=== PATIENT | female | born 2005 | race Caucasian/White ===

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

== ENCOUNTER 2023-11-10 19:28 | Emergency (ER) | payer SELFPAY ==
[2023-11-10 19:34] VITALS: BP 117/72; PULSE 107; RESP 16; TEMP 37.4; O2SAT 100
--- NOTE | 2023-11-10 19:49 | ED.LOWEXIN ---
HPI - Extremity Injury (Lower) General Chief Complaint: Extremity Injury, Lower Stated Complaint: Injured Right Knee Time Seen by Provider: 11/10/23 19:41 Source: patient, RN notes reviewed and old records reviewed Mode of arrival: ambulatory Limitations: no limitations History of Present Illness HPI Narrative: 18-year-old female to [facility] for complaint of right knee pain for 5 days. Patient endorses history of patellar dislocation to right knee approximately 1 year ago. Patient states she was treated by physical therapy at that time and had resolution of symptoms. Patient reports increased activity lately including walking, running, tennis. Patient denies known injury and believes that increase in recent activity caused the issue. patient denies numbness, tingling, weakness. Patient does endorse severe pain with flexion right knee. Patient in no acute distress in exam room. Related Data Home Medications Medication Instructions Recorded Confirmed No Home Medications 11/10/23 11/10/23 Allergies Allergy/AdvReac Type Severity Reaction Status Date / Time No Known Allergies Allergy Verified 11/10/23 19:49 Review of Systems Review of Systems: All systems reviewed & are unremarkable except as noted in HPI and below Constitutional: Constitutional: Reports no additional constitutional complaints Eyes: Eyes: Reports no additional eye complaints ENT: Reports system reviewed and no additional complaints, except as documented Cardiovascular: Cardiovascular: Reports no additional cardiovascular complaints, Denies chest pain and Denies dyspnea Respiratory: Respiratory: Reports no additional respiratory complaints, Denies cough and Denies dyspnea Musculoskeletal: Musculoskeletal: Reports as per HPI, Denies deformity, Reports arthralgias, Reports limited range of motion, Denies muscle weakness, Denies numbness and Denies tingling Neurologic: Reports system reviewed and no additional complaints, except as documented Psychiatric: Psychiatric: Reports no additional psychiatric complaints PMFSH Comments At the time of my signature, I reviewed and agree with the nursing past medical, surgical, social, and family history. There is no relevant family history pertinent to the patient complaint. Exam Const: General: cooperative, healthy appearing, no acute distress, alert, uncomfortable and well nourished Nutritional Appearance: well nourished Orientation/consciousness: patient oriented x3 Limitations: no limitations HENMT: Head: normal to inspection Ears: external ears normal Face/Nose/Sinus: Normal external nose present, Normal nares present, normal facial exam, No erythema and No edema Face and sinus: normal facial exam, no erythema and no edema Mouth: Yes Normal oral and palatal mucosa present Eyes: General: appearance normal, both eyes and all related structures Neck: Neck: normal visual inspection, full ROM and no meningeal signs Lymphatic: no lymphadenopathy noted and no lymphedema noted Chest: Chest palpation & inspection: normal inspection of the chest Resp: Effort & Inspection: normal respiratory effort and able to speak in complete sentences Auscultation: clear to auscultation bilaterally Cardio: Jugular venous distension: no JVD Rate: regular rate Rhythm: regular rhythm Back/Spine/Pelvis: Cervical Spine: cervical ROM normal Skin: General skin exam: normal color, no rashes or lesions noted and turgor normal Neuro: General: patient oriented x3, gait normal, moves all extremities and no meningeal signs Speech: normal speech Gait exam (Neuro): Normal gait present Extrem: General: normal to inspection, full ROM, capillary refill normal, no joint enlargement noted, no clubbing, cyanosis or edema, no pedal edema, no calf tenderness, no cyanosis, no edema, not dysmorphic and Limp noted Right lower extremity: knee Details: tenderness, knee ligament exam abnormal Details: pain with axial loading, Hazel
== END 2023-11-10 19:53 | disposition home or self-care (01) ==
PROVIDERS: Emergency Provider Nurse Practitioner Family
DX: S83.91XA Sprain of unspecified site of right knee, initial encounter (principal); X58.XXXA Exposure to other specified factors, initial encounter
CPT/HCPCS: 99212; G0463

== ENCOUNTER 2024-05-31 18:51 | Emergency (ER) | payer OTHER, MEDICAID, SELFPAY ==
--- NOTE | ~2024-05-31 | CT_ITS ---
EXAMINATION: CT abdomen pelvis w con DATE: 05/31/2024 21:46 INDICATION: LLQ abdominal pain TECHNIQUE: Computed tomography (CT) of the abdomen and pelvis was performed with 100 mL Omnipaque-350 intravenous contrast. Automated exposure control and iterative reconstruction technique were employe d. The dose-length product was 180.08 mGy-cm. COMPARISON: None. FINDINGS: Lower thorax: Unremarkable Liver: Normal. Biliary/Gallbladder: Gallbladder is normal. No bile duct dilation. Pancreas: No mass or duct dilation. Spleen: Normal. Adrenals:No mass. Kidneys: No suspicious mass, obstructing stone, or hydronephrosis. GI tract: Moderate distal esophageal and gastric wall edema. Prominent mildly thickened jejunal folds . No small or large bowel dilation. Normal appendix. Mesentery/Peritoneum: No ascites, mass, or free air. Retroperitoneum: No mass. Pelvis: Normal uterus and bilateral ovaries. IUD, in normal position. Prominent bilateral gonadal vei ns, right greater than left. Prominent pelvic veins. Soft Tissues: Soft tissues and body wall unremarkable. Bones: No acute osseous finding. Limbus vertebra at L4. Mild lumbar scoliosis. IMPRESSION: Moderate esophagitis/gastritis. Mildly thickened jejunal folds, may represent enteritis. Prominent bilateral gonadal veins and pelvic veins, as could be seen with pelvic congestion syndrome, in the appropriate clinical context. Reviewed, dictated and finalized at location K. R FINISHER IMPRESSION: Moderate esophagitis/gastritis. Mildly thickened jejunal folds, may represent enteritis. Prominent bilateral gonadal veins and pelvic veins, as could be seen with pelvi c congestion syndrome, in the appropriate clinical context.
[2024-05-31 18:52] VITALS: BP 132/72; PULSE 101; RESP 20; TEMP 36.4; O2SAT 100
[2024-05-31 19:25] LABS: BEDSIDEPREGUCG Negative (Negative)
--- NOTE | 2024-05-31 19:27 | PC.NURSE ---
While starting IV patient states she feels faint. Patient informed to lay on stretcher. Patients mother is at bedside. RN sent labs at this time.
[2024-05-31 19:32] LABS: Basophils Percent Auto 0.5 % (0.2-1.2); Eosinophils Absolute Auto 0.1 K/mm3 (0-0.3); Eosinophils Percent Auto 1.5 % (0-4.4); Hematocrit 40.9 % (37.0-47.0); Hemoglobin 13.9 g/dL (12.0-15.0); Immature Granulocyte Absolute 0.02 K/mm3 (0.00-0.031); Immature Granulocyte Percent A 0.2 % (0-0.5); Lymphocytes Absolute Auto 2.21 K/mm3 (0.9-3.2); Lymphocytes Percent Auto 26.1 % (18.3-44.2); Mean Corpuscular Volume 91.1 fl (80-100); Mean Platelet Volume 8.5 fl (7.4-10.4); Monocytes Absolute Auto 0.6 K/mm3 (0.1-0.6); Monocytes Percent Auto 6.8 % (2.6-8.5); Neutrophils Absolute Auto 5.5 K/mm3 (1.3-6.7); Neutrophils Percent Auto 64.9 % (45.5-73.1); Platelet Count Result 244 k/mm3 (150-375); Red Blood Count 4.49 M/mm3 (4.2-5.4); Red Cell Distribution Width 11.7 % (11.5-14.5); White Blood Count 8.5 K/mm3 (4.5-10.0)
[2024-05-31 19:49] LABS: Alanine Aminotransferase 12 U/L (6-35); Albumin Level 4.8 g/dL (3.5-5.1); Alkaline Phosphatase 53 U/L (38-126); Anion Gap 6 mmol/L (4-12); Aspartate Amino Transferase 21 U/L (14-36); Bilirubin,Total 0.8 mg/dL (0.2-1.3); Blood Urea Nitrogen 17 mg/dL (7-17); Calcium 9.4 mg/dL (8.4-10.2); Carbon Dioxide 27 mmol/L (22-30); Chloride 106 mmol/L (98-107); Estimated CRCL calculation 99 ml/min; Estimated Glomerular Filt Rate > 60; Glucose 107 mg/dL (65-110); Lipase 65 U/L (23-300); Potassium 3.7 mmol/L (3.4-5.0); Sodium 139 mmol/L (137-145)
[2024-05-31 19:57] LABS: Add Urine Microscopic? YES; Appearance Urine Clear (Clear); Bacteria Urine None Seen /hpf; Bilirubin Urine Negative (Negative); Blood Urine 2+ (Negative); Color Urine Yellow (Yellow); Glucose Urine UA Negative (Negative); Ketones Urine Negative (Negative); Leukocyte Esterase Ur 1+ LEU/UL (Negative); Mucus Urine Present /lpf; Need Manual Microscopic Reviewed; Nitrate Urine Negative (Negative); Non Pathogenic Casts 0-2; Protein Urine Negative (Negative); Specific Grav Ur 1.023 (1.001-1.035); Squamous Epithelial Cell Urine Occasional /hpf (Few); WBC Urine 0-5 /hpf (0-3); pH Urine 6.5 (5.0-9.0)
[2024-05-31 20:51] LABS: Beta HCG Quantitative < 2.39 mIU/ML
[2024-05-31] MEDS: SODIUM CHLORIDE 0.9% IV 1,000 ML 999 ML IV CONT (21:34)
[2024-05-31] MEDS: KETOROLAC 15 MG/ML VIAL (*BKC) IV PUSH (21:34)
[2024-05-31] MEDS: MORPHINE SULFATE (*CRX) 4 MG/ML INJ IV PUSH (21:35)
[2024-05-31] MEDS: ONDANSETRON INJ 4 MG/2 ML VIAL IV PUSH (21:35)
--- NOTE | 2024-05-31 21:39 | PC.NURSE ---
patient to radiology at this time.
--- NOTE | 2024-05-31 21:49 | ED_ITS ---
HPI - Abdominal Pain General Chief Complaint: Abdominal Pain Stated Complaint: abd pain, + test Time Seen by Provider: 05/31/24 19:13 History of Present Illness HPI narrative: Patient is a 18-year-old female who presents to the ER with complaints left lower quadrant abdominal pain. She reports she took a test at home that was positive, but has taken multiple tests since and all of them have been negative. Patient reports she had an IUD placed approximately 1 year ago. She endorses nausea and back pain. Patient describes the pain as squeezing. She also endorses vaginal spotting of dark blood. Patient denies any history of ovarian cyst. She reports the pain started off higher up in her abdomen but has now settled in her left lower quadrant. She denies any recent fevers, burning with urination, or vomiting. Related Data Allergies Allergy/AdvReac Type Severity Reaction Status Date / Time No Known Allergies Allergy Verified 11/10/23 19:49 Review of Systems 2 Review of Systems: All systems reviewed & are unremarkable except as noted in HPI and below Exam 2 Narrative: GENERAL: Well appearing, well-nourished, non-toxic, in no acute distress. HEAD: Normocephalic, atraumatic. NECK: Supple. No adenopathy, no masses. RESPIRATORY: Airway patent, respirations nonlabored. Clear to auscultation bilaterally, no rales, rhonchi, wheezing. CARDIOVASCULAR: Regular rate and rhythm without murmurs, rubs, or gallops. Peripheral pulses 2+ and equal bilaterally. ABDOMINAL: Soft, tender with palpation in LLQ, nondistended, no hepatosplenomegaly. Normoactive BS. MUSCULOSKELETAL: Moves all extremities. Strength/ROM intact without gross deformities. SKIN: Warm, dry, normal color. No rashes. NEURO: A&O X3. Speech clear. Cranial nerves II-XII grossly intact. Steady gait. No ataxic movements. PSYCHIATRIC: Appropriate mood and affect. Normal interaction. Course Vital Signs Vital signs: Vital Signs Temperature 36.4 C L 05/31/24 18:52 Pulse Rate 101 H 05/31/24 18:52 Respiratory Rate 20 05/31/24 18:52 Blood Pressure 132/72 05/31/24 18:52 Pulse Oximetry 100 05/31/24 18:52 Oxygen Delivery Room Air 12/15/24 18:52 Temperature 36.4 C L 05/31/24 18:52 Pulse Rate 101 H 05/31/24 18:52 Respiratory Rate 20 05/31/24 18:52 Blood Pressure 132/72 05/31/24 18:52 Pulse Oximetry 100 05/31/24 18:52 Oxygen Delivery Room Air 05/31/24 18:52 MDM - Abdominal Pain MDM Narrative Medical decision making narrative: Patient is a 18-year-old female who presents to the ER with complaints left lower quadrant abdominal pain. She reports she took a test at home that was positive, but has taken multiple tests since and all of them have been negative. Patient reports she had an IUD placed approximately 1 year ago. She endorses nausea and back pain. Patient describes the pain as squeezing. She also endorses vaginal spotting of dark blood. Patient denies any history of ovarian cyst. She reports the pain started off higher up in her abdomen but has now settled in her left lower quadrant. She denies any recent fevers, burning with urination, or vomiting. Labs Ordered: CBC, CMP, urinalysis, beta HCG, lipase Imaging Ordered: Abdomen/Pelvis CT scan Results: Pt's abdominal CT scan indicates Moderate esophagitis/gastritis. Mildly thickened jejunal folds, may represent enteritis. Prominent bilateral gonadal veins and pelvic veins, as could be seen with pelvic congestion syndrome, in the appropriate clinical context. Diagnosis: Urinary tract infection, viral gastroenteritis, pelvic congestion syndrome Patient Education/Shared MDM: Initially patient was not wanting to a CT scan done because she reports she has a high deductible. It was explained to patient and her mother that it would be difficult to diagnose the cause of her abdominal pain thought that imaging. Patient verbalized agreement with plan and CT scan was performed. Results shared patient. She reports her pain has improved after medication administration. Patient will be given an oral antibiotic to treat her UTI, Zofran for nausea, Bentyl for abdominal pain. She was advised to drink a lot of water and follow up with her primary care provider as soon as possible. Patient and her mother verbalized understanding and are in agreement with plan. Differential Diagnosis Differential diagnosis: Likely abdominal pain, acute appendicitis, calculus of kidney, constipation, endometriosis, gastroenteritis and other (UTI) Lab Data Attestation: I reviewed the patient's lab results. 05/31/24 19:24 05/31/24 19:24 Labs: Lab Results 05/31/24 05/31/24 Range/Units 19:23 19:24 WBC 8.5 (4.5-10.0) K/mm3 RBC 4.49 (4.2-5.4) M/mm3 Hgb 13.9 (12.0-15.0) g/dL Hct 40.9 (37.0-47.0) % MCV 91.1 (80-100) fl MCH 31.0 (26-34) pg MCHC 34.0 (32-36) g/dl RDW 11.7 (11.5-14.5) % Plt Count 244 (150-375) k/mm3 MPV 8.5 (7.4-10.4) fl Immature Gran % (Auto) 0.2 (0-0.5) % Neut % (Auto) 64.9 (45.5-73.1) % Lymph % (Auto) 26.1 (18.3-44.2) % [place] % (Auto) 6.8 (2.6-8.5) % Eos % (Auto) 1.5 (0-4.4) % Baso % (Auto) 0.5 (0.2-1.2) % Lymph # (Auto) 2.21 (0.9-3.2) K/mm3 [place] # (Auto) 0.6 (0.1-0.6) K/mm3 Eos # (Auto) 0.1 (0-0.3) K/mm3 Baso # (Auto) 0.0 (0.0-0.1) K/mm3 Abs Immat Gran (auto) 0.02 (0.00-0.031) K/mm3 Absolute Neuts (auto) 5.5 (1.3-6.7) K/mm3 Absolute Nucleated RBC 0.000 (0.0-0.012) K/mm3 Nucleated RBC % 0.0 (0.0-0.2) % Sodium 139 (137-145) mmol/L Potassium 3.7 (3.4-5.0) mmol/L Chloride 106 (98-107) mmol/L Carbon Dioxide 27 (22-30) mmol/L Anion Gap 6 (4-12) mmol/L BUN 17 (7-17) mg/dL Creatinine 0.60 L (0.7-1.0) mg/dL Estim Creat Clear Calc 99 ml/min Estimated GFR > 60 (59 - ) Glucose 107 (65-110) mg/dL Calcium 9.4 (8.4-10.2) mg/dL Total Bilirubin 0.8 (0.2-1.3) mg/dL AST 21 (14-36) U/L ALT 12 (6-35) U/L Alkaline Phosphatase 53 (38-126) U/L Total Protein 8.0 (6.3-8.2) g/dL Albumin 4.8 (3.5-5.1) g/dL Lipase 65 (23-300) U/L Beta HCG, Quant < 2.39 mIU/ML Urine Color Yellow (Yellow) Urine Appearance Clear (Clear) Urine pH 6.5 (5.0-9.0) Ur Specific [place] 1.023 (1.001-1.035) Urine Protein Negative (Negative) mg/dL Urine Glucose (UA) Negative (Negative) mg/dL Urine Ketones Negative (Negative) mg/dL Ur Blood (Man) 2+ H (Negative) Urine Nitrate Negative (Negative) Urine Bilirubin Negative (Negative) Urine Urobilinogen 1.0 (<2.0) mg/dL Add Ur Microanalysis Reviewed Leukocyte Esterase Rfl 1+ H (Negative) TOYIN/UL Urine RBC 3-5 H (0-2) /hpf Urine WBC 0-5 (0-3) /hpf Ur Squamous Epith Cells Occasional (Few) /hpf Urine Bacteria None seen /hpf Urine Casts 0-2 Urine Mucus Present /lpf POC Urine HCG, Qual Negative (Negative) Imaging Data Attestation: I personally reviewed and interpreted this imaging study as follows: Radiologist's impression: ITS Impressions Abdomen/Pelvis CT 05/31/24 21:49 IMPRESSION: Moderate esophagitis/gastritis. Mildly thickened jejunal folds, may represent enteritis. Prominent bilateral gonadal veins and pelvic veins, as could be seen with pelvic congestion syndrome, in the appropriate clinical context. Discharge Plan Discharge Clinical Impression: Urinary tract infection, Gastroenteritis and colitis, viral, Pelvic congestion syndrome Patient Disposition: Home, Self-Care Condition: Stable Instructions: Antibiotic Form, Gastroenteritis (ED), Pelvic Pain in Women (ED), Abdominal Pain (ED) Patient Language: Malay Prescriptions: New ondansetron 4 mg tablet,disintegrating 4 mg PO Q8H Qty: 10 0RF nitrofurantoin monohyd/m-cryst [Macrobid] 100 mg capsule 100 mg PO Q12H 5 Days Qty: 10 0RF Rx Instructions: must administer with a meal/food dicyclomine 10 mg capsule 10 mg PO QID Qty: 14 0RF phenazopyridine [Pyridium] 100 mg tablet 100 mg PO TID PRN (Reason: pain) Qty: 6 0RF Follow-up/Referrals: Mars,JAZ Walls [Primary Care Provider] - Time of Disposition: 00:22
--- NOTE | 2024-05-31 22:46 | PC.NURSE ---
patient given 1 cup of water for PO challenge.
--- NOTE | 2024-05-31 23:11 | PC.NURSE ---
patient tolerated water well.
[2024-06-01] MEDS: NITROFURANTOIN MONOHYD MACROCR 100 MG CAP PO (00:36)
--- OUTSIDE RECORDS SUMMARY | 2024-06-05 20:55 | XMS_ITS | Encounter Summary ---
Author Organization [facility] Address [address] [place] [address]. [place] [address] Care Team Providers Care Automatic Hemmer Name Role Phone Nan Crews Primary Care Provider [phone] Encounter Details Date Type Department Care Team (Latest Contact Info) Description 03/03/2024 Travel Social History Tobacco Use Types Packs/Day Years Used Date Smoking Tobacco: Every Day Smokeless Tobacco: Never Comments:Provider to extension course counselor /vaps only Alcohol Use Standard Drinks/Week Comments Yes 0 (1 standard drink = 0.6 oz pur e alcohol) social AUDIT-C Answer Date Recorded Q1: How often do you have a drink containing alc ohol? Monthly or less 10/03/2023 Q2: How many drinks containi ng alcohol do you have on a typical day when you are drinking? 1 or 2 10/03/2023 Q3: How often do you have si x or more drinks on one occasion? Never 10/03/2023 PHQ-2 Answer Date Recorded Patient Health Questionnaire-2 Score 0 03/03/2024 Comments No Sex and Gender Information Value Date Recorded Sex Assigned at Not on file Legal Sex Female 8:07 AM CDT Gender Identity Not on file Sexual Orientation Not on file documented as of this encounter Plan of Treatment Not on file documented as of this encounter Visit Diagnoses Not on filedocumented in this encounter Additional Health Concerns Assessment Noted Time PHQ-9 Depression Total Score: 8 10/03/19 24 9:04 AM CDT documented as of this encounter Care Teams Automatic Hemmer Relationship Specialty Start Date End Date Nan Crews FNP PCP - General NURSE PRACTITIONER 04/24/18 documented as of this encounter
--- OUTSIDE RECORDS SUMMARY | 2024-06-05 20:55 | XMS_ITS | Encounter Summary ---
Author Organization [facility] Address [address] [place] [address]. [place], [place] [id number] [place] [id number] Care Team Providers Care Senior Reservations Agent Name Role Phone MarsJessyNandaisy HARLEYP Primary Care Provider [phone] Reason for Referral * Imaging (Routine) - New Request Specialty Diagnoses / Procedures Referred By Chad lynn Referred To Contact RADIOLOGY Diagnoses Mass of upper outer quadrant of left breast Breast pain, left Procedures US BREAST LT BIRAD LTD Anitha Mendoza FNP-BC [address] [place] [address] [place] [address] Phone: tel: fax: Referral ID Status Reason Start Date Expiration Date V isits Requested Visits Authorized [id number] New Request 03/10/2024 03/10/2025 1 1 Encounter Details Date Type Department Care Team (Late st Contact Info) Description 03/10/2024 Orders Only [facility] [address] [place] [address] Anitha Mendoza FNP-BC [address] [place] [address] [place] [address] Social History Tobacco Use Types Packs/Day Years Used Date Smoking Tobacco: Every Day Smokeless Tobacco: Never Comments:Provider to scholarship counselor /vaps only Alcohol Use Standard Drinks/Week [...] on file documented as of this encounter Progress Notes * Vikki Osullivan LPN - 03/10/2024 9:08 AM CDT Please advise ad to where patient is supposed to be scheduled for Mammogram & US. We attempted to contact patient but was not able to reach her [facility] Please cancel the External order and place new Internal orders to [facility] so patient can be scheduled accordingly. Thank You, Lady New orders added for HFG. documented in this encounter Plan of Treatment Scheduled Orders Name Type Priority Associated Diagnoses Orde r Schedule MG DIAGNOSTIC LT DIGI MAMMO Routine Mass of upper outer quadrant of left breast Breast pain, left Expected: 03/10/2024, Expires: 05/10/2025 US BREAST LT BIRAD LTD Ultrasound Routine Mass of upper outer quadrant of left breast Breast pain, left Expected: 03/10/2024, Expires: 03/10/2025 documented as of this encounter Visit Diagnoses Diagnosis Mass of upper outer quadrant of left breast- Primary Breast pain, left Mastodynia documented in this encounter Additional Health Concerns Assessment Noted Time PHQ-9 Depression Total Score: 8 10/03/19 9:04 AM CDT documented as of this encounter Care Teams Senior Reservations Agent Relationship Specialty Start Date End Date Nan Crews FNP PCP - General NURSE PRACTITIONER 04/24/18 documented as of this encounter
--- OUTSIDE RECORDS SUMMARY | 2024-06-05 20:55 | XMS_ITS | Encounter Summary ---
Author Organization [facility] Address [address] [place] [address]. [place] [address] Care Team Providers Care Machine Tool Builder Name Role Phone Nan Crews Primary Care Provider [phone] Encounter Details Date Type Department Care Team (Latest Contact Info) Description 10/03/2023 Travel Social History Tobacco Use Types Packs/Day Years Used Date Smoking Tobacco: Every Day Smokeless Tobacco: Never Comments:Provider to group therapy counselor /vaps only Alcohol Use Standard Drinks/Week [...] Date Recorded Patient Health Questionnaire-2 Score 0 10/03/2023 Comments No Sex and Gender Information Value [...] documented as of this encounter Care Teams Machine Tool Builder Relationship Specialty Start Date End Date Nan Crews FNP PCP - General NURSE PRACTITIONER 04/24/18 documented as of this encounter
--- OUTSIDE RECORDS SUMMARY | 2024-06-05 20:55 | XMS_ITS | Encounter Summary ---
Author Organization [facility] Address [address] [place] [address]. [place], [place] [address] [place] [address] Care Team Providers Care Cell Reliner Name Role Phone Nan Crews HARDWARE SALES ASSISTANT Primary Care Provider [phone] Reason for Visit * Reason Comments Mammogram (SCAN) Encounter Details Date Type Department Care Team ([facility] Contact Info) Description 03/17/2024 Scan MG HEALTH INFO [facility] Scanned, Doc Med Group Mammogram (SCAN) Social History Tobacco Use Types Packs/Day Years Used Date Smoking Tobacco: Every Day Smokeless Tobacco: Never Comments:Provider to milieu counselor /vaps only Alcohol Use Standard Drinks/Week [...] on file documented as of this encounter Procedures Procedure Name Priority Date/Time Associated Diagnosis Comments MAMMOGRAM GENERIC (SCAN ORDER) 03/17/2024 documented in this encounter Results * MAMMOGRAM GENERIC (SCAN ORDER) (03/17/2024) Anatomical Region Laterality Modality Other 03/17/2024 us Doc Med Group Scanned SCANNING Final Resu lt documented in this encounter Visit Diagnoses Not on filedocumented in this encounter Additional Health Concerns Assessment Noted Time PHQ-9 Depression Total Score: 8 10/03/19 24 9:04 AM CDT documented as of this encounter Care Teams Cell Reliner Relationship Specialty Start Date End Date Nan Crews FNP PCP - General NURSE PRACTITIONER 04/24/18 documented as of this encounter
--- OUTSIDE RECORDS SUMMARY | 2024-06-05 20:55 | XMS_ITS | Encounter Summary ---
Author Organization [facility] Address [address] [place] [address]. [place], [place] [id number] [place] [address] Care Team Providers Care Tracing Lathe Set Up Operator Name Role Phone Nan Crews SNUFF CONTAINER INSPECTOR Primary Care Provider [phone] Reason for Visit * Reason Onset Date Comments Lab Results 09/10/2023 Encounter Details Date Type Department Care Team (Late st Contact Info) Description 09/10/2023 Telephone [facility] Family and Internal Medicine - [place] [address] [place], [place] [address] Ethel Haddad, EDUCATION COORDINATOR [address] [place], [place] [id number] Lab Results Social History Tobacco Use Types Packs/Day Years Used Date Smoking Tobacco: Every Day Smokeless Tobacco: Never Comments:Provider to debt management counselor /vaps only Alcohol Use Standard Drinks/Week Comments Yes 0 (1 standard drink = 0.6 oz pur e alcohol) social AUDIT-C Answer Date Recorded Q1: How often do you have a drink containing alc ohol? Monthly or less 09/05/2023 Q2: How many drinks containi ng alcohol do you have on a typical day when you are drinking? 1 or 2 09/05/2023 Q3: How often do you have si x or more drinks on one occasion? Never 09/05/2023 PHQ-2 Answer Date Recorded Patient Health Questionnaire-2 Score 6 09/05/2023 Comments No Sex and Gender Information Value Date Recorded Sex Assigned at Not on file Legal Sex Female 8:07 AM CDT Gender Identity Not on file Sexual Orientation Not on file documented as of this encounter Progress Notes * Natalya Peter LPN - 09/10/2023 1:16 PM CDTSummary: lab results Called and gave patient her lab results. They were all normal and she did not have questions about them. Natalya Peter LPN documented in this encounter Plan of Treatment Not on file documented as of this encounter Visit Diagnoses Not on filedocumented in this encounter Additional Health Concerns Assessment Noted Time PHQ-9 Depression Total Score: 25 024 8:35 AM CDT documented as of this encounter Care Teams Tracing Lathe Set Up Operator Relationship Specialty Start Date End Date Nan Crews FNP PCP - General NURSE PRACTITIONER 04/24/18 documented as of this encounter
--- OUTSIDE RECORDS SUMMARY | 2024-06-05 20:55 | XMS_ITS | Encounter Summary ---
Author Organization [facility] Address [address] [place] [address]. [place], [place] [id number] [place] [address] Care Team Providers Care Assistant Professor Name Role Phone Mars Nan Neely [facility] Primary Care Provider [phone] Reason for Visit * Reason Onset Date Comments Mammography Order 03/09/2024 Encounter Details Date Type Department Care Team (Late st Contact Info) Description 03/09/2024 Telephone [facility] [address] [place], [place] [id number] Anitha Mendoza V, [place] [address] [place], [place] [id number] Mammography Order Social History Tobacco Use Types Packs/Day Years Used Date Smoking Tobacco: Every Day Smokeless Tobacco: Never Comments:Provider to behavioral school counselors /vaps only Alcohol Use Standard Drinks/Week Comments [...] as of this encounter Progress Notes * Kiersten Hernandez - 03/09/2024 2:53 PM CDT Sent orders for MG diagnostinc mammogram and US Breast to [facility] fax [phone]. Per patient, orders faxed. documented in this encounter Plan of Treatment Not on file documented as of this encounter Visit Diagnoses Not on filedocumented in this encounter Additional Health Concerns Assessment Noted Time PHQ-9 Depression Total Score: 8 10/03/19 24 9:04 AM CDT documented as of this encounter Care Teams Assistant Professor Relationship Specialty Start Date End Date Nan Crews FNP PCP - General NURSE PRACTITIONER 04/24/18 documented as of this encounter
--- OUTSIDE RECORDS SUMMARY | 2024-06-05 20:55 | XMS_ITS | Encounter Summary ---
Author Organization [facility] Address [address] [place] [address]. [place], [place] [id number] [place] [address] Care Team Providers Care Core Maker Helper Name Role Phone Nan Crews HECTOR Primary Care Provider [phone] Reason for Visit * Reason Onset Date Comments Medication Problem 09/30/2023 Encounter Details Date Type Department Care Team (Late st Contact Info) Description 09/30/2023 Telephone [facility] - [place] [address] [place], [place] [id number] Ethel Haddad, PRODUCT DEVELOPMENT DIRECTOR [address] [place], [place] [address] Medication Problem Social History Tobacco Use Types Packs/Day Years Used Date Smoking Tobacco: Every Day Smokeless Tobacco: Never Comments:Provider to credit support counselor /vaps only Alcohol Use Standard Drinks/Week [...] Progress Notes * Natalya Peter LPN - 09/30/2023 10:45 AM CDTSummary: Medication problem Patient stated she has been having some side effects from the cariprazine and stopped the medication on 09/21. She stated she was nauseated, feeling like she was light headed and going to pass out,trouble swallowing, and a metallic taste in her mouth. Since stopping the medication everything except trouble swallowing and bad taste has gone away. She has an appt on 10/02 but just wanted you to be aware. Natalya Peter LPN documented in this encounter Plan of Treatment Not on file documented as of this encounter Visit Diagnoses Not on filedocumented in this encounter Additional Health Concerns Assessment Noted Time PHQ-9 Depression Total Score: 25 09/04/ 024 8:35 AM CDT documented as of this encounter Care Teams Core Maker Helper Relationship Specialty Start Date End Date Nan Crews FNP PCP - General NURSE PRACTITIONER 04/24/18 documented as of this encounter
--- OUTSIDE RECORDS SUMMARY | 2024-06-05 20:55 | XMS_ITS | Encounter Summary ---
Author Organization [facility] Address [address] [place] [address]. [place], [place] [address] [place] [address] Care Team Providers Care Thread Trimmer Name Role Phone Mars Nan Neely [facility] Primary Care Provider [phone] Reason for Visit * Reason Onset Date Comments Results 03/18/2024 Mammo breast US left LTD Encounter Details Date Type Department Care Team (Late st Contact Info) Description 03/18/2024 Telephone [place] [address] [address] Anitha Mendoza V, [place] [address] [place], [place] [phone] Results (Mammo breast US left LTD) Social History Tobacco Use Types Packs/Day Years Used Date Smoking Tobacco: Every Day Smokeless Tobacco: Never Comments:Provider to genetic counselor /vaps only Alcohol Use Standard Drinks/Week [...] Progress Notes * Vikki Osullivan LPN - 03/18/2024 1:33 PM CDT [facility] faxed over pt's Mammo breast US left ltd for Jo to review. Per Jo please let pt know normal mammo and US of left breast. Pt notified of results. Pt said she only did the US. documented in this encounter Plan of Treatment Not on file documented as of this encounter Visit Diagnoses Not on filedocumented in this encounter Additional Health Concerns Assessment Noted Time PHQ-9 Depression Total Score: 8 10/03/19 24 9:04 AM CDT documented as of this encounter Care Teams Thread Trimmer Relationship Specialty Start Date End Date Nan Crews FNP PCP - General NURSE PRACTITIONER 04/24/18 documented as of this encounter
--- OUTSIDE RECORDS SUMMARY | 2024-06-05 20:55 | XMS_ITS | Clinical Summary ---
Author Organization [facility] Address [address] [place] [address]. [place], [place] [address] [place] [address] Care Team Providers Care Field Reviewer Name Role Phone Nan Crwes HECTOR Primary Care Provider [phone] Allergies No known active allergies Medications * This document contains information received from the source organization and may not represent a complete record from that organization. Cholecalciferol (VITAMIN D-3) 25 MCG (1000 UT) CapIndications: Vitamin D deficiency Take 1 capsule by mouth daily. 90 capsule 1 3 Active Additional Information Patient not taking.Reported on 03/03/2024 brexpiprazole (REXULTI) 0.5 MG tabletIndicatio ns:Bipolar 2 disorder ([facility]) Take 1 tablet (0.5 mg total) by mouth daily. 30 tablet 2 4 Active Additional Information Patient not taking.Reported on 03/03/2024 Active Problems Problem Noted Date Diagnosed Date MDD (major depressive disord er), recurrent episode, moderate ([facility]) 09/05/2023 NICOLETTE (generalized anxiety disorder) 09/05/2023 PTSD (post-traumatic stress disorder) 03/21/2023 Borderline personality disorder ([facility] ) 07/13/2022 Dysmenorrhea in adolescent 12/09/2018 Increased frequency of urination 07/20/2010 Intermittent daytime urinary incontinence 2010 Resolved Problems Problem Noted Date Diagnosed Date Resolved Date Bipolar disorder ([facility]) 07/13/2022 09/05/2023 Abnormal urinalysis 07/07/2020 07/12/19 23 Bipolar affective disorder, currently depressed, mild ([facility]) 07/30/20182022 Anxiety 07/30/2018 07/13/2022 Encounters Date Type Department Care Team Description 06/04/[address] [place] [address] Nan Crews, HECTOR Abdominal Pain 03/18/[address] [place] [address] Anitha Mendoza V, OFFICE LEAD-BC Results (Mammo breast US left LTD) 03/17/2024 Scan [facility] Scanned, [facility] Mammogram (SCAN) 03/10/2024 Orders Only [address] [place] [address] Anitha Mendoza V, OFFICE LEAD-BC 03/09/[address] [place] [address] Anitha Mendoza V, OFFICE LEAD-BC Mammography Order from Last 3 Months Immunizations Name Administration Dates Next Due Dtap 12/26/2007,01/19/2005 Hib 03/03/2004,2003,2003 Hib (Generic) 03/03/2004,2003,2003 Influenza (Generic) 05/04/2010,03/30/2010 MENINGOCOCCAL A C Y&W-135 ol igosaccharide (MENVEO) 11/22/2020 MMR 08/29/2004 Menactra 12/28/2014 Pediarix 03/03/2004,2003,2003 Pneumococcal (Prevnar 7) 03/03/2004,2003,0 2003 Polio IPV (Ipol) 12/26/2007 Tdap (Generic) 12/28/2014 Varicella Vaccine 01/19/2005 Varicella/MMR (Proquad) 12/26/2007 Family History Medical History Relation Comments Anxiety Father Depression Maternal Grandmother Mental Health Mother Hx of post-partu m depression Anxiety Paternal Grandfather Relation Status Comments Father Alive Maternal Grandmother Mother Alive Paternal Grandfather Social History Tobacco Use Types Packs/Day Years Used Date Smoking Tobacco: Every Day Smokeless Tobacco: Never Tobacco Cessation:Ready to Q uit: No; Counseling Given: Yes Comments:Provider to career technical counselor /vaps only Alcohol Use Standard Drinks/Week [...] on file Sexual Orientation Not on file Last Filed Vital Signs Vital Sign Reading Time Taken Comments Blood Pressure 128/72 03/03/2024 2:53 PM CDT Pulse 82 03/03/2024 2:53 PM CDT Temperature 36.7 ??C (98 ??F) 03/03/2024 2:53 PM CDT Respiratory Rate 16 03/03/2024 2:53 PM CDT Oxygen Saturation 100% 10/03/2023 9:05 AM CDT Inhaled Oxygen Concentration - - Weight 47.2 kg (104 lb) 03/03/2024 2:53 PM CDT Height 165.1 cm (5' 5 ) 03/03/2024 2:53 PM CDT Body Mass Index 17.31 03/03/2024 2:53 PM CDT Plan of Treatment Health Maintenance Due Date Last Done Comments Annual Physical 2006 Pneumococcal Vaccine: Pediatrics (0 to 5 Years) and At-Risk Patients (6 to 64 Years) (1 of 2 - PCV) 2009 03/03/2004, 2003, 2003 HPV Vaccines (1 - 3-dose series) 2018 Chlamydia Screening Females ages 16-24 2019 Hepatitis C 2021 COVID-19 Vaccine ( - season) 2024 Influenza Adult (#1) 2024 05/04/2010, 03/30/20 10 DTaP, Tdap and Td Vaccines (7 - Td or Tdap) 12/28/2024 12/28/2014, 12/26/2007, 01/19/2005, Additional history exists Hepatitis B Vaccines Completed 03/03/2004, 2003, 2003 Meningococcal Vaccine Completed 11/22/2020, 015 RSV Immunizations Under 20 Months Aged Out No longer eligible based on patient's age to complete this topic Procedures Procedure Name Priority Date/Time Associated Diagnosis Comments MAMMOGRAM GENERIC (SCAN ORDER) 03/17/2024 from Last 3 Months Results * MAMMOGRAM GENERIC (SCAN ORDER) (03/17/2024) Anatomical Region Laterality Modality Other 03/17/2024 us Doc [facility] Scanned SCANNING Final Resu lt from Last 3 Months Insurance Care Teams Field Reviewer Relationship Specialty Start Date End Date Nan Crews FNP PCP - General NURSE PRACTITIONER 04/24/18
--- OUTSIDE RECORDS SUMMARY | 2024-06-05 20:55 | XMS_ITS | Encounter Summary ---
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 personally spent a total of 33 minutes on the day of the encounter. This includes asho-yd-ddju and gof-titd-lc-face time I provided on the day of the encounter & excludes time spent performing separately reportable services. Disclaimer: Some dictation of this note was transcribed using voice-recognition software.This may cause typographical errors occasionally. Although all effort is made to fix these errors, please do not hesitate to contact our office if there is any concern with the understanding of this note. ETHEL HADDAD APRN 10/03/2023 9:44 AM CC: HECTOR MONIQUE documented in this encounter Plan of Treatment Not on file documented as of this encounter Visit Diagnoses Diagnosis NICOLETTE (generalized anxiety disorder) Generalized anxiety disorder Bipolar 2 disorder ([facility]) Other bipolar disorders Borderline personality disorder ([facility]) Borderline personality disorder PTSD (post-traumatic stress disorder) Posttraumatic stress disorder documented in this encounter Additional Health Concerns Assessment Noted Time PHQ-9 Depression Total Score: 8 10/03/19 24 9:04 AM CDT documented as of this encounter Care Teams Supervisor Stone Relationship Specialty Start Date End Date Nan Crews FNP PCP - General NURSE PRACTITIONER 04/24/18 documented as of this encounter
--- OUTSIDE RECORDS SUMMARY | 2024-06-05 20:55 | XMS_ITS | Encounter Summary ---
Author Organization [facility] Address [address] [place] [address]. [place], [place] [id number] [place] [address] Care Team Providers Care Box Sorter Name Role Phone Nan Crews Chin [facility] Primary Care Provider [phone] Reason for Visit * Reason Comments Breathing Problem Something feels june rd and hurts in left breastFirst noticed about a week ago Encounter Details Date Type Department Care Team (Late st Contact Info) Description 03/03/2024 2:40 PM CDT Office Visit [address] [place] [address] Anitha Mendoza V, [place] [address] [place] [address] Breathing Problem (Something feels weird and hurts in left breast/First noticed about a week ago) Social History Tobacco Use Types Packs/Day Years Used Date Smoking Tobacco: Every Day Smokeless Tobacco: Never Tobacco Cessation:Ready to Q uit: No; Counseling Given: Yes Comments:Provider to weight loss counselor /vaps only Alcohol Use Standard Drinks/Week [...] 16 03/03/2024 2:53 PM CDT Oxygen Saturation - - Inhaled Oxygen Concentration - - Weight 47.2 kg (104 lb) 03/03/2024 2:53 PM CDT Height 165.1 cm (5' 5 ) 03/03/2024 2:53 PM CDT Body Mass Index 17.31 03/03/2024 2:53 PM CDT documented in this encounter Patient Instructions * Patient Instructions* SANDIE Walters - 03/03/2024 2:40 PM CDT Order for diagnostic mammogram and ultrasound of left breast. We will notify you once we get your test results. You should perform monthly self breast exams documented in this encounter Progress Notes * SANDIE Walters - 03/03/2024 2:40 PM CDT Reason for Visit: Breathing Problem (Something feels weird and hurts in left breast/First noticed about a week ago) History of Present Illness: HPI 18-year-old female, patient of Amina Crews, presents for a lump in her left breast that she first noticed about 1 week ago. States that the lump feels weird and hurts . She does not do routine breast exams. She denies any swelling or nipple discharge. She denies any family history of breast cancer or cervical cancers. Reports her sister has fibrous breast tissue as well as her grandmother. Patient reports she has an IUD and does not have periods ROS: ROS Except as noted in HPI, 10 point review of systems was completed and otherwise unremarkable or noncontributory to chief complaint. Medications: Current Outpatient Medications Medication Sig Dispense Refill brexpiprazole (REXULTI) 0.5 MG tablet Take 1 tablet (0.5 mg total) by mouth daily. (Patient not taking: Reported on 03/03/2024) 30 tablet 2 Cholecalciferol (VITAMIN D-3) 25 MCG (1000 UT) Cap Take 1 capsule by mouth daily. (Patient not taking: Reported on 03/03/2024) 90 capsule 1 No current facility-administered medications for this visit. Review of patient's allergies indicates: No Known Allergies Past Medical History: Diagnosis Date Abnormal urinalysis 07/07/2020 Anxiety Depression Past Surgical History: Procedure Laterality Date BLADDER SURGERY Social History Tobacco Use Smoking status: Every Day Smokeless tobacco: Never Tobacco comments: Provider to weight loss counselor /vaps only Vaping Use Vaping status: Every Day Substances: Nicotine Devices: Refillable tank Substance Use Topics Alcohol use: Yes Comment: social Drug use: No Comment: no Family History Problem Relation Name Age of Onset Mental Health Mother Hx of post- depression Anxiety Father Depression Maternal Grandmother Anxiety Paternal Grandfather Family Status Relation Name Status Mother Alive Father Alive MGM (Not Specified) PGF (Not Specified) No partnership data on file Physical Exam: Physical Exam Vitals and nursing note reviewed. Constitutional: General: She is not in acute distress. Appearance: Normal appearance. She is well-developed and normal weight. She is not ill-appearing, toxic-appearing or diaphoretic. HENT: Head: Normocephalic and atraumatic. Mouth/Throat: Oropharynx is clear and moist. Eyes: General: Right eye: No discharge. Left eye: No discharge. Extraocular Movements: Extraocular movements intact. Conjunctiva/sclera: Conjunctivae normal. Pupils: Pupils are equal, round, and reactive to light. Neck: Thyroid: No thyromegaly. Vascular: No JVD. Trachea: No tracheal deviation. Cardiovascular: Rate and Rhythm: Normal rate and regular rhythm. Pulses: Normal pulses. Heart sounds: Normal heart sounds. No murmur heard. No friction rub. No gallop. Pulmonary: Effort: Pulmonary effort is normal. No respiratory distress or retractions. Breath sounds: Normal breath sounds. No stridor. No wheezing, rhonchi or rales. Chest: Chest wall: No tenderness. Genitourinary: Comments: Clinical breast exam performed with ROBI Hoang at bedside. Patient does have fibrous breast tissue bilaterally. The area that she complains of pain is left upper outer quadrant. She does have a palpable and mobile lump in that region. Musculoskeletal: General: No swelling, tenderness, deformity or signs of injury. Normal range of motion. Cervical back: Normal range of motion and neck supple. No rigidity or tenderness. No muscular tenderness. Right lower leg: No edema. Left lower leg: No edema. Lymphadenopathy: Cervical: No cervical adenopathy. Skin: General: Skin is warm and dry. Capillary Refill: Capillary refill takes less than 2 seconds. Coloration: Skin is not jaundiced or pale. Findings: No bruising, erythema, lesion, petechiae or rash. Rash is not purpuric. Neurological: General: No focal deficit present. Mental Status: She is alert and oriented to person, place, and time. Mental status is at baseline. Cranial Nerves: No cranial nerve deficit. Sensory: No sensory deficit. Motor: No weakness or abnormal muscle tone. Coordination: Coordination normal. Gait: Gait normal. Deep Tendon Reflexes: Reflexes normal. Psychiatric: Mood and Affect: Mood normal. Behavior: Behavior normal. Thought Content: Thought content normal. Judgment: Judgment normal. Filed Vitals: 03/03/24 1453 BP: 128/72 Pulse: 82 Resp: 16 Temp: 98 ??F (36.7 ??C) TempSrc: Temporal Weight: 47.2 kg (104 lb) Height: 1.651 m (5' 5 ) Body mass index is 17.31 kg/m??. No image results found. I personally spent a total of 25 minutes on the day of the encounter. This includes igoq-lk-isnh and rdv-xejm-ck-face time I provided on the day of the encounter & excludes time spent performing separately reportable services. Diagnoses/Impression: 1. Mass of upper outer quadrant of left breast US BREAST LT BIRAD LTD MG DIAGNOSTIC LT DIGI CANCELED: MG DIAG IMPLANT LT DIGI 2. Breast pain, left US BREAST LT BIRAD LTD MG DIAGNOSTIC LT DIGI CANCELED: MG DIAG IMPLANT LT DIGI Recommendation/Plan: Order for diagnostic mammogram and ultrasound of left breast. We will notify you once we get your test results. You should perform monthly self breast exams Orders Placed This Encounter MG DIAGNOSTIC LT DIGI Standing Status: Future Number of Occurrences: 1 Standing Expiration Date: 05/03/2025 Order Specific Question: What Hospital Division or Clinic will the patient go to for their test Answer: Outside [facility] Hospital Facility Order Specific Question: Does the patient have a Palpable Lump or Mass? Answer: Yes Order Specific Question: Breast US order is required for a Lump/Mass, please enter a Breast US order in addition to the Mammogram order. Answer: I acknowledge that I must also enter a BREAST US order. Order Specific Question: Is the patient ? Answer: No Order Specific Question: Does the patient have implants? Answer: No Order Specific Question: Reason for Exam Answer: Breast lump and pain left upper outer quadrant Order Specific Question: Release to patient Answer: System release US BREAST LT BIRAD LTD Standing Status: Future Number of Occurrences: 1 Standing Expiration Date: 03/03/2025 Order Specific Question: What Hospital Division or Clinic will the patient go to for their test Answer: Outside [facility] Hospital Facility Order Specific Question: What is the indication? Answer: Palpable Lump Order Specific Question: Does the patient have any special physical, cognitive or language barriers/needs? Answer: No Order Specific Question: Has the patient had any previous imaging related to the same body part? Answer: No Order Specific Question: Release to patient Answer: System release SANDIE Dubois Cosigned by Gabrielle Mathew DO at 03/03/2024 3:36 PM CDT documented in this encounter Plan of Treatment Not on file documented as of this encounter Visit Diagnoses Diagnosis Mass of upper outer quadrant of left breast- Primary Breast pain, left Mastodynia documented in this encounter Additional Health Concerns Assessment Noted Time PHQ-9 Depression Total Score: 8 10/03/19 24 9:04 AM CDT documented as of this encounter Care Teams Box Sorter Relationship Specialty Start Date End Date Nan Crews FNP PCP - General NURSE PRACTITIONER 04/24/18 documented as of this encounter
--- OUTSIDE RECORDS SUMMARY | 2024-06-05 20:55 | XMS_ITS | Encounter Summary ---
Author Organization [facility] Address [address] [place] [address]. [place], [place] [address] [place] [address] Care Team Providers Care Manual Lathe Machinist Name Role Phone Nan Crews DAMPER FITTER Primary Care Provider [phone] Reason for Visit * Reason Comments Lab (SCAN) Encounter Details Date Type Department Care Team (Latest Contact Info) Description 09/09/2023 Scan [facility] HEALTH INFO SRVCS Scanned, Doc Med Group Lab (SCAN) Social History Tobacco Use Types Packs/Day Years Used Date Smoking Tobacco: Every Day Smokeless Tobacco: Never Comments:Provider to sexual assault counselor /vaps only Alcohol Use Standard Drinks/Week [...] Procedure Name Priority Date/Time Associated Diagnosis Comments OUTSIDE LAB (SCAN ORDER) Routine 09/09/2023 documented in this encounter Results * OUTSIDE LAB (09/09/2023) [facility] A1C 5.3 % [facility] ON[facility] 09/09/2023 us Doc Med Group Scanned SCANNING Final Resu lt [facility] ONBASE documented in this encounter Visit Diagnoses Not on filedocumented in this encounter Additional Health Concerns Assessment Noted Time PHQ-9 Depression Total Score: 024 8:35 AM CDT documented as of this encounter Care Teams Manual Lathe Machinist Relationship Specialty Start Date End Date Nan Crews FNP PCP - General NURSE PRACTITIONER 04/24/18 documented as of this encounter
--- OUTSIDE RECORDS SUMMARY | 2024-06-05 20:56 | XMS_ITS | Encounter Summary ---
Author Organization [facility] Address [address] [place] [address]. [place], [place] [id number] [place] [address] Care Team Providers Care Web Development Instructor Name Role Phone Nan Crews Primary Care Provider Encounter Details Date Type Department Care Team (Late st Contact Info) Description 06/26/2023 2:46 PM STRAP MAKING MACHINE OPERATOR - 06/26/2023 11:59 PM STRAP MAKING MACHINE OPERATOR Hospital Encounter [facility] [address] [place], [place] [id number] Nan Crews FNP [address] [place] [address] Discharge Disposition: Home or Self Care (Routine Discharge) Social History Tobacco Use Types Packs/Day Years Used Date Smoking Tobacco: Every Day Smokeless Tobacco: Never Comments:Provider to executive assistant to general counsel /vaps only Alcohol Use Standard Drinks/Week Comments Yes 0 (1 standard drink = 0.6 oz pur e alcohol) social AUDIT-C Answer Date Recorded Q1: How often do you have a drink containing alcohol? Never 03/12/2023 Q2: How many drinks containi ng alcohol do you have on a typical day when you are drinking? Patient does not drink Q3: How often do you have si x or more drinks on one occasion? Never 03/12/2023 PHQ-2 Answer Date Recorded Patient Health Questionnaire-2 Score 5 03/12/2023 Comments No Sex and Gender Information Value Date Recorded Sex Assigned at Not on file Legal Sex Female 8:07 AM CDT Gender Identity Not on file Sexual Orientation Not on file documented as of this encounter Medications at Time of Discharge Cholecalciferol (VITAMIN D-3) 25 MCG (1000 UT) CapIndications:Vi tamin D deficiency Take 1 capsule by mouth daily. 90 capsule 1 04/11/2023 OXcarbazepine (TRILEPTAL) 150 MG tabletIndications :Bipolar affective disorder, current episode hypomanic (CMS/HCC HHS/HCC) Take 1 tablet (150 mg total) by mouth 2 (two) times daily. 60 tablet 03/21/2023 09/05/2023 prazosin (MINIPRESS) 1 MG capsuleIndication s:Nightmares Take 1 capsule (1 mg total) by mouth nightly at bedtime. 30 capsule 03/21/2023 09/05/2023 sulfamethoxazole- trimethoprim (BACTRIM DS) 800-160 MG tabletIndications :Acute cystitis with hematuria Take 1 tablet by mouth 2 (two) times daily for 5 days. 10 tablet 06/26/2023 07/01/2023 documented as of this encounter Progress Notes * Radha Cook LPN - 06/26/2023 2:46 PM CST Mess. Left for pt. To call office. P MAKING MACHINE OPERATOR * Radha Cook LPN - 06/26/2023 2:46 PM CST Pt. Notified. Verbalized understanding. P MAKING MACHINE OPERATOR * Radha Cook LPN - 06/26/2023 2:46 PM CST Mess. Left for pt. To call office. P MAKING MACHINE OPERATOR * Radha Cook LPN - 06/26/2023 2:46 PM CST Pt. Notified. Verbalized understanding. Pt. States that she is feeling worse. C/O Left lower abd pain worse than it was pt. States. P MAKING MACHINE OPERATOR * Radha Cook LPN - 06/26/2023 2:46 PM CST Pt. Notified. Verbalized understanding. P MAKING MACHINE OPERATOR * Radha Cook LPN - 06/26/2023 2:46 PM CST Mess. Left for pt. To call office. P MAKING MACHINE OPERATOR * Radha Cook LPN - 06/26/2023 2:46 PM CST Pt. Notified. Verbalized understanding. Pt. Cont. To have discomfort. Pt. Did not go to ER d/t financial issues. Advised pt. To fill out financial hardship paperwork and to sched. Follow up OV with Leonard Crews If symptoms cont. To persist. Pt. Verbalized understanding. Pt. Will call back and sched. Appt. Later today. P MAKING MACHINE OPERATOR documented in this encounter Plan of Treatment Not on file documented as of this encounter Procedures Procedure Name Priority Date/Time Associated Diagnosis Comments VAGINITIS SCREEN (VDS) Routine 06/26/2023 2:50 PM STRAP MAKING MACHINE OPERATOR Left lower quadrant pain URINE BACTERIA CULTURE Routine 06/26/2023 2:50 PM STRAP MAKING MACHINE OPERATOR Left lower quadrant pain documented in this encounter Results * VDS (REJI, TRICH, & G. VAG) (06/26/2023 2:50 PM STRAP MAKING MACHINE OPERATOR) GARDNERELLA VAGINALIS NEGATIVE NEGATIVE 06/26/2023 5:19 PM STRAP MAKING MACHINE OPERATOR [facility] REJI SPECIES NEGATIVE NEGATIVE 5:19 PM STRAP MAKING MACHINE OPERATOR [facility] TRICHOMONAS NEGATIVE NEGATIVE 06/26/2023 5:19 PM STRAP MAKING MACHINE OPERATOR [facility] VAGINAL STRUCTURE / Unknown 06/26/2023 2:50 PM STRAP MAKING MACHINE OPERATOR Nan YOUNG MICROBIOLOGY - GENERAL ORDERA BLES Final Result Performing Organization Address City/[facility]/ZIP Co de Phone Number [facility] [address] [place] [address], * CULTURE URINE (06/26/2023 2:50 PM STRAP MAKING MACHINE OPERATOR) SPEC DESCRIPTION URINE CLEAN CATCH 06/26/2023 2:47 PM STRAP MAKING MACHINE OPERATOR [facility] SPECIAL REQUESTS NO SPECIAL REQUEST 06/26/2023 2:47 PM STRAP MAKING MACHINE OPERATOR [facility] CULTURE RESULT NO GROWTH 2 DAYS 06/28/2023 8:20 AM STRAP MAKING MACHINE OPERATOR [facility] URINE SPECIMEN OBTAINED BY CLEAN CATCH PROCEDURE / Unknown 06/26/2023 2:50 PM STRAP MAKING MACHINE OPERATOR 06/26/2023 3:52 PM STRAP MAKING MACHINE OPERATOR Nan YOUNG MICROBIOLOGY - GENERAL ORDERA BLES Final Result Performing Organization Address [facility] Co de Phone Number [facility] [address] [place] [address], [facility] [address] [place] [address], documented in this encounter Visit Diagnoses Diagnosis Left lower quadrant pain Abdominal pain, left lower quadrant documented in this encounter Additional Health Concerns Assessment Noted Time PHQ-9 Depression Total Score: 18 023 1:39 PM CDT documented as of this encounter Care Teams Web Development Instructor Relationship Specialty Start Date End Date Nan Crews FNP PCP - General NURSE PRACTITIONER 04/24/18 documented as of this encounter
--- OUTSIDE RECORDS SUMMARY | 2024-06-05 20:56 | XMS_ITS | Encounter Summary ---
Author Organization [facility] Address [address] [place] [address]. [place] [address] Care Team Providers Care Banquet Prep Cook Name Role Phone Nan Crews Primary Care Provider [phone] Encounter Details Date Type Department Care Team (Latest Contact Info) Description 06/05/2022 Scan [facility] HEALTH INFO SRVCS Scanned, Doc Med Group Social History Tobacco Use Types Packs/Day Years Used Date Smoking Tobacco: Every Day Smokeless Tobacco: Never Comments:Provider to automobile club travel counselor /vaps only Alcohol Use Standard Drinks/Week Comments Yes 0 (1 standard drink = 0.6 oz pur e alcohol) social AUDIT-C Answer Date Recorded Frequency of Alcohol Consumption Never 07/02/2018 Average Number of Drinks Not on file 019 Frequency of Binge Drinking Not on file 06/17 PHQ-2 Answer Date Recorded PHQ-2 Score - If the patient scores above 3, please move on to questions 3-9 2 04/26/2022 Comments No Sex and Gender Information Value [...] Assessment Noted Time PHQ-9 Depression Total Score: 10 022 9:31 AM CLIENT SERVICE PROFESSIONAL documented as of this encounter Care Teams Banquet Prep Cook Relationship Specialty Start Date End Date Nan Crews FNP PCP - General NURSE PRACTITIONER 04/24/18 documented as of this encounter
--- OUTSIDE RECORDS SUMMARY | 2024-06-05 20:56 | XMS_ITS | Encounter Summary ---
Author Organization [facility] Address [address] [place] [address]. [place] [address] Care Team Providers Care Cutting Pressman Name Role Phone Nan Crews HECTOR Primary Care Provider [phone] Encounter Details Date Type Department Care Team (Latest Contact Info) Description 09/10/2022 Travel Social History Tobacco Use Types Packs/Day Years Used Date Smoking Tobacco: Every Day Smokeless Tobacco: Never Comments:Provider to certified addiction counselor /vaps only Alcohol Use Standard Drinks/Week Comments Yes 0 (1 standard drink = 0.6 oz pur e alcohol) social AUDIT-C Answer Date Recorded Q1: How often do you have a drink containing alc ohol? Monthly or less 09/10/2022 Q2: How many drinks containi ng alcohol do you have on a typical day when you are drinking? 1 or 2 09/10/2022 Q3: How often do you have si x or more drinks on one occasion? Less than monthly 09/10/2022 PHQ-2 Answer Date Recorded Patient Health Questionnaire-2 Score 2 09/10/2022 Comments No Sex and Gender Information Value Date Recorded Sex Assigned at Not on file Legal Sex Female 8:07 AM CDT Gender Identity Not on file Sexual Orientation Not on file COVID-19 Exposure Response Date Recorded In the last 10 days, have yo u been in contact with someone who was confirmed or suspected to have Coronavirus/COVID-19? No / Unsure 09/10/2022 10:36 AM CDT documented as of this encounter Plan of Treatment Not on file documented as of this encounter Visit Diagnoses Not on filedocumented in this encounter Additional Health Concerns Assessment Noted Time PHQ-9 Depression Total Score: 11 023 10:44 AM CDT documented as of this encounter Care Teams Cutting Pressman Relationship Specialty Start Date End Date Nan Crews FNP PCP - General NURSE PRACTITIONER 04/24/18 documented as of this encounter
--- OUTSIDE RECORDS SUMMARY | 2024-06-05 20:56 | XMS_ITS | Encounter Summary ---
Author Organization [facility] Address [address] [place] [address]. [place], [place] [address] [place] [address] Care Team Providers Care Supervisor Sawing And Assembly Name Role Phone Nan Crews [facility] Primary Care Provider [phone] Reason for Visit * Reason Comments Vaginal Problem Encounter Details Date Type Department Care Team (Late st Contact Info) Description 07/12/2022 3:00 PM ENERGY DERIVATIVES TRADER Office Visit [facility] [address] [facility] [address] [place], [place] [id number] Chiqui Fu [facility] [address] [place] [id number] Vaginal Problem Social History Tobacco Use Types Packs/Day Years Used Date Smoking Tobacco: Every Day Smokeless Tobacco: Never Comments:Provider to marriage counselor /vaps only Alcohol Use Standard Drinks/Week Comments Yes 0 (1 standard drink = 0.6 oz pur e alcohol) social AUDIT-C Answer Date Recorded Frequency of Alcohol Consumption Never 07/02/2018 Average Number of Drinks Not on file 019 Frequency of Binge Drinking Not on file 06/17 PHQ-2 Answer Date Recorded Patient Health Questionnaire-2 Score 3 07/13/2022 Comments No Sex and Gender Information Value Date Recorded Sex Assigned at Not on file Legal Sex Female 8:07 AM CDT Gender Identity Not on file Sexual Orientation Not on file COVID-19 Exposure Response Date Recorded In the last 10 days, have yo u been in contact with someone who was confirmed or suspected to have Coronavirus/COVID-19? No / Unsure 07/12/2022 2:58 PM ENERGY DERIVATIVES TRADER documented as of this encounter Last Filed Vital Signs Vital Sign Reading Time Taken Comments Blood Pressure 90/64 07/12/2022 3:03 PM ENERGY DERIVATIVES TRADER Pulse 100 07/12/2022 3:03 PM ENERGY DERIVATIVES TRADER Temperature 36.9 ??C (98.5 ??F) 07/12/2022 3:03 PM CS T Respiratory Rate 14 07/12/2022 3:03 PM ENERGY DERIVATIVES TRADER Oxygen Saturation - - Inhaled Oxygen Concentration - - Weight 49 kg (108 lb) 07/12/2022 3:03 PM ENERGY DERIVATIVES TRADER Height 165.1 cm (5' 5 ) 07/12/2022 3:03 PM ENERGY DERIVATIVES TRADER Body Mass Index 17.97 07/12/2022 3:03 PM ENERGY DERIVATIVES TRADER documented in this encounter Patient Instructions * Patient Instructions* HECTOR [place] - 07/12/2022 3:00 PM ENERGY DERIVATIVES TRADER Avoid intercourse until diagnosis and treatment confirmed Arrange testing with health department Wet prep results will come back tonight We will call you in the morning with results Once symptoms have resolved condoms are recommended always Has refills on OCP from PCP according to [facility] GY DERIVATIVES TRADER documented in this encounter Progress Notes * HECTOR [place] - 07/12/2022 3:00 PM CSTSummary: vaginal problem Cecilia Jones is a 17-year-old female patient. Reason for Visit: Vaginal Problem History of Present Illness: Cecilia is here for a vaginal problem. Today is my first time seeing her. She noticed increased painwith intercourse this week and bleeding during and after. Not unusual for her but it is much worse this week. She has had 3 partners in the last 3 months, unprotected. She is on OCP but has not had her pills for roughly 2 months. Admit's it's irresponsible, I know . Has a new pack of OCP but unclear when to start it. She denies UTI symptoms now but had a UTI about 5 weeks ago. Treated at [facility] in clinic. Took Bactrim DS 1 po BID for 4 days. It was ordered for 7 days according to PDMP Her partner reported burning to his penis during intercourse which occurred when she was dealing with a UTI. Has had two UTI's total not recurrent. We will verify UTI has resolved No history of known STI's. She would rather get STI testing through [facility] due to cost. Agrees to do that on her own. Patient's last menstrual period was 06/28/2022 (approximate). It was normal to her. Agrees to urineHCG today and repeat UA due to recent UTI (5 weeks ago) ROS: Review of Systems Constitutional: Negative for chills and fever. Gastrointestinal: Negative for abdominal pain. Genitourinary: Negative for dysuria, frequency, hematuria and urgency. See HPI Psychiatric/Behavioral: Sees PMHNP in [place] Medications: Current Outpatient Medications: ??? ARIPiprazole (ABILIFY) 15 MG tablet, Take 0.5 tablets (7.5 mg total) by mouth daily., Disp: 15 tablet, Rfl: 0 ??? escitalopram (LEXAPRO) 5 MG tablet, Take 1 tablet (5 mg total) by mouth daily., Disp: 30 tablet, Rfl: 0 ??? lamoTRIgine (LAMICTAL) 200 MG tablet, Take 1 tablet (200 mg total) by mouth daily., Disp: 90 tablet, Rfl: 0 ??? Norgestimate-Ethinyl Estradiol (TRI-SPRINTEC) 0.18/0.215/0.25 MG-35 MCG tablet, Take 1 tablet by mouth daily., Disp: 84 tablet, Rfl: 2 No Known Allergies Past Medical History: Diagnosis Date ??? Abnormal urinalysis 07/07/2020 ??? Anxiety ??? Depression Past Surgical History: Procedure Laterality Date ??? BLADDER SURGERY Social History Tobacco Use ??? Smoking status: Every Day ??? Smokeless tobacco: Never ??? Tobacco comments: Provider to marriage counselor /vaps only Vaping Use ??? Vaping Use: Every day ??? Substances: Nicotine ??? Devices: RefBridgefyble tank Substance Use Topics ??? Alcohol use: Yes Comment: social ??? Drug use: No Comment: no Family History Problem Relation Name Age of Onset ??? Mental Health Mother Hx of post- depression ??? Anxiety Father ??? Depression Maternal Grandmother ??? Anxiety Paternal Grandfather Family Status Relation Name Status ??? Mother Alive ??? Father Alive ??? MGM (Not Specified) ??? PGF (Not Specified) Filed Vitals: 07/12/22 1503 BP: 90/64 Pulse: 100 Resp: 14 Temp: 98.5 ??F (36.9 ??C) TempSrc: Tympanic Weight: 49 kg (108 lb) Height: 5' 5 (1.651 m) Body mass index is 17.97 kg/m??. Physical Exam: Physical Exam Vitals reviewed. Exam conducted with a mechanical adjuster present (LINETTE Parmar). Constitutional: General: She is not in acute distress. Appearance: She is normal weight. She is not ill-appearing. Pulmonary: Effort: Pulmonary effort is normal. Genitourinary: Pubic Area: No rash. Labia: Right: No rash or tenderness. Left: No rash or tenderness. Comments: Trace white discharge noted, wet prep obtained. Bimanual exam was negative, without pain Skin: General: Skin is warm and dry. Neurological: General: No focal deficit present. Mental Status: She is alert and oriented to person, place, and time. Mental status is at baseline. Cranial Nerves: No cranial nerve deficit. Motor: No weakness. Gait: Gait normal. Psychiatric: Mood and Affect: Mood normal. Labs: URINALYSIS AUTO DIP Order: [id number] Status: Final result ?? 0 Result Notes Component Ref Range & Units 07/12/22 0000 COLOR (U) YELLOW TRANSPARENCY CLOUDY GLUCOSE (U) NEGATIVE MG/DL NEGATIVE BILIRUBIN (U) NEGATIVE NEGATIVE U KETONES NEGATIVE MG/DL NEGATIVE Specific [place] (U) 1.001 - 1.035 1.025 BLOOD NEGATIVE TRACE (Non Hemolyzed, Intact) U PH 5.0 - 9.0 8.5 PROTEIN (U) NEGATIVE mg/dL NEGATIVE UROBILINOGEN 0.2 - 1.0 EU/dL = mg/dL 0.2 NITRITES NEGATIVE MG/DL NEGATIVE LEUKOCYTE ESTERASE NEGATIVE TRACE Diagnoses/Impression: 1. Pain in female genitalia on intercourse Do STI testing at [facility] - SMEAR, STAIN, WET PREP; Future 2. PCB (post coital bleeding) - SMEAR, STAIN, WET PREP; Future 3. History of UTI We will confirm with culture - URINALYSIS AUTO DIP - CULTURE URINE; Future 4. Unprotected sexual intercourse Must use protection She is aware of and STI risk Start new pack now. Better to prevent Cycles may be altered and spotting is likely - TEST URINE Recommendations and Plan: Patient Instructions Avoid intercourse until diagnosis and treatment confirmed Arrange testing with health department Wet prep results will come back tonight We will call you in the morning with results Once symptoms have resolved condoms are recommended always Has refills on OCP from PCP according to [facility] HECTOR [place] Cosigned by Hardik Tinoco MD at 07/21/2022 8:28 PM ENERGY DERIVATIVES TRADER GY DERIVATIVES TRADER GY DERIVATIVES TRADER documented in this encounter Plan of Treatment Not on file documented as of this encounter Procedures Procedure Name Priority Date/Time Associated Diagnosis Comments TEST URINE Routine 07/12/2022 Unprotected sexual intercourse URINALYSIS AUTO DIP Routine 07/12/2022 History of UTI documented in this encounter Results * CULTURE URINE (07/12/2022 3:49 PM ENERGY DERIVATIVES TRADER) SPEC DESCRIPTION URINE CLEAN CATCH 07/12/2022 6:42 PM ENERGY DERIVATIVES TRADER [facility] SPECIAL REQUESTS NO SPECIAL REQUEST 07/12/2022 6:42 PM ENERGY DERIVATIVES TRADER [facility] CULTURE RESULT NO GROWTH 2 DAYS 07/15/2022 9:15 AM ENERGY DERIVATIVES TRADER [facility] URINE SPECIMEN OBTAINED BY CLEAN CATCH PROCEDURE / Unknown 07/12/2022 3:49 PM ENERGY DERIVATIVES TRADER 07/12/2022 6:32 PM ENERGY DERIVATIVES TRADER Chiqui YOUNG MICROBIOLOGY - GENERAL ORDERABL ES Final Result [facility] [address] [place] [address], [place] [phone] [facility] [place] [address], [place] * TEST URINE (07/12/2022) URINE HCG TEST NEGATIVE NEGATIVE [facility] [address] ([address]), [place] Internal Control: VALID VALID [facility] ([address]), [place] URINE SPECIMEN FROM URETHRA / Unknown 07/12/2022 us Chiqui Fu [facility] URINE ORDERABLES Final Result Performing Organization Address [facility] Co de Phone Number [facility] ([address]), [place] [address], [place] [phone] * URINALYSIS AUTO DIP (07/12/2022) COLOR (U) YELLOW [facility] ([address]), [place] [facility] ([facility]), [place] GLUCOSE (U) NEGATIVE NEGATIVE MG/DL [facility] (201), [place] BILIRUBIN (U) NEGATIVE NEGATIVE [facility] ([facility]), [place] KETONES MG/DL (U) NEGATIVE NEGATIVE MG/DL [facility] (201), [place] SPECIFIC GRAVITY (U) 1.025 1.001 - 1.035 [facility] (201), [place] BLOOD (U) TRACE (Non Hemolyzed, Intact) NEGATIVE [facility] (201), [place] U PH 8.5 5.0 - 9.0 [facility] (201), [place] PROTEIN (U) NEGATIVE NEGATIVE mg/dL [facility] (201), [place] UROBILINOGEN 0.2 0.2 - 1.0 EU/dL = mg/dL [facility] (201), [place] NITRITES NEGATIVE NEGATIVE MG/DL [facility] (201), [place] LEUKOCYTES (U) TRACE NEGATIVE -[facility] (201), [place] URINE SPECIMEN OBTAINED BY CLEAN CATCH PROCEDURE / Unknown 07/12/2022 us Chiqui Fu DIGITAL ASSET MANAGER URINE ORDERABLES Final Result Performing Organization Address [facility]/ZIP Co de Phone Number [facility] ([address]), [place] [address], [place] [phone] documented in this encounter Visit Diagnoses Diagnosis Pain in female genitalia on intercourse- Primary Dyspareunia PCB (post coital bleeding) Postcoital bleeding History of UTI Personal history of urinary (tract) infection Unprotected sexual intercourse Problems related to high-risk sexual behavior documented in this encounter Additional Health Concerns Assessment Noted Time PHQ-9 Depression Total Score: 10 022 9:31 AM ENERGY DERIVATIVES TRADER documented as of this encounter Care Teams Supervisor Sawing And Assembly Relationship Specialty Start Date End Date Nan Crews FNP PCP - General NURSE PRACTITIONER 04/24/18 documented as of this encounter
--- OUTSIDE RECORDS SUMMARY | 2024-06-05 20:56 | XMS_ITS | Encounter Summary ---
Author Organization [facility] Address [address] [place] [address]. [place], [place] [address] [place] [address] Care Team Providers Care Automated Manufacturing Instructor Name Role Phone Nan Crews Primary Care Provider Encounter Details Date Type Department Care Team (Late st Contact Info) Description 04/10/2023 1:15 PM CDT - 04/10/2023 11:59 PM CDT Hospital Encounter [facility] [address] [place] [id number] Nan Crews FNP [address] [place] [address] Discharge Disposition: Home or Self Care (Routine Discharge) Social History Tobacco Use Types Packs/Day Years Used Date Smoking Tobacco: Every Day Smokeless Tobacco: Never Comments:Provider to crisis counselor /vaps only Alcohol Use Standard Drinks/Week [...] this encounter Medications at Time of Discharge OXcarbazepine (TRILEPTAL) 150 MG tabletIndications :Bipolar affective disorder, current episode hypomanic (CMS/HCC HHS/HCC) Take 1 tablet (150 mg total) by mouth 2 (two) times daily. 60 tablet 03/21/2023 09/05/2023 prazosin (MINIPRESS) 1 MG capsuleIndication s:Nightmares Take 1 capsule (1 mg total) by mouth nightly at bedtime. 30 capsule 03/21/2023 09/05/2023 documented as of this encounter Progress Notes * Radha Cook LPN - 04/10/2023 1:15 PM CDT Pt. Notified. Verbalized understanding. documented in this encounter Plan of Treatment Not on file documented as of this encounter Procedures Procedure Name Priority Date/Time Associated Diagnosis Comments BASIC METABOLIC PANEL Routine 04/10/2023 12:00 PM CDT Episodic lightheadedness Chronic fatigue CBC W/DIFF AUTOMATED Routine 04/10/2023 12:00 PM CDT Episodic lightheadedness Chronic fatigue THYROID STIM HORMONE TSH Routine 04/10/2023 12:00 PM CDT Chronic fatigue Bilateral hand numbness VITAMIN D, 25 OH Routine 04/10/2023 12:0 0 PM CDT Chronic fatigue documented in this encounter Results * THYROID STIM HORMONE, TSH (04/10/2023 12:00 PM CDT) TSH 1.804 0.358 - 3.740 uIU/ML 04/10/2023 5:04 PM CDT [facility] Comment: HIGH DOSES OF BIOTIN MAY INTERFERE WITH THIS TEST RESULT. CORRELATION TO CLINICAL HISTORY AND PRESENTATION RECOMMENDED. 04/10/2023 12:0 0 PM CDT Nan Crews FOREST FIRE SPECIALIST SUPERVISOR LABORATORY Final Result [facility] [address] [place] [address], [place] * (ABNORMAL) BASIC METABOLIC PANEL (04/10/2023 12:00 PM CDT) [facility] GLUCOSE 67(L) 70 - 99 MG/DL 04/10/2023 5:04 PM CDT [facility] BUN 15 7 - 18 MG/DL 04/10/2023 5:04 PM CDT [facility] CREATININE S/P/B 0.66 0.50 - 1.20 MG/DL 04/10/2023 5:04 PM CDT [facility] SODIUM S/P/B 139 136 - 145 MMOL/L 04/10/2023 5:04 PM CDT [facility] POTASSIUM S/P/B 3.5 3.5 - 5.1 MMOL/L 04/10/2023 5:04 PM CDT [facility] CHLORIDE S/P/B 103 100 - 108 MMOL/L 04/10/2023 5:04 PM CDT [facility] CO2 27.1 21.0 - 32.0 MMOL/L 04/10/2023 5:04 PM CDT [facility] CALCIUM S/P/B 9.0 8.5 - 10.1 MG/DL 04/10/2023 5:04 PM CDT [facility] ANION GAP 8.9 5.0 - 15.0 MMOL/L 04/10/2023 5:04 PM CDT [facility] BUN CREATININE RATIO 22.7 6 - 26 04/10/2023 5:04 PM CDT [facility] GFR ESTIMATE >90 >90 ML/MIN/1.7 3 M2 04/10/2023 5:04 PM CDT [facility] Comment: NOTE: eGFR is not calculated for patients <18 years of age. This is an estimated GFR calculation using the new CKD EPI creatinine equation without race and so does not require a correction factor for race. This estimated GFR should not be used for calculating drug doses. 04/10/2023 12:0 0 PM CDT Nan Crews FOREST FIRE SPECIALIST SUPERVISOR LABORATORY Final Result [facility] [address] [place] [address], [place] * CBC W/DIFF AUTOMATED (04/10/2023 12:00 PM CDT) WBC 5.79 4.50 - 11.00 x10'3/uL 04/10/2023 4:39 PM CDT [facility] RBC 4.32 4.00 - 5.20 x10'6/uL 04/10/2023 4:39 PM CDT [facility] HGB 13.1 12.0 - 16.0 G/DL 04/10/2023 4:39 PM CDT [facility] HCT 38.7 36.0 - 46.0 % 04/10/2023 4:39 PM CDT [facility] MCV 89.6 80.0 - 100.0 FL 04/10/2023 4:39 PM CDT [facility] MCH 30.3 26.0 - 34.0 PG 04/10/2023 4:39 PM CDT [facility] MCHC 33.9 31.0 - 37.0 G/DL 04/10/2023 4:39 PM CDT [facility] RDW 12.0 11.6 - 14.8 % 04/10/2023 4:39 PM CDT [facility] PLT 272 140 - 415 x10'3/uL 04/10/2023 4:39 PM CDT [facility] MPV 9.0 7.0 - 12.0 FL 04/10/2023 4:39 PM CDT [facility] 04/10/2023 12:0 0 PM CDT Nan Crews FOREST FIRE SPECIALIST SUPERVISOR LABORATORY Final Result Performing Organization Address [facility] de Phone Number [facility] [address] [facility] [address] * (ABNORMAL) VITAMIN D, 25 OH (04/10/2023 12:00 PM CDT) Pathologist [facility] VITAMIN D 25 HYDROXY S/P/B 28(L) 30 - 100 NG/ML 04/10/2023 5:04 PM CDT [facility] Comment: ? INTERPRETATION ? DEFICIENT ??<20 ? INSUFFICIENT 20-29 ?SUFFICIENT 30-100 04/10/2023 12:0 0 PM CDT Nan Crews FOREST FIRE SPECIALIST SUPERVISOR LABORATORY Final Result Performing Organization Address [facility] de Phone Number [facility] [address] [facility] [address] documented in this encounter Visit Diagnoses Diagnosis Chronic fatigue Other malaise and fatigue Episodic lightheadedness Dizziness and giddiness Bilateral hand numbness Disturbance of skin sensation documented in this encounter Additional Health Concerns Assessment Noted Time PHQ-9 Depression Total Score: 18 023 1:39 PM CDT documented as of this encounter Care Teams Automated Manufacturing Instructor Relationship Specialty Start Date End Date Nan Crews FNP PCP - General NURSE PRACTITIONER 04/24/18 documented as of this encounter
--- OUTSIDE RECORDS SUMMARY | 2024-06-05 20:56 | XMS_ITS | Encounter Summary ---
Author Organization [facility] Address [address] [place] [address]. [place] [address] Care Team Providers Care Assembler Bonding Name Role Phone Nan Crews Primary Care Provider [phone] Encounter Details Date Type Department Care Team (Latest Contact Info) Description 04/10/2023 Travel Social History Tobacco Use Types Packs/Day Years Used Date Smoking Tobacco: Every Day Smokeless Tobacco: Never Comments:Provider to securities counselor /vaps only Alcohol Use Standard Drinks/Week [...] documented as of this encounter Care Teams Assembler Bonding Relationship Specialty Start Date End Date Nan Crews FNP PCP - General NURSE PRACTITIONER 04/24/18 documented as of this encounter
--- OUTSIDE RECORDS SUMMARY | 2024-06-05 20:56 | XMS_ITS | Encounter Summary ---
Author Organization [facility] Address [address] [place] [address]. [place], [place] [address] [place] [address] Care Team Providers Care Potato Picker Name Role Phone Mars Nan YOUNG Primary Care Provider Encounter Details Date Type Department Care Team (Late st Contact Info) Description 07/12/2022 Orders Only [facility] [address] [place] [address] Chiqui Fu FNP [address] [place] [id number] Social History Tobacco Use Types Packs/Day Years Used Date Smoking Tobacco: Every Day Smokeless Tobacco: Never Comments:Provider to substance abuse counselor /vaps only Alcohol Use Standard Drinks/Week [...] Coronavirus/COVID-19? No / Unsure 07/12/2022 2:58 PM B[employer]AGE [place] documented as of this encounter Plan of Treatment Not on file documented as of this encounter Results * VDS (REJI, TRICH, & G. VAG) (07/12/2022 3:40 PM BAG[place]AGE [place]TER [place]) [place] VAGINALIS NEGATIVE NEGATIVE 07/13/2022 6:22 AM [facility] [place] [facility] REJI SPECIES NEGATIVE NEGATIVE 6:22 AM [facility] [place] [place] [facility] TRICHOMONAS NEGATIVE NEGATIVE 07/13/2022 6:22 AM [facility] [place] [facility] VAGINAL STRUCTURE / Unknown 07/12/2022 3:40 PM [facility]AG[place]AGE [place]TER [place] us Chiqui YOUNG MICROBIOLOGY - GENERAL ORDERABL ES Final Result [address] [place] [address], documented in this encounter Visit Diagnoses Diagnosis History of urinary tract infection- Primary Personal history of urinary (tract) infection documented in this encounter Additional Health Concerns Assessment Noted Time PHQ-9 Depression Total Score: 10 022 9:31 AM [employer]AG[place]AGE [place] documented as of this encounter Care Teams Potato Picker Relationship Specialty Start Date End Date Nan Crews FNP PCP - General NURSE PRACTITIONER 04/24/18 documented as of this encounter
--- OUTSIDE RECORDS SUMMARY | 2024-06-05 20:56 | XMS_ITS | Encounter Summary ---
Author Organization [facility] Address [address] [place] [address]. [place], [place] [address] [place] [address] Care Team Providers Care Manager Meat Name Role Phone Mars Nan YOUNG Primary Care Provider [phone] Encounter Details Date Type Department Care Team (Late st Contact Info) Description 07/12/2022 11:59 PM UI APPLICATION DEVELOPER Hospital Encounter [facility] [address] [place] [address] Chiqui Fu FNP [address] [place] [address] Discharge Disposition: Home or Self Care (Routine Discharge) Social History Tobacco Use Types Packs/Day Years Used Date Smoking Tobacco: Every Day Smokeless Tobacco: Never Comments:Provider to disability counselor /vaps only Alcohol Use Standard Drinks/Week [...] Coronavirus/COVID-19? No / Unsure 07/12/2022 2:58 PM UI APPLICATION DEVELOPER documented as of this encounter Medications at Time of Discharge ARIPiprazole (ABILIFY) 15 MG tabletIndications :Bipolar affective disorder, current episode hypomanic ([facility]) Take 0.5 tablets (7.5 mg total) by mouth daily. 15 tablet 05/31/2022 07/13/2022 escitalopram (LEXAPRO) 5 MG tabletIndications :Bipolar affective disorder, current episode hypomanic ([facility] H[facility]/HCC) Take 1 tablet (5 mg total) by mouth daily. 30 tablet 05/31/2022 07/13/2022 lamoTRIgine (LAMICTAL) 200 MG tabletIndications :Bipolar affective disorder, current episode hypomanic ([facility] HHS/HCC) Take 1 tablet (200 mg total) by mouth daily. 90 tablet 05/31/2022 07/13/2022 Norgestimate-Ethi nyl Estradiol (TRI-SPRINTEC) 0.18/0.215/0.25 MG-35 MCG tabletIndications :Dysmenorrhea in adolescent Take 1 tablet by mouth daily. 84 tablet 2 01/30/2022 03/21/2023 documented as of this encounter Plan of Treatment Not on file documented as of this encounter Procedures Procedure Name Priority Date/Time Associated Diagnosis Comments VAGINITIS SCREEN (VDS) Routine 07/12/2022 3:40 PM UI APPLICATION DEVELOPER History of urinary tract infection documented in this encounter Results * VDS (REJI, TRICH, & G. VAG) (07/12/2022 3:40 PM UI APPLICATION DEVELOPER) GARDNERELLA VAGINALIS NEGATIVE NEGATIVE 07/13/2022 6:22 AM UI APPLICATION DEVELOPER [facility] REJI SPECIES NEGATIVE NEGATIVE 6:22 AM UI APPLICATION DEVELOPER [facility] TRICHOMONAS NEGATIVE NEGATIVE 07/13/2022 6:22 AM UI APPLICATION DEVELOPER [facility] VAGINAL STRUCTURE / Unknown 07/12/2022 3:40 PM UI APPLICATION DEVELOPER Chiqui Fu OILER AND GREASER MICROBIOLOGY - GENERAL ORDERABL ES Final Result [id number] [place] [address], documented in this encounter Visit Diagnoses Diagnosis History of urinary tract infection Personal history of urinary (tract) infection documented in this encounter Additional Health Concerns Assessment Noted Time PHQ-9 Depression Total Score: 10 022 9:31 AM UI APPLICATION DEVELOPER documented as of this encounter Care Teams Manager Meat Relationship Specialty Start Date End Date Nan Crews FNP PCP - General NURSE PRACTITIONER 04/24/18 documented as of this encounter
--- OUTSIDE RECORDS SUMMARY | 2024-06-05 20:56 | XMS_ITS | Encounter Summary ---
Author Organization [facility] Address [address] [place] [address]. [place] [address] Care Team Providers Care Reed Press Feeder Name Role Phone Nan Crews Primary Care Provider [phone] Encounter Details Date Type Department Care Team (Latest Contact Info) Description 12/11/2022 Travel Social History Tobacco Use Types Packs/Day Years Used Date Smoking Tobacco: Every Day Smokeless Tobacco: Never Comments:Provider to personal financial counselor /vaps only Alcohol Use Standard Drinks/Week Comments Yes 0 (1 standard drink = 0.6 oz pur e alcohol) social AUDIT-C Answer Date Recorded Q1: How often do you have a drink containing alc ohol? Monthly or less 12/11/2022 Q2: How many drinks containi ng alcohol do you have on a typical day when you are drinking? 1 or 2 12/11/2022 Q3: How often do you have si x or more drinks on one occasion? Never 12/11/2022 PHQ-2 Answer Date Recorded Patient Health Questionnaire-2 Score 4 12/11/2022 Comments No Sex and Gender Information Value [...] Assessment Noted Time PHQ-9 Depression Total Score: 20 023 10:36 AM CDT documented as of this encounter Care Teams Reed Press Feeder Relationship Specialty Start Date End Date Nan Crews FNP PCP - General NURSE PRACTITIONER 04/24/18 documented as of this encounter
--- OUTSIDE RECORDS SUMMARY | 2024-06-05 20:56 | XMS_ITS | Encounter Summary ---
Author Organization [facility] Address [address] [place] [address]. [place], [place] [address] [place] [address] Care Team Providers Care Spouter Name Role Phone Mars Nan YOUNG Primary Care Provider [phone] Encounter Details Date Type Department Care Team (Late st Contact Info) Description 07/12/2022 Orders Only [facility] [address] [address] Chiqui Fu FNP [address] [place], [place] [id number] Social History Tobacco Use Types Packs/Day Years Used Date Smoking Tobacco: Every Day Smokeless Tobacco: Never Comments:Provider to rehabilitation counselor /vaps only Alcohol Use Standard Drinks/Week [...] Coronavirus/COVID-19? No / Unsure 07/12/2022 2:58 PM DRAFTER CIVIL (CAD) documented as of this encounter Plan of Treatment Not on file documented as of this encounter Visit Diagnoses Not on filedocumented in this encounter Additional Health Concerns Assessment Noted Time PHQ-9 Depression Total Score: 10 022 9:31 AM DRAFTER CIVIL (CAD) documented as of this encounter Care Teams Spouter Relationship Specialty Start Date End Date Nan Crews FNP PCP - General NURSE PRACTITIONER 04/24/18 documented as of this encounter
--- OUTSIDE RECORDS SUMMARY | 2024-06-05 20:56 | XMS_ITS | Encounter Summary ---
Author Organization [facility] Address [address] [place] [address]. [place], [place] [address] [place] [address] Care Team Providers Care Small Lot Operator Name Role Phone Nan Crews HECTOR Primary Care Provider [phone] Reason for Visit * Reason Onset Date Comments Medication Problem 03/19/2023 Encounter Details Date Type Department Care Team (Late st Contact Info) Description 03/19/2023 Telephone [facility] Behavior[facility] - [place] [address] [facility], [facility] [address] [place] [address] Ethel Haddad APRN [address] [place] [address] Medication Problem Social History Tobacco Use Types Packs/Day Years Used Date Smoking Tobacco: Every Day Smokeless Tobacco: Never Comments:Provider to certified alcohol drug counselor /vaps only Alcohol Use Standard Drinks/Week [...] as of this encounter Progress Notes * Ethel Haddad APRN - 03/21/2023 4:39 PM CDTAddended by: ETHEL HADDAD on: 03/21/2023 04:39 PM Modules accepted: Orders * Alexandra Powell LPN - 03/21/2023 3:58 PM CDT Spoke with patient and she would like to try both medications noted above (trileptal) (Prazosin) and she would like them sent to [facility]. She will keep her 04/09/23 appt and follow up. Alexandra Powell LPN * Alexandra Powell LPN - 03/20/2023 1:14 PM CDT Second call made and voicemail left to call back to the office when she can to discuss medication. Alexandra Powell LPN * Alexandra Powell LPN - 03/20/2023 8:51 AM CDT Left message for patient to call back to discuss medication information. Alexandra Powell LPN * Alexandra Powell LPN - 03/19/2023 10:38 AM CDT Patient called and states she was given new medication(Geodon)ziprasidone and she took it for two days and it made her feel (like a zombie)-she states she had slurred speech, impaired gait, and felt over medicated(drugged). She tried and other day but could not tolerate the noted side effects and stopped the medication. She was not sure if you wanted her to try something different, but she would like to try a sleep medication due to no sleep at all last night due to the night terrors. Please advise Alexandra Powell LPN documented in this encounter Plan of Treatment Not on file documented as of this encounter Visit Diagnoses Diagnosis Bipolar affective disorder, current episode hypomanic ([facility])- Primary Bipolar I disorder, most recent episode (or current) manic, unspecified Nightmares Other dysfunctions of sleep stages or arousal from sleep documented in this encounter Additional Health Concerns Assessment Noted Time PHQ-9 Depression Total Score: 18 023 1:39 PM CDT documented as of this encounter Care Teams Small Lot Operator Relationship Specialty Start Date End Date Nan Crews FNP PCP - General NURSE PRACTITIONER 04/24/18 documented as of this encounter
--- OUTSIDE RECORDS SUMMARY | 2024-06-05 20:56 | XMS_ITS | Encounter Summary ---
Author Organization [facility] Address [address] [place] [address]. [place], [place] [address] [place] [address] Care Team Providers Care Dipper Clock And Watch Hands Name Role Phone Nan Crews DUAL RATE SUPERVISOR Primary Care Provider [phone] Reason for Visit * Reason Onset Date Comments Concerns 07/25/2022 Encounter Details Date Type Department Care Team (Late st Contact Info) Description 07/25/2022 Telephone [facility] Medical Group Family and Internal Medicine - [place] [address] [place] [address] [place], [place] [address] Etehl Haddad, COPPING MACHINE OPERATOR [address] [place], [place] [address] Concerns Social History Tobacco Use Types Packs/Day Years Used Date Smoking Tobacco: Every Day Smokeless Tobacco: Never Comments:Provider to grief counselor /vaps only Alcohol Use Standard Drinks/Week [...] Coronavirus/COVID-19? No / Unsure 07/12/2022 2:58 PM BUTTON ATTACHING MACHINE OPERATOR documented as of this encounter Progress Notes * Alexandra Powell LPN - 07/25/2022 12:33 PM CSTSummary: medication Patient calls and states she was started on Seroquel at her last visit 07/13/22. Patient states she took the medication x 5 days and had tremors and random thoughts. She went off the medication, its been 3 days now and she States the side effects are gone. She has an up coming appt on 08/09/22. Patient states she will discuss more at this appt, if you have advice please let me know. Alexandra Powell LPN ON ATTACHING MACHINE OPERATOR ON ATTACHING MACHINE OPERATOR * Linda Jones - 07/25/2022 10:54 AM CST Pt said she has problems with her medicines and wants to talk to nurse [phone] ON ATTACHING MACHINE OPERATOR documented in this encounter Plan of Treatment Not on file documented as of this encounter Visit Diagnoses Not on filedocumented in this encounter Additional Health Concerns Assessment Noted Time PHQ-9 Depression Total Score: 11 023 10:12 AM BUTTON ATTACHING MACHINE OPERATOR documented as of this encounter Care Teams Dipper Clock And Watch Hands Relationship Specialty Start Date End Date Nan Crews FNP PCP - General NURSE PRACTITIONER 04/24/18 documented as of this encounter
--- OUTSIDE RECORDS SUMMARY | 2024-06-05 20:56 | XMS_ITS | Encounter Summary ---
Author Organization [facility] Address [address] [place] [address]. [place], [place] [address] [place] [address] Care Team Providers Care Blasting Machine Operator Name Role Phone Nan Crews Primary Care Provider [phone] Reason for Visit * Reason Onset Date Comments Orders 10/29/2022 Encounter Details Date Type Department Care Team (Late st Contact Info) Description 10/29/2022 Telephone [facility] [address] [place] [address] Nan Crews FNP [address] [place], [place] [id number] Orders Social History Tobacco Use Types Packs/Day Years Used Date Smoking Tobacco: Every Day Smokeless Tobacco: Never Comments:Provider to vocational guidance counselor /vaps only Alcohol Use Standard Drinks/Week [...] encounter Progress Notes * Kiersten Hernandez - 10/29/2022 9:43 AM CDTSummary: US of pelvic Order New order needed for US of Pelvic, fax [phone] Att [facility] ph [phone] documented in this encounter Plan of Treatment Not on file documented as of this encounter Visit Diagnoses Not on filedocumented in this encounter Additional Health Concerns Assessment Noted Time PHQ-9 Depression Total Score: 11 09/10/ 023 10:44 AM CDT documented as of this encounter Care Teams Blasting Machine Operator Relationship Specialty Start Date End Date Nan Crews FNP PCP - General NURSE PRACTITIONER 04/24/18 documented as of this encounter
--- OUTSIDE RECORDS SUMMARY | 2024-06-05 20:56 | XMS_ITS | Encounter Summary ---
Author Organization [facility] Address [address] [place] [address]. [place], [place] [address] [place] [address] Care Team Providers Care Mutual Funds Agent Name Role Phone Nan Crews CASE TECHNICIAN Primary Care Provider [phone] Reason for Visit * Reason Onset Date Comments Lab Order 09/09/2023 Encounter Details Date Type Department Care Team (Late st Contact Info) Description 09/09/2023 Telephone [facility] Medical Group Family and Internal Medicine - [place] [address] [place] [address] [place], [place] [address] Ethel Haddad, SALES ASSOCIATE KEY HOLDER [address] [place], [place] [address] Lab Order Social History Tobacco Use Types Packs/Day Years Used Date Smoking Tobacco: Every Day Smokeless Tobacco: Never Comments:Provider to herb counselor /vaps only Alcohol Use Standard Drinks/Week [...] as of this encounter Progress Notes * Linda Jones - 09/09/2023 8:44 AM CDT Pt needs lab orders sent to her mattiet milagros. Her appt is in 20 min documented in this encounter Plan of Treatment Not on file documented as of this encounter Visit Diagnoses Not on filedocumented in this encounter Additional Health Concerns Assessment Noted Time PHQ-9 Depression Total Score: 024 8:35 AM CDT documented as of this encounter Care Teams Mutual Funds Agent Relationship Specialty Start Date End Date Nan Crews FNP PCP - General NURSE PRACTITIONER 04/24/18 documented as of this encounter
--- OUTSIDE RECORDS SUMMARY | 2024-06-05 20:56 | XMS_ITS | Encounter Summary ---
Author Organization [facility] Address [address] [place] [address]. [place], [place] [address] [place] [address] Care Team Providers Care Finishing Machine Operator Automatic Name Role Phone Mars Nan YOUNG Primary Care Provider [phone] Encounter Details Date Type Department Care Team (Late st Contact Info) Description 07/12/2022 Orders Only [facility] [address] [place] [address] Chiqui Fu FNP [address] [place] [id number] Social History Tobacco Use Types Packs/Day Years Used Date Smoking Tobacco: Every Day Smokeless Tobacco: Never Comments:Provider to careers counsellor /vaps only Alcohol Use Standard Drinks/Week Comments [...] Coronavirus/COVID-19? No / Unsure 07/12/2022 2:58 PM PLAY WRITER documented as of this encounter Plan of Treatment Not on file documented as of this encounter Visit Diagnoses Not on filedocumented in this encounter Additional Health Concerns Assessment Noted Time PHQ-9 Depression Total Score: 10 022 9:31 AM PLAY WRITER documented as of this encounter Care Teams Finishing Machine Operator Automatic Relationship Specialty Start Date End Date Nan Crews FNP PCP - General NURSE PRACTITIONER 04/24/18 documented as of this encounter
--- OUTSIDE RECORDS SUMMARY | 2024-06-05 20:56 | XMS_ITS | Encounter Summary ---
Author Organization [facility] Address [address] [place] [address]. [place] [address] Care Team Providers Care State Comptroller Name Role Phone Nan Crews Primary Care Provider [phone] Encounter Details Date Type Department Care Team (Latest Contact Info) Description 09/05/2023 Travel Social History Tobacco Use Types Packs/Day Years Used Date Smoking Tobacco: Every Day Smokeless Tobacco: Never Comments:Provider to automobile travel club counselor /vaps only Alcohol Use Standard Drinks/Week [...] documented as of this encounter Care Teams State Comptroller Relationship Specialty Start Date End Date Nan Crews FNP PCP - General NURSE PRACTITIONER 04/24/18 documented as of this encounter
--- OUTSIDE RECORDS SUMMARY | 2024-06-05 20:56 | XMS_ITS | Encounter Summary ---
Author Organization [facility] Address [address] [place] [address]. [place], [place] [address] [place] [address] Care Team Providers Care Home Economist Name Role Phone Nan Crews HECTOR Primary Care Provider [phone] Reason for Visit * Reason Onset Date Comments Medication Problem 08/13/2022 Encounter Details Date Type Department Care Team (Late st Contact Info) Description 08/13/2022 Telephone [facility] Medical Group Behavioral Health - [place] [address], [facility] [address] [place] [address] Ethel Haddad, AGRICULTURAL PILOT [address] [place] [address] Medication Problem Social History Tobacco Use Types Packs/Day Years Used Date Smoking Tobacco: Every Day Smokeless Tobacco: Never Comments:Provider to consumer credit counselor /vaps only Alcohol Use Standard Drinks/Week Comments Yes 0 (1 standard drink = 0.6 oz pur e alcohol) social AUDIT-C Answer Date Recorded Q1: How often do you have a drink containing alc ohol? Monthly or less 08/13/2022 Q2: How many drinks containi ng alcohol do you have on a typical day when you are drinking? 1 or 2 08/13/2022 Q3: How often do you have si x or more drinks on one occasion? Less than monthly 08/13/2022 PHQ-2 Answer Date Recorded Patient Health Questionnaire-2 Score 3 08/13/2022 Comments No Sex and Gender Information Value Date Recorded Sex Assigned at Not on file Legal Sex Female 8:07 AM CDT Gender Identity Not on file Sexual Orientation Not on file COVID-19 Exposure Response Date Recorded In the last 10 days, have leesa walker been in contact with someone who was confirmed or suspected to have Coronavirus/COVID-19? No / Unsure 08/13/2022 1:36 PM MASTER PILOT documented as of this encounter Progress Notes * Alexandra Powell LPN - 08/13/2022 4:24 PM CST Out of order note-- patient has been notified of the integration of her new medication and her OPC,she voiced understanding, no other questions at this time. Alexandra Powell LPN ER PILOT * Alexandra Powell LPN - 08/13/2022 4:16 PM CSTSummary: medication Pharmacist wanted to make sure that the patient has been told this will effect her control. Made them aware she has been notified. Alexandra Powell LPN ER PILOT * Deisy Antony - 08/13/2022 3:30 PM CST Zayda gomez [place] called to talk to a nurse about a drug interaction . Please call them at - [phone] Jennifer ER PILOT documented in this encounter Plan of Treatment Not on file documented as of this encounter Visit Diagnoses Not on filedocumented in this encounter Additional Health Concerns Assessment Noted Time PHQ-9 Depression Total Score: 13 023 1:48 PM MASTER PILOT documented as of this encounter Care Teams Home Economist Relationship Specialty Start Date End Date Nan Crews FNP PCP - General NURSE PRACTITIONER 04/24/18 documented as of this encounter
--- OUTSIDE RECORDS SUMMARY | 2024-06-05 20:56 | XMS_ITS | Encounter Summary ---
Author Organization [facility] Address [address] [place] [address]. [place] [address] Care Team Providers Care Assistant Vice President Name Role Phone Nan Crews Primary Care Provider [phone] Encounter Details Date Type Department Care Team (Latest Contact Info) Description 03/12/2023 Travel Social History Tobacco Use Types Packs/Day Years Used Date Smoking Tobacco: Every Day Smokeless Tobacco: Never Comments:Provider to drug counselor /vaps only Alcohol Use Standard [...] as of this encounter Care Teams Assistant Vice President Relationship Specialty Start Date End Date Nan Crews FNP PCP - General NURSE PRACTITIONER 04/24/18 documented as of this encounter
--- OUTSIDE RECORDS SUMMARY | 2024-06-05 20:56 | XMS_ITS | Encounter Summary ---
Author Organization [facility] Address [address] [place] [address]. [place], [place] [id number] [place] [id number] Care Team Providers Care Ornamental Iron Worker Name Role Phone Nan Crews Primary Care Provider [phone] Reason for Visit * Reason Comments Dizziness Dizziness, lighthead ed, and SOB going on for a year, the other day it lasted all day and hands were numb, says it feels like attacks of the symptoms now Encounter Details Date Type Department Care Team (Late st Contact Info) Description 04/10/2023 10:00 AM CDT Office Visit [facility] [address] [facility] [place] [address] Nan Crews [facility] [address] [place] [address] Dizziness (Dizziness, lightheaded, and SOB going on for a year, the other day it lasted all day and hands were numb, says it feels like attacks of the symptoms now) Social History Tobacco Use Types Packs/Day Years Used Date Smoking Tobacco: Every Day Smokeless Tobacco: Never Tobacco Cessation:Ready to Q uit: Not Asked; Counseling Given: Yes Comments:Provider to staff genetic counselor /vaps only Alcohol Use Standard [...] Sign Reading Time Taken Comments Blood Pressure 118/84 04/10/2023 10:03 AM CDT Pulse 84 04/10/2023 10:13 AM CDT Temperature 36.7 ??C (98.1 ??F) 04/10/2023 10:03 AM C DT Respiratory Rate - - Oxygen Saturation 98% 04/10/2023 10:03 AM CDT Inhaled Oxygen Concentration - - Weight 46.4 kg (102 lb 6.4 oz) 04/10/2023 10:03 AM CDT Height 165.1 cm (5' 5 ) 04/10/2023 10:03 AM CDT Body Mass Index 17.04 04/10/2023 10:03 AM CDT documented in this encounter Patient Instructions * Patient Instructions* HECTOR Monique - 04/10/2023 10:00 AM CDT We will call later with the results of the blood work and make further recommendations Make sure you follow a healthy diet and stay well-hydrated Follow-up with your psychiatrist as planned documented in this encounter Progress Notes * HECTOR Monique - 04/10/2023 10:00 AM CDT Cecilia is a 17-year-old female patient. Reason for Visit: Dizziness (Dizziness, lightheaded, and SOB going on for a year, the other day it lasted all day andhands were numb, says it feels like attacks of the symptoms now) History of Present Illness: Cecilia is a 17-year-old female patient here for concerns of having dizziness, lightheadedness, and shortness of breath off and on for a year. Her past medical history includes bipolar disorder and borderline personality disorder. She is under the care of Ethel Haddad, psychiatric nurse practitioner and [facility]. She reports that about a year ago she started having episodes in which she would wake up in the morning and get up, feel dizzy and lightheaded so she would lie back down for 10 minutes and then get back up and her symptoms will be completely gone and she will be fine for the rest of the day. It didnot happen every day but would occur a few times a week. Last week she had a full day of feeling dizzy and lightheaded. Her hands felt numb all day long as well. She felt some shortness of breath like she was having a panic attack which occurred for a few seconds several times that day. She eventually went to urgent care in [facility] as she was staying there at the time They did orthostatics and told her that her blood pressure did drop a little bit when she stood up.Her vital signs were otherwise normal. When she walked they monitor her blood pressure and pulse and it remained good. They checked her blood sugar and told her it was normal. They told her she couldgo to the ED if she wanted more of a work-up but that is all they can do there. She was otherwise advised to follow-up here. Since the urgent care visit she has had some symptoms off and on every day of lightheaded and tingling and numbness in her hands. She says she feels perfectly fine today. She woke up without any lightheadedness or dizziness and has not had any tingling or numbness in her hands yet today. She moved back home to live with her parents last week. She was living with 2 friends in [place]. She was working at [employer] in [place] and plans to try to get a job at the [employer]. She says she is putting an application in today. She tells me that she has not been taking her psych meds routinely over the last 6 months. She saysshe has side effects from everything that they give her so she would take them for a while and thenstop. She was supposed to have an appointment yesterday but she decided that she did not want to take any psych meds while she was having the dizziness symptoms so she canceled the appointment. She was told to follow-up there when she was ready to start medications again. She has irregular periods. She says she has not had 1 for about 6 weeks. She is sexually active butshe did help 2 home tests in the last few days and they both been negative. She has a history of having ovarian cysts. She sees a knot bumper in [facility] for the ovarian cyst as well as irregular periods The knot bumper plans to put in an IUD as soon as she starts her menstrual cycle. She says her weight has improved. She struggled with an eating disorder in the past but that is much better now and she is eating well. She eats fruits vegetables and meats and says that she drinks plenty of fluids throughout the day. She has had some fatigue over the past year as well Past Medical History: Diagnosis Date Abnormal urinalysis 07/07/2020 Anxiety Depression Past Surgical History: Procedure Laterality Date BLADDER SURGERY Medications: Current Outpatient Medications: OXcarbazepine (TRILEPTAL) 150 MG tablet, Take 1 tablet (150 mg total) by mouth 2 (two) times daily.(Patient not taking: Reported on 04/10/2023), Disp: 60 tablet, Rfl: 0 prazosin (MINIPRESS) 1 MG capsule, Take 1 capsule (1 mg total) by mouth nightly at bedtime. (Patient not taking: Reported on 04/10/2023), Disp: 30 capsule, Rfl: 0 No Known Allergies Family History Problem Relation Name Age of Onset Mental Health Mother Hx of post- depression Anxiety Father Depression Maternal Grandmother Anxiety Paternal Grandfather Family Status Relation Name Status Mother Alive Father Alive MGM (Not Specified) PGF (Not Specified) Social History Socioeconomic History Marital status: Single Tobacco Use Smoking status: Every Day Smokeless tobacco: Never Tobacco comments: Provider to staff genetic counselor /vaps only Vaping Use Vaping Use: Every day Substances: Nicotine Devices: Refillable tank Substance and Sexual Activity Alcohol use: Yes Comment: social Drug use: No Comment: no Sexual activity: Yes Comment: BF Social History Narrative Wears glasses ROS: Review of Systems Constitutional: Positive for malaise/fatigue. Negative for weight loss. HENT: Negative for congestion, ear pain, hearing loss, sore throat and tinnitus. Eyes: Negative for blurred vision and double vision. Respiratory: Negative for cough, shortness of breath and wheezing. Cardiovascular: Negative for chest pain, palpitations and orthopnea. Gastrointestinal: Negative. Genitourinary: Irregular menses Neurological: Positive for dizziness and sensory change (Numbness and tingling intermittently in both hands several times throughout the day). Negative for headaches. Psychiatric/Behavioral: See HPI Vitals: Filed Vitals: 04/10/23 1003 04/10/23 1013 BP: 118/84 Pulse: (!) 119 84 Temp: 98.1 ??F (36.7 ??C) SpO2: 98% Weight: 46.4 kg (102 lb 6.4 oz) Height: 1.651 m (5' 5 ) Physical Exam Constitutional: Comments: Thin female patient in no distress HENT: Head: Normocephalic and atraumatic. Right Ear: Tympanic membrane, ear canal and external ear normal. Left Ear: Tympanic membrane, ear canal and external ear normal. Nose: Nose normal. Mouth/Throat: Mouth: Mucous membranes are moist. Eyes: Conjunctiva/sclera: Conjunctivae normal. Pupils: Pupils are equal, round, and reactive to light. Neck: Comments: No thyromegaly Cardiovascular: Rate and Rhythm: Normal rate and regular rhythm. Pulses: Normal pulses. Heart sounds: Normal heart sounds. Pulmonary: Effort: Pulmonary effort is normal. Breath sounds: Normal breath sounds. Abdominal: General: Bowel sounds are normal. There is no distension. Palpations: Abdomen is soft. Tenderness: There is no abdominal tenderness. Musculoskeletal: Cervical back: Neck supple. Comments: Her gait is normal Lymphadenopathy: Cervical: No cervical adenopathy. Skin: General: Skin is warm and dry. Neurological: General: No focal deficit present. Mental Status: She is alert and oriented to person, place, and time. Psychiatric: Comments: She is anxious. Talkative. Diagnoses/Impression: Encounter Diagnose(s) ICD-10-CM SNOMED CT(R) 1. Episodic lightheadedness R42 LIGHTHEADEDNESS BASIC METABOLIC PANEL CBC W/DIFF AUTOMATED 2. Chronic fatigue R53.82 FATIGUE THYROID STIM HORMONE, TSH BASIC METABOLIC PANEL CBC W/DIFF AUTOMATED VITAMIN D, 25 OH 3. Bilateral hand numbness R20.0 NUMBNESS OF HAND THYROID STIM HORMONE, TSH Intermittent 4. Borderline personality disorder (HHS/HCC) (CMS/HCC) F60.3 BORDERLINE PERSONALITY DISORDER 5. Bipolar affective disorder, currently manic, mild (HHS/HCC) (CMS/HCC) F31.11 BIPOLAR AFFECTIVE DISORDER, CURRENTLY MANIC, MILD Plan Orders Placed: Orders Placed This Encounter THYROID STIM HORMONE, TSH BASIC METABOLIC PANEL CBC W/DIFF AUTOMATED VITAMIN D, 25 OH We will get some screening labs today and further recommendations once those results are reviewed I encouraged her to follow a healthy diet and make sure she stays well-hydrated Patient advised to see her psychiatrist soon for reevaluation and to get back on her medications Instructions Patient Instructions We will call later with the results of the blood work and make further recommendations Make sure you follow a healthy diet and stay well-hydrated Follow-up with your psychiatrist as planned HECTOR MONIQUE 04/10/2023 10:22 AM I personally spent a total of 34 minutes on the day of the encounter. This includes [id number] and [id number]-face time I provided on the day of the encounter & excludes time spent performing separately reportable services. Cosigned by Gabrielle Mathew DO at 04/11/2023 3:43 PM CDT documented in this encounter Plan of Treatment Not on file documented as of this encounter Results * (ABNORMAL) VITAMIN D, 25 OH (04/10/2023 12:00 PM CDT) Pathologist [facility] VITAMIN D 25 HYDROXY S/P/B 28(L) 30 - 100 NG/ML 04/10/2023 5:04 PM CDT [facility] Comment: ? INTERPRETATION ? DEFICIENT ??<20 ? INSUFFICIENT 20-29 ?SUFFICIENT 30-100 04/10/2023 12:0 0 PM CDT us [facility] Final Result [facility] [address] [place] [address] [place] [address], * CBC W/DIFF AUTOMATED (04/10/2023 12:00 PM CDT) WBC 5.79 4.50 - 11.00 x10'3/uL 04/10/2023 4:39 PM CDT [facility] RBC 4.32 4.00 - 5.20 x10'6/uL 04/10/2023 4:39 PM CDT [facility] HGB 13.1 12.0 - 16.0 G/DL 04/10/2023 4:39 PM CDT [facility] HCT 38.7 36.0 - 46.0 % 04/10/2023 4:39 PM CDT [facility] MCV 89.6 80.0 - 100.0 FL 04/10/2023 4:39 PM CDT [facility] MCH 30.3 26.0 - 34.0 PG 04/10/2023 4:39 PM CDT [facility] MCHC 33.9 31.0 - 37.0 G/DL 04/10/2023 4:39 PM CDT [facility] RDW 12.0 11.6 - 14.8 % 04/10/2023 4:39 PM CDT [facility] PLT 272 140 - 415 x10'3/uL 04/10/2023 4:39 PM CDT [facility] MPV 9.0 7.0 - 12.0 FL 04/10/2023 4:39 PM CDT [facility] 04/10/2023 12:0 0 PM CDT us Nan [facility] Final Result [facility] [address] [place] [address], * (ABNORMAL) BASIC METABOLIC PANEL (04/10/2023 12:00 PM CDT) GLUCOSE 67(L) 70 - 99 MG/DL 04/10/2023 5:04 PM CDT [facility] BUN 15 7 - 18 MG/DL 04/10/2023 5:04 PM CDT [facility] CREATININE S/P/B 0.66 0.50 - 1.20 MG/DL 04/10/2023 5:04 PM CDT [facility] SODIUM S/P/B 139 136 - 145 MMOL/L 04/10/2023 5:04 PM CDT [facility] POTASSIUM S/P/B 3.5 3.5 - 5.1 MMOL/L 04/10/2023 5:04 PM CDT [facility] CHLORIDE S/P/B 103 100 - 108 MMOL/L 04/10/2023 5:04 PM CDT [facility] CO2 27.1 21.0 - 32.0 MMOL/L 04/10/2023 5:04 PM CDT [facility] CALCIUM S/P/B 9.0 8.5 - 10.1 MG/DL 04/10/2023 5:04 PM CDT [facility] ANION GAP 8.9 5.0 - 15.0 MMOL/L 04/10/2023 5:04 PM CDT [facility] BUN CREATININE RATIO 22.7 6 - 26 04/10/2023 5:04 PM CDT [facility] GFR ESTIMATE >90 >90 ML/MIN/1.7 3 M2 04/10/2023 5:04 PM CDT [facility] Comment: NOTE: eGFR is not calculated for patients <18 years of age. This is an estimated GFR calculation using the new CKD EPI creatinine equation without race and so does not require a correction factor for race. This estimated GFR should not be used for calculating drug doses. 04/10/2023 12:0 0 PM CDT us Nan [facility] Final Result [address] [address], [place] * THYROID STIM HORMONE, TSH (04/10/2023 12:00 PM CDT) TSH 1.804 0.358 - 3.740 uIU/ML 04/10/2023 5:04 PM CDT [facility] Comment: HIGH DOSES OF BIOTIN MAY INTERFERE WITH THIS TEST RESULT. CORRELATION TO CLINICAL HISTORY AND PRESENTATION RECOMMENDED. 04/10/2023 12:0 0 PM CDT us [facility] Final Result [facility] [address] [place] [address], documented in this encounter Visit Diagnoses Diagnosis Episodic lightheadedness- Primary Dizziness and giddiness Chronic fatigue Other malaise and fatigue Bilateral hand numbness Disturbance of skin sensation Borderline personality disorder (CMS/HCC HHS/HCC) Borderline personality disorder Bipolar affective disorder, currently manic, mild (CMS/HCC HHS/HCC) Bipolar I disorder, most recent episode (or current) manic, mild documented in this encounter Additional Health Concerns Assessment Noted Time PHQ-9 Depression Total Score: 18 023 1:39 PM CDT documented as of this encounter Care Teams Ornamental Iron Worker Relationship Specialty Start Date End Date Nan Crews FNP PCP - General NURSE PRACTITIONER 04/24/18 documented as of this encounter
--- OUTSIDE RECORDS SUMMARY | 2024-06-05 20:56 | XMS_ITS | Encounter Summary ---
Author Organization [facility] Address [address] [place] [address]. [place], [place] [id number] [place] [address] Care Team Providers Care Tool Filer Name Role Phone Nan Crews Primary Care Provider [phone] Reason for Visit * Reason Comments Abdominal Pain Patient has been hav ing stomach pain on left side for the past year or so. It comes and goes. It has been pretty constant for the past 2 months and she has been very nauseous and is having trouble eating. She feels she has been losing weight as well.-nkw Encounter Details Date Type Department Care Team (Late st Contact Info) Description 11/09/2022 10:20 AM CDT Office Visit [facility] [address] [facility] [place] [address] [facility] [place] [address] Abdominal Pain (Patient has been having stomach pain on left side for the past year or so. It comes and goes. It has been pretty constant for the past 2 months and she has been very nauseous and is having trouble eating. She feels she has been losing weight as well./-nkw) Social History Tobacco Use Types Packs/Day Years Used Date Smoking Tobacco: Every Day Smokeless Tobacco: Never Tobacco Cessation:Ready to Q uit: Not Asked; Counseling Given: Not Answered Comments:Provider to marriage counselor /vaps only Alcohol [...] suspected to have Coronavirus/COVID-19? No / Unsure 11/09/2022 10:19 AM CDT documented as of this encounter Last Filed Vital Signs Vital Sign Reading Time Taken Comments Blood Pressure 104/68 11/09/2022 10:22 AM CDT Pulse 84 11/09/2022 10:22 AM CDT Temperature 36.7 ??C (98 ??F) 11/09/2022 10:22 AM CDT Respiratory Rate 16 11/09/2022 10:22 AM CDT Oxygen Saturation 100% 11/09/2022 10:22 AM CDT Inhaled Oxygen Concentration - - Weight 47.2 kg (104 lb) 11/09/2022 10:22 AM CDT Height 165.1 cm (5' 5 ) 11/09/2022 10:22 AM CDT Body Mass Index 17.31 11/09/2022 10:22 AM CDT documented in this encounter Patient Instructions * Patient Instructions* HECTOR Monique - 11/09/2022 10:20 AM CDT Get the blood work and the ultrasound done soon Start taking famotidine 20 mg twice a day for your stomach pain See me for follow-up in 3 weeks Follow up with your psychiatrist soon documented in this encounter Progress Notes * HECTOR Monique - 11/09/2022 10:20 AM CDT Cecilia is a 17-year-old female patient. Reason for Visit: Abdominal Pain (Patient has been having stomach pain on left side for the past year or so. It comesand goes. It has been pretty constant for the past 2 months and she has been very nauseous and is having trouble eating. She feels she has been losing weight as well./-nkw) History of Present Illness: Cecilia is a 17 year old old female pt here for left sided upper abdominal pain x 2 months. She says she came in last week for the same symptoms but in reviewing both my notes as well as Jo Mendoza's notes, she was seen for left pelvic pain. Her pain at this time is left upper quadrant. She says the other pain completely resolved. She has occasional nausea but no vomiting. She has not had any diarrhea or constipation. She does not think that the pain is relating to eating certain foods. She usually has the pain at least once aday and it comes and goes. She denies having any urinary issues. Her menstrual periods are normal. She is on oral contraceptive pills. Her last period was on 10/25/2022. She had an order in the chart for pelvic ultrasound which she had not done. It was placed 1 year ago. She did go ahead and get that pelvic ultrasound done last week and it was unremarkable. She has a history of borderline personality disorder, mood disorder. She is under the care of a psychiatrist in [facility]. She is on Trileptal. She says she has not been taking it regularly. It has been about 2 months since she saw her psychiatrist. Past Medical History: Diagnosis Date Abnormal urinalysis 07/07/2020 Anxiety Depression Past Surgical History: Procedure Laterality Date BLADDER SURGERY Medications: Current Outpatient Medications: Norgestimate-Ethinyl Estradiol (TRI-SPRINTEC) 0.18/0.215/0.25 MG-35 MCG tablet, Take 1 tablet by mouth daily., Disp: 84 tablet, Rfl: 2 OXcarbazepine (TRILEPTAL) 150 MG tablet, Take 1 tablet (150 mg total) by mouth 2 (two) times daily., Disp: 180 tablet, Rfl: 0 No Known Allergies Family History Problem Relation Name Age of Onset Mental Health Mother Hx of post- depression Anxiety Father Depression Maternal Grandmother Anxiety Paternal Grandfather Family Status Relation Name Status Mother Alive Father Alive MGM (Not Specified) PGF (Not Specified) Social History Socioeconomic History Marital status: Single Tobacco Use Smoking status: Every Day Smokeless tobacco: Never Tobacco comments: Provider to marriage counselor /vaps only Vaping Use Vaping Use: Every day Substances: Nicotine Devices: Refillable tank Substance and Sexual Activity Alcohol use: Yes Comment: social Drug use: No Comment: no Sexual activity: Yes Comment: BF Social History Narrative Wears glasses ROS: Review of Systems Constitutional: Negative for chills, fever and weight loss. Respiratory: Negative for cough and shortness of breath. Cardiovascular: Negative for chest pain. Gastrointestinal: Positive for abdominal pain (Left upper quadrant, intermittent) and nausea. Negative for blood in stool, constipation, diarrhea, heartburn and vomiting. Genitourinary: Negative for dysuria, frequency, hematuria and urgency. Regular menses Musculoskeletal: Negative for back pain. Neurological: Negative for dizziness and headaches. Psychiatric/Behavioral: See HPI Vitals: Filed Vitals: 11/09/22 1022 BP: 104/68 Pulse: 84 Resp: 16 Temp: 98 ??F (36.7 ??C) TempSrc: Temporal SpO2: 100% Weight: 47.2 kg (104 lb) Height: 5' 5 (1.651 m) Physical Exam Constitutional: General: She is not in acute distress. Appearance: Normal appearance. She is not ill-appearing. HENT: Head: Normocephalic and atraumatic. Cardiovascular: Rate and Rhythm: Normal rate and regular rhythm. Pulmonary: Effort: Pulmonary effort is normal. Breath sounds: Normal breath sounds. Abdominal: General: Abdomen is flat. Bowel sounds are normal. There is no distension. Palpations: Abdomen is soft. There is no mass. Tenderness: There is abdominal tenderness (She has tenderness when I palpate her left upper quadrant.). There is no guarding or rebound. Musculoskeletal: Cervical back: Neck supple. Lymphadenopathy: Cervical: No cervical adenopathy. Skin: General: Skin is warm and dry. Neurological: Mental Status: She is alert and oriented to person, place, and time. Psychiatric: Mood and Affect: Mood normal. Comments: She is cooperative with my exam Diagnoses/Impression: Encounter Diagnose(s) ICD-10-CM ICD-9-CM SNOMED CT(R) 1. Left upper quadrant abdominal pain R10.12 789.02 LEFT UPPER QUADRANT PAIN US ABD LIMITED CBC W/DIFF AUTOMATED COMPREHENSIVE METABOLIC PANEL LIPASE famotidine (PEPCID) 20 MG tablet 2. Borderline personality disorder (CMS/HCC) F60.3 301.83 BORDERLINE PERSONALITY DISORDER 3. Mood disorder (CMS/HCC) F39 296.90 MOOD DISORDER Plan Orders Placed: Orders Placed This Encounter CBC W/DIFF AUTOMATED COMPREHENSIVE METABOLIC PANEL LIPASE US ABD LIMITED famotidine (PEPCID) 20 MG tablet We will schedule an upper abdominal ultrasound as well as lab work Advised to start Pepcid 20 mg twice a day See me for follow-up in 3 weeks for further evaluation Call sooner if any new or worsening symptoms develop I encouraged patient to get back in with her psychiatrist and take her psych meds as prescribed Instructions Patient Instructions Get the blood work and the ultrasound done soon Start taking famotidine 20 mg twice a day for your stomach pain See me for follow-up in 3 weeks Follow up with your psychiatrist soon HECTOR MONIQUE 11/09/2022 10:32 AM Cosigned by Gabrielle Mathew DO at 11/09/2022 11:57 AM CDT documented in this encounter Plan of Treatment Not on file documented as of this encounter Visit Diagnoses Diagnosis Left upper quadrant abdominal pain- Primary Borderline personality disorder (CMS/HCC [facility]/HCC) Borderline personality disorder Mood disorder (CMS/HCC) Unspecified episodic mood disorder documented in this encounter Additional Health Concerns Assessment Noted Time PHQ-9 Depression Total Score: 11 023 10:44 AM CDT documented as of this encounter Care Teams Tool Filer Relationship Specialty Start Date End Date Nan Crews FNP PCP - General NURSE PRACTITIONER 04/24/18 documented as of this encounter
--- OUTSIDE RECORDS SUMMARY | 2024-06-05 20:56 | XMS_ITS | Encounter Summary ---
Author Organization [facility] Address [address] [place] [address]. [place], [place] [id number] [place] [address] Care Team Providers Care Property Utilization Manager Name Role Phone Nan Crews [employer] TRUCK DRIVER Primary Care Provider [phone] Reason for Visit * Reason Onset Date Comments Question 09/05/2023 Encounter Details Date Type Department Care Team (Late st Contact Info) Description 09/05/2023 Telephone [facility] Family and Internal Medicine - [place] [address] [place], [place] [id number] Ethel Haddad, INBOUND TELEMARKETER [address] [place], [place] [id number] Question Social History Tobacco Use Types Packs/Day Years Used Date Smoking Tobacco: Every Day Smokeless Tobacco: Never Comments:Provider to treatment counselor /vaps only Alcohol Use Standard Drinks/Week [...] as of this encounter Progress Notes * Deisy Antony - 09/05/2023 10:33 AM CDT Pt called in to ask bout her labs she needs to get done . Please call pt back. documented in this encounter Plan of Treatment Not on file documented as of this encounter Visit Diagnoses Not on filedocumented in this encounter Additional Health Concerns Assessment Noted Time PHQ-9 Depression Total Score: 25 024 8:35 AM CDT documented as of this encounter Care Teams Property Utilization Manager Relationship Specialty Start Date End Date Nan Crews FNP PCP - General NURSE PRACTITIONER 04/24/18 documented as of this encounter
--- OUTSIDE RECORDS SUMMARY | 2024-06-05 20:56 | XMS_ITS | Encounter Summary ---
Author Organization [facility] Address [address] [place] [address]. 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
--- OUTSIDE RECORDS SUMMARY | 2024-06-05 20:56 | XMS_ITS | Encounter Summary ---
Author Organization [facility] Address [address] [place] [address]. [place], [place] [id number] [place] [id number] Care Team Providers Care Furnace Charging Machine Operator Name Role Phone Nan Crews Primary Care Provider [phone] Encounter Details Date Type Department Care Team (Late st Contact Info) Description 10/29/2022 Orders Only [facility] [address] [place] [address] Nan Crews FNP [address] [place], [place] [id number] Social History Tobacco Use Types Packs/Day Years Used Date Smoking Tobacco: Every Day Smokeless Tobacco: Never Comments:Provider to assessment counselor /vaps only Alcohol Use Standard Drinks/Week [...] as of this encounter Progress Notes * Alethea Coombs RN - 10/29/2022 8:32 AM CDT [facility] stating the patient is there with an order from our office for an abdominal ultrasound she said they don't do those and what was she needing this for. Upon reading the note it appears it is for pelvic pain. New order placed for pelvic ultrasound and faxed to [facility] [place] fax: [phone] documented in this encounter Plan of Treatment Not on file documented as of this encounter Visit Diagnoses Diagnosis Pelvic pain- Primary documented in this encounter Additional Health Concerns Assessment Noted Time PHQ-9 Depression Total Score: 11 023 10:44 AM CDT documented as of this encounter Care Teams Furnace Charging Machine Operator Relationship Specialty Start Date End Date Nan Crews FNP PCP - General NURSE PRACTITIONER 04/24/18 documented as of this encounter
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
--- OUTSIDE RECORDS SUMMARY | 2024-06-05 20:56 | XMS_ITS | Encounter Summary ---
Author Organization [facility] Address [address] [place] [address]. [place] [address] Care Team Providers Care Senior Ios Software Engineer Name Role Phone Nan Crews Primary Care Provider [phone] Encounter Details Date Type Department Care Team (Latest Contact Info) Description 07/12/2022 Travel Social History Tobacco Use Types Packs/Day Years Used Date Smoking Tobacco: Every Day Smokeless Tobacco: Never Comments:Provider to prevocational/rehabilitation counselor /vaps only Alcohol Use Standard Drinks/Week [...] Coronavirus/COVID-19? No / Unsure 07/12/2022 2:58 PM SALES AND MARKETING AGENT documented as of this encounter Plan of Treatment Not on file documented as of this encounter Visit Diagnoses Not on filedocumented in this encounter Additional Health Concerns Assessment Noted Time PHQ-9 Depression Total Score: 10 022 9:31 AM SALES AND MARKETING AGENT documented as of this encounter Care Teams Senior Ios Software Engineer Relationship Specialty Start Date End Date Nan Crews FNP PCP - General NURSE PRACTITIONER 04/24/18 documented as of this encounter
--- OUTSIDE RECORDS SUMMARY | 2024-06-05 20:56 | XMS_ITS | Encounter Summary ---
Author Organization [facility] Address [address] [place] [address]. [place] [address] Care Team Providers Care Power Mule Operator Name Role Phone Nan Crews Primary Care Provider [phone] Encounter Details Date Type Department Care Team (Latest Contact Info) Description 06/26/2023 Travel Social History Tobacco Use Types Packs/Day Years Used Date Smoking Tobacco: Every Day Smokeless Tobacco: Never Comments:Provider to outreach counselor /vaps only Alcohol Use Standard Drinks/Week [...] documented as of this encounter Care Teams Power Mule Operator Relationship Specialty Start Date End Date Nan Crews FNP PCP - General NURSE PRACTITIONER 04/24/18 documented as of this encounter
--- OUTSIDE RECORDS SUMMARY | 2024-06-05 20:56 | XMS_ITS | Encounter Summary ---
Author Organization [facility] Address [address] [place] [address]. [place], [place] [address] [place] [address] Care Team Providers Care Java Xml Developer Name Role Phone Nan Crews Primary Care Provider [phone] Reason for Visit * Reason Onset Date Comments Results 11/01/2022 Encounter Details Date Type Department Care Team (Late st Contact Info) Description 11/01/2022 Telephone [facility] [address] [place] [address] Nan Crews [facility] [address] [place], [place] [id number] Results Social History Tobacco Use Types Packs/Day Years Used Date Smoking Tobacco: Every Day Smokeless Tobacco: Never Comments:Provider to domestic violence counselor /vaps only Alcohol Use Standard Drinks/Week [...] as of this encounter Progress Notes * Francia Siegel MA - 11/01/2022 10:30 AM CDT Amina received results, per Amina this was a normal result. Amina asked why this was just completedsince she ordered October 2021. Mom stated that she is c/o pain again. I advised o.v. to be evaluated. She verbalized understanding. * Francia Siegel MA - 11/01/2022 10:22 AM CDT Mom returned call and said that they are supposed to be faxing it and I assured her that I would keep an eye out for it and get it Amina milagros. * Francia Siegel MA - 11/01/2022 10:13 AM CDT Called mom back let her know that we have not received the results of this yet, she is going to call [facility] and get them sent over. * Laura Mares - 11/01/2022 8:07 AM CDT Patient's Mom called wanting imaging results from Saturday that was done at [facility] documented in this encounter Plan of Treatment Not on file documented as of this encounter Visit Diagnoses Not on filedocumented in this encounter Additional Health Concerns Assessment Noted Time PHQ-9 Depression Total Score: 11 023 10:44 AM CDT documented as of this encounter Care Teams Java Xml Developer Relationship Specialty Start Date End Date Nan Crews FNP PCP - General NURSE PRACTITIONER 04/24/18 documented as of this encounter
--- OUTSIDE RECORDS SUMMARY | 2024-06-05 20:56 | XMS_ITS | Encounter Summary ---
Author Organization [facility] Address [address] [place] [address]. [place] [address] Care Team Providers Care Strategic Partner Development Manager Name Role Phone Nan Crews PRINTING TABLE WORKER Primary Care Provider [phone] Encounter Details Date Type Department Care Team (Latest Contact Info) Description 11/09/2022 Travel Social History Tobacco Use Types Packs/Day Years Used Date Smoking Tobacco: Every Day Smokeless Tobacco: Never Comments:Provider to on awake counselor /vaps only Alcohol Use Standard Drinks/Week [...] documented as of this encounter Care Teams Strategic Partner Development Manager Relationship Specialty Start Date End Date Nan Crews FNP PCP - General NURSE PRACTITIONER 04/24/18 documented as of this encounter
--- OUTSIDE RECORDS SUMMARY | 2024-06-05 20:56 | XMS_ITS | Encounter Summary ---
Author Organization [facility] Address [address] [place] [address]. [place] [address] Care Team Providers Care Medical Device Assembler Name Role Phone Nan Crews HECTOR Primary Care Provider [phone] Encounter Details Date Type Department Care Team (Latest Contact Info) Description 08/13/2022 Travel Social History Tobacco Use Types Packs/Day Years Used Date Smoking Tobacco: Every Day Smokeless Tobacco: Never Comments:Provider to group counselor /vaps only Alcohol Use Standard Drinks/Week [...] Coronavirus/COVID-19? No / Unsure 08/13/2022 1:36 PM BLEACHER [employer] documented as of this encounter Plan of Treatment Not on file documented as of this encounter Visit Diagnoses Not on filedocumented in this encounter Additional Health Concerns Assessment Noted Time PHQ-9 Depression Total Score: 13 023 1:48 PM BLEACHER [employer] documented as of this encounter Care Teams Medical Device Assembler Relationship Specialty Start Date End Date Nan Crews FNP PCP - General NURSE PRACTITIONER 04/24/18 documented as of this encounter
--- OUTSIDE RECORDS SUMMARY | 2024-06-05 20:56 | XMS_ITS | Encounter Summary ---
Author Organization [facility] Address [address] [place] [address]. [place], [place] [address] [place] [address] Care Team Providers Care Senior Network Security Engineer Name Role Phone Nan Crews Primary Care Provider [phone] Reason for Visit * Reason Comments Abdominal Pain Having stabbing pain in lower left side of abdomen, getting worse, thinks it might be from IUD, pain started 3-4 days ago, had IUD checked 06/15/23 Encounter Details Date Type Department Care Team (Late st Contact Info) Description 06/26/2023 1:40 PM NEUROPSYCHOLOGY DIRECTOR Office Visit [facility] [address] [address] Nan Crews FNP [address] [place] [address] Abdominal Pain (Having stabbing pain in lower left side of abdomen, getting worse, thinks it might be from IUD, pain started 3-4 days ago, had IUD checked 06/15/23) Social History Tobacco Use Types Packs/Day Years Used Date Smoking Tobacco: Every Day Smokeless Tobacco: Never Tobacco Cessation:Ready to Q uit: Not Asked; Counseling Given: Yes Comments:Provider to funeral pre arrangement counselor /vaps only Alcohol Use Standard Drinks/Week [...] Sign Reading Time Taken Comments Blood Pressure 92/62 06/26/2023 1:46 PM NEUROPSYCHOLOGY DIRECTOR Pulse 88 06/26/2023 1:46 PM NEUROPSYCHOLOGY DIRECTOR Temperature 36.6 ??C (97.8 ??F) 06/26/2023 1:46 PM CS T Respiratory Rate - - Oxygen Saturation 98% 06/26/2023 1:46 PM NEUROPSYCHOLOGY DIRECTOR Inhaled Oxygen Concentration - - Weight 47.2 kg (104 lb) 06/26/2023 1:46 PM NEUROPSYCHOLOGY DIRECTOR Height 165.1 cm (5' 5 ) 06/26/2023 1:46 PM NEUROPSYCHOLOGY DIRECTOR Body Mass Index 17.31 06/26/2023 1:46 PM NEUROPSYCHOLOGY DIRECTOR documented in this encounter Patient Instructions * Patient Instructions* HECTOR Monique - 06/26/2023 1:40 PM NEUROPSYCHOLOGY DIRECTOR We will call with the results of the urine culture and wet prep test once available Start Bactrim DS 1 twice a day for 3 days for the urinary tract infection Go to the emergency department if any increasing pain, vomiting, fever greater than 100.4 develops Follow-up with your casting room operator for any persistent symptoms to have your IUD checked again OPSYCHOLOGY DIRECTOR documented in this encounter Progress Notes * Sophie Duff MA - 06/26/2023 1:40 PM CSTAddended by: SOPHIE DUFF on: 06/26/2023 02:43 PM Modules accepted: Orders OPSYCHOLOGY DIRECTOR * Sophie Duff MA - 06/26/2023 1:40 PM CST uri OPSYCHOLOGY DIRECTOR * HECTOR Monique - 06/26/2023 1:40 PM CST Cecilia is a 17-year-old female patient. Reason for Visit: Abdominal Pain (Having stabbing pain in lower left side of abdomen, getting worse, thinks it might be from IUD, pain started 3-4 days ago, had IUD checked 06/15/23) History of Present Illness: Cecilia is a 17-year-old female patient who is here for left sided pelvic pain. She reports that shefeels a stabbing type pain off and on for the past 4 days. She had an IUD placed by her casting room operator, Dr. Jones, on 05/16/2023. She had a negative test done prior to insertion of the IUD.She went back on 06/14/2023 for checkup. The IUD was in place. She was still having some vaginal bleeding at that time and she continues to spot off-and-on since the IUD insertions. She had evidence of yeast infection with a positive test when she saw her casting room operator on 06/14/2023. She gave her Diflucan to take on day 1 4 and 7. She took the first 2 pills but has not yet taken the third 1. She was supposed to take it last week. She is still having some reddish-brown spotting but no other vaginal discharge. She says she does not have any itching. She has had some mild dysuria. She has the same sexual partner for a long time with no new partners. She said she had a low-grade fever the last couple of days up to 99.6. She says she vomited randomly 3 days ago but none since. Her appetites been fine. She is having normal bowel movements. She is wondering if the IUD is what is causing her left sided pelvic pain. Past Medical History: Diagnosis Date Abnormal urinalysis 07/07/2020 Anxiety Depression Past Surgical History: Procedure Laterality Date BLADDER SURGERY Medications: Current Outpatient Medications: Cholecalciferol (VITAMIN D-3) 25 MCG (1000 UT) Cap, Take 1 capsule by mouth daily., Disp: 90 capsule, Rfl: 1 OXcarbazepine (TRILEPTAL) 150 MG tablet, Take 1 [...] Smokeless tobacco: Never Tobacco comments: Provider to funeral pre arrangement counselor /vaps only Vaping Use Vaping Use: Every day Substances: Nicotine Devices: Refillable tank Substance and Sexual Activity Alcohol use: Yes Comment: social Drug use: No Comment: no Sexual activity: Yes Comment: BF Social History Narrative Wears glasses ROS: Review of Systems Constitutional: Negative for chills, fever and malaise/fatigue. HENT: Negative. Respiratory: Negative for cough. Cardiovascular: Negative for chest pain. Gastrointestinal: Positive for abdominal pain (Left lower quadrant intermittent discomfort). Negative for blood in stool, constipation, diarrhea, nausea and vomiting. Genitourinary: Positive for dysuria. Negative for frequency and urgency. Menstrual spotting status post IUD insertion Musculoskeletal: Negative for back pain. Skin: Negative for rash. Vitals: Filed Vitals: 06/26/23 1346 BP: 92/62 Pulse: (!) 119 Temp: 97.8 ??F (36.6 ??C) SpO2: 98% Weight: 47.2 kg (104 lb) Height: 1.651 m (5' 5 ) Physical Exam Constitutional: General: She is not [...] Tenderness: There is abdominal tenderness (She has some mild tenderness to palpate the left lower quadrant). There is no guarding or rebound. Musculoskeletal: Cervical back: Neck supple. Lymphadenopathy: Cervical: No cervical adenopathy. Skin: General: Skin is warm and dry. Neurological: Mental Status: She is alert and oriented to person, place, and time. Psychiatric: Mood and Affect: Mood normal. Results: Results for orders placed or performed in visit on 06/26/23 URINALYSIS AUTO DIP Result Value Ref Range COLOR (U) DARK YELLOW YELLOW TRANSPARENCY CLOUDY (A) CLEAR GLUCOSE (U) NEGATIVE NEGATIVE MG/DL BILIRUBIN (U) 1+ (SMALL) (A) NEGATIVE KETONES (U) 15 (SMALL 1+) (A) NEGATIVE MG/DL SPECIFIC GRAVITY (U) 1.025 1.001 - 1.035 BLOOD (U) MODERATE (Non Hemolyzed, Intact, About 50 rbc/uL) (A) NEGATIVE U PH 6.0 5.0 - 9.0 PROTEIN (U) TRACE (A) NEGATIVE mg/dL UROBILINOGEN 1.0 0.2 - 1.0 EU/dL = mg/dL NITRITES NEGATIVE NEGATIVE MG/DL LEUKOCYTES (U) 1+ (SMALL) (A) NEGATIVE Diagnoses/Impression: Encounter Diagnose(s) ICD-10-CM SNOMED CT(R) 1. Left lower quadrant pain R10.32 LEFT LOWER QUADRANT PAIN URINALYSIS AUTO DIP 2. Dysuria R30.0 DYSURIA 3. Acute cystitis with hematuria N30.01 ACUTE CYSTITIS Plan Orders Placed: Orders Placed This Encounter URINALYSIS AUTO DIP sulfamethoxazole-trimethoprim (BACTRIM DS) 800-160 MG tablet VDS (REJI, TRICH, & G. VAG) Differentials for her left lower abdominal pain discussed: Her urinalysis is abnormal. Will send for culture. Will start Bactrim DS 1 twice daily x 3 days. She may have persistent yeast infection due to not being 100% treated as prescribed by her casting room operator. Will do a follow-up wet prep and further recommendations once results are reviewed. She had no problems with her IUD placement when she had a checkup by her casting room operator 2 weeks ago. I encouraged her to go back to her casting room operator if she has persistent symptoms. We discussed need for ED evaluation for her left lower quadrant pain including increased pain, vomiting, fever greater than 100.4. Instructions Patient Instructions We will call with the results of the urine culture and wet prep test once available Start Bactrim DS 1 twice a day for 3 days for the urinary tract infection Go to the emergency department if any increasing pain, vomiting, fever greater than 100.4 develops Follow-up with your casting room operator for any persistent symptoms to have your IUD checked again HECTOR MONIQUE 06/26/2023 2:09 PM I personally spent a total of 32 minutes on the day of the encounter. This includes [id number] and [id number]-face time I provided on the day of the encounter & excludes time spent performing separately reportable services. OPSYCHOLOGY DIRECTOR documented in this encounter Plan of Treatment Not on file documented as of this encounter Procedures Procedure Name Priority Date/Time Associated Diagnosis Comments URINALYSIS AUTO DIP Routine 06/26/2023 Left lower quadrant pain documented in this encounter Results * CULTURE URINE (06/26/2023 2:50 PM NEUROPSYCHOLOGY DIRECTOR) SPEC DESCRIPTION URINE CLEAN CATCH 06/26/2023 2:47 PM NEUROPSYCHOLOGY DIRECTOR [facility] SPECIAL REQUESTS NO SPECIAL REQUEST 06/26/2023 2:47 PM NEUROPSYCHOLOGY DIRECTOR [facility] CULTURE RESULT NO GROWTH 2 DAYS 06/28/2023 8:20 AM NEUROPSYCHOLOGY DIRECTOR [facility] URINE SPECIMEN OBTAINED BY CLEAN CATCH PROCEDURE / Unknown 06/26/2023 2:50 PM NEUROPSYCHOLOGY DIRECTOR 06/26/2023 3:52 PM NEUROPSYCHOLOGY DIRECTOR us Nan YOUNG MICROBIOLOGY - GENERAL ORDERA BLES Final Result [facility] [address] [place] [address], [place] [phone] [facility] [address] [place] [address] [place] [address], [place] * VDS (REJI, TRICH, & G. VAG) (06/26/2023 2:50 PM NEUROPSYCHOLOGY DIRECTOR) GARDNERELLA VAGINALIS NEGATIVE NEGATIVE 06/26/2023 5:[address] [facility] REJI SPECIES NEGATIVE NEGATIVE 4 5:19 PM NEUROPSYCHOLOGY DIRECTOR [facility] TRICHOMONAS NEGATIVE NEGATIVE 06/26/2023 5:19 PM NEUROPSYCHOLOGY DIRECTOR [facility] VAGINAL STRUCTURE / Unknown 06/26/2023 2:50 PM NEUROPSYCHOLOGY DIRECTOR us Nan Crews PASTRY FINISHER MICROBIOLOGY - GENERAL ORDERA BLES Final Result [facility] [address] [place] [address], [place] * (ABNORMAL) URINALYSIS AUTO DIP (06/26/2023) COLOR (U) DARK YELLOW [facility] ([facility])BHARATHI TRANSPARENCY CLOUDY(A) CLEAR -[facility] (201)BHARATHI GLUCOSE (U) NEGATIVE NEGATIVE MG/DL [facility] (201), [place] BILIRUBIN (U) 1+ (SMALL)(A) NEGATIVE [facility] [address])BHARATHI KETONES MG/DL (U) 15 (SMALL 1+)(A) NEGATIVE MG/DL [facility] [address]201)BHARATHI SPECIFIC GRAVITY (U) 1.025 1.001 - 1.035 [facility] [address])BHARATHI BLOOD (U) MODERATE (Non Hemolyzed, Intact, About 50 rbc/uL)(A) NEGATIVE [facility] [address])BHARATHI U PH 6.0 5.0 - 9.0 [facility] ([facility])BHARATHI PROTEIN (U) TRACE(A) NEGATIVE mg/dL [facility] [address])BHARATHI UROBILINOGEN 1.0 0.2 - 1.0 EU/dL = mg/dL [facility] (201)BHARATHI NITRITES NEGATIVE NEGATIVE MG/DL [facility] [address])BHARATHI LEUKOCYTES (U) 1+ (SMALL)(A) NEGATIVE [facility] [address])BHARATHI URINE SPECIMEN OBTAINED BY CLEAN CATCH PROCEDURE / Unknown 06/26/2023 us Nan YOUNG URINE ORDERABLES Final Result [facility] (201), [address] [address], documented in this encounter Visit Diagnoses Diagnosis Left lower quadrant pain- Primary Abdominal pain, left lower quadrant Dysuria Acute cystitis with hematuria Acute cystitis documented in this encounter Additional Health Concerns Assessment Noted Time PHQ-9 Depression Total Score: 18 023 1:39 PM CDT documented as of this encounter Care Teams Senior Network Security Engineer Relationship Specialty Start Date End Date Nan Crews FNP PCP - General NURSE PRACTITIONER 04/24/18 documented as of this encounter
--- OUTSIDE RECORDS SUMMARY | 2024-06-05 20:56 | XMS_ITS | Encounter Summary ---
Author Organization [facility] Address [address] [place] [address]. [place], [place] [address] [place] [address] Care Team Providers Care Cabin Furnishings Installer Name Role Phone Mars Nan YOUNG Primary Care Provider [phone] Encounter Details Date Type Department Care Team (Late st Contact Info) Description 07/12/2022 Orders Only [facility] [address] [place] [address] Chiqui Fu FNP [address] [place], [place] [id number] Social History Tobacco Use Types Packs/Day Years Used Date Smoking Tobacco: Every Day Smokeless Tobacco: Never Comments:Provider to drug and alcohol counsellor /vaps only Alcohol Use Standard Drinks/Week [...] Coronavirus/COVID-19? No / Unsure 07/12/2022 2:58 PM WIND ENERGY MECHANIC documented as of this encounter Plan of Treatment Not on file documented as of this encounter Procedures Procedure Name Priority Date/Time Associated Diagnosis Comments URINE BACTERIA CULTURE Routine 07/12/2022 3:49 PM WIND ENERGY MECHANIC History of UTI documented in this encounter Results * CULTURE URINE (07/12/2022 3:49 PM WIND ENERGY MECHANIC) SPEC DESCRIPTION URINE CLEAN CATCH 07/12/2022 6:42 PM WIND ENERGY MECHANIC [facility] SPECIAL REQUESTS NO SPECIAL REQUEST 07/12/2022 6:42 PM WIND ENERGY MECHANIC [facility] CULTURE RESULT NO GROWTH 2 DAYS 07/15/2022 9:15 AM WIND ENERGY MECHANIC [facility] URINE SPECIMEN OBTAINED BY CLEAN CATCH PROCEDURE / Unknown 07/12/2022 3:49 PM WIND ENERGY MECHANIC 07/12/2022 6:32 PM WIND ENERGY MECHANIC us Chiqui YOUNG MICROBIOLOGY - GENERAL ORDERABL ES Final Result [facility] [address] [place] [address], [facility] [address] [place] [address] [place] [address], documented in this encounter Visit Diagnoses Diagnosis Pain in female genitalia on intercourse Dyspareunia PCB (post coital bleeding) Postcoital bleeding History of UTI Personal history of urinary (tract) infection documented in this encounter Additional Health Concerns Assessment Noted Time PHQ-9 Depression Total Score: 10 022 9:31 AM WIND ENERGY MECHANIC documented as of this encounter Care Teams Cabin Furnishings Installer Relationship Specialty Start Date End Date Nan Crews FNP PCP - General NURSE PRACTITIONER 04/24/18 documented as of this encounter
--- OUTSIDE RECORDS SUMMARY | 2024-06-05 20:56 | XMS_ITS | Encounter Summary ---
Author Organization [facility] Address [address] [place] [address]. [place], [place] [address] [place] [address] Care Team Providers Care Profile Grinder Technician Name Role Phone Nan Crews ORDER PICKER Primary Care Provider [phone] Reason for Visit * Reason Comments Ultrasound (SCAN) Encounter Details Date Type Department Care Team ([facility] Contact Info) Description 10/29/2022 Scan [facility] Scanned, [facility] Ultrasound (SCAN) Social History Tobacco Use Types Packs/Day Years Used Date Smoking Tobacco: Every Day Smokeless Tobacco: Never Comments:Provider to senior counsel commercial /vaps only Alcohol Use Standard Drinks/Week Comments [...] Procedure Name Priority Date/Time Associated Diagnosis Comments ULTRASOUND GENERIC (SCAN ORDER) 10/29/2022 documented in this encounter Results * ULTRASOUND GENERIC (10/29/2022) Anatomical Region Laterality Modality Other 10/29/2022 us Doc [facility] Scanned SCANNING Final Resu lt documented in this encounter Visit Diagnoses Not on filedocumented in this encounter Additional Health Concerns Assessment Noted Time PHQ-9 Depression Total Score: 11 09/10/ 023 10:44 AM CDT documented as of this encounter Care Teams Profile Grinder Technician Relationship Specialty Start Date End Date Nan Crews FNP PCP - General NURSE PRACTITIONER 04/24/18 documented as of this encounter
--- OUTSIDE RECORDS SUMMARY | 2024-06-05 20:57 | XMS_ITS | Encounter Summary ---
Author Organization [facility] Address [address] [place] [address]. [place] [address] [place] [address] Care Team Providers Care Market Research Executive Name Role Phone Nan Crews Primary Care Provider [phone] Encounter Details Date Type Department Care Team (Late st Contact Info) Description 01/02/2021 Ganiparat Message Enc [facility] [address] [place] [address] Nan Crews [facility] [address] [place], [place] [id number] RE: Follow Up/Update Social History Tobacco Use Types Packs/Day Years Used Date Smoking Tobacco: Never Smokeless Tobacco: Never Comments:Provider to admissions counselor Alcohol Use Standard Drinks/Week Comments No 0 (1 standard drink = 0.6 oz pur e alcohol) AUDIT-C Answer Date Recorded Frequency of Alcohol Consumption Never 07/02/2018 Average Number of Drinks Not on file 019 Frequency of Binge Drinking Not on file 06/17 PHQ-2 Answer Date Recorded PHQ-2 Score - If the patient scores above 3, please move on to questions 3-9 3 12/06/2020 Comments No Sex and Gender Information Value Date Recorded Sex Assigned at Not on file Legal Sex Female 8:07 AM CDT Gender Identity Not on file Sexual Orientation Not on file COVID-19 Exposure Response Date Recorded In the last month, have you been in contact with someone who was confirmed or suspected to have Coronavirus / COVID-19? No / Unsure 12/06/2020 9:20 AM CDT documented as of this encounter Plan of Treatment Not on file documented as of this encounter Visit Diagnoses Not on filedocumented in this encounter Additional Health Concerns Assessment Noted Time PHQ-9 Depression Total Score: 15 021 9:30 AM CDT documented as of this encounter Care Teams Market Research Executive Relationship Specialty Start Date End Date Nan Crews FNP PCP - General NURSE PRACTITIONER 04/24/18 documented as of this encounter
--- OUTSIDE RECORDS SUMMARY | 2024-06-05 20:57 | XMS_ITS | Encounter Summary ---
Author Organization [facility] Address [address] [place] [address]. [place], [place] [id number] [place] [address] Care Team Providers Care Mid Level Practitioner Name Role Phone Nan Crews Primary Care Provider [phone] Encounter Details Date Type Department Care Team (Latest Contact Info) Description 09/19/2021 Travel Social History Tobacco Use Types Packs/Day Years Used Date Smoking Tobacco: Never Smokeless Tobacco: Never Comments:Provider to estate planning counselor Alcohol Use Standard Drinks/Week Comments No 0 (1 standard drink = 0.6 oz pur e alcohol) AUDIT-C Answer Date Recorded Frequency of Alcohol Consumption Never 07/02/2018 Average Number of Drinks Not on file 019 Frequency of Binge Drinking Not on file 06/17 PHQ-2 Answer Date Recorded PHQ-2 Score - If the patient scores above 3, please move on to questions 3-9 2 01/24/2021 Comments No Sex and Gender Information Value Date Recorded Sex Assigned at Not on file Legal Sex Female 8:07 AM CDT Gender Identity Not on file Sexual Orientation Not on file COVID-19 Exposure Response Date Recorded In the last 10 days, have yo u been in contact with someone who was confirmed or suspected to have Coronavirus/COVID-19? No / Unsure 09/19/2021 9:14 AM CDT documented as of this encounter Plan of Treatment Not on file documented as of this encounter Visit Diagnoses Not on filedocumented in this encounter Additional Health Concerns Assessment Noted Time PHQ-9 Depression Total Score: 14 021 10:28 AM CDT documented as of this encounter Care Teams Mid Level Practitioner Relationship Specialty Start Date End Date Nan Crews FNP PCP - General NURSE PRACTITIONER 04/24/18 documented as of this encounter
--- OUTSIDE RECORDS SUMMARY | 2024-06-05 20:57 | XMS_ITS | Encounter Summary ---
Author Organization [facility] Address [address] [place] [address]. [place], [place] [address] [place] [address] Care Team Providers Care Formal Service Waiter Name Role Phone Nan Crews Primary Care Provider [phone] Encounter Details Date Type Department Care Team (Late st Contact Info) Description 11/14/2021 Orders Only [facility] [address] [place], [place] [id number] Nan Crews FNP [address] [place] [id number] Social History Tobacco Use Types Packs/Day Years Used Date Smoking Tobacco: Never Smokeless Tobacco: Never Comments:Provider to alcohol and drug counselor Alcohol Use Standard Drinks/Week Comments No [...] suspected to have Coronavirus/COVID-19? No / Unsure 11/14/2021 1:16 PM CDT documented as of this encounter Plan of Treatment Not on file documented as of this encounter Results * VDS (REJI, TRICH, & G. VAG) (11/14/2021 1:59 PM CDT) GARDNERELLA VAGINALIS NEGATIVE NEGATIVE 11/14/2021 6:28 PM CDT [facility] REJI SPECIES NEGATIVE NEGATIVE 6:28 PM CDT [facility] TRICHOMONAS NEGATIVE NEGATIVE 11/14/2021 6:28 PM CDT [facility] VAGINAL STRUCTURE / Unknown 11/14/2021 1:59 PM CDT us Nan YOUNG MICROBIOLOGY - GENERAL ORDERA BLES Final Result [facility] [address] [place] [address], documented in this encounter Visit Diagnoses Diagnosis Female pelvic pain- Primary Unspecified symptom associated with female genital organs Vaginal discharge Leukorrhea, not specified as infective documented in this encounter Additional Health Concerns Assessment Noted Time PHQ-9 Depression Total Score: 14 021 10:28 AM CDT documented as of this encounter Care Teams Formal Service Waiter Relationship Specialty Start Date End Date Nan Crews FNP PCP - General NURSE PRACTITIONER 04/24/18 documented as of this encounter
--- OUTSIDE RECORDS SUMMARY | 2024-06-05 20:57 | XMS_ITS | Encounter Summary ---
Author Organization [facility] Address [address] [place] [address]. [place], [place] [address] [place] [address] Care Team Providers Care Sas Bi Developer Name Role Phone Nan Crews Primary Care Provider [phone] Encounter Details Date Type Department Care Team (Latest Contact Info) Description 11/11/2021 Travel Social History Tobacco Use Types Packs/Day Years Used Date Smoking Tobacco: Never Smokeless Tobacco: Never Comments:Provider to career placement services counselor Alcohol Use Standard Drinks/Week Comments No [...] suspected to have Coronavirus/COVID-19? No / Unsure 11/11/2021 10:53 AM CDT documented as of this encounter Plan of Treatment Not on file documented as of this encounter Visit Diagnoses Not on filedocumented in this encounter Additional Health Concerns Assessment Noted Time PHQ-9 Depression Total Score: 14 021 10:28 AM CDT documented as of this encounter Care Teams Sas Bi Developer Relationship Specialty Start Date End Date Nan Crews FNP PCP - General NURSE PRACTITIONER 04/24/18 documented as of this encounter
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
--- OUTSIDE RECORDS SUMMARY | 2024-06-05 20:57 | XMS_ITS | Encounter Summary ---
Author Organization [facility] Address [address] [place] [address]. [place], [place] [address] [place] [address] Care Team Providers Care Mysql Database Developer Name Role Phone Nan Crews Primary Care Provider [phone] Encounter Details Date Type Department Care Team (Late st Contact Info) Description 11/14/2021 3:59 PM CDT - 11/14/2021 11:59 PM CDT Hospital Encounter [facility] [address] [place] [id number] Nan Crews FNP [address] [place] [address] Discharge Disposition: Home or Self Care (Routine Discharge) Social History Tobacco Use Types Packs/Day Years Used Date Smoking Tobacco: Never Smokeless Tobacco: Never Comments:Provider to counselor aid Alcohol Use Standard Drinks/Week Comments No 0 [...] PM CDT documented as of this encounter Medications at Time of Discharge ARIPiprazole 10 MG tablet Take 1 tablet (10 mg total) by mouth daily. 30 tablet 2 09/19/2021 2 lamoTRIgine (LAMICTAL) 100 MG tablet Take 1 tablet (100 mg total) by mouth daily. 30 tablet 2 09/19/2021 2 LORazepam 0.5 MG tabletIndication s:Bipolar affective disorder, currently depressed, moderate (CMS/HCC HHS/HCC) Take 1 tablet 30 minutes prior to blood draw and may take additional tablet if needed 2 tablet 07/25/2021 2 TRI-SPRINTEC 0.18/0.215/0.25 MG-35 MCG tabletIndication s:Dysmenorrhea in adolescent Take 1 tablet by mouth once daily 28 tablet 10/20/2021 2 documented as of this encounter Plan of Treatment Not on file documented as of this encounter Procedures Procedure Name Priority Date/Time Associated Diagnosis Comments VAGINITIS SCREEN (VDS) Routine 11/14/2021 1:59 PM CDT Female pelvic pain Vaginal discharge URINE BACTERIA CULTURE Routine 11/14/2021 1:59 PM CDT Pelvic pain documented in this encounter Results * VDS (REJI, TRICH, & G. VAG) (11/14/2021 1:59 PM CDT) GARDNERELLA VAGINALIS NEGATIVE NEGATIVE 11/14/2021 6:28 PM CDT [facility] REJI SPECIES NEGATIVE NEGATIVE 2 6:28 PM CDT [facility] TRICHOMONAS NEGATIVE NEGATIVE 11/14/2021 6:28 PM CDT [facility] VAGINAL STRUCTURE / Unknown 11/14/2021 1:59 PM CDT us Nan Crews TYPE DISK QUALITY CONTROL SUPERVISOR MICROBIOLOGY - GENERAL ORDERA BLES Final Result [facility] [address] [facility] [facility] [place] [address], [place] * CULTURE URINE (11/14/2021 1:59 PM CDT) SPEC DESCRIPTION URINE CLEAN CATCH 11/14/2021 4:01 PM CDT [facility] SPECIAL REQUESTS NO SPECIAL REQUEST 11/14/2021 4:01 PM CDT [facility] CULTURE RESULT POLYMICROBIAL GROWTH CONSISTENT WITH NORMAL GENITAL SYBIL. ?? SUSCEPTIBILITIES NOT ROUTINELY PERFORMED. 11/16/2021 9:04 AM CDT [facility] URINE SPECIMEN OBTAINED BY CLEAN CATCH PROCEDURE / Unknown 11/14/2021 1:59 PM CDT 11/14/2021 4:04 PM CDT Nan YOUNG MICROBIOLOGY - GENERAL ORDERA BLES Final Result Performing Organization Address City/State/[facility] Co de Phone Number [facility] [address] [place] [address], [facility] [address] [facility] [facility] [address] [place], [place] [address], documented in this encounter Visit Diagnoses Diagnosis Pelvic pain Female pelvic pain Unspecified symptom associated with female genital organs Vaginal discharge Leukorrhea, not specified as infective documented in this encounter Additional Health Concerns Assessment Noted Time PHQ-9 Depression Total Score: 14 08 021 10:28 AM CDT documented as of this encounter Care Teams Mysql Database Developer Relationship Specialty Start Date End Date Nan Crews FNP PCP - General NURSE PRACTITIONER 04/24/18 documented as of this encounter
--- OUTSIDE RECORDS SUMMARY | 2024-06-05 20:57 | XMS_ITS | Encounter Summary ---
Author Organization [facility] Address [address] [place] [address]. [place], [place] [address] [place] [address] Care Team Providers Care Crm Technical Lead Name Role Phone Nan Crews Primary Care Provider [phone] Reason for Visit * Reason Onset Date Comments Question 11/24/2021 Encounter Details Date Type Department Care Team (Late st Contact Info) Description 11/24/2021 Telephone [facility] [address] [place] [address] Nan Crews [facility] [address] [place], [place] [id number] Question Social History Tobacco Use Types Packs/Day Years Used Date Smoking Tobacco: Never Smokeless Tobacco: Never Comments:Provider to beauty counselor Alcohol Use Standard Drinks/Week Comments No [...] PM CDT documented as of this encounter Progress Notes * Vikki Osullivan LPN - 11/24/2021 2:30 PM CDT Noted. * HECTOR Rodriguez - 11/24/2021 1:53 PM CDT I spoke with patients mom. Patient reports the pain is gone. Mom says she is acting fine. She is eating some. She eats a lot of fast food. She says nothing is bothering her anymore. She says she is having normal Bms. She had a normal period last week. Ok to put the [place] on hold since she is no longer symptomatic. Mom is agreeable. Told to call me back if any of her sx recur. * Vikki Osullivan LPN - 11/24/2021 1:41 PM CDT Amina please advise. Looks like this maybe for the ultrasounds. * Laura Mares - 11/24/2021 1:37 PM CDT Patient is scheduled for some testing on Saturday but her pain is almost gone? Do they still need to do the testing? Parent Is concerned because they are self pay documented in this encounter Plan of Treatment Not on file documented as of this encounter Visit Diagnoses Not on filedocumented in this encounter Additional Health Concerns Assessment Noted Time PHQ-9 Depression Total Score: 14 021 10:28 AM CDT documented as of this encounter Care Teams Crm Technical Lead Relationship Specialty Start Date End Date Nan Crews FNP PCP - General NURSE PRACTITIONER 04/24/18 documented as of this encounter
--- OUTSIDE RECORDS SUMMARY | 2024-06-05 20:57 | XMS_ITS | Encounter Summary ---
Author Organization [facility] Address [address] [place] [address]. [place], [place] [address] [place] [address] Care Team Providers Care Strapper And Buffer Name Role Phone Nan Crews Primary Care Provider Encounter Details Date Type Department Care Team (Latest Contact Info) Description 02/02/2022 Travel Social History Tobacco Use Types Packs/Day Years Used Date Smoking Tobacco: Never Smokeless Tobacco: Never Comments:Provider to travel counselor automobile club Alcohol Use Standard Drinks/Week Comments No 0 (1 standard drink = 0.6 oz pur e alcohol) AUDIT-C Answer Date Recorded Frequency of Alcohol Consumption Never 07/02/2018 Average Number of Drinks Not on file 019 Frequency of Binge Drinking Not on file 06/17 PHQ-2 Answer Date Recorded PHQ-2 Score - If the patient scores above 3, please move on to questions 3-9 1 02/02/2022 Comments No Sex and Gender Information Value Date Recorded Sex Assigned at Not on file Legal Sex Female 8:07 AM CDT Gender Identity Not on file Sexual Orientation Not on file COVID-19 Exposure Response Date Recorded In the last 10 days, have yo u been in contact with someone who was confirmed or suspected to have Coronavirus/COVID-19? No / Unsure 02/02/2022 8:55 AM CDT documented as of this encounter Plan of Treatment Not on file documented as of this encounter Visit Diagnoses Not on filedocumented in this encounter Additional Health Concerns Assessment Noted Time PHQ-9 Depression Total Score: 9 02/03/20 22 9:13 AM CDT documented as of this encounter Care Teams Strapper And Buffer Relationship Specialty Start Date End Date Nan Crews FNP PCP - General NURSE PRACTITIONER 04/24/18 documented as of this encounter
--- OUTSIDE RECORDS SUMMARY | 2024-06-05 20:57 | XMS_ITS | Encounter Summary ---
Author Organization [facility] Address [address] [place] [address]. [place], [place] [address] [place] [address] Care Team Providers Care Foxpro Developer Name Role Phone Nan Crews Primary Care Provider [phone] Encounter Details Date Type Department Care Team (Latest Contact Info) Description 07/25/2021 Travel Social History Tobacco Use Types Packs/Day Years Used Date Smoking Tobacco: Never Smokeless Tobacco: Never Comments:Provider to quitline counselor Alcohol Use Standard Drinks/Week Comments No [...] suspected to have Coronavirus/COVID-19? No / Unsure 07/25/2021 9:29 AM HI TEACHER documented as of this encounter Plan of Treatment Not on file documented as of this encounter Visit Diagnoses Not on filedocumented in this encounter Additional Health Concerns Assessment Noted Time PHQ-9 Depression Total Score: 14 021 10:28 AM CDT documented as of this encounter Care Teams Foxpro Developer Relationship Specialty Start Date End Date Nan Crews FNP PCP - General NURSE PRACTITIONER 04/24/18 documented as of this encounter
--- OUTSIDE RECORDS SUMMARY | 2024-06-05 20:57 | XMS_ITS | Encounter Summary ---
Author Organization [facility] Address [address] [place] [address]. [place], [place] [id number] [place] [address] Care Team Providers Care Electric Repair Supervisor Name Role Phone Nan Crews Primary Care Provider [phone] Reason for Visit * Reason Comments Pelvic Pain A little back discom fort, x 1 week Encounter Details Date Type Department Care Team (Late st Contact Info) Description 11/14/2021 4:20 PM CDT Office Visit Formerly [facility] [address] [place] [address] Nan Crews [address] [place] [address] Pelvic Pain (A little back discomfort, x 1 week) Social History Tobacco Use Types Packs/Day Years Used Date Smoking Tobacco: Never Smokeless Tobacco: Never Tobacco Cessation:Counseling Given: No Comments:Provider to savings counselor Alcohol Use Standard Drinks/Week Comments No [...] PM CDT documented as of this encounter Last Filed Vital Signs Vital Sign Reading Time Taken Comments Blood Pressure 96/60 11/14/2021 1:23 PM CDT Pulse 86 11/14/2021 1:23 PM CDT Temperature 37.8 ??C (100.1 ??F) 11/14/2021 1:23 PM C DT Respiratory Rate 16 11/14/2021 1:23 PM CDT Oxygen Saturation - - Inhaled Oxygen Concentration - - Weight 50.8 kg (112 lb) 11/14/2021 1:23 PM CDT Height 167.6 cm (5' 6 ) 11/14/2021 1:23 PM CDT Body Mass Index 18.08 11/14/2021 1:23 PM CDT Body Mass Index Percentile 8.30% 11/14/2021 1:2 3 PM CDT Growth Chart: [facility] (Girls, 2- 20 Years) documented in this encounter Patient Instructions * Patient Instructions* HECTOR Monique - 11/14/2021 2:05 PM CDT We will do a wet prep and call you with the results tomorrow We will also do a urine culture and those results should be available in the next couple of days Call the health department and see if you can get a gonorrhea/chlamydia test done. If not, let me know and I will order it at the hospital lab. Take your oral contraceptives regularly I will order a pelvic ultrasound. You can schedule that at the facility of your choice. Go to the emergency department if any acutely worsening symptoms documented in this encounter Progress Notes * HECTOR Monique - 11/14/2021 4:20 PM CDT Cecilia is a 16-year-old female patient. Reason for Visit: Pelvic Pain (A little back discomfort, x 1 week) History of Present Illness: Cecilia is an 16-year-old female patient here for left lower abdominal pain. She reports that she started having left lower pelvic pain 1 week ago. She saw Jo Farrar on 11/09/2021 for this. She wasadvised to go to the emergency department as it was a Saturday of the holiday weekend and she wouldnot get the results of the testing back so she wanted her to go to through the emergency departmentfor testing for the pelvic pain. They declined as they are self-pay. Her mom called in this morningreporting that she continues to have the same type of pain. Cecilia tells me today that her pain is in the left lower abdomen and occasionally she feels it on the right lower abdomen as well. She rates the pain a 5 at most. She says her pain has not worsened since it started 1 week ago. She denies having any urinary symptoms. She has not noticed any vaginal discharge except her usual clear to white discharge that she alwayshas. She is currently on oral contraceptive pills. She admits to never using condoms. They use the pullout method. She says she has missed 5 of her pills in the last month as she has been very busy and kept falling asleep before it was time to take her pill at night. Her last menstrual period was 2 weeks ago but she said that was 2 weeks early. She is supposed to have her period next week. She is on her third week of pills in her pill pack. She had a normal oeriod Last month on 10/24/2021. She had a negative test on 11/09/2021 when she was seen here for an office visit. She is with her current partner x5 months. They have both had previous partners. She has not had any STD testing. She denies having any fever or chills. She reports having normal bowel movements. No vomiting nausea or diarrhea. Past Medical History: Diagnosis Date ??? Anxiety ??? Depression Past Surgical History: Procedure Laterality Date ??? BLADDER SURGERY Medications: Current Outpatient Medications: ??? ARIPiprazole 10 MG tablet, Take 1 tablet (10 mg total) by mouth daily., Disp: 30 tablet, Rfl: 2 ??? lamoTRIgine (LAMICTAL) 100 MG tablet, Take 1 tablet (100 mg total) by mouth daily., Disp: 30 tablet, Rfl: 2 ??? TRI-SPRINTEC 0.18/0.215/0.25 MG-35 MCG tablet, Take 1 tablet by mouth once daily, Disp: 28 tablet, Rfl: 0 ??? LORazepam 0.5 MG tablet, Take 1 tablet 30 minutes prior to blood draw and may take additional tablet if needed, Disp: 2 tablet, Rfl: 0 No Known Allergies Family History Problem Relation Name Age of Onset ??? Mental Health Mother Hx of post- depression ??? Anxiety Father ??? Depression Maternal Grandmother ??? Anxiety Paternal Grandfather Family Status Relation Name Status ??? Mother (Not Specified) ??? Father (Not Specified) ??? MGM (Not Specified) ??? PGF (Not Specified) Social History Socioeconomic History ??? Marital status: Single Tobacco Use ??? Smoking status: Never Smoker ??? Smokeless tobacco: Never Used ??? Tobacco comment: Provider to savings counselor Vaping Use ??? Vaping Use: Never used Substance and Sexual Activity ??? Alcohol use: No ??? Drug use: No ROS: Review of Systems Constitutional: Negative for chills and fever. Gastrointestinal: Positive for abdominal pain. Negative for diarrhea, nausea and vomiting. Genitourinary: Negative for dysuria, frequency, hematuria and urgency. See HPI Musculoskeletal: Negative for back pain. Neurological: Negative for dizziness and headaches. Vitals: Filed Vitals: 11/14/21 1323 BP: 96/60 Pulse: 86 Resp: 16 Temp: 100.1 ??F (37.8 ??C) TempSrc: Temporal Weight: 50.8 kg (112 lb) Height: 5' 6 (1.676 m) Physical Exam Nursing note reviewed. Constitutional: General: She is not in acute distress. Appearance: Normal appearance. She is not ill-appearing. Comments: She is here with her mom HENT: Head: Normocephalic and atraumatic. Cardiovascular: Rate and Rhythm: Normal rate and regular rhythm. Pulmonary: Effort: Pulmonary effort is normal. Abdominal: General: Abdomen is flat. Bowel sounds are normal. There is no distension. Palpations: Abdomen is soft. There is no mass. Comments: She has some mild left lower abdominal tenderness with palpation. No rebound guarding or rigidity. She is able to walk upright without difficulty. She is not in any distress Genitourinary: Comments: Pelvic exam was done with a day care center director in the room (NAZARIO Liz) She does have some brown-colored vaginal discharge present. No cervical motion tenderness. She has some mild left-sided adnexal tenderness with bimanual exam but no masses present. Wet prep was done Skin: General: Skin is warm and dry. Neurological: Mental Status: She is alert and oriented to person, place, and time. Psychiatric: Mood and Affect: Mood normal. Results: Results for orders placed or performed in visit on 11/14/21 URINALYSIS AUTO DIP Result Value Ref Range COLOR (U) YELLOW TRANSPARENCY CLEAR GLUCOSE (U) NEGATIVE NEGATIVE MG/DL BILIRUBIN (U) NEGATIVE NEGATIVE U KETONES NEGATIVE NEGATIVE MG/DL Specific [place] (U) 1.030 1.001 - 1.035 BLOOD SMALL (1+, Hemolyzed) NEGATIVE U PH 6.0 5.0 - 9.0 PROTEIN (U) NEGATIVE NEGATIVE mg/dL UROBILINOGEN Normal 0.2 - 1.0 EU/dL = mg/dL NITRITES NEGATIVE NEGATIVE MG/DL LEUKOCYTE ESTERASE 1+ (SMALL) NEGATIVE Diagnoses/Impression: Encounter Diagnose(s) ICD-10-CM ICD-9-CM SNOMED CT(R) 1. Pelvic pain R10.2 [id number] PAIN IN PELVIS URINALYSIS AUTO DIP CULTURE URINE SMEAR, STAIN, WET PREP US PELVIC NON OB COMP TA+TV 2. Vaginal discharge N89.8 623.5 VAGINAL DISCHARGE SMEAR, STAIN, WET PREP Plan Orders Placed: Orders Placed This Encounter ??? URINALYSIS AUTO DIP ??? US PELVIC NON OB COMP TA+TV ??? CULTURE URINE ??? SMEAR, STAIN, WET PREP We will proceed with doing a urine culture as well as a wet prep. Further recommendations once those results are reviewed. We also discussed doing a pelvic ultrasound. Mom prefers to schedule this at [facility] so she will plan to get that done as soon as possible pending the results of the wet prep. We discussed signs and worsening symptoms and need for ED evaluation if they occur. I discussed with patient need for condom use as well as to take her oral contraceptives regularly. We briefly discussed changing the type of contraception used but she prefers to stay on the oral contraceptives. I advised that she said an alarm on her phone to remind her to take the pills regularly. She needs a GC chlamydia screening test. She will go through the [facility] to get this done due to cost Instructions Patient Instructions We will do a wet prep and call you with the results tomorrow We will also do a urine culture and those results should be available in the next couple of days Call the health department and see if you can get a gonorrhea/chlamydia test done. If not, let me know and I will order it at the hospital lab. Take your oral contraceptives regularly I will order a pelvic ultrasound. You can schedule that at the facility of your choice. Go to the emergency department if any acutely worsening symptoms HECTOR MONIQUE 11/14/2021 1:40 PM Cosigned by Gabrielle Mathew DO at 11/14/2021 3:58 PM CDT documented in this encounter Plan of Treatment Not on file documented as of this encounter Procedures Procedure Name Priority Date/Time Associated Diagnosis Comments URINALYSIS AUTO DIP Routine 11/14/2021 Pelvic pain documented in this encounter Results * CULTURE URINE (11/14/2021 1:59 PM CDT) SPEC DESCRIPTION URINE CLEAN CATCH 11/14/2021 4:01 PM CDT [facility] SPECIAL REQUESTS NO SPECIAL REQUEST 11/14/2021 4:01 PM CDT [facility] CULTURE RESULT POLYMICROBIAL GROWTH CONSISTENT WITH NORMAL GENITAL SYBIL. ?? SUSCEPTIBILITIES NOT ROUTINELY PERFORMED. 11/16/2021 9:04 AM CDT [facility] URINE SPECIMEN OBTAINED BY CLEAN CATCH PROCEDURE / Unknown 11/14/2021 1:59 PM CDT 11/14/2021 4:04 PM CDT us Nan YOUNG MICROBIOLOGY - GENERAL ORDERA BLES Final Result [facility] [address] [place] [address], [place] [phone] [facility] [address] [place] [address] [place] [address], [place] * URINALYSIS AUTO DIP (11/14/2021) COLOR (U) YELLOW [facility] (201), TEL[place] TRANSPARENCY CLEAR [facility] (201), TEL[place] GLUCOSE (U) NEGATIVE NEGATIVE MG/DL [facility] (201), T[place] BILIRUBIN (U) NEGATIVE NEGATIVE -[facility]), TELIDA KETONES MG/DL (U) NEGATIVE NEGATIVE MG/DL [facility] (201), TELIDA SPECIFIC GRAVITY (U) 1.030 1.001 - 1.035 [facility] (201), TELIDA BLOOD (U) SMALL (1+, Hemolyzed) NEGATIVE [facility] (201), TELIDA U PH 6.0 5.0 - 9.0 [facility] (201), TELIDA PROTEIN (U) NEGATIVE NEGATIVE mg/dL [facility] (201), TELIDA UROBILINOGEN Normal 0.2 - 1.0 EU/dL = mg/dL [facility] (201), TELIDA NITRITES NEGATIVE NEGATIVE MG/DL [facility] (201), TELIDA LEUKOCYTES (U) 1+ (SMALL) NEGATIVE MG-H [facility] (201), TELIDA URINE SPECIMEN OBTAINED BY CLEAN CATCH PROCEDURE / Unknown 11/14/2021 Nan YOUNG URINE ORDERABLES Final Result [facility] (201), [address] [address], documented in this encounter Visit Diagnoses Diagnosis Pelvic pain- Primary Vaginal discharge Leukorrhea, not specified as infective documented in this encounter Additional Health Concerns Assessment Noted Time PHQ-9 Depression Total Score: 14 021 10:28 AM CDT documented as of this encounter Care Teams Electric Repair Supervisor Relationship Specialty Start Date End Date Nan Crews FNP PCP - General NURSE PRACTITIONER 04/24/18 documented as of this encounter
--- OUTSIDE RECORDS SUMMARY | 2024-06-05 20:57 | XMS_ITS | Encounter Summary ---
Author Organization [facility] Address [address] [place] [address]. [place], [place] [address] [place] [address] Care Team Providers Care Ocean Fishing Guide Name Role Phone Nan Crews Primary Care Provider Encounter Details Date Type Department Care Team (Latest Contact Info) Description 12/15/2021 Travel Social History Tobacco Use Types Packs/Day Years Used Date Smoking Tobacco: Never Smokeless Tobacco: Never Comments:Provider to patient financial counselor Alcohol Use Standard Drinks/Week Comments No [...] suspected to have Coronavirus/COVID-19? No / Unsure 12/15/2021 9:31 AM CDT documented as of this encounter Plan of Treatment Not on file documented as of this encounter Visit Diagnoses Not on filedocumented in this encounter Additional Health Concerns Assessment Noted Time PHQ-9 Depression Total Score: 14 021 10:28 AM CDT documented as of this encounter Care Teams Ocean Fishing Guide Relationship Specialty Start Date End Date Nan Crews FNP PCP - General NURSE PRACTITIONER 04/24/18 documented as of this encounter
--- OUTSIDE RECORDS SUMMARY | 2024-06-05 20:57 | XMS_ITS | Encounter Summary ---
Author Organization [facility] Address [address] [place] [address] [address] Care Team Providers Care Log Roller Name Role Phone Nan Crews Primary Care Provider [phone] Encounter Details Date Type Department Care Team (Latest Contact Info) Description 06/28/2021 Scan [facility] Scanned, Documents Social History Tobacco Use Types Packs/Day Years Used Date Smoking Tobacco: Never Smokeless Tobacco: Never Comments:Provider to tariff counsel Alcohol Use Standard Drinks/Week Comments No 0 [...] have Coronavirus / COVID-19? No / Unsure 05/30/2021 1:30 PM AIR CARRIER INSPECTOR documented as of this encounter Plan of Treatment Not on file documented as of this encounter Visit Diagnoses Not on filedocumented in this encounter Additional Health Concerns Assessment Noted Time PHQ-9 Depression Total Score: 14 021 10:28 AM CDT documented as of this encounter Care Teams Log Roller Relationship Specialty Start Date End Date Nan Crews FNP PCP - General NURSE PRACTITIONER 04/24/18 documented as of this encounter
--- OUTSIDE RECORDS SUMMARY | 2024-06-05 20:57 | XMS_ITS | Encounter Summary ---
Author Organization [facility] Address [address] [place] [address]. [place], [place] [address] [place] [address] Care Team Providers Care Biopsychologist Name Role Phone Nan Crews Primary Care Provider [phone] Encounter Details Date Type Department Care Team (Late st Contact Info) Description 05/02/2022 [employer] Message Enc [facility] Family [facility] - [place] [address] [facility] [address] [place] [address] Mychart, [facility] Provider medication Social History Tobacco Use Types Packs/Day Years Used Date Smoking Tobacco: Every Day Smokeless Tobacco: Never Comments:Provider to psychosocial rehabilitation counselor /vaps only Alcohol Use Standard [...] Depression Total Score: 10 022 9:31 AM DIGITAL FORENSIC ANALYST documented as of this encounter Care Teams Biopsychologist Relationship Specialty Start Date End Date Nan Crews FNP PCP - General NURSE PRACTITIONER 04/24/18 documented as of this encounter
--- OUTSIDE RECORDS SUMMARY | 2024-06-05 20:57 | XMS_ITS | Encounter Summary ---
Author Organization [facility] Address [address] [place] [address]. [place], [place] [address] [place] [address] Care Team Providers Care Video Tape Duplicator Name Role Phone Nan Crews Primary Care Provider [phone] Encounter Details Date Type Department Care Team (Latest Contact Info) Description 11/14/2021 Travel Social History Tobacco Use Types Packs/Day Years Used Date Smoking Tobacco: Never Smokeless Tobacco: Never Comments:Provider to intake counselor Alcohol Use Standard Drinks/Week Comments No [...] documented as of this encounter Care Teams Video Tape Duplicator Relationship Specialty Start Date End Date Nan Crews FNP PCP - General NURSE PRACTITIONER 04/24/18 documented as of this encounter
--- OUTSIDE RECORDS SUMMARY | 2024-06-05 20:57 | XMS_ITS | Encounter Summary ---
Author Organization [facility] Address [address] [place] [address]. [place], [place] [address] [place] [address] Care Team Providers Care Bi Solutions Architect Name Role Phone Nan Crews Primary Care Provider [phone] Reason for Visit * Reason Onset Date Comments Medication Problem 03/05/2022 Encounter Details Date Type Department Care Team (Late st Contact Info) Description 03/05/2022 Telephone [facility] [address] [place] [address] Nan Crews [facility] [address] [place] [id number] Medication Problem Social History Tobacco Use Types Packs/Day Years Used Date Smoking Tobacco: Never Smokeless Tobacco: Never Comments:Provider to dormitory counselor Alcohol Use Standard Drinks/Week Comments No 0 (1 standard drink = 0.6 oz pur e alcohol) no AUDIT-C Answer Date Recorded Frequency of Alcohol Consumption Never 07/02/2018 Average Number of Drinks Not on file 019 Frequency of Binge Drinking Not on file 06/17 PHQ-2 Answer Date Recorded PHQ-2 Score - If the patient scores above 3, please move on to questions 3-9 1 03/01/2022 Comments No Sex and Gender Information Value Date Recorded Sex Assigned at Not on file Legal Sex Female 8:07 AM CDT Gender Identity Not on file Sexual Orientation Not on file COVID-19 Exposure Response Date Recorded In the last 10 days, have yo u been in contact with someone who was confirmed or suspected to have Coronavirus/COVID-19? No / Unsure 03/01/2022 7:58 AM CDT documented as of this encounter Progress Notes * Linda Jones - 03/05/2022 3:04 PM CDT Pt called back stating she had not had her call returned. I read message to pt. Pt is stopping the fluoxetine today, she is is just too dizzy to continue on it. Appt moved up to mar 08. * Ethel Haddad APRN - 03/05/2022 2:43 PM CDT Sometimes side effects will subside after about a week. Have her take it with a snack at bedtime and if that does not help, have her stop fluoxetine. We can discuss at her next visit. If she needs toshe can move up her next appt. * Alexandra Wise LPN - 03/05/2022 10:41 AM CDTSummary: medication concerns First given per our office 03/01/22. Please advise/ thank you Alexandra Wise LPN * Deisy Antony - 03/05/2022 10:20 AM CDT Pt called in to say the med Fluoxetine is making her dizzy and run into flanagan . Please call pt back. documented in this encounter Plan of Treatment Not on file documented as of this encounter Visit Diagnoses Not on filedocumented in this encounter Additional Health Concerns Assessment Noted Time PHQ-9 Depression Total Score: 8 03/01/20 8:08 AM CDT documented as of this encounter Care Teams Bi Solutions Architect Relationship Specialty Start Date End Date Nan Crews FNP PCP - General NURSE PRACTITIONER 04/24/18 documented as of this encounter
--- OUTSIDE RECORDS SUMMARY | 2024-06-05 20:57 | XMS_ITS | Encounter Summary ---
Author Organization [facility] Address [address] [place] [address]. [place], [place] [address] [place] [place] [address] Care Team Providers Care Spa Director Name Role Phone Nan Crews Primary Care Provider [phone] Encounter Details Date Type Department Care Team (Latest Contact Info) Description 05/30/2021 Travel Social History Tobacco Use Types Packs/Day Years Used Date Smoking Tobacco: Never Smokeless Tobacco: Never Comments:Provider to counseling program leader Alcohol Use Standard Drinks/Week Comments No 0 [...] COVID-19? No / Unsure 05/30/2021 1:30 PM ELIGIBILITY AND OCCUPANCY INTERVIEWER documented as of this encounter Plan of Treatment Not on file documented as of this encounter Visit Diagnoses Not on filedocumented in this encounter Additional Health Concerns Assessment Noted Time PHQ-9 Depression Total Score: 14 021 10:28 AM CDT documented as of this encounter Care Teams Spa Director Relationship Specialty Start Date End Date Nan Crews FNP PCP - General NURSE PRACTITIONER 04/24/18 documented as of this encounter
--- OUTSIDE RECORDS SUMMARY | 2024-06-05 20:57 | XMS_ITS | Encounter Summary ---
Author Organization [facility] Address [address] [place] [address]. [place], [place] [address] [place] [address] Care Team Providers Care Pipe Fitter Apprentice Name Role Phone Nan Crews Primary Care Provider [phone] Encounter Details Date Type Department Care Team (Latest Contact Info) Description 03/29/2022 Travel Social History Tobacco Use Types Packs/Day Years Used Date Smoking Tobacco: Never Smokeless Tobacco: Never Comments:Provider to diet counselor /vaps only Alcohol Use Standard Drinks/Week [...] 3, please move on to questions 3-9 0 03/29/2022 Comments No Sex and Gender Information Value Date Recorded Sex Assigned at Not on file Legal Sex Female 8:07 AM CDT Gender Identity Not on file Sexual Orientation Not on file COVID-19 Exposure Response Date Recorded In the last 10 days, have yo u been in contact with someone who was confirmed or suspected to have Coronavirus/COVID-19? No / Unsure 03/29/2022 7:52 AM CDT documented as of this encounter Plan of Treatment Not on file documented as of this encounter Visit Diagnoses Not on filedocumented in this encounter Additional Health Concerns Assessment Noted Time PHQ-9 Depression Total Score: 7 03/29/20 22 8:08 AM CDT documented as of this encounter Care Teams Pipe Fitter Apprentice Relationship Specialty Start Date End Date Nan Crews FNP PCP - General NURSE PRACTITIONER 04/24/18 documented as of this encounter
--- OUTSIDE RECORDS SUMMARY | 2024-06-05 20:57 | XMS_ITS | Encounter Summary ---
Author Organization [facility] Address [address] [place] [address]. [place], [place] [address] [place] [address] Care Team Providers Care Car Carder Name Role Phone Nan Crews Primary Care Provider [phone] Encounter Details Date Type Department Care Team (Latest Contact Info) Description 03/21/2021 Travel Social History Tobacco Use Types Packs/Day Years Used Date Smoking Tobacco: Never Smokeless Tobacco: Never Comments:Provider to psychologist counseling Alcohol Use Standard Drinks/Week Comments No 0 [...] have Coronavirus / COVID-19? No / Unsure 03/21/2021 9:51 AM CDT documented as of this encounter Plan of Treatment Not on file documented as of this encounter Visit Diagnoses Not on filedocumented in this encounter Additional Health Concerns Assessment Noted Time PHQ-9 Depression Total Score: 14 021 10:28 AM CDT documented as of this encounter Care Teams Car Carder Relationship Specialty Start Date End Date Nan Crews FNP PCP - General NURSE PRACTITIONER 04/24/18 documented as of this encounter
--- OUTSIDE RECORDS SUMMARY | 2024-06-05 20:57 | XMS_ITS | Encounter Summary ---
Author Organization [facility] Address [address] [place] [address]. [place] [address] Care Team Providers Care Environmental Planning Engineer Name Role Phone Nan Crews Primary Care Provider [phone] Encounter Details Date Type Department Care Team (Latest Contact Info) Description 09/22/2021 Scan [facility] Scanned, Documents Social History Tobacco Use Types Packs/Day Years Used Date Smoking Tobacco: Never Smokeless Tobacco: Never Comments:Provider to certified personal finance counselor Alcohol Use Standard Drinks/Week Comments No [...] documented as of this encounter Care Teams Environmental Planning Engineer Relationship Specialty Start Date End Date Nan Crews FNP PCP - General NURSE PRACTITIONER 04/24/18 documented as of this encounter
--- OUTSIDE RECORDS SUMMARY | 2024-06-05 20:57 | XMS_ITS | Encounter Summary ---
Author Organization [facility] Address [address] [place] [address]. [place], [place] [id number] [place] [address] Care Team Providers Care Paper Colorer Name Role Phone Nan Crews Primary Care Provider [phone] Reason for Visit * Reason Onset Date Comments Question 11/14/2021 Encounter Details Date Type Department Care Team (Late st Contact Info) Description 11/14/2021 Telephone [facility] [address] [place] [address] Nan Crews [facility] [address] [place], [place] [id number] Question Social History Tobacco Use Types Packs/Day Years Used Date Smoking Tobacco: Never Smokeless Tobacco: Never Comments:Provider to relationship counselor Alcohol Use Standard Drinks/Week Comments No [...] of this encounter Progress Notes * Radha L Joey, MECHATRONICS ENGINEER - 11/14/2021 12:14 PM CDT Pt. Mother notified. Pt. Is coming at 1:20pm today. * HECTOR Rodriguez - 11/14/2021 12:09 PM CDT You can double book this afternoon and ill see her. Put her in 420 slot but have her come as early as possible in case work up is needed * Vikki Osullivan LPN - 11/14/2021 8:46 AM CDT Called pt's mom back she said that pt came into the office on Saturday by herself for pelvic pain. Mom asked the pt if she told Jo they have family history of Endometriosis and problems with infertility. Pt said she didn't mom did call into the office on Saturday and talked with Jo. Jo told them to go to the ER Mom said that they don't have insurance and if she could give her orders for labs they would go to the HD and imaging they would go to [facility]. Mom told Jo they weren'tgoing to the ER d/t not being emergent. Pt is still having pelvis pain. Had blood in her urine and 1+ leukocyte. Mom is wanting to know what to do now? Amina please advise * Chula Cosme - 11/14/2021 8:18 AM CDT Pt's mom is asking if someone will give her a call. Pt had a visit on Saturday and was advised to go to the er however she didn't because they don't have insurance. Pt mom is asking were to go from this point. Pt [phone] documented in this encounter Plan of Treatment Not on file documented as of this encounter Visit Diagnoses Not on filedocumented in this encounter Additional Health Concerns Assessment Noted Time PHQ-9 Depression Total Score: 14 021 10:28 AM CDT documented as of this encounter Care Teams Paper Colorer Relationship Specialty Start Date End Date Nan Crews FNP PCP - General NURSE PRACTITIONER 04/24/18 documented as of this encounter
--- OUTSIDE RECORDS SUMMARY | 2024-06-05 20:57 | XMS_ITS | Encounter Summary ---
Author Organization [facility] Address [address] [place] [address]. [place], [place] [address] [place] [address] Care Team Providers Care Powder Room Attendant Name Role Phone Nan Crews Chin [facility] Primary Care Provider [phone] Reason for Visit * Reason Comments Abdominal Pain Complains of left lo wer abd pain constant x 4 days;JSD; last BM 11/10/21 normal movement; reports she always has clear, white vaginal discharge Encounter Details Date Type Department Care Team (Late st Contact Info) Description 11/11/2021 11:20 AM CDT Office Visit [address] [place] [address] Anitha Mendoza V, [address] [place] [address] Abdominal Pain (Complains of left lower abd pain constant x 4 days;JSD; last BM 11/10/21 normal movement; reports she always has clear, white vaginal discharge) Social History Tobacco Use Types Packs/Day Years Used Date Smoking Tobacco: Never Smokeless Tobacco: Never Comments:Provider to funeral prearrangement counselor Alcohol Use Standard Drinks/Week Comments No [...] Sign Reading Time Taken Comments Blood Pressure 118/60 11/11/2021 10:58 AM CDT Pulse 60 11/11/2021 10:58 AM CDT Temperature 36.7 ??C (98 ??F) 11/11/2021 10:58 AM CDT Respiratory Rate 12 11/11/2021 10:58 AM CDT Oxygen Saturation - - Inhaled Oxygen Concentration - - Weight 51.3 kg (113 lb) 11/11/2021 10:58 AM CDT Height 167.6 cm (5' 6 ) 11/11/2021 10:58 AM CDT Body Mass Index 18.24 11/11/2021 10:58 AM CDT Body Mass Index Percentile 9.73% 11/11/2021 10: 58 AM CDT Growth Chart: [facility] (Girls, 2- 20 Years) documented in this encounter Progress Notes * Anitha Mendoza V, NUCLEAR CHEMISTRY TECHNICIAN-BC - 11/11/2021 11:20 AM CDT Reason for Visit: Abdominal Pain (Complains of left lower abd pain constant x 4 days;JSD; last BM 11/10/21 normal movement; reports she always has clear, white vaginal discharge) History of Present Illness: HPI 16-year-old female, patient of Amina Crews, presents for complaints of left lower abdominal pain that she notes to be constant for the last 4 days. She denies fevers, chills, urinary symptoms, vaginal discharge or concern for STI. She denies n/v/d or constipation. Her last menstrual period was 2 weeks ago and it was not her normal time to have a period. States she was supposed to start today. She does take oral contraceptives but admits she does not take them regularly like she should. She is sexually active. Reports they use the pull out method as well. ROS: Review of Systems Constitutional: Negative for chills and fever. HENT: Negative for congestion, ear pain, sinus pain and sore throat. Eyes: Negative for blurred vision, pain and discharge. Respiratory: Negative for cough, shortness of breath and wheezing. Cardiovascular: Negative for chest pain, palpitations and leg swelling. Gastrointestinal: Positive for abdominal pain (LLQ constant). Negative for blood in stool, constipation, diarrhea, nausea and vomiting. Genitourinary: Negative for dysuria, flank pain, frequency, hematuria and urgency. Musculoskeletal: Negative for myalgias. Skin: Negative for rash. Neurological: Negative for dizziness. Endo/Heme/Allergies: Negative. Psychiatric/Behavioral: Negative for depression. The patient is not nervous/anxious. Medications: Current Outpatient Medications Medication Sig Dispense Refill ??? ARIPiprazole 10 MG tablet Take 1 tablet (10 mg total) by mouth daily. 30 tablet 2 ??? lamoTRIgine (LAMICTAL) 100 MG tablet Take 1 tablet (100 mg total) by mouth daily. 30 tablet 2 ??? TRI-SPRINTEC 0.18/0.215/0.25 MG-35 MCG tablet Take 1 tablet by mouth once daily 28 tablet 0 ??? LORazepam 0.5 MG tablet Take 1 tablet 30 minutes prior to blood draw and may take additional tablet if needed 2 tablet 0 No current facility-administered medications for this visit. No Known Allergies Past Medical History: Diagnosis Date ??? Anxiety ??? Depression Past Surgical History: Procedure Laterality Date ??? BLADDER SURGERY Social History Tobacco Use ??? Smoking status: Never Smoker ??? Smokeless tobacco: Never Used ??? Tobacco comment: Provider to funeral prearrangement counselor Vaping Use ??? Vaping Use: Never used Substance Use Topics ??? Alcohol use: No ??? Drug use: No Family History Problem Relation Name Age of Onset ??? Mental Health Mother Hx of post- depression ??? Anxiety Father ??? Depression Maternal Grandmother ??? Anxiety Paternal Grandfather Family Status Relation Name Status ??? Mother (Not Specified) ??? Father (Not Specified) ??? MGM (Not Specified) ??? PGF (Not Specified) Physical Exam: Physical Exam Vitals and nursing [...] or rales. Chest: Chest wall: No tenderness. Abdominal: General: Bowel sounds are normal. There is no distension. Palpations: Abdomen is soft. There is no mass. Tenderness: There is abdominal tenderness (Left middle to lower abd tenderness with palpation. Paindoes not radiate.). There is no right CVA tenderness, left CVA tenderness, guarding or rebound. Hernia: No hernia is present. Musculoskeletal: General: No swelling, tenderness, deformity or [...] content normal. Judgment: Judgment normal. Filed Vitals: 11/11/21 1058 BP: 118/60 Pulse: 60 Resp: 12 Temp: 98 ??F (36.7 ??C) Weight: 51.3 kg (113 lb) Height: 5' 6 (1.676 m) PainSc: 4 Moderate Pain (0-10 Scale) Body mass index is 18.24 kg/m??. Results for orders placed or performed in visit on 11/11/21 TEST URINE Result Value Ref Range URINE HCG TEST NEGATIVE NEGATIVE Internal Control: VALID VALID URINALYSIS AUTO DIP Result Value Ref Range COLOR (U) YELLOW TRANSPARENCY CLEAR GLUCOSE (U) NEGATIVE NEGATIVE MG/DL BILIRUBIN (U) NEGATIVE NEGATIVE U KETONES NEGATIVE NEGATIVE MG/DL Specific [place] (U) 1.020 1.001 - 1.035 BLOOD MODERATE (Non Hemolyzed, Intact, About 50 rbc/uL) NEGATIVE U PH 7.0 5.0 - 9.0 PROTEIN (U) NEGATIVE NEGATIVE mg/dL UROBILINOGEN 0.2 0.2 - 1.0 EU/dL = mg/dL NITRITES NEGATIVE NEGATIVE MG/DL LEUKOCYTE ESTERASE 1+ (SMALL) NEGATIVE No image results found. Diagnoses/Impression: 1. Left lower quadrant abdominal pain TEST URINE URINALYSIS AUTO DIP Recommendation/Plan: Urine dip shows moderate amount of blood and small amount of leukocytes. She does not have any urinary symptoms. No history of UTI. Urine is negative. She is tender in the left mid to lowerquadrant of her abdomen. I suggest that she go to the emergency department for evaluation of abdominal pain as our office is closing soon and will not reopen for 3 days. I explained to the patient all of the possibilities of the pain she is having such as ovarian cysts, colon infection, ovarian torsion, kidney stone, ectopic etc. She will check with her parents before going to the emergency department since she reports they are self-pay. I did tell her that the hospital offers payment plans and will not turn anyone away for inability to pay. States understanding. I told her that I would be happy to talk to her parents if they had questions and wanted to call. So told her that she should consider another form of control such as Nexplanon or IUD since she is forgetting to take her control. I also told her that the pullout method is not reliable. States understanding. 1150-I spoke with pts mother Letitia. I told her my concerns of possibilities of left lower quadrant pain. She is asking that all testing be done as an [facility]. I explained to the mother that this would not be appropriate because if there is something urgent test results would not be given until at least Saturday when office reopens. Mother states that she will talk with her and see if he will allow Cecilia to go to the emergency department forevaluation. Planed to mother that they will never turn anyone away for inability to pay and they also can try to set up a payment plan with the hospital. I even mentioned [facility] [place]. Orders Placed This Encounter ??? TEST URINE Order Specific Question: Release to patient Answer: System release ??? URINALYSIS AUTO DIP Order Specific Question: Release to patient Answer: System release SANDIE Dubois Cosigned by Gabrielle Mathew DO at 11/14/2021 2:31 PM CDT * SANDIE Walters - 11/11/2021 11:20 AM CDT Urine shows moderate blood and small LE. Urine preg negative documented in this encounter Plan of Treatment Not on file documented as of this encounter Procedures Procedure Name Priority Date/Time Associated Diagnosis Comments TEST URINE Routine 11/11/2021 Left lower quadrant abdominal pain URINALYSIS AUTO DIP Routine 11/11/2021 Left lower quadrant abdominal pain documented in this encounter Results * URINALYSIS AUTO DIP (11/11/2021) COLOR (U) YELLOW -[facility] (201), [place] TRANSPARENCY CLEAR [facility]), [place] GLUCOSE (U) NEGATIVE NEGATIVE MG/DL -HEALTH[facility]ARE (201), [place] BILIRUBIN (U) NEGATIVE NEGATIVE [facility] (201), [place] KETONES MG/DL (U) NEGATIVE NEGATIVE MG/DL [facility] (201), [place] SPECIFIC GRAVITY (U) 1.020 1.001 - 1.035 [facility] (201), [place] BLOOD (U) MODERATE (Non Hemolyzed, Intact, About 50 rbc/uL) NEGATIVE [facility] (201), [place] U PH 7.0 5.0 - 9.0 [facility] ([facility]), [place] PROTEIN (U) NEGATIVE NEGATIVE mg/dL [facility] (201), [place] UROBILINOGEN 0.2 0.2 - 1.0 EU/dL = mg/dL [facility] (201), [place] NITRITES NEGATIVE NEGATIVE MG/DL [facility] (201), [place] LEUKOCYTES (U) 1+ (SMALL) NEGATIVE [facility] (201), [place] URINE SPECIMEN OBTAINED BY CLEAN CATCH PROCEDURE / Unknown 11/11/2021 HECTOR Walters-BC URINE ORDERABLES Final Result Performing Organization Address [facility] Co de Phone Number [facility] (201), [place] [address], [place] [phone] * TEST URINE (11/11/2021) URINE HCG TEST NEGATIVE NEGATIVE [facility] (201), [place] Internal Control: VALID VALID [facility] DR Torres201) [place] URINE SPECIMEN FROM URETHRA / Unknown 11/11/2021 Anitha Reji V, NUCLEAR CHEMISTRY TECHNICIAN-BC URINE ORDERABLES Final Result Performing Organization Address [facility] Co de Phone Number [facility] (201), [place] [address], [place] [phone] documented in this encounter Visit Diagnoses Diagnosis Left lower quadrant abdominal pain- Primary documented in this encounter Additional Health Concerns Assessment Noted Time PHQ-9 Depression Total Score: 14 08/10/2 021 10:28 AM CDT documented as of this encounter Care Teams Powder Room Attendant Relationship Specialty Start Date End Date Nan Crews FNP PCP - General NURSE PRACTITIONER 04/24/18 documented as of this encounter
--- OUTSIDE RECORDS SUMMARY | 2024-06-05 20:57 | XMS_ITS | Encounter Summary ---
Author Organization [facility] Address [address] [place] [address]. [place], [place] [address] [place] [address] Care Team Providers Care Oil Dispatcher Name Role Phone Nan Crews Primary Care Provider [phone] Encounter Details Date Type Department Care Team (Latest Contact Info) Description 03/08/2022 Travel Social History Tobacco Use Types Packs/Day Years Used Date Smoking Tobacco: Never Smokeless Tobacco: Never Comments:Provider to program counselor Alcohol Use Standard Drinks/Week Comments Yes 0 (1 standard drink = 0.6 oz pur e alcohol) social AUDIT-C Answer Date Recorded Frequency of Alcohol Consumption Never 07/02/2018 Average Number of Drinks Not on file 019 Frequency of Binge Drinking Not on file 06/17 PHQ-2 Answer Date Recorded PHQ-2 Score - If the patient scores above 3, please move on to questions 3-9 0 03/08/2022 Comments No Sex and Gender Information Value Date Recorded Sex Assigned at Not on file Legal Sex Female 8:07 AM CDT Gender Identity Not on file Sexual Orientation Not on file COVID-19 Exposure Response Date Recorded In the last 10 days, have yo u been in contact with someone who was confirmed or suspected to have Coronavirus/COVID-19? No / Unsure 03/08/2022 7:55 AM CDT documented as of this encounter Plan of Treatment Not on file documented as of this encounter Visit Diagnoses Not on filedocumented in this encounter Additional Health Concerns Assessment Noted Time PHQ-9 Depression Total Score: 8 03/01/20 22 8:08 AM CDT documented as of this encounter Care Teams Oil Dispatcher Relationship Specialty Start Date End Date Nan Crews FNP PCP - General NURSE PRACTITIONER 04/24/18 documented as of this encounter
--- OUTSIDE RECORDS SUMMARY | 2024-06-05 20:57 | XMS_ITS | Encounter Summary ---
Author Organization [facility] Address [address] [place] [address]. [place], [place] [address] [place] [address] Care Team Providers Care Tool Machine Setup Operator Name Role Phone Nan Crews CLINICAL COURIER Primary Care Provider [phone] Encounter Details Date Type Department Care Team (Late st Contact Info) Description 11/16/2021 Orders Only [place] [address] [place] [address] Vikki Osullivan LPN Social History Tobacco Use Types Packs/Day Years Used Date Smoking Tobacco: Never Smokeless Tobacco: Never Comments:Provider to school counsellor Alcohol Use Standard Drinks/Week Comments No 0 [...] as of this encounter Visit Diagnoses Diagnosis LLQ abdominal pain- Primary Abdominal pain, left lower quadrant documented in this encounter Additional Health Concerns Assessment Noted Time PHQ-9 Depression Total Score: 14 021 10:28 AM CDT documented as of this encounter Care Teams Tool Machine Setup Operator Relationship Specialty Start Date End Date Nan Crews FNP PCP - General NURSE PRACTITIONER 04/24/18 documented as of this encounter
--- OUTSIDE RECORDS SUMMARY | 2024-06-05 20:57 | XMS_ITS | Encounter Summary ---
Author Organization [facility] Address [address] [place] [address]. [place], [place] [address] [place] [address] Care Team Providers Care Academic Tutor Name Role Phone Nan Crews Primary Care Provider [phone] Reason for Referral * Consultation/Treatment (Urgent) - Closed Specialty Diagnoses / Procedures Referred By Chad lynn Referred To Contact Nurse Practitioner Psych/Mental Health Diagnoses Anxiety Depression, unspecified depression type Nan Crews FNP [address] [place] [address] [place] [address] Phone: tel: fax: Fidel Schulz NP Referral ID Status Reason Start Date Expiration Date V isits Requested Visits Authorized [id number] Closed Specialty Services 12/06/2020 01/05/2022 100 100 Scheduling Instructions Can we get her in with fidel See SUPERVISOR FORCE ADJUSTMENT in [place] please Reason for Visit * Reason Comments Follow Up Switching antidepres sants Encounter Details Date Type Department Care Team (Late st Contact Info) Description 12/06/2020 9:20 AM CDT Office Visit [facility] [address] [facility] [address] [address] Nan Crews FNP [address] [place] [address] [place] [address] Follow Up (Switching antidepressants) Social History Tobacco Use Types Packs/Day Years Used Date Smoking Tobacco: Never Smokeless Tobacco: Never Tobacco Cessation:Counseling Given: Yes Comments:Provider to youth counselor Alcohol Use Standard Drinks/Week Comments No [...] Sign Reading Time Taken Comments Blood Pressure 110/70 12/06/2020 9:31 AM CDT Pulse 92 12/06/2020 9:31 AM CDT Temperature 36.7 ??C (98.1 ??F) 12/06/2020 9:31 AM CD T Respiratory Rate - - Oxygen Saturation 96% 12/06/2020 9:31 AM CDT Inhaled Oxygen Concentration - - Weight 47.2 kg (104 lb) 12/06/2020 9:31 AM CDT Height 170.2 cm (5' 7 ) 12/06/2020 9:31 AM CDT Body Mass Index 16.29 12/06/2020 9:31 AM CDT Body Mass Index Percentile 0.93% 12/06/2020 9:3 1 AM CDT Growth Chart: [facility] (Girls, 2- 20 Years) documented in this encounter Progress Notes * HECTOR Monique - 12/06/2020 9:20 AM CDT Cecilia is a 15-year-old female patient. Reason for Visit: Follow Up (Switching antidepressants) History of Present Illness: Cecilia is a 15-year-old female patient who is here today with her mom to discuss her depression andanxiety. She has been treated for depression for couple of years. She was initially started on sertraline over a year ago for the same and it did not help so she was switched to Lexapro last year. I saw her in November 2019 and at that time she was doing very well and wanted to wean off of the Lexapro. We were able to successfully wean her off Lexapro and she did well for the first few months. She came in april 2020 for having recurrent depression and anxiety so she was started back on the lexapro. At that time, she reported the lexapro was not working as it did in the past. She said she was having more anxiety attacks which she has not had for a long time. She was feeling angry since starting the lexapro and if she gets angry she feels bad and that causes anxiety. She also reported her appetite decreased on the lexapro. She reported poor focus since being on the lexapro. Due to the above concerns she was switched from lexapro to fluoxetine in 05/2020. She came back in 06/2020 and reported she was feeling much better. She reports appetite was better. Focus was better. Anger was better. She was feeling more motivated. Today she reports feeling irritable and sad. Angry all the time. Symptoms present for the past 4 months. She reports having weeks in which she feels very good. She feels confident. She feels happy. At that time she does not feel bad about herself. Then she will going to a pit in which she feels down in the dumps angry and irritable. She denies having any major changes in her life. She reports having a good relationship with her family and they share a lot of family time with activities and meals. She works at [employer] and she is happy with her job. She does not like school but says that is not a problem now since summertime. She has friends who she hangs out with. She says her friend group changes frequently but she does not have poor relationships with her previous friends. They like to drive around and hang out. She denies any substance abuse. She is no longer in a relationship with her previous boyfriend. She reported seeing some red flags so they broke up. She is unhappy that she does not have a boyfriend according to her mom. She specifically denies having any suicidal plans. She says sometimes she does not want to be here but she does not want to hurt her self. She says she knows she would never do that. Past Medical History: Diagnosis Date ??? Anxiety ??? Depression Past Surgical History: Procedure Laterality Date ??? BLADDER SURGERY Medications: Current Outpatient Medications: ??? FLUoxetine 20 MG capsule, Take 1 capsule (20 mg total) by mouth daily., Disp: 30 capsule, Rfl: 0 ??? Norgestimate-Ethinyl Estradiol (TRI-SPRINTEC) 0.18/0.215/0.25 MG-35 MCG tablet, Take 1 tablet by mouth daily., Disp: 84 tablet, Rfl: 0 No Known Allergies No family history on file. No family status information on file. reports that she has never smoked. She has never used smokeless tobacco. She reports that she does not drink alcohol and does not use drugs. ROS: Review of Systems Constitutional: Negative for malaise/fatigue and weight loss. Neurological: Negative. Psychiatric/Behavioral: See HPI Vitals: Filed Vitals: 12/06/20 0931 BP: 110/70 Pulse: 92 Temp: 98.1 ??F (36.7 ??C) TempSrc: Temporal SpO2: 96% Weight: 47.2 kg (104 lb) Height: 5' 7 (1.702 m) Physical Exam Constitutional: Appearance: She is well-developed. HENT: Head: Normocephalic and atraumatic. Pulmonary: Effort: Pulmonary effort is normal. Skin: General: Skin is warm and dry. Neurological: Mental Status: She is alert and oriented to person, place, and time. Psychiatric: Thought Content: Thought content normal. Judgment: Judgment normal. Results: Mood disorder screening test: She answered yes to all the questions and agreed she had experienced more tahn one of the items at the same time. PHQ-9: Over the last two weeks, how often have you been bothered by any of the following problems? 06/21/2020 12/06/2020 LITTLE INTEREST OR PLEASURE IN DOING THINGS 1-Several Days 1-Several Days FEELING DOWN, DEPRESSSED,OR HOPELESS 1-Several Days 2-More than half the days PHQ2 DEPRESSION TOTAL SCORE 2 3 TROUBLE FALLING OR STAYING ASLEEP OR SLEEPING TOO MUCH 0-Not at All 2-More than half the days FEELING TIRED OR HAVING LITTLE ENERGY 1-Several Days 2-More than half the days POOR APPETITE OR OVEREATING 1-Several Days 2-More than half the days FEELING BAD ABOUT YOURSELF 2-More than half the days 2-More than half the days TROUBLE CONCENTRATING ON THINGS 0-Not at All 2-More than half the days MOVING OR SPEAKING SO SLOWLY THAT OTHER PEOPLE COULD HAVE NOTICED 0-Not at All 1-Several Days THOUGHTS THAT YOU WOULD BE BETTER OFF 1-Several Days 1-Several Days DEPRESSION SCREENING TOTAL SCORE 7 15 IF YOU CHECKED OFF ANY PROBLEMS - Somewhat difficult NICOLETTE-7 (Generalized Anxiety Disorder) Screening NICOLETTE-7 12/06/2020 Feeling nervous, anxious and on edge 1 - several days Not being able to stop or control worrying 1 - several days Worrying too much about different things 1 - several days Trouble Relaxing 1 - several days Being so restless that it's hard to sit still 1 - several days Becoming easily annoyed or irritable 2 - more than half the days Feeling afraid as if something awful might happen 1 - several days Total Score 8 Diagnoses/Impression: Encounter Diagnose(s) ICD-10-CM ICD-9-CM SNOMED CT(R) 1. Anxiety F41.9 300.00 ANXIETY busPIRone 5 MG tablet 2. Depression, unspecified depression type F32.9 311 DEPRESSIVE DISORDER FLUoxetine 20 MG capsule Plan Orders Placed: Orders Placed This Encounter ??? Ambulatory Referral to Psychiatry ??? busPIRone 5 MG tablet ??? FLUoxetine 20 MG capsule We discussed her screening results in detail. Discussed with patient and her mom. She screened positive for the mood disorder questionnaire. Her depression has been stable with the fluoxetine. We will continue that. We will add BuSpar 5 mg twice daily for anxiety. She needs a psych evaluation regarding her mood disorder screening as she answered yes to all of the questions without hesitation. This needs to be evaluated further. They are agreeable to psych consult. We discussed potential side effects of BuSpar. Report status to me per my chart in 2 weeks. Also, let me know if the appointment with psych is set up yet. Follow-up if any symptoms worsen or any new symptoms develop. Patient and her mom are both agreeable with this plan. HECTOR MONIQUE 12/06/2020 9:44 AM Cosigned by Gabrielle Mathew DO at 12/06/2020 4:59 PM CDT documented in this encounter Plan of Treatment Scheduled Referrals Name Type Priority Associated Diagnoses Orde r Schedule Ambulatory Referral to Psychiatry Referral Routine Anxiety Depression, unspecified depression type Ordered: 12/06/2020 documented as of this encounter Visit Diagnoses Diagnosis Anxiety- Primary Anxiety state, unspecified Depression, unspecified depression type documented in this encounter Additional Health Concerns Assessment Noted Time PHQ-9 Depression Total Score: 15 021 9:30 AM CDT documented as of this encounter Care Teams Academic Tutor Relationship Specialty Start Date End Date Nan Crews FNP PCP - General NURSE PRACTITIONER 04/24/18 documented as of this encounter
--- OUTSIDE RECORDS SUMMARY | 2024-06-05 20:57 | XMS_ITS | Encounter Summary ---
Author Organization [facility] Address [address] [place] [address]. [place], [place] [address] [place] [address] Care Team Providers Care Transportation Engineering Technician Name Role Phone Nan Crews Primary Care Provider [phone] Encounter Details Date Type Department Care Team (Latest Contact Info) Description 01/24/2021 Travel Social History Tobacco Use Types Packs/Day Years Used Date Smoking Tobacco: Never Smokeless Tobacco: Never Comments:Provider to queen's counsel Alcohol Use Standard Drinks/Week Comments No [...] have Coronavirus / COVID-19? No / Unsure 01/24/2021 10:13 AM CDT documented as of this encounter Plan of Treatment Not on file documented as of this encounter Visit Diagnoses Not on filedocumented in this encounter Additional Health Concerns Assessment Noted Time PHQ-9 Depression Total Score: 14 021 10:28 AM CDT documented as of this encounter Care Teams Transportation Engineering Technician Relationship Specialty Start Date End Date Nan Crews FNP PCP - General NURSE PRACTITIONER 04/24/18 documented as of this encounter
--- OUTSIDE RECORDS SUMMARY | 2024-06-05 20:57 | XMS_ITS | Encounter Summary ---
Author Organization [facility] Address [address] [place] [address]. [place], [place] [address] [place] [address] Care Team Providers Care Insulation Cutter And Former Name Role Phone Nan Crews SECURITY ADVISOR Primary Care Provider [phone] Encounter Details Date Type Department Care Team (Late st Contact Info) Description 02/15/2022 MyChart Message Enc [facility] [place] [address], [place] [place] [address] Ethel Haddad, MARK [address] [place] [address] Appointment Reschedule Social History Tobacco Use Types Packs/Day Years Used Date Smoking Tobacco: Never Smokeless Tobacco: Never Comments:Provider to counselor at law Alcohol Use Standard Drinks/Week Comments No 0 [...] Progress Notes * Ethel Haddad APRN - 02/20/2022 8:57 AM CDT Have her schedule for this week. It appears I have openings and Saturday. documented in this encounter Plan of Treatment Not on file documented as of this encounter Visit Diagnoses Not on filedocumented in this encounter Additional Health Concerns Assessment Noted Time PHQ-9 Depression Total Score: 9 02/03/20 22 9:13 AM CDT documented as of this encounter Care Teams Insulation Cutter And Former Relationship Specialty Start Date End Date Nan Crews FNP PCP - General NURSE PRACTITIONER 04/24/18 documented as of this encounter
--- OUTSIDE RECORDS SUMMARY | 2024-06-05 20:57 | XMS_ITS | Encounter Summary ---
Author Organization [facility] Address [address] [place] [address]. [place], [place] [address] [place] [address] Care Team Providers Care Dietitian Name Role Phone Nan Crews Primary Care Provider [phone] Encounter Details Date Type Department Care Team (Latest Contact Info) Description 03/01/2022 Travel Social History Tobacco Use Types Packs/Day Years Used Date Smoking Tobacco: Never Smokeless Tobacco: Never Comments:Provider to reimbursement counselor Alcohol Use Standard Drinks/Week Comments No [...] documented as of this encounter Care Teams Dietitian Relationship Specialty Start Date End Date Nan Crews FNP PCP - General NURSE PRACTITIONER 04/24/18 documented as of this encounter
--- OUTSIDE RECORDS SUMMARY | 2024-06-05 20:57 | XMS_ITS | Encounter Summary ---
Author Organization [facility] Address [address] [place] [address]. [place], [place] [address] [place] [address] Care Team Providers Care Deckhand Oyster Dredge Name Role Phone Nan Crews HECTOR Primary Care Provider [phone] Reason for Visit * Reason Onset Date Comments Medication Information 05/01/2022 concerns Encounter Details Date Type Department Care Team (Late st Contact Info) Description 05/01/2022 Telephone [facility] [place] [address], [facility] [address] [place] [address] Ethel Haddad, KNITTING MACHINE OPERATOR HELPER [address] [place] [address] Medication Information (concerns) Social History Tobacco Use Types Packs/Day Years Used Date Smoking Tobacco: Every Day Smokeless Tobacco: Never Comments:Provider to after school counselor /vaps only Alcohol Use Standard Drinks/Week [...] Progress Notes * Alexandra Powell LPN - 05/02/2022 9:35 AM CSTSummary: call back Spoke with Mom(Brit) she states patient did not take medication last night doing better today. But mom decided to look at bottle and noted that the medication is actually(Celexa) not Lexapro. She states that Cecilia states that at her telephone visit she spoke about being on Lexapro in the past and it worked and she assumed that was the medication she was being put back on, until mom realized it was not, so mom would like to know if the medication (celexa) was a mistake or did her daughter misunderstand, either way, mom and patient would like lexapro sent to the pharmacy( [facility]).Please advise Alexandra Powell LPN SEAMAN * Alexandra Powell LPN - 05/01/2022 1:31 PM CSTSummary: medication Mom(Brit) calls and states that the patient came home (looking like a Zombie), she states she dosenot feel right, like she is numb all over. Dizzy and feels off). Mom states she did not have any reactions like this in the past when she took this same medication. She has been taking at night and she has had two doses. Please advise Thank you Alexandra Powell LPN SEAMAN documented in this encounter Plan of Treatment Not on file documented as of this encounter Visit Diagnoses Diagnosis Bipolar affective disorder, currently depressed, mild ([facility])- Primary Bipolar I disorder, most recent episode (or current) depressed, mild documented in this encounter Additional Health Concerns Assessment Noted Time PHQ-9 Depression Total Score: 10 022 9:31 AM ABLE SEAMAN documented as of this encounter Care Teams Deckhand Oyster Dredge Relationship Specialty Start Date End Date Nan Crews FNP PCP - General NURSE PRACTITIONER 04/24/18 documented as of this encounter
--- OUTSIDE RECORDS SUMMARY | 2024-06-05 20:57 | XMS_ITS | Encounter Summary ---
Author Organization [facility] Address [address] [place] [address]. [place], [place] [address] [place] [address] Care Team Providers Care Section Chief Name Role Phone Nan Crews Primary Care Provider [phone] Encounter Details Date Type Department Care Team (Latest Contact Info) Description 12/06/2020 Travel Social History Tobacco Use Types Packs/Day Years Used Date Smoking Tobacco: Never Smokeless Tobacco: Never Comments:Provider to counseling specialist Alcohol Use Standard Drinks/Week Comments No 0 [...] documented as of this encounter Care Teams Section Chief Relationship Specialty Start Date End Date Nan Crews FNP PCP - General NURSE PRACTITIONER 04/24/18 documented as of this encounter
--- OUTSIDE RECORDS SUMMARY | 2024-06-05 20:58 | XMS_ITS | Encounter Summary ---
Author Organization [facility] Address [address] [place] [address]. [place], [place] [address] [place] [address] Care Team Providers Care Home Service Technician Name Role Phone Nan Crews HECTOR Primary Care Provider [phone] Encounter Details Date Type Department Care Team (Late st Contact Info) Description 07/25/2020 Orders Only [facility] [place] [address] [place] [address] Nasima Michaels RN Social History Tobacco Use Types Packs/Day Years [...] have Coronavirus / COVID-19? No / Unsure 07/07/2020 8:35 AM TACK PULLER MACHINE documented as of this encounter Plan of Treatment Not on file documented as of this encounter Visit Diagnoses Diagnosis Depression, unspecified depression type documented in this encounter Additional Health Concerns Assessment Noted Time PHQ-9 Depression Total Score: 7 06/21/19 21 11:03 AM TACK PULLER MACHINE documented as of this encounter Care Teams Home Service Technician Relationship Specialty Start Date End Date Nan Crews FNP PCP - General NURSE PRACTITIONER 04/24/18 documented as of this encounter
--- OUTSIDE RECORDS SUMMARY | 2024-06-05 20:58 | XMS_ITS | Encounter Summary ---
Author Organization [facility] Address [address] [place] [address]. [place], [place] [address] [place] [address] Care Team Providers Care Drop Man Name Role Phone Nan Crews Primary Care Provider [phone] Reason for Visit * Reason Onset Date Comments Refill Request 07/25/2020 Information 07/25/2020 Encounter Details Date Type Department Care Team (Late st Contact Info) Description 07/25/2020 Telephone [facility] [address] [place] [address] Nan Crews FNP [address] [place] [address] Refill Request; Information Social History Tobacco Use Types Packs/Day Years [...] COVID-19? No / Unsure 07/07/2020 8:35 AM SCALE ATTENDANT documented as of this encounter Progress Notes * Nasima Michaels RN - 07/25/2020 1:14 PM CST Amina please advise E ATTENDANT * Laura Mares - 07/25/2020 12:18 PM CST Pharmacy called and stated they just received prescription for patient ( FLUOXETINE ) and there is a huge difference in meléndez between tablets and capsules, pharmacy would like to switch it to capsules because they are much cheaper, please advise E ATTENDANT * Shalonda Cortes RN - 07/25/2020 9:33 AM CST Sent to pharmacy. E ATTENDANT * Gabrielle Mathew DO - 07/25/2020 9:28 AM CST So it looks like Amina is the provider and you are asking me for a continuation of the medication that she refilled to system validation engineer the gap while Amina is not here. I think that is appropriate. Go ahead and send the medication and the patient can follow-up on the E ATTENDANT * Nasima Michaels RN - 07/25/2020 9:[address] Mathew please advise refill; pt seen 07/07/20; fluxoetine increased to 20 mg qd , not sent to pharmacy , pt has office visit 08/02/20 E ATTENDANT * Laura Mares - 07/25/2020 8:17 AM CST Patient's mother said she called pharmacy and was told medication was not there, medication dosage is supposed to be changed and pharmacy stated they have not received anything from provider. FLUOXETINE, [facility] in [place], [place] E ATTENDANT documented in this encounter Plan of Treatment Not on file documented as of this encounter Visit Diagnoses Diagnosis Depression, unspecified depression type documented in this encounter Additional Health Concerns Assessment Noted Time PHQ-9 Depression Total Score: 7 06/21/19 21 11:03 AM SCALE ATTENDANT documented as of this encounter Care Teams Drop Man Relationship Specialty Start Date End Date Nan Crews FNP PCP - General NURSE PRACTITIONER 04/24/18 documented as of this encounter
--- OUTSIDE RECORDS SUMMARY | 2024-06-05 20:58 | XMS_ITS | Encounter Summary ---
Author Organization [facility] Address [address] [place] [address]. [place] [address] Care Team Providers Care Preschool Teacher Aide Name Role Phone Nan Crews Primary Care Provider Encounter Details Date Type Department Care Team (Latest Contact Info) Description 11/19/2019 Travel Social History Tobacco Use Types Packs/Day [...] 06/17 PHQ-2 Answer Date Recorded PHQ-2 Score 0 11/19/2019 Comments No Sex and Gender Information Value Date Recorded Sex Assigned at Not on file Legal Sex Female 8:07 AM CDT Gender Identity Not on file Sexual Orientation Not on file COVID-19 Exposure Response Date Recorded In the last month, have you been in contact with someone who was confirmed or suspected to have Coronavirus / COVID-19? No / Unsure 11/19/2019 1:16 PM CDT documented as of this encounter Plan of Treatment Not on file documented as of this encounter Visit Diagnoses Not on filedocumented in this encounter Additional Health Concerns Assessment Noted Time PHQ-9 Depression Total Score: 3 11/19/19 20 1:39 PM CDT documented as of this encounter Care Teams Preschool Teacher Aide Relationship Specialty Start Date End Date Nan Crews FNP PCP - General NURSE PRACTITIONER 04/24/18 documented as of this encounter
--- OUTSIDE RECORDS SUMMARY | 2024-06-05 20:58 | XMS_ITS | Encounter Summary ---
Author Organization [facility] Address [address] [place] [address]. [place], [place] [id number] [place] [address] Care Team Providers Care Accounting Bookkeeper Name Role Phone Nan Crews Primary Care Provider [phone] Reason for Visit * Reason Comments Medication Management F/U Encounter Details Date Type Department Care Team (Late st Contact Info) Description 05/11/2020 10:40 AM PLANT PROTECTION OFFICER Office Visit [facility] [address] [facility] [address] [place], [place] [id number] Nan Crews [place] [address] [place] [id number] Medication Management (F/U ) Social History Tobacco Use Types Packs/Day Years Used Date Smoking Tobacco: Never Smokeless Tobacco: Never Alcohol Use Standard Drinks/Week Comments No 0 (1 standard drink = 0.6 oz pur e alcohol) AUDIT-C Answer Date Recorded Frequency of Alcohol Consumption Never 07/02/2018 Average Number of Drinks Not on file 019 Frequency of Binge Drinking Not on file 06/17 PHQ-2 Answer Date Recorded PHQ-2 Score 5 05/11/2020 Comments No Sex and Gender Information Value Date Recorded Sex Assigned at Not on file Legal Sex Female 8:07 AM CDT Gender Identity Not on file Sexual Orientation Not on file COVID-19 Exposure Response Date Recorded In the last month, have you been in contact with someone who was confirmed or suspected to have Coronavirus / COVID-19? No / Unsure 05/10/2020 11:29 AM PLANT PROTECTION OFFICER documented as of this encounter Last Filed Vital Signs Vital Sign Reading Time Taken Comments Blood Pressure 96/62 05/11/2020 10:45 AM PLANT PROTECTION OFFICER Pulse 76 05/11/2020 10:45 AM PLANT PROTECTION OFFICER Temperature 37.2 ??C (98.9 ??F) 05/11/2020 10:[address] Respiratory Rate - - Oxygen Saturation - - Inhaled Oxygen Concentration - - Weight 50.3 kg (111 lb) 05/11/2020 10:45 AM PLANT PROTECTION OFFICER Height - - Body Mass Index - - documented in this encounter Progress Notes * HECTOR Monique - 05/11/2020 10:40 AM CST Cecilia is a 14-year-old female patient. Reason for Visit: Medication Management (F/U ) History of Present Illness: Cecilia is a 14-year-old female patient here for depression. Her mom is in the car waiting for her. She has a history of having depression for the past couple of years. She was initially started on sertraline and it did not help so she was switched to Lexapro last year. I last saw her in November and atthat time she was doing very well and wanted to wean off of the Lexapro. We were able to successfully wean her off Lexapro and she did well for the first few months. She has been off of lexapro over 4 months. For the past 4 to 6 weeks she has had recurrent depression sx. Not much anxiety. Motivation is poor. She is doing virtual learning through her high school this semester. She says her grades are doingvery well and are in fact better than when she was going to school in person. Her mom works from home so she is home all day with her. She tries to keep her normal schedule for waking up and going tobed. She says she sleeps pretty good. She hangs out with friends when she is able. She bases that off of who is on quarantine and what possible exposures are there in order to protect her family. Sheis working at [employer] and works a few days a week. She goes to work as scheduled. She has not had any crying spells. She mostly just notes feeling down in the dumps and has noted a decrease in her energy level. These were the same symptoms that started in the past when she was diagnosed with depression. She denies any substance abuse nor suicidal thoughts or plans. She gets along well with her family now. She lives in the house with her parents. They eat meals together and she usually stays down in the family room with them in the evening and they watch TV together. During the day she is in her room by herself most of the day. She has a boyfriend of the 1-1/2years. She has also noted lately that she feels numb around him so that has caused a strain on their relationship. Past Medical History: Diagnosis Date ??? Anxiety ??? Depression Past Surgical History: Procedure Laterality Date ??? BLADDER SURGERY Medications: Current Outpatient Medications: ??? escitalopram (LEXAPRO) 10 MG tablet, Take 1 tablet (10 mg total) by mouth daily., Disp: 30 tablet, Rfl: 0 ??? Norgestimate-Ethinyl Estradiol (TRI-SPRINTEC) 0.18/0.215/0.25 MG-35 MCG tablet, Take 1 tablet by mouth daily., Disp: 84 tablet, Rfl: 0 No Known Allergies No family history on file. No family status information on file. reports that she has never smoked. She has never used smokeless tobacco. She reports that she does not drink alcohol or use drugs. ROS: Review of Systems Constitutional: Negative for chills, fever and weight loss. HENT: Negative. Respiratory: Negative for cough and shortness of breath. Cardiovascular: Negative for chest pain and palpitations. Skin: Negative. Psychiatric/Behavioral: Positive for depression. Negative for substance abuse and suicidal ideas. The patient is not nervous/anxious and does not have insomnia. Vitals: Filed Vitals: 05/11/20 1045 BP: (!) 96/62 Pulse: 76 Temp: 98.9 ??F (37.2 ??C) TempSrc: Temporal Weight: 50.3 kg (111 lb) Physical Exam Vitals signs and nursing note reviewed. Constitutional: Appearance: Normal appearance. She is well-developed. HENT: Head: Normocephalic and atraumatic. Pulmonary: Effort: Pulmonary effort is normal. Skin: General: Skin is warm and dry. Neurological: Mental Status: She is alert and oriented to person, place, and time. Psychiatric: Mood and Affect: Mood normal. Thought Content: Thought content normal. Judgment: Judgment normal. Results: PHQ-9: Over the last two weeks, how often have you been bothered by any of the following problems? 11/19/2019 05/11/2020 LITTLE INTEREST OR PLEASURE IN DOING THINGS 0-Not at All 2-More than half the days FEELING DOWN, DEPRESSSED,OR HOPELESS 0-Not at All 3-Nearly every day PHQ2 DEPRESSION TOTAL SCORE 0 5 TROUBLE FALLING OR STAYING ASLEEP OR SLEEPING TOO MUCH 1-Several Days 3-Nearly every day FEELING TIRED OR HAVING LITTLE ENERGY 0-Not at All 3-Nearly every day POOR APPETITE OR OVEREATING 0-Not at All 0-Not at All FEELING BAD ABOUT YOURSELF 1-Several Days 2-More than half the days TROUBLE CONCENTRATING ON THINGS 1-Several Days 1-Several Days MOVING OR SPEAKING SO SLOWLY THAT OTHER PEOPLE COULD HAVE NOTICED 0-Not at All 2-More than half thedays THOUGHTS THAT YOU WOULD BE BETTER OFF 0-Not at All 1-Several Days DEPRESSION SCREENING TOTAL SCORE 3 17 Diagnoses/Impression: Encounter Diagnose(s) ICD-10-CM ICD-9-CM SNOMED CT(R) 1. Depression, unspecified depression type F32.9 311 DEPRESSIVE DISORDER escitalopram (LEXAPRO) 10 MG tablet Plan Orders Placed: Orders Placed This Encounter ??? escitalopram (LEXAPRO) 10 MG tablet We will restart Lexapro 10 mg daily as she has done well on this in the past. Follow-up in 4 weeks for recheck. Call sooner if any new or worsening symptoms HECTOR MONIQUE 05/11/2020 11:00 AM Cosigned by Gabrielle Mathew DO at 05/13/2020 3:28 PM PLANT PROTECTION OFFICER T PROTECTION OFFICER T PROTECTION OFFICER documented in this encounter Plan of Treatment Not on file documented as of this encounter Visit Diagnoses Diagnosis Depression, unspecified depression type- Primary documented in this encounter Additional Health Concerns Assessment Noted Time PHQ-9 Depression Total Score: 17 020 11:04 AM PLANT PROTECTION OFFICER documented as of this encounter Care Teams Accounting Bookkeeper Relationship Specialty Start Date End Date Nan Crews FNP PCP - General NURSE PRACTITIONER 04/24/18 documented as of this encounter
--- OUTSIDE RECORDS SUMMARY | 2024-06-05 20:58 | XMS_ITS | Encounter Summary ---
Author Organization [facility] Address [address] [place] [address]. [place], [place] [id number] [place] [address] Care Team Providers Care Cert Pharmacy Tech Name Role Phone Nan Crews Primary Care Provider [phone] Reason for Visit * Reason Comments Follow Up depression and start ing fluoxetine Encounter Details Date Type Department Care Team (Late st Contact Info) Description 06/21/2020 10:40 AM OCULARIST Office Visit [address] [place] [address] Nan Crews [address] [place] [address] Follow Up (depression and starting fluoxetine) Social History Tobacco Use Types Packs/Day Years [...] have Coronavirus / COVID-19? No / Unsure 06/21/2020 10:44 AM OCULARIST documented as of this encounter Last Filed Vital Signs Vital Sign Reading Time Taken Comments Blood Pressure 100/64 06/21/2020 10:54 AM OCULARIST Pulse 80 06/21/2020 10:54 AM OCULARIST Temperature 37.1 ??C (98.7 ??F) 06/21/2020 10:[address] Respiratory Rate 14 06/21/2020 10:54 AM OCULARIST Oxygen Saturation - - Inhaled Oxygen Concentration - - Weight 49 kg (108 lb) 06/21/2020 10:54 AM OCULARIST Height - - Body Mass Index - - documented in this encounter Progress Notes * Nan Crews, TOOLER - 06/21/2020 10:40 AM CST Cecilia is a 14-year-old female patient. Reason for Visit: Follow Up (depression and starting fluoxetine) History of Present Illness: Cecilia is a 14 year old female pt here for follow up on depression and anxiety. She was last seen here 2 weeks ago. She was initially started on sertraline over a year ago for the same and it did not help so she wasswitched to Lexapro last year. I last saw her in November and at that time she was doing very well and wanted to wean off of the Lexapro. We were able to successfully wean her off Lexapro and she did well for the first few months. She came in april for having recurrent depression and anxiety so she was started back on the lexapro. She reported at last ov that the lexapro was not working as it did in the past. She said she was having more anxiety attacks which she has not had for a long time. She was feeling angry since starting the lexapro and if she gets angry she feels bad and that causes anxiety. She also reported her appetite decreased since starting the lexapro. She works at [employer]. She reported poor focus since being on the lexapro. Due to the above concerns she was switched from lexapro to fluoxetine. Today Cecilia reports that she is feeling much better. She reports appetite is better now. Focus is better. Anger is better. She is feeling more motivated now. No side effects. The first week she had dizziness and fatigue but went away. She is happy with the new medication. Past Medical History: Diagnosis Date ??? Anxiety ??? Depression Past Surgical History: Procedure Laterality Date ??? BLADDER SURGERY Medications: Current Outpatient Medications: ??? FLUoxetine 10 MG tablet, Take 1 tablet (10 [...] does not drink alcohol or use drugs. She is single. ROS: Review of Systems Constitutional: Negative for chills, fever, malaise/fatigue and weight loss. Respiratory: Negative. Cardiovascular: Negative. Gastrointestinal: Negative for nausea. Skin: Negative. Neurological: Negative for dizziness and headaches. Psychiatric/Behavioral: See HPI Vitals: Filed Vitals: 06/21/20 1054 Weight: 49 kg (108 lb) Physical Exam Vitals signs and nursing note reviewed. Constitutional: Appearance: She is well-developed. Comments: thin HENT: Head: Normocephalic and atraumatic. Pulmonary: Effort: Pulmonary effort is normal. Skin: General: Skin is warm and dry. Neurological: Mental Status: She is alert and oriented to person, place, and time. Psychiatric: Mood and Affect: Mood normal. Thought Content: Thought content normal. Judgment: Judgment normal. Comments: Good eye contact, smiling Results: PHQ-9: Over the last two weeks, how often have you been bothered by any of the following problems? 06/07/2020 06/21/2020 LITTLE INTEREST OR PLEASURE IN DOING THINGS 2-More than half the days 1-Several Days FEELING DOWN, DEPRESSSED,OR HOPELESS 3-Nearly every day 1-Several Days PHQ2 DEPRESSION TOTAL SCORE 5 2 TROUBLE FALLING OR STAYING ASLEEP OR SLEEPING TOO MUCH 3-Nearly every day 0-Not at All FEELING TIRED OR HAVING LITTLE ENERGY 3-Nearly every day 1-Several Days POOR APPETITE OR OVEREATING 2-More than half the days 1-Several Days FEELING BAD ABOUT YOURSELF 3-Nearly every day 2-More than half the days TROUBLE CONCENTRATING ON THINGS 3-Nearly every day 0-Not at All MOVING OR SPEAKING SO SLOWLY THAT OTHER PEOPLE COULD HAVE NOTICED 1-Several Days 0-Not at All THOUGHTS THAT YOU WOULD BE BETTER OFF 1-Several Days 1-Several Days DEPRESSION SCREENING TOTAL SCORE 21 7 IF YOU CHECKED OFF ANY PROBLEMS Very difficult - Diagnoses/Impression: Encounter Diagnose(s) ICD-10-CM ICD-9-CM SNOMED CT(R) 1. Depression, unspecified depression type F32.9 311 DEPRESSIVE DISORDER FLUoxetine 10 MG tablet Plan Orders Placed: Orders Placed This Encounter ??? FLUoxetine 10 MG tablet She is doing well on the fluoxetine with her PHQ score improving from 21 to 7. We will cont same dose. I encouraged her to seek counseling to help with her depression as well She will speak to her mom about it. Follow up in 6 weeks HECTOR MONIQUE 06/21/2020 10:55 AM Cosigned by Gabrielle Mathew DO at 06/21/2020 1:27 PM OCULARIST ARIST ARIST documented in this encounter Plan of Treatment Not on file documented as of this encounter Visit Diagnoses Diagnosis Depression, unspecified depression type documented in this encounter Additional Health Concerns Assessment Noted Time PHQ-9 Depression Total Score: 7 06/21/19 21 11:03 AM OCULARIST documented as of this encounter Care Teams Cert Pharmacy Tech Relationship Specialty Start Date End Date Nan Crews FNP PCP - General NURSE PRACTITIONER 04/24/18 documented as of this encounter
--- OUTSIDE RECORDS SUMMARY | 2024-06-05 20:58 | XMS_ITS | Encounter Summary ---
Author Organization [facility] Address [address] [place] [address]. [place], [place] [phone] [place] [address] Care Team Providers Care Roofing Foreman Name Role Phone Nan Crews Primary Care Provider [phone] Encounter Details Date Type Department Care Team (Latest Contact Info) Description 07/07/2020 Travel Social History Tobacco Use Types Packs/Day [...] COVID-19? No / Unsure 07/07/2020 8:35 AM PYROTECHNICS PRESS TENDER documented as of this encounter Plan of Treatment Not on file documented as of this encounter Visit Diagnoses Not on filedocumented in this encounter Additional Health Concerns Assessment Noted Time PHQ-9 Depression Total Score: 7 06/21/19 21 11:03 AM PYROTECHNICS PRESS TENDER documented as of this encounter Care Teams Roofing Foreman Relationship Specialty Start Date End Date Nan Crews FNP PCP - General NURSE PRACTITIONER 04/24/18 documented as of this encounter
--- OUTSIDE RECORDS SUMMARY | 2024-06-05 20:58 | XMS_ITS | Encounter Summary ---
Author Organization [facility] Address [address] [place] [address]. [place], [place] [address] [place] [address] Care Team Providers Care Chief Engineer Waterworks Name Role Phone Nan Crews [facility] Primary Care Provider [phone] Reason for Visit * Reason Onset Date Comments Information 09/08/2020 Encounter Details Date Type Department Care Team (Late st Contact Info) Description 09/08/2020 Telephone [facility] [address] [place] [address] Nan Crews [facility] [address] [place], [place] [id number] Information Social History Tobacco Use Types Packs/Day [...] as of this encounter Progress Notes * Lucero Santillan LPN - 09/08/2020 2:59 PM CDT Nano stated that she was just calling to let us know when the appointment was. No additional info needed. * Lucero Santillan LPN - 09/08/2020 10:26 AM CDT Message left for Dr. Lin office to call our office. * Kayley Johnson - 09/08/2020 9:11 AM CDT Nano with [facility] called regarding an appointment that is set up for patient with Dr. Lin on September 23 at 10am documented in this encounter Plan of Treatment Not on file documented as of this encounter Visit Diagnoses Not on filedocumented in this encounter Additional Health Concerns Assessment Noted Time PHQ-9 Depression Total Score: 7 06/21/19 21 11:03 AM VARNISH DIPPER documented as of this encounter Care Teams Chief Engineer Waterworks Relationship Specialty Start Date End Date Nan Crews FNP PCP - General NURSE PRACTITIONER 04/24/18 documented as of this encounter
--- OUTSIDE RECORDS SUMMARY | 2024-06-05 20:58 | XMS_ITS | Encounter Summary ---
Author Organization [facility] Address [address] [place] [address]. [place], [place] [address] [place] [address] Care Team Providers Care Insurance Loss Assessor Name Role Phone Nan Crews Primary Care Provider [phone] Reason for Visit * Reason Comments Medication Management Encounter Details Date Type Department Care Team (Late st Contact Info) Description 11/19/2019 1:20 PM CDT Office Visit [facility] [address] [place] [address] Nan Crews [facility] [address] [place] [address] Medication Management Social History Tobacco Use Types Packs/Day Years [...] Sign Reading Time Taken Comments Blood Pressure 98/62 11/19/2019 1:21 PM CDT Pulse 88 11/19/2019 1:21 PM CDT Temperature 37.6 ??C (99.6 ??F) 11/19/2019 1:21 PM CD T Respiratory Rate 20 11/19/2019 1:21 PM CDT Oxygen Saturation - - Inhaled Oxygen Concentration - - Weight 48.5 kg (107 lb) 11/19/2019 1:21 PM CDT Height - - Body Mass Index - - documented in this encounter Patient Instructions * Patient Instructions* HECTOR Monique - 11/19/2019 1:20 PM CDT Decrease lexapro to 5 mg daily x 3 weeks Then decrease to every other day for 2 weeks Then stop it If any depression or anxiety symptoms come back then resume taking it and let me know Get Urine for Chlamydia/Gonnorrhea at the lab or you can check with the health dept We start doing pap tests at age 21 per current guidelines documented in this encounter Progress Notes * HECTOR Monique - 11/19/2019 1:20 PM CDT Cecilia is a 14-year-old female patient. Reason for Visit: Medication Management History of Present Illness: Cecilia is a 14 year old female pt here for follow up on anxiety and depression. She is currently onlexapro 10 mg daily. She was last seen here at her physical in 12/2018. Her depression and anxiety was stable at that time. 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 She is also on OCPs, LMP 11/10/2019. Her periods are regular and monthly. She states she has not been sexually active in about a year. She admits that she is doing much better regarding her depression and anxiety. She feels that she has matured and is able to handle situations much better than she has the past couple of years. Her mom is in agreement. She would like to consider weaning down off the Lexapro to see how she will do without it. She wants to continue the oral contraceptive pills. Past Medical History: Diagnosis Date ??? Anxiety ??? Depression Past Surgical History: Procedure Laterality Date ??? BLADDER SURGERY Medications: Current Outpatient Medications: ??? escitalopram 10 MG tablet, Take 1 tablet (10 mg total) by mouth daily., Disp: 30 tablet, Rfl: 1 ??? Norgestimate-Ethinyl Estradiol (TRI-SPRINTEC) 0.18/0.215/0.25 MG-35 MCG tablet, Take 1 tablet by mouth daily., Disp: 84 tablet, Rfl: 0 No Known Allergies No family history on file. No family status information on file. Social History reports that she has never smoked. She has never used smokeless tobacco. She reports that she does not drink alcohol or use drugs. She is single ROS: Review of Systems Constitutional: Negative for chills, fever, malaise/fatigue and weight loss. Respiratory: Negative for cough and shortness of breath. Cardiovascular: Negative for chest pain and palpitations. Skin: Negative. Neurological: Negative for dizziness and headaches. Psychiatric/Behavioral: Negative for depression, substance abuse and suicidal ideas. The patient isnervous/anxious (mild intermittent anxiety). The patient does not have insomnia. Vitals: Filed Vitals: 11/19/19 1321 BP: (!) 98/62 Pulse: 88 Resp: (!) 20 Temp: 99.6 ??F (37.6 ??C) TempSrc: Temporal Weight: 48.5 kg (107 lb) Physical Exam Constitutional: She is oriented to person, place, and time. She appears well- developed and well-nourished. HENT: Head: Normocephalic and atraumatic. Neck: Neck supple. No thyromegaly present. Cardiovascular: Normal rate and regular rhythm. Pulmonary/Chest: Effort normal and breath sounds normal. Abdominal: Soft. Bowel sounds are normal. Neurological: She is alert and oriented to person, place, and time. Skin: Skin is warm and dry. Psychiatric: She has a normal mood and affect. Judgment and thought content normal. Nursing note and vitals reviewed. Results: PHQ-9: Over the last two weeks, how often have you been bothered by any of the following problems? 11/19/2019 LITTLE INTEREST OR PLEASURE IN DOING THINGS 0-Not at All FEELING DOWN, DEPRESSSED,OR HOPELESS 0-Not at All PHQ2 DEPRESSION TOTAL SCORE 0 TROUBLE FALLING OR STAYING ASLEEP OR SLEEPING TOO MUCH 1-Several Days FEELING TIRED OR HAVING LITTLE ENERGY 0-Not at All POOR APPETITE OR OVEREATING 0-Not at All FEELING BAD ABOUT YOURSELF 1-Several Days TROUBLE CONCENTRATING ON THINGS 1-Several Days MOVING OR SPEAKING SO SLOWLY THAT OTHER PEOPLE COULD HAVE NOTICED 0-Not at All THOUGHTS THAT YOU WOULD BE BETTER OFF 0-Not at All DEPRESSION SCREENING TOTAL SCORE 3 Diagnoses/Impression: Encounter Diagnose(s) ICD-10-CM ICD-9-CM SNOMED CT(R) 1. Depression, unspecified depression typeResolved F32.9 311 DEPRESSIVE DISORDER escitalopram 5 MG tablet 2. Anxiety F41.9 300.00 ANXIETY escitalopram 5 MG tablet 3. Screening for STD (sexually transmitted disease) Z11.3 V74.5 PATIENT ENCOUNTER STATUS CHLAMYDIA AND GC RNA TMA CHLAMYDIA AND GC RNA TMA 4. Dysmenorrhea in adolescentStable N94.6 625.3 DYSMENORRHEA Plan Orders Placed: Orders Placed This Encounter ??? escitalopram 5 MG tablet ??? CHLAMYDIA AND GC RNA TMA Instructions Patient Instructions Decrease lexapro to 5 mg daily x 3 weeks Then decrease to every other day for 2 weeks Then stop it If any depression or anxiety symptoms come back then resume taking it and let me know Get Urine for Chlamydia/Gonnorrhea at the lab or you can check with the health dept We start doing pap tests at age 21 per current guidelines HECTOR MONIQUE 11/19/2019 1:32 PM documented in this encounter Plan of Treatment Not on file documented as of this encounter Visit Diagnoses Diagnosis Depression, unspecified depression type- Primary Anxiety Anxiety state, unspecified Screening for STD (sexually transmitted disease) Screening examination for venereal disease Dysmenorrhea in adolescent documented in this encounter Additional Health Concerns Assessment Noted Time PHQ-9 Depression Total Score: 3 11/19/19 20 1:39 PM CDT documented as of this encounter Care Teams Insurance Loss Assessor Relationship Specialty Start Date End Date Nan Crews FNP PCP - General NURSE PRACTITIONER 04/24/18 documented as of this encounter
--- OUTSIDE RECORDS SUMMARY | 2024-06-05 20:58 | XMS_ITS | Encounter Summary ---
Author Organization [facility] Address [address] [place] [address]. [place], [place] [address] [place] [address] Care Team Providers Care Braille Typist Name Role Phone Nan Crews Primary Care Provider [phone] Encounter Details Date Type Department Care Team (Latest Contact Info) Description 06/21/2020 Travel Social History Tobacco Use Types Packs/Day [...] COVID-19? No / Unsure 06/21/2020 10:44 AM BUTT MAKER documented as of this encounter Plan of Treatment Not on file documented as of this encounter Visit Diagnoses Not on filedocumented in this encounter Additional Health Concerns Assessment Noted Time PHQ-9 Depression Total Score: 7 06/21/19 21 11:03 AM BUTT MAKER documented as of this encounter Care Teams Braille Typist Relationship Specialty Start Date End Date Nan Crews FNP PCP - General NURSE PRACTITIONER 04/24/18 documented as of this encounter
--- OUTSIDE RECORDS SUMMARY | 2024-06-05 20:58 | XMS_ITS | Encounter Summary ---
Author Organization [facility] Address [address] [place] [address]. [place] [address] Care Team Providers Care Digital Printer Name Role Phone Nan Crews Primary Care Provider [phone] Encounter Details Date Type Department Care Team (Latest Contact Info) Description 05/10/2020 Travel Social History Tobacco Use Types Packs/Day [...] COVID-19? No / Unsure 05/10/2020 11:29 AM HAT MARKER documented as of this encounter Plan of Treatment Not on file documented as of this encounter Visit Diagnoses Not on filedocumented in this encounter Additional Health Concerns Assessment Noted Time PHQ-9 Depression Total Score: 3 11/19/19 20 1:39 PM CDT documented as of this encounter Care Teams Digital Printer Relationship Specialty Start Date End Date Nan Crews FNP PCP - General NURSE PRACTITIONER 04/24/18 documented as of this encounter
--- OUTSIDE RECORDS SUMMARY | 2024-06-05 20:58 | XMS_ITS | Encounter Summary ---
Author Organization [facility] Address [address] [place] [address]. [place] [address] Care Team Providers Care Solution Director Name Role Phone Nan Crews Primary Care Provider [phone] Encounter Details Date Type Department Care Team (Latest Contact Info) Description 06/07/2020 Travel Social History Tobacco Use Types Packs/Day [...] have Coronavirus / COVID-19? No / Unsure 06/07/2020 9:59 AM SUPERVISOR TYPE DISK QUALITY CONTROL documented as of this encounter Plan of Treatment Not on file documented as of this encounter Visit Diagnoses Not on filedocumented in this encounter Additional Health Concerns Assessment Noted Time PHQ-9 Depression Total Score: 21 020 10:55 AM SUPERVISOR TYPE DISK QUALITY CONTROL documented as of this encounter Care Teams Solution Director Relationship Specialty Start Date End Date Nan Crews FNP PCP - General NURSE PRACTITIONER 04/24/18 documented as of this encounter
--- OUTSIDE RECORDS SUMMARY | 2024-06-05 20:58 | XMS_ITS | Encounter Summary ---
Author Organization [facility] Address [address] [place] [address]. [place], [place] [id number] [place] [address] Care Team Providers Care Firebrick Layer Helper Name Role Phone Nan Crews Primary Care Provider Encounter Details Date Type Department Care Team (Late st Contact Info) Description 07/07/2020 Abstract [facility] [address] [place] [address] Nan Crews FNP [address] [place], [place] [id number] Social History Tobacco Use Types Packs/Day Years Used Date Smoking Tobacco: Never Assessed AUDIT-C Answer Date Recorded Frequency of Alcohol [...] Total Score: 7 06/21/19 21 11:03 AM LABORER TREE TAPPING documented as of this encounter Care Teams Firebrick Layer Helper Relationship Specialty Start Date End Date Nan Crews FNP PCP - General NURSE PRACTITIONER 04/24/18 documented as of this encounter
--- OUTSIDE RECORDS SUMMARY | 2024-06-05 20:58 | XMS_ITS | Encounter Summary ---
Author Organization [facility] Address [address] [place] [address]. [place] [address] Care Team Providers Care Food Concession Manager Name Role Phone Nan Crews Primary Care Provider [phone] Encounter Details Date Type Department Care Team (Latest Contact Info) Description 10/16/2020 Scan [facility] SRVCS Scanned, Documents [...] Total Score: 7 06/21/19 21 11:03 AM CHARTER COACH DRIVER documented as of this encounter Care Teams Food Concession Manager Relationship Specialty Start Date End Date Nan Crews FNP PCP - General NURSE PRACTITIONER 04/24/18 documented as of this encounter
--- OUTSIDE RECORDS SUMMARY | 2024-06-05 20:58 | XMS_ITS | Encounter Summary ---
Author Organization [facility] Address [address] [place] [address]. [place], [place] [address] [place] [address] Care Team Providers Care Assembly Inspector Name Role Phone Nan Crews Primary Care Provider [phone] Reason for Referral * Consultation (Routine) - Closed Specialty Diagnoses / Procedures Referred By Chad lynn Referred To Contact UROLOGY Diagnoses Urinary incontinence Nan Crews FNP [address] [place] [address] [place] [address] Phone: tel: fax: [facility] [place] [address] Phone: tel: fax: Referral ID Status Reason Start Date Expiration Date V isits Requested Visits Authorized [id number] Closed Specialty Services 09/01/2020 10/02/2021 100 100 Scheduling Instructions Would like for the patient to be seen at [facility]. Reason for Visit * Reason Onset Date Comments Information 09/01/2020 Encounter Details Date Type Department Care Team (Late st Contact Info) Description 09/01/2020 Telephone [facility] [address] [place] [address] Nan Crews FNP [address] [place] [address] [place] [address] Information Social History Tobacco Use Types Packs/Day [...] Progress Notes * Lucero Santillan LPN - 09/01/2020 4:16 PM CDT Note for school faxed to school. * Lucero Santillan LPN - 09/01/2020 4:16 PM CDT Patient mother notified. Orders have been placed and put in the mail as requested. * Lucero Santillan LPN - 09/01/2020 4:01 PM CDTAddended by: LUCERO SANTILLAN on: 09/01/2020 04:01 PM Modules accepted: Orders * Lucero Santillan LPN - 09/01/2020 3:58 PM CDTAddended by: LUCERO SANTILLAN on: 09/01/2020 03:58 PM Modules accepted: Orders * HECTOR Rodriguez - 09/01/2020 3:21 PM CDT She needs a referral to urology at [facility]. Also ok for school note allowing bathroom breaks as neededdue to medical condition. I would also suggest getting a fasting BMP to eval kidney fucntion as well as blood glucose * Lucero Santillan LPN - 09/01/2020 10:17 AM CDT Seen for losing bladder control. Patient mother, Brit states that she soaked through her jeans at school yesterday due to them only giving one bathroom break for the entire day. States that they need a note for school, and want to see what the options are for taking the next step? Amina please advise. * Laura Mares - 09/01/2020 9:53 AM CDT Patient is still having bladder issues, also patient is needing a note for school because they are only allowing her one bathroom break documented in this encounter Plan of Treatment Scheduled Referrals Name Type Priority Associated Diagnoses Orde r Schedule Ambulatory referral to Urology (OTHER) Referral Routine Urinary incontinence Ordered: 09/01/2020 documented as of this encounter Procedures Procedure Name Priority Date/Time Associated Diagnosis Comments HEMOGLOBIN, GLYCOSYLATED Routine 022 12:00 AM CDT Urinary incontinence documented in this encounter Results * HEMOGLOBIN, GLYCOSYLATED (09/05/2021 12:00 AM CDT) 09/05/2021 us [facility] Final Result [facility] [address] documented in this encounter Visit Diagnoses Diagnosis Urinary incontinence- Primary Unspecified urinary incontinence documented in this encounter Additional Health Concerns Assessment Noted Time PHQ-9 Depression Total Score: 7 06/21/19 21 11:03 AM SLOT SHIFT MANAGER documented as of this encounter Care Teams Assembly Inspector Relationship Specialty Start Date End Date Nan Crews FNP PCP - General NURSE PRACTITIONER 04/24/18 documented as of this encounter
--- OUTSIDE RECORDS SUMMARY | 2024-06-05 20:58 | XMS_ITS | Encounter Summary ---
Author Organization [facility] Address [address] [place] [address]. [place], [place] [address] [place] [address] Care Team Providers Care Human Resources Associate Name Role Phone Nan Crews Primary Care Provider [phone] Encounter Details Date Type Department Care Team (Late st Contact Info) Description 07/07/2020 7:19 PM RESEARCH ENGINEER - 07/07/2020 11:59 PM RESEARCH ENGINEER Hospital Encounter [facility] [place] [address] Nan Crews FNP [address] [place] [address] Discharge Disposition: Home or Self Care (Routine [...] COVID-19? No / Unsure 07/07/2020 8:35 AM RESEARCH ENGINEER documented as of this encounter Medications at Time of Discharge FLUoxetine 20 MG tabletIndications: Depression, unspecified depression type Take 1 tablet (20 mg total) by mouth daily. 30 tablet 07/07/2020 07/25/2020 Norgest[facility]-Ethin yl Estradiol (TRI-SPRINTEC) 0.18/0.215/0.25 MG-35 MCG tabletIndications: Dysmenorrhea in adolescent Take 1 tablet by mouth daily. 84 tablet 05/10/2020 07/25/2020 sulfamethoxazole-t rimethoprim (BACTRIM DS) 800-160 MG tabletIndications: Acute cystitis without hematuria Take 1 tablet by mouth 2 (two) times daily for 7 days. 14 tablet 07/07/2020 07/14/2020 documented as of this encounter Progress Notes * Nasima Michaels RN - 07/07/2020 7:19 PM CST Mother notified ARCH ENGINEER documented in this encounter Plan of Treatment Not on file documented as of this encounter Procedures Procedure Name Priority Date/Time Associated Diagnosis Comments URINE BACTERIA CULTURE Routine 07/07/2020 7:20 PM RESEARCH ENGINEER Unspecified urinary incontinence documented in this encounter Results * CULTURE URINE (07/07/2020 7:20 PM RESEARCH ENGINEER) SPEC DESCRIPTION URINE CLEAN CATCH 07/07/2020 7:20 PM RESEARCH ENGINEER [facility] SPECIAL REQUESTS NO SPECIAL REQUEST 07/07/2020 7:20 PM RESEARCH ENGINEER [facility] CULTURE RESULT NO GROWTH 2 DAYS 07/09/2020 9:13 AM RESEARCH ENGINEER [facility] URINE SPECIMEN OBTAINED BY CLEAN CATCH PROCEDURE / Unknown 07/07/2020 7:20 PM RESEARCH ENGINEER 07/07/2020 7:59 PM RESEARCH ENGINEER Nan [facility] - GENERAL ORDERA BLES Final Result [facility] [address] [place] [address], documented in this encounter Visit Diagnoses Diagnosis Unspecified urinary incontinence documented in this encounter Additional Health Concerns Assessment Noted Time PHQ-9 Depression Total Score: 7 06/21/19 21 11:03 AM RESEARCH ENGINEER documented as of this encounter Care Teams Human Resources Associate Relationship Specialty Start Date End Date Nan Crews FNP PCP - General NURSE PRACTITIONER 04/24/18 documented as of this encounter
--- OUTSIDE RECORDS SUMMARY | 2024-06-05 20:58 | XMS_ITS | Encounter Summary ---
Author Organization [facility] Address [address] [place] [address]. [place], [place] [address] [place] [address] Care Team Providers Care Box Brander Name Role Phone Nan Crews Primary Care Provider [phone] Encounter Details Date Type Department Care Team (Late st Contact Info) Description 07/07/2020 Orders Only [facility] [address] [place], [place] [id number] Nan Crews FNP [address] [place] [id number] Social History Tobacco Use Types Packs/Day Years [...] COVID-19? No / Unsure 07/07/2020 8:35 AM BUILDER'S LABOURER documented as of this encounter Plan of Treatment Not on file documented as of this encounter Results * CULTURE URINE (07/07/2020 7:20 PM BUILDER'S LABOURER) SPEC DESCRIPTION URINE CLEAN CATCH 07/07/2020 7:20 PM BUILDER'S LABOURER [facility] SPECIAL REQUESTS NO SPECIAL REQUEST 07/07/2020 7:20 PM BUILDER'S LABOURER [facility] CULTURE RESULT NO GROWTH 2 DAYS 07/09/2020 9:13 AM BUILDER'S LABOURER [facility] URINE SPECIMEN OBTAINED BY CLEAN CATCH PROCEDURE / Unknown 07/07/2020 7:20 PM BUILDER'S LABOURER 07/07/2020 7:59 PM BUILDER'S LABOURER Nan YOUNG MICROBIOLOGY - GENERAL ORDERA BLES Final Result [facility] [address] [place] [address], documented in this encounter Visit Diagnoses Diagnosis Unspecified urinary incontinence- Primary documented in this encounter Additional Health Concerns Assessment Noted Time PHQ-9 Depression Total Score: 7 06/21/19 21 11:03 AM BUILDER'S LABOURER documented as of this encounter Care Teams Box Brander Relationship Specialty Start Date End Date Nan Crews FNP PCP - General NURSE PRACTITIONER 04/24/18 documented as of this encounter
--- OUTSIDE RECORDS SUMMARY | 2024-06-05 20:58 | XMS_ITS | Encounter Summary ---
Author Organization [facility] Address [address] [place] [address]. [place], [place] [address] [place] [address] Care Team Providers Care Scrape Gatherer Name Role Phone Nan Crews Primary Care Provider [phone] Reason for Visit * Reason Onset Date Comments Medication Request 11/19/2019 Encounter Details Date Type Department Care Team (Late st Contact Info) Description 11/19/2019 Telephone [facility] [address] [place] [address] Nan Crews [facility] [address] [place], [place] [id number] Medication Request Social History Tobacco Use Types Packs/Day Years [...] as of this encounter Progress Notes * Rosa Maria Rand RN - 11/19/2019 3:57 PM CDT Done. * HECTOR Rodriguez - 11/19/2019 3:52 PM CDT Refill for 3 months * Rosa Maria Rand RN - 11/19/2019 3:43 PM CDT Amina, how many refills can she have? Please advise. * Kayley Johnson - 11/19/2019 3:34 PM CDT PATIENTS MOM CALLED PATIENT IS NEEDING HER TRI-SPINTEC CONTROL REFILLED SHES OUT TO [facility] [place] documented in this encounter Plan of Treatment Not on file documented as of this encounter Visit Diagnoses Not on filedocumented in this encounter Additional Health Concerns Assessment Noted Time PHQ-9 Depression Total Score: 3 11/19/19 20 1:39 PM CDT documented as of this encounter Care Teams Scrape Gatherer Relationship Specialty Start Date End Date Nan Crews FNP PCP - General NURSE PRACTITIONER 04/24/18 documented as of this encounter
--- OUTSIDE RECORDS SUMMARY | 2024-06-05 20:58 | XMS_ITS | Encounter Summary ---
Author Organization [facility] Address [address] [place] [address]. [address] [address] Care Team Providers Care Regulatory Submissions Associate Name Role Phone Nan Crews Primary Care Provider [phone] Encounter Details Date Type Department Care Team (Latest Contact Info) Description 07/27/2020 Scan [facility] SRVCS Scanned, Documents [...] COVID-19? No / Unsure 07/07/2020 8:35 AM AUTOMOBILE CARPETS MOLDER documented as of this encounter Plan of Treatment Not on file documented as of this encounter Visit Diagnoses Not on filedocumented in this encounter Additional Health Concerns Assessment Noted Time PHQ-9 Depression Total Score: 7 06/21/19 21 11:03 AM AUTOMOBILE CARPETS MOLDER documented as of this encounter Care Teams Regulatory Submissions Associate Relationship Specialty Start Date End Date Nan Crews FNP PCP - General NURSE PRACTITIONER 04/24/18 documented as of this encounter
--- OUTSIDE RECORDS SUMMARY | 2024-06-05 20:58 | XMS_ITS | Encounter Summary ---
Author Organization [facility] Address [address] [place] [address]. [place], [place] [address] [place] [address] Care Team Providers Care Balance Staff Inspector Name Role Phone Nan Crews Primary Care Provider [phone] Reason for Visit * Reason Comments Follow Up Reports that she is not doing well on Lexapro this time around Encounter Details Date Type Department Care Team (Late st Contact Info) Description 06/07/2020 10:20 AM PATIENT SERVICES REP Office Visit [facility] [address] [place] [address] Nan Crews FNP [address] [place] [address] Follow Up (Reports that she is not doing well on Lexapro this time around) Social History Tobacco Use Types Packs/Day Years [...] COVID-19? No / Unsure 06/07/2020 9:59 AM PATIENT SERVICES REP documented as of this encounter Last Filed Vital Signs Vital Sign Reading Time Taken Comments Blood Pressure 94/64 06/07/2020 10:36 AM PATIENT SERVICES REP Pulse 77 06/07/2020 10:36 AM PATIENT SERVICES REP Temperature 37.2 ??C (98.9 ??F) 06/07/2020 10:[address] Respiratory Rate 16 06/07/2020 10:36 AM PATIENT SERVICES REP Oxygen Saturation 99% 06/07/2020 10:36 AM PATIENT SERVICES REP Inhaled Oxygen Concentration - - Weight 49.4 kg (109 lb) 06/07/2020 10:36 AM PATIENT SERVICES REP Height - - Body Mass Index - - documented in this encounter Patient Instructions * Patient Instructions* HECTOR Monique - 06/07/2020 10:20 AM PATIENT SERVICES REP Stop taking lexapro and start fluoxetine daily Follow up appt in 2 weeks ENT SERVICES REP ENT SERVICES REP documented in this encounter Progress Notes * HECTOR Monique - 06/07/2020 10:20 AM CST Cecilia is a 14-year-old female patient. Reason for Visit: Follow Up (Reports that she is not doing well on Lexapro this time around) History of Present Illness: Cecilia is a 14 year old female pt here for follow up on depression and anxiety. She is here alone and her mom gave permission per phone to treat her. She was last seen one month ago. She was initially started on sertraline [...] the first few months. She came in one month ago having recurrent depression and anxiety so she was started backon the lexapro. She reports today that the lexapro is not working as it did in the past. She says she is having more anxiety attacks which she has not had for a long time. She is feeling angry since starting the lexapro and if she gets angry she feels bad and that causes anxiety. She says her appetite is decreased since starting the lexapro. Her appetite comes and goes now. Shesays she ate well yesterday. Ate a lot of pizza ( multiple pieces and ate mcdonalds also). She is down 2 # in the past month. She is going to work at [employer] as scheduled. She sometimes forgets what she is doing at work. Loses focus and her mind wonders. Hard to stay on task. Has not gotten in trouble. Her parents see that the med is not helping either. She has been sleeping more as well. School is going ok and is on holiday break now. Her grades were very good. Misses seeing her friends and classmates at school due to virtual schooling due to covid. Still has the same boyfriend and he is supportive. No stress with him. He lives in [place] so sees him once a week. She says they have a good relationship. Has a new niece. She is excited about her! I spoke with her mom on phone with her permission. She is agreeable with the katina johns told me. Past Medical History: Diagnosis Date ??? Anxiety [...] is single. ROS: Review of Systems Constitutional: Negative. Respiratory: Negative for shortness of breath. Cardiovascular: Negative for chest pain and palpitations. Skin: Negative. Neurological: Negative for dizziness and headaches. Psychiatric/Behavioral: See HPI Vitals: Filed Vitals: 06/07/20 1036 BP: (!) 94/64 Pulse: 77 Resp: 16 Temp: 98.9 ??F (37.2 ??C) TempSrc: Temporal SpO2: 99% Weight: 49.4 kg (109 lb) Physical Exam Vitals signs and nursing note reviewed. Constitutional: Appearance: She is well-developed. HENT: Head: Normocephalic and atraumatic. Pulmonary: Effort: Pulmonary effort is normal. Skin: General: Skin is warm and dry. Neurological: Mental Status: She is alert and oriented to person, place, and time. Psychiatric: Mood and Affect: Mood normal. Thought Content: Thought content normal. Judgment: Judgment normal. Comments: Good eye contact Results: PHQ-9: Over the last two weeks, how often have you been bothered by any of the following problems? 05/11/2020 06/07/2020 LITTLE INTEREST OR PLEASURE IN DOING THINGS 2-More than half the days 2-More than half the days FEELING DOWN, DEPRESSSED,OR HOPELESS 3-Nearly every day 3-Nearly every day PHQ2 DEPRESSION TOTAL SCORE 5 5 TROUBLE FALLING OR STAYING ASLEEP OR SLEEPING TOO MUCH 3-Nearly every day 3- Nearly every day FEELING TIRED OR HAVING LITTLE ENERGY 3-Nearly every day 3-Nearly every day POOR APPETITE OR OVEREATING 0-Not at All 2-More than half the days FEELING BAD ABOUT YOURSELF 2-More than half the days 3-Nearly every day TROUBLE CONCENTRATING ON THINGS 1-Several Days 3-Nearly every day MOVING OR SPEAKING SO SLOWLY THAT OTHER PEOPLE COULD HAVE NOTICED 2-More than half the days 1-Several Days THOUGHTS THAT YOU WOULD BE BETTER OFF 1-Several Days 1-Several Days DEPRESSION SCREENING TOTAL SCORE 17 21 IF YOU CHECKED OFF ANY PROBLEMS - Very difficult Diagnoses/Impression: Encounter Diagnose(s) ICD-10-CM ICD-9-CM SNOMED CT(R) 1. Depression, unspecified depression type F32.9 311 DEPRESSIVE DISORDER FLUoxetine 10 MG tablet Plan Orders Placed: Orders Placed This Encounter ??? FLUoxetine 10 MG tablet We discussed stopping lexapro and starting fluoxetine. I also discussed per phone with her mom. Potential side effects discussed Follow up in 2 weeks Declines counseling. Instructions Patient Instructions Stop taking lexapro and start fluoxetine daily Follow up appt in 2 weeks HECTOR MONIQUE 06/07/2020 10:41 AM Cosigned by Gabrielle Mathew DO at 06/07/2020 12:10 PM PATIENT SERVICES REP ENT SERVICES REP ENT SERVICES REP documented in this encounter Plan of Treatment Not on file documented as of this encounter Visit Diagnoses Diagnosis Depression, unspecified depression type- Primary documented in this encounter Additional Health Concerns Assessment Noted Time PHQ-9 Depression Total Score: 21 020 10:55 AM PATIENT SERVICES REP documented as of this encounter Care Teams Balance Staff Inspector Relationship Specialty Start Date End Date Nan Crews FNP PCP - General NURSE PRACTITIONER 04/24/18 documented as of this encounter
--- OUTSIDE RECORDS SUMMARY | 2024-06-05 20:58 | XMS_ITS | Encounter Summary ---
Author Organization [facility] Address [address] [place] [address]. [place], [place] [id number] [place] [address] Care Team Providers Care Food Dehydrator Operator Name Role Phone Nan Crews Primary Care Provider [phone] Reason for Visit * Reason Comments Urinary Incontinence For about a month u rinary incontinence off and on. No n/o curning nor pain on urination, no abd nor back pain, afebrile and no blood in urine. Pt state it is usually a dribble but a few times full stream and once starts cant stop. Encounter Details Date Type Department Care Team (Late st Contact Info) Description 07/07/2020 8:40 AM MATERIALS DIRECTOR Office Visit [facility] [address] [place] [address] Nan Crews [address] [place] [address] Urinary Incontinence (For about a month urinary incontinence off and on. No n/o curning nor pain on urination, no abd nor back pain, afebrile and no blood in urine. Pt state it is usually a dribble but a few times full stream and once starts cant stop.) Social History Tobacco Use Types Packs/Day Years [...] COVID-19? No / Unsure 07/07/2020 8:35 AM MATERIALS DIRECTOR documented as of this encounter Last Filed Vital Signs Vital Sign Reading Time Taken Comments Blood Pressure 118/72 07/07/2020 8:57 AM MATERIALS DIRECTOR Pulse 85 07/07/2020 8:57 AM MATERIALS DIRECTOR Temperature 36.7 ??C (98 ??F) 07/07/2020 8:57 AM MATERIALS DIRECTOR Respiratory Rate 16 07/07/2020 8:57 AM MATERIALS DIRECTOR Oxygen Saturation 98% 07/07/2020 8:57 AM MATERIALS DIRECTOR Inhaled Oxygen Concentration - - Weight 48.6 kg (107 lb 4 oz) 07/07/2020 8:57 AM MATERIALS DIRECTOR Height 167.6 cm (5' 6 ) 07/07/2020 8:57 AM MATERIALS DIRECTOR Body Mass Index 17.31 07/07/2020 8:57 AM MATERIALS DIRECTOR Body Mass Index Percentile 5.77% 07/07/2020 8:5 7 AM MATERIALS DIRECTOR Growth Chart: [facility] (Girls, 2- 20 Years) documented in this encounter Patient Instructions * Patient Instructions* HECTOR Monique - 07/07/2020 8:40 AM MATERIALS DIRECTOR Take Bactrim as directed. We will call with the urine culture results when they are available. If the symptoms of urinary incontinence are not resolved we will set up a referral to a urologist at [facility]. Make sure you use backup control while on the antibiotics as your control pills may notbe effective Increase fluoxetine to 20 mg daily and report back to me in 2 to 3 weeks on how that is working. RIALS DIRECTOR documented in this encounter Progress Notes * HECTOR Monique - 07/07/2020 8:40 AM CST Cecilia is a 14-year-old female patient. Reason for Visit: Urinary Incontinence (For about a month urinary incontinence off and on. No n/o curning nor pain onurination, no abd nor back pain, afebrile and no blood in urine. Pt state it is usually a dribble but a few times full stream and once starts cant stop.) History of Present Illness: Ceiclia is a 14-year-old female patient here with urinary concerns. I have a note from her mom getting permission to treat and I also spoke with her on the phone about my treatment plan. She is agreeable. Onset one month ago with increased urinary dribbling. She has had dribbling her whole life. She says it is getting worse. She notes she has urinary leakage even when walking around or sitting. Even soaks through her jeans. She is not able to stop it once it starts. She thought it was normal vaginaldischarge. Now she knows it is definitely urine. She had surgery at age for 3 . Cysto and meatoplasty for same concerns as well as bedwetting. later saw a urologist at [facility] as wasn't emptying her bladder so did home exercises. Mom thought it got better. Cecilia says it never completely went away. She is sexually active. No vaginal discharge. No recent trauma. No pain with intercourse. LMP 2 weeks ago. 06/23/20. Normal periods. She is on oral contraceptive pills. She was changed from Lexapro to fluoxetine 2 months ago for depression symptoms. She noted an improvement on the fluoxetine 10 mg daily. She was seen a month ago for this. She is wondering if we can increase the dose as her symptoms are definitely better as far as the depression but she thinks thatshe can get a better benefit by increasing the dose. She gets no side effects. Her biggest concern with the depression is lack of motivation. Past Medical History: Diagnosis Date ??? Anxiety [...] chills and fever. Gastrointestinal: Negative for abdominal pain, constipation and diarrhea. Genitourinary: Negative for dysuria, flank pain, frequency and hematuria. See HPI Musculoskeletal: Negative for back pain. Psychiatric/Behavioral: Positive for depression. Negative for substance abuse and suicidal ideas. Vitals: Filed Vitals: 07/07/20 0857 BP: 118/72 Pulse: 85 Resp: 16 Temp: 98 ??F (36.7 ??C) TempSrc: Tympanic SpO2: 98% Weight: 48.6 kg (107 lb 4 oz) Height: 5' 6 (1.676 m) Physical Exam Vitals signs and nursing note reviewed. Constitutional: Appearance: Normal appearance. HENT: Head: Normocephalic and atraumatic. Cardiovascular: Rate and Rhythm: Normal rate and regular rhythm. Pulmonary: Effort: Pulmonary effort is normal. Breath sounds: Normal breath sounds. Abdominal: General: Bowel sounds are normal. There is no distension. Palpations: Abdomen is soft. Tenderness: There is no abdominal tenderness. Genitourinary: Comments: External genital exam reveals no abnormalities. Musculoskeletal: Normal range of motion. Skin: General: Skin is warm and dry. Neurological: Mental Status: She is alert and oriented to person, place, and time. Psychiatric: Mood and Affect: Mood normal. Thought Content: Thought content normal. Judgment: Judgment normal. results: Urine dipstick shows positive for leukocytes, red blood cells and protein. Diagnoses/Impression: Encounter Diagnose(s) ICD-10-CM ICD-9-CM SNOMED CT(R) 1. Urinary incontinence, unspecified type R32 788.30 URINARY INCONTINENCE URINALYSIS AUTO DIP CULTURE URINE 2. Acute cystitis without hematuria N30.00 595.0 ACUTE CYSTITIS CULTURE URINE 3. Depression, unspecified depression type F32.9 311 DEPRESSIVE DISORDER FLUoxetine 20 MG tablet 4. Abnormal urinalysis R82.90 791.9 ABNORMAL URINALYSIS CULTURE URINE Plan Orders Placed: Orders Placed This Encounter ??? URINALYSIS AUTO DIP ??? FLUoxetine 20 MG tablet ??? sulfamethoxazole-trimethoprim (BACTRIM DS) 800-160 MG tablet ??? CULTURE URINE Instructions Patient Instructions Take Bactrim as directed. We will call with the urine culture results when they are available. If the symptoms of urinary incontinence are not resolved we will set up a referral to a urologist at [facility]. Make sure you use backup control while on the antibiotics as your control pills may notbe effective Increase fluoxetine to 20 mg daily and report back to me in 2 to 3 weeks on how that is working. HECTOR MONIQUE 07/07/2020 9:14 AM Cosigned by Gabrielle Mathew DO at 07/08/2020 10:10 AM MATERIALS DIRECTOR RIALS DIRECTOR RIALS DIRECTOR documented in this encounter Plan of Treatment Not on file documented as of this encounter Procedures Procedure Name Priority Date/Time Associated Diagnosis Comments URINE BACTERIA CULTURE Routine 07/07/2020 9:50 AM MATERIALS DIRECTOR Acute cystitis without hematuria URINALYSIS AUTO DIP Routine 07/07/2020 Urinary incontinence, unspecified type documented in this encounter Results * CULTURE URINE (07/07/2020 9:50 AM MATERIALS DIRECTOR) SPECIMEN SOURCE URINE [facility] SITE: Clean Catch [facility] MICRO COMMENT SEE REF. LAB REPORT [facility] URINE SPECIMEN OBTAINED BY CLEAN CATCH PROCEDURE / Unknown 07/07/2020 9:50 AM MATERIALS DIRECTOR 07/07/2020 1:55 PM MATERIALS DIRECTOR us Nan YOUNG MICROBIOLOGY - GENERAL ORDERA BLES Final Result [facility] [address] [place] [address] * URINALYSIS AUTO DIP (07/07/2020) COLOR (U) DARK YELLOW [facility] ([facility]), [place] TRANSPARENC[facility] CLOU[facility] -HEAL [facility] (201), [place] GLUCOSE (U) NEGATIVE NEGATIVE MG/DL [facility] (201), [place] BILIRUBIN (U) 1+ (SMALL) NEGATIVE [facility] (201), [place] KETONES MG/DL (U) NEGATIVE NEGATIVE MG/DL [facility] (201), [place] SPECIFIC GRAVITY (U) 1.030 1.001 - 1.035 [facility] (201), [place] BLOOD (U) SMALL (1+, Hemolyzed) NEGATIVE [facility] (201), [place] U PH 5.5 5.0 - 9.0 [facility] ([facility]), [place] PROTEIN (U) TRACE NEGATIVE mg/dL [facility] (201), [place] UROBILINOGEN 0.2 0.2 - 1.0 EU/dL = mg/dL [facility] (201), [place] NITRITES NEGATIVE NEGATIVE MG/DL [facility] (201), [place] LEUKOCYTES (U) 1+ (SMALL) NEGATIVE [facility] (201), [place] URINE SPECIMEN OBTAINED BY CLEAN CATCH PROCEDURE / Unknown 07/07/2020 Nan YOUNG URINE ORDERABLES Final Result [facility] (201), [place] [address], documented in this encounter Visit Diagnoses Diagnosis Urinary incontinence, unspecified type- Primary Acute cystitis without hematuria Acute cystitis Depression, unspecified depression type Abnormal urinalysis Other nonspecific finding on examination of urine documented in this encounter Additional Health Concerns Assessment Noted Time PHQ-9 Depression Total Score: 7 06/21/19 21 11:03 AM MATERIALS DIRECTOR documented as of this encounter Care Teams Food Dehydrator Operator Relationship Specialty Start Date End Date Nan Crews FNP PCP - General NURSE PRACTITIONER 04/24/18 documented as of this encounter
--- OUTSIDE RECORDS SUMMARY | 2024-06-05 20:58 | XMS_ITS | Encounter Summary ---
Author Organization [facility] Address [address] [place] [address]. [place], [place] [address] [place] [address] Care Team Providers Care Bearing Inspector Name Role Phone Nan Crews HECTOR Primary Care Provider [phone] Encounter Details Date Type Department Care Team (Late st Contact Info) Description 07/25/2020 Orders Only [facility] [address] [place] [address] Nasima Michaels RN Social History [...] COVID-19? No / Unsure 07/07/2020 8:[address] SERVICE documented as of this encounter Plan of Treatment Not on file documented as of this encounter Visit Diagnoses Not on filedocumented in this encounter Additional Health Concerns Assessment Noted Time PHQ-9 Depression Total Score: 7 06/21/19 21 11:[address] SERVICE documented as of this encounter Care Teams Bearing Inspector Relationship Specialty Start Date End Date Nan Crews FNP PCP - General NURSE PRACTITIONER 04/24/18 documented as of this encounter
--- OUTSIDE RECORDS SUMMARY | 2024-06-05 20:59 | XMS_ITS | Encounter Summary ---
Author Organization [facility] Address [address] [place] [address]. [place] [address] Care Team Providers Care Scouring Pads Supervisor Name Role Phone Nan Crews Primary Care Provider [phone] Encounter Details Date Type Department Care Team (Latest Contact Info) Description 06/08/2019 Scan HEALTH INFO SRVCS Scanned, Documents Social History Tobacco Use Types Packs/Day Years Used Date Smoking Tobacco: Never Smokeless Tobacco: Never Alcohol Use Standard Drinks/Week Comments No 0 (1 standard drink = 0.6 oz pur e alcohol) AUDIT-C Answer Date Recorded Frequency of Alcohol Consumption Never 07/02/2018 Average Number of Drinks Not on file 019 Frequency of Binge Drinking Not on file 06/17 Comments No Sex and Gender Information Value Date Recorded Sex Assigned at Not on file Legal Sex Female 8:07 AM CDT Gender Identity Not on file Sexual Orientation Not on file documented as of this encounter Plan of Treatment Not on file documented as of this encounter Visit Diagnoses Not on filedocumented in this encounter Care Teams Scouring Pads Supervisor Relationship Specialty Start Date End Date Nan Crews FNP PCP - General NURSE PRACTITIONER 04/24/18 documented as of this encounter
--- OUTSIDE RECORDS SUMMARY | 2024-06-05 20:59 | XMS_ITS | Encounter Summary ---
Author Organization [facility] Address [address] [place] [address]. [place], [place] [address] [place] [address] Care Team Providers Care Mobility Architect Name Role Phone Nan Crews Primary Care Provider [phone] Reason for Visit * Reason Onset Date Comments Information 08/31/2019 Encounter Details Date Type Department Care Team (Late st Contact Info) Description 08/31/2019 Telephone [facility] [address] [place] [address] [facility] [address] [place], [place] [id number] Information Social History Tobacco Use Types Packs/Day [...] as of this encounter Progress Notes * Dank Freeman CMA - 08/31/2019 3:52 PM CDT Contacted pt for pre-visit telephone call prior to upcoming appointment. Educated pt on respiratorysymptoms and need for further assessment by nurse team if present. documented in this encounter Plan of Treatment Not on file documented as of this encounter Visit Diagnoses Not on filedocumented in this encounter Care Teams Mobility Architect Relationship Specialty Start Date End Date Nan Crews FNP PCP - General NURSE PRACTITIONER 04/24/18 documented as of this encounter
--- OUTSIDE RECORDS SUMMARY | 2024-06-05 20:59 | XMS_ITS | Encounter Summary ---
Author Organization [facility] Address [address] [place] [address]. [place], [place] [id number] [place] [address] Care Team Providers Care Grain Oilseed Or Pasture Farm Manager Name Role Phone Nan Crews Primary Care Provider [phone] Reason for Visit * Reason Onset Date Comments Medication Request 07/16/2019 Encounter Details Date Type Department Care Team (Late st Contact Info) Description 07/16/2019 Telephone [facility] [address] [place] [address] Nan Crews FNP [address] [place], [place] [id number] Medication Request Social History Tobacco Use Types [...] encounter Progress Notes * HECTOR Rodriguez - 07/16/2019 11:04 AM CST I already signed the refills RAKE OPERATOR * Radha Cook LPN - 07/16/2019 8:59 AM CST Last OV: 12/2018 Physical Please advise. Ok for refills? RAKE OPERATOR * Laura Mares - 07/16/2019 8:27 AM CST PATIENT IS NEEDING REFILLS ON LEXAPRO, AND CONTROL. [facility] [place] [place] RAKE OPERATOR documented in this encounter Plan of Treatment Not on file documented as of this encounter Visit Diagnoses Not on filedocumented in this encounter Care Teams Grain Oilseed Or Pasture Farm Manager Relationship Specialty Start Date End Date Nan Crews FNP PCP - General NURSE PRACTITIONER 04/24/18 documented as of this encounter
--- OUTSIDE RECORDS SUMMARY | 2024-06-05 20:59 | XMS_ITS | Encounter Summary ---
Author Organization [facility] Address [address] [place] [address]. [place], [place] [address] [place] [address] Care Team Providers Care Equipment Operation Instructor Name Role Phone Nan Crews Primary Care Provider [phone] Reason for Visit * Reason Onset Date Comments Follow Up Call 10/10/2018 Encounter Details Date Type Department Care Team (Late st Contact Info) Description 10/10/2018 Telephone [facility] [address] [place] [address] Nan Crews [facility] [address] [place], [place] [id number] Follow Up Call Social History Tobacco Use Types Packs/Day Years Used Date Smoking Tobacco: Never Smokeless Tobacco: Never Alcohol Use Standard Drinks/Week Comments No 0 (1 standard drink = 0.6 oz pur e alcohol) AUDIT-C Answer Date Recorded Frequency of Alcohol Consumption Never 07/02/2018 Average Number of Drinks Not on file 019 Frequency of Binge Drinking Not on file 06/17 Comments Unknown Sex and Gender Information Value Date Recorded Sex Assigned at Not on file Legal Sex Female 8:07 AM CDT Gender Identity Not on file Sexual Orientation Not on file documented as of this encounter Progress Notes * Radha Cook LPN - 10/10/2018 9:42 AM CDT Spoke with pt. Mother re: Pt. Status. Mother states that pt. Is doing very well on Zoloft 75mg PO DAILY. Pt. Is seeing counselor at school and writing in journal to help. Refill sent to pharm. Pt. Mother sched. Follow up appt. In November once school is out. * Cornelia Conte - 10/10/2018 9:01 AM CDT Mother just left message to have Amina Petit nurse to call, please call [phone] documented in this encounter Plan of Treatment Not on file documented as of this encounter Visit Diagnoses Not on filedocumented in this encounter Care Teams Equipment Operation Instructor Relationship Specialty Start Date End Date Nan Crews FNP PCP - General NURSE PRACTITIONER 04/24/18 documented as of this encounter
--- OUTSIDE RECORDS SUMMARY | 2024-06-05 20:59 | XMS_ITS | Encounter Summary ---
Author Organization [facility] Address [address] [place] [address]. [place], [place] [id number] [place] [address] Care Team Providers Care Psychological Stress Evaluator Name Role Phone Nan Crews Primary Care Provider [phone] Reason for Visit * Reason Comments Physical sports physical -- t rack and cheerleading Encounter Details Date Type Department Care Team (Late st Contact Info) Description 12/30/2018 1:40 PM CDT Office Visit Formerly [facility] [address] [place], [place] [id number] Nan Crews [address] [place] [address] Physical (sports physical -- track and cheerleading) Social History Tobacco Use Types Packs/Day Years [...] Sign Reading Time Taken Comments Blood Pressure 90/60 12/30/2018 1:53 PM CDT Pulse 76 12/30/2018 1:53 PM CDT Temperature 36.9 ??C (98.4 ??F) 12/30/2018 1:53 PM CD T Respiratory Rate 16 12/30/2018 1:53 PM CDT Oxygen Saturation 96% 12/30/2018 1:53 PM CDT Inhaled Oxygen Concentration - - Weight 50.3 kg (111 lb) 12/30/2018 1:53 PM CDT Height 165.1 cm (5' 5 ) 12/30/2018 1:53 PM CDT Body Mass Index 18.47 12/30/2018 1:53 PM CDT Body Mass Index Percentile 26.07% 12/30/2018 1:5 3 PM CDT Growth Chart: [facility] (Girls, 2- 20 Years) documented in this encounter Patient Instructions * Patient Instructions* HECTOR Monique - 12/30/2018 1:40 PM CDT Continue Lexapro Trial of dairy free diet to see if stomach issues improve followup after a month if still having symptoms. Will consider trail of a gluten free diet then Read [place] handout and let me know if any questions or concerns documented in this encounter Progress Notes * HECTOR Monique - 12/30/2018 1:40 PM CDT Cecilia is a 13-year-old female patient. Reason for Visit: Physical (sports physical -- track and cheerleading) History of Present Illness: She is here for a track and cheerleading physical. She is here with her mom. She was switched from zoloft to lexapro 3 weeks ago. She thinks it is doing ok. She is very active in muslim camps, [employer] practice, mission trips. She enjoys the activities. She is always on the go and when is at home has a few friends with her. No ETOH, drug use or smoking. She eats a fairly healthy diet. She had stomach pains after eating at the beginning of summer. Had the same sx last summer. It wentaway after summer. Has vomited a few times this summer. She has a stomach ache at least twice a week. Cut out dairy last year the pain went away. Reintroduced dairy in the winter and no sx. LMP 6.24 No cramps since started OCPs 4 months ago. She is very pleased with the results. She is not sexually active now. Past Medical History: Diagnosis Date ??? Anxiety ??? Depression Past Surgical History: Procedure Laterality Date ??? BLADDER SURGERY Medications: Current Outpatient Medications: ??? escitalopram (LEXAPRO) 10 MG tablet, Take 1 tablet (10 mg total) by mouth daily., Disp: 30 tablet, Rfl: 0 ??? Norgestimate-Ethinyl Estradiol (ORTHO TRI-CYCLEN, 28,) 0.18/0.215/0.25 MG-35 MCG tablet, Take 1tablet by mouth daily., Disp: 28 tablet, Rfl: 3 No Known Allergies No family history on file. No family status information on file. Social History Socioeconomic History ??? Marital status: Single Spouse name: Not on file ??? Number of children: Not on file ??? Years of education: Not on file ??? Highest education level: Not on file Occupational History ??? Not on file Social Needs ??? Financial resource strain: Not on file ??? Food insecurity: Worry: Not on file Inability: Not on file ??? Transportation needs: Medical: Not on file Non-medical: Not on file Tobacco Use ??? Smoking status: Never Smoker ??? Smokeless tobacco: Never Used Substance and Sexual Activity ??? Alcohol use: No Frequency: Never ??? Drug use: No ??? Sexual activity: Not on file Lifestyle ??? Physical activity: Days per week: Not on file Minutes per session: Not on file ??? Stress: Not on file Relationships ??? Social connections: Talks on phone: Not on file Gets together: Not on file Attends restoration service: Not on file Active member of club or organization: Not on file Attends meetings of clubs or organizations: Not on file Relationship status: Not on file ??? Intimate partner violence: Fear of current or ex partner: Not on file Emotionally abused: Not on file Physically abused: Not on file Forced sexual activity: Not on file Other Topics Concern ??? Not on file Social History Narrative ??? Not on file ROS: Review of Systems Constitutional: Negative. HENT: Negative. Eyes: Negative. Respiratory: Negative. Negative for cough, shortness of breath and wheezing. Cardiovascular: Negative. Negative for chest pain and palpitations. Gastrointestinal: Negative for abdominal pain, constipation, diarrhea, nausea and vomiting. Genitourinary: Negative. Musculoskeletal: Negative. Negative for back pain and neck pain. Skin: Negative. Neurological: Negative for dizziness and headaches. Endo/Heme/Allergies: Does not bruise/bleed easily. Psychiatric/Behavioral: Negative for substance abuse and suicidal ideas. The patient does not have insomnia. See HPI Vitals: Filed Vitals: 12/30/18 1353 BP: (!) 90/60 Pulse: 76 Resp: 16 Temp: 98.4 ??F (36.9 ??C) SpO2: 96% Weight: 50.3 kg (111 lb) Height: 5' 5 (1.651 m) Physical Exam Constitutional: She is oriented to person, place, and time. She appears well- developed and well-nourished. HENT: Head: Normocephalic and atraumatic. Right Ear: External ear normal. Left Ear: External ear normal. Mouth/Throat: Oropharynx is clear and moist. Eyes: Conjunctivae are normal. Pupils are equal, round, and reactive to light. Neck: Normal range of motion. Neck supple. No thyromegaly present. Cardiovascular: Normal rate, regular rhythm and intact distal pulses. Pulmonary/Chest: Effort normal and breath sounds normal. Abdominal: Soft. Bowel sounds are normal. She exhibits no mass. There is no tenderness. Musculoskeletal: Normal range of motion. Neurological: She is alert and oriented to person, place, and time. Skin: Skin is warm and dry. Psychiatric: She has a normal mood and affect. Nursing note and vitals reviewed. Diagnoses/Impression: Encounter Diagnose(s) ICD-10-CM ICD-9-CM SNOMED CT(R) 1. Sports physical Z02.5 V70.3 SPECIAL EXAMINATION STATUS 2. Depression, unspecified depression type F32.9 311 DEPRESSIVE DISORDER 3. Anxiety F41.9 300.00 ANXIETY 4. Dysmenorrhea in adolescent N94.6 625.3 DYSMENORRHEA 5. 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 escitalopram (LEXAPRO) 10 MG tablet Instructions Patient Instructions Continue Lexapro Trial of dairy free diet to see if stomach issues improve followup after a month if still having symptoms. Will consider trail of a gluten free diet then Read [employer] handout and let me know if any questions or concerns HECTOR MONIQUE 12/30/2018 2:04 PM Cosigned by Gabrielle Mathew DO at 01/24/2019 11:47 AM CDT documented in this encounter Plan of Treatment Not on file documented as of this encounter Visit Diagnoses Diagnosis Sports physical- Primary Other general medical examination for administrative purposes Depression, unspecified depression type Anxiety Anxiety state, unspecified Dysmenorrhea in adolescent Dairy product intolerance Other specified intestinal malabsorption documented in this encounter Care Teams Psychological Stress Evaluator Relationship Specialty Start Date End Date Nan Crews FNP PCP - General NURSE PRACTITIONER 04/24/18 documented as of this encounter
--- OUTSIDE RECORDS SUMMARY | 2024-06-05 20:59 | XMS_ITS | Encounter Summary ---
Author Organization [facility] Address [address] [place] [address]. [place], [place] [address] [place] [address] Care Team Providers Care Dry House Attendant Name Role Phone Nan Crews Primary Care Provider [phone] Encounter Details Date Type Department Care Team (Late st Contact Info) Description 10/10/2018 Orders Only [address] [address] Radha Cook LPN Social History Tobacco Use [...] as of this encounter Visit Diagnoses Diagnosis Anxiety Anxiety state, unspecified Depression Depressive disorder, not elsewhere classified documented in this encounter Care Teams Dry House Attendant Relationship Specialty Start Date End Date Nan Crews FNP PCP - General NURSE PRACTITIONER 04/24/18 documented as of this encounter
--- OUTSIDE RECORDS SUMMARY | 2024-06-05 20:59 | XMS_ITS | Encounter Summary ---
Author Organization [facility] Address [address] [place] [address]. [place] [address] Care Team Providers Care Costume Cutter Name Role Phone Nan Crews Primary Care Provider [phone] Encounter Details Date Type Department Care Team (Latest Contact Info) Description 07/29/2019 Scan [facility] Scanned, Documents [...] on filedocumented in this encounter Care Teams Costume Cutter Relationship Specialty Start Date End Date Nan Crews FNP PCP - General NURSE PRACTITIONER 04/24/18 documented as of this encounter
--- OUTSIDE RECORDS SUMMARY | 2024-06-05 20:59 | XMS_ITS | Encounter Summary ---
Author Organization [facility] Address [address] [place] [address]. [place], [place] [id number] [place] [address] Care Team Providers Care Marker Assembler Name Role Phone Nan Crews Primary Care Provider [phone] Reason for Visit * Reason Comments Medication Management Accompanied by mot her Brit Encounter Details Date Type Department Care Team (Late st Contact Info) Description 12/09/2018 10:40 AM CDT Office Visit [address] [place] [address] Nan Crews [address] [place], [place] [id number] Medication Management (Accompanied by mother Brit) Social History Tobacco Use Types Packs/Day Years [...] Sign Reading Time Taken Comments Blood Pressure 110/74 12/09/2018 10:51 AM CDT Pulse 80 12/09/2018 10:51 AM CDT Temperature 36.3 ??C (97.4 ??F) 12/09/2018 10:51 AM C DT Respiratory Rate 16 12/09/2018 10:51 AM CDT Oxygen Saturation - - Inhaled Oxygen Concentration - - Weight 49.4 kg (109 lb) 12/09/2018 10:51 AM CDT Height 165.1 cm (5' 5 ) 12/09/2018 10:51 AM CDT Body Mass Index 18.14 12/09/2018 10:51 AM CDT Body Mass Index Percentile 21.92% 12/09/2018 10: 51 AM CDT Growth Chart: [facility] (Girls, 2- 20 Years) documented in this encounter Patient Instructions * Patient Instructions* HECTOR Monique - 12/09/2018 10:40 AM CDT Stop Zoloft Start Lexapro as directed Patient urged to continue counseling Call me in 3 weeks with an update If it is working well we will follow-up in 2 months for recheck documented in this encounter Progress Notes * HECTOR Monique - 12/09/2018 10:40 AM CDT Cecilia is a 13-year-old female patient. Reason for Visit: Medication Management (Accompanied by mother Brit) History of Present Illness: She is here today with her mom for follow-up on anxiety and depression. She is currently on Zoloft 75 mg daily. She was last seen 3 months ago. At that time the Zoloft 50 mg was not controlling her symptoms completely so it was increased to 75 mg. She reports that taking 75 caused her increased fatigue. Therefore they try dropping back to 50 mg and she was having crying spells and anxiety. They are interested in trying a different medication to help control her symptoms and not have the side effect of fatigue. Her mom reports that the patient's older sister is on Lexapro for the same symptomsand it works well for her. She reports that overall she is doing better since she has been on the medication for the past 6 months. She is actively involved in [email or web address], denominational, denominational camp, painting class, and she runs for exercise. She hangs out with friends on a daily basis. She is trying to be a good role model for her friends. She actively attends denominational functions. She has been going to the school counselor for counseling and she feels it works well for her. She is not going through the summer but plans to restart again in the fall. At the last office visit she was also started on OCPs for dysmenorrhea. She reports it is working well for her. Her periods are regular and much firmware manager. She has not had any cramps. Her last menstrual period was at the end of October. She denies being sexually active. Past Medical History: Diagnosis Date ??? Anxiety ??? Depression Past Surgical History: Procedure Laterality Date ??? BLADDER SURGERY Medications: Current Outpatient Medications: ??? Norgestimate-Ethinyl Estradiol (ORTHO TRI-CYCLEN, 28,) 0.18/0.215/0.25 MG-35 MCG tablet, Take 1tablet by mouth daily., Disp: 28 tablet, Rfl: 3 ??? sertraline 50 MG tablet, Take 1.5 tablets (75 mg total) by mouth daily., Disp: 45 tablet, Rfl: 1 No Known Allergies No family history on file. No family status information on file. reports that she has never smoked. She has never used smokeless tobacco. She reports that she does not drink alcohol or use drugs. ROS: Review of Systems Constitutional: Negative. Respiratory: Negative. Cardiovascular: Negative. Genitourinary: See HPI Skin: Negative. Neurological: Negative. Psychiatric/Behavioral: See HPI Vitals: Filed Vitals: 12/09/18 1051 BP: 110/74 Pulse: 80 Resp: 16 Temp: 97.4 ??F (36.3 ??C) Weight: 49.4 kg (109 lb) Height: 5' 5 (1.651 m) Physical Exam Constitutional: She is oriented to person, place, and time. She appears well- developed and well-nourished. HENT: Head: Normocephalic and atraumatic. Pulmonary/Chest: Effort normal. Neurological: She is alert and oriented to person, place, and time. Skin: Skin is warm and dry. Psychiatric: She has a normal mood and affect. Judgment and thought content normal. Nursing note and vitals reviewed. Diagnoses/Impression: Encounter Diagnose(s) ICD-10-CM ICD-9-CM SNOMED CT(R) 1. Depression, unspecified depression type F32.9 311 DEPRESSIVE DISORDER escitalopram (LEXAPRO) 10 MG tablet 2. Anxiety F41.9 300.00 ANXIETY escitalopram (LEXAPRO) 10 MG tablet 3. Dysmenorrhea in adolescent N94.6 625.3 DYSMENORRHEA Plan Orders Placed: Orders Placed This Encounter ??? escitalopram (LEXAPRO) 10 MG tablet We will stop the Zoloft and start Lexapro 10 mg daily. Encouraged to continue with counseling Call me back in 3 weeks with an update on how she is feeling after starting the Lexapro. We briefly discussed a psychiatric consult if the Lexapro is not working well for her. Mom declinesat this time. She feels she is doing much better since starting medication and does not want to seea Psychiatrist at this time Instructions Patient Instructions Stop Zoloft Start Lexapro as directed Patient urged to continue counseling Call me in 3 weeks with an update If it is working well we will follow-up in 2 months for recheck HECTOR MONIQUE 12/09/2018 10:59 AM Cosigned by Gabrielle Mathew DO at 12/09/2018 12:31 PM CDT documented in this encounter Plan of Treatment Not on file documented as of this encounter Visit Diagnoses Diagnosis Depression, unspecified depression type- Primary Anxiety Anxiety state, unspecified Dysmenorrhea in adolescent documented in this encounter Care Teams Marker Assembler Relationship Specialty Start Date End Date Nan Crews FNP PCP - General NURSE PRACTITIONER 04/24/18 documented as of this encounter
--- OUTSIDE RECORDS SUMMARY | 2024-06-05 21:00 | XMS_ITS | Encounter Summary ---
Author Organization [facility] Address [address] [place] [address]. [place], [place] [id number] [place] [address] Care Team Providers Care Bag Hanger Name Role Phone Unavailable Primary Care Provider Unavailabl e Encounter Details Date Type Department Care Team (Late st Contact Info) Description 04/19/2015 Abstract [facility] Conversion Nan Crews, [facility] [address] [place] [address] Social History Tobacco Use Types Packs/Day Years Used Date Smoking Tobacco: Never Assessed Comments Unknown Sex and Gender Information Value Date Recorded Sex Assigned at Not on file Legal Sex Female 8:07 AM CDT Gender Identity Not on file Sexual Orientation Not on file documented as of this encounter Last Filed Vital Signs Vital Sign Reading Time Taken Comments Blood Pressure 86/58 04/19/2015 11:09 AM MASTER MACHINIST Pulse 76 04/19/2015 11:09 AM MASTER MACHINIST Temperature - - Respiratory Rate - - Oxygen Saturation - - Inhaled Oxygen Concentration - - Weight 33.6 kg (74 lb) 04/19/2015 11:09 AM MASTER MACHINIST Height - - Body Mass Index - - documented in this encounter Plan of Treatment Not on file documented as of this encounter Procedures Procedure Name Priority Date/Time Associated Diagnosis Comments STREP A RAPID Routine 04/19/2015 11:24 AM MASTER MACHINIST STREP A RAPID Routine 04/19/2015 11:20 AM MASTER MACHINIST documented in this encounter Results * STREP A RAPID (04/19/2015 11:24 AM MASTER MACHINIST) RAPID STREP TEST Negative(Q C+) [facility] TO [facility] CONVERSION 04/19/2015 11:2 4 AM MASTER MACHINIST 04/19/2015 11:24 AM MASTER MACHINIST Narrative [facility] TO EPIC CONVERSION - 04/19/2015 11:24 AM MASTER MACHINIST This lab was migrated from [facility] and may be missing annotations or result text, please check the Media tab for the most complete results. Nan HARLEYP MICROBIOLOGY - GENERAL ORDERA BLES Final Result Performing Organization Address [facility] Co de Phone Number [facility] TO EPIC CONVERSION * STREP A RAPID (04/19/2015 11:20 AM MASTER MACHINIST) STREP PYOGENES (GRP A) PCR (BLD) NEGATIVE [facility] T O EPIC CONVERSION Comment:GROUP A MOLECULAR ST REPTOCOCCUS TEST REPORT STATUS not sent [facility] UP TO EPIC CONVERSION lot number [id number] EXP 07-14-1 [facility] TO EPIC CONVERSION Internal Control: passed ME [facility] TO EPIC CONVERSION 04/19/2015 11:2 0 AM MASTER MACHINIST 04/19/2015 11:20 AM MASTER MACHINIST Narrative [facility] TO EPIC CONVERSION - 04/19/2015 1:46 PM MASTER MACHINIST This lab was migrated from [facility] and may be missing annotations or result text, please check the Media tab for the most complete results. Nan YOUNG MICROBIOLOGY - GENERAL ORDERA BLES Final Result Performing Organization Address [facility] Co de Phone Number [facility] TO EPIC CONVERSION documented in this encounter Visit Diagnoses Not on filedocumented in this encounter
--- OUTSIDE RECORDS SUMMARY | 2024-06-05 21:00 | XMS_ITS | Encounter Summary ---
Author Organization [facility] Address [address] [place] [address]. [place], [place] [address] [place] [address] Care Team Providers Care Home Theatre Technician Name Role Phone Nan Crews Primary Care Provider [phone] Reason for Visit * Reason Comments Follow Up medication -- Zoloft Encounter Details Date Type Department Care Team (Late st Contact Info) Description 07/15/2018 3:40 PM PUBLIC HEALTH TRAINING ASSISTANT Office Visit [address] [place] [address] Nan Crews [address] [place] [address] Follow Up (medication -- Zoloft) Social History Tobacco Use Types Packs/Day Years [...] Reading Time Taken Comments Blood Pressure 90/60 07/15/2018 3:43 PM PUBLIC HEALTH TRAINING ASSISTANT Pulse 76 07/15/2018 3:43 PM PUBLIC HEALTH TRAINING ASSISTANT Temperature 36.8 ??C (98.2 ??F) 07/15/2018 3:43 PM CS T Respiratory Rate 14 07/15/2018 3:43 PM PUBLIC HEALTH TRAINING ASSISTANT Oxygen Saturation 99% 07/15/2018 3:43 PM PUBLIC HEALTH TRAINING ASSISTANT Inhaled Oxygen Concentration - - Weight 46.7 kg (103 lb) 07/15/2018 3:43 PM PUBLIC HEALTH TRAINING ASSISTANT Height 163.8 cm (5' 4.5 ) 07/15/2018 3:43 PM PUBLIC HEALTH TRAINING ASSISTANT Body Mass Index 17.41 07/15/2018 3:43 PM PUBLIC HEALTH TRAINING ASSISTANT Body Mass Index Percentile 15.24% 07/15/2018 3:4 3 PM PUBLIC HEALTH TRAINING ASSISTANT Growth Chart: [facility] (Girls, 2- 20 Years) documented in this encounter Progress Notes * Nan Crews, PACKAGE MAKER - 07/15/2018 3:40 PM CST Cecilia is a 13-year-old female patient. Reason for Visit: Follow Up (medication -- Zoloft) History of Present Illness: She is here for a 10 day follow up visit for new onset of depression. She was started on Zoloft at last ov. She is here today with her mom. She reports that the first few days that she was on the Zoloft she had a mild headache every morning. That resolved within 5 days. She first thought that the medication was very helpful but now she is feeling a little more numb again. Mom reports that she seems to be a little happier. She seems to be having more fun when she observes her with her friends. She says she sleeps fine. She is going to school and social functions as planned. 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 She is a freshman at [employer]. She has a new boyfriend as of a couple of days ago. Mom reports that she still has some issues with her not communicating well with her parents. Patient nor her mom report any new symptoms. Past Medical History: Diagnosis Date ??? Anxiety ??? Depression Past Surgical History: Procedure Laterality Date ??? BLADDER SURGERY Medications: Current Outpatient Medications: ??? sertraline (ZOLOFT) 25 MG tablet, Take 1 tablet (25 mg total) by mouth daily., Disp: 30 tablet,Rfl: 0 No Known Allergies No family history on file. No family status information on file. reports that has never smoked. she has never used smokeless tobacco. She reports that she does not drink alcohol or use drugs. ROS: Review of Systems Constitutional: Negative. Respiratory: Negative for shortness of breath. Cardiovascular: Negative for chest pain and palpitations. Neurological: Negative for dizziness and headaches. Psychiatric/Behavioral: See HPI Vitals: Filed Vitals: 07/15/18 1543 BP: (!) 90/60 Pulse: 76 Resp: 14 Temp: 98.2 ??F (36.8 ??C) SpO2: 99% Weight: 46.7 kg (103 lb) Height: 5' 4.5 (1.638 m) Physical Exam Constitutional: She is oriented to person, place, and time. She appears well- developed and well-nourished. HENT: Head: Normocephalic and atraumatic. Eyes: Conjunctivae are normal. Pupils are equal, round, and reactive to light. Neck: Normal range of motion. Neck supple. No thyromegaly present. Cardiovascular: Normal rate and regular rhythm. Pulmonary/Chest: Effort normal and breath sounds normal. Neurological: She is alert and oriented to person, place, and time. Skin: Skin is warm and dry. Psychiatric: She has a normal mood and affect. Judgment and thought content normal. Diagnoses/Impression: Encounter Diagnose(s) ICD-10-CM ICD-9-CM SNOMED CT(R) 1. Depression, unspecified depression type F32.9 311 DEPRESSIVE DISORDER sertraline 50 MG tablet Plan Orders Placed: Orders Placed This Encounter ??? sertraline 50 MG tablet Will increase sertraline to 50 mg daily We discussed thinking about counseling again or at least patient being able to communicate with herfamily and friends easier. Follow-up in 2 weeks for reevaluation. Spent 30 minutes guys-cf-clia with patient and her mom. Greater than 50% was spent on counseling and coordination of care. HECTOR MONIQUE 07/15/2018 3:55 PM Cosigned by Gabrielle Mathew DO at 07/17/2018 1:08 PM PUBLIC HEALTH TRAINING ASSISTANT IC HEALTH TRAINING ASSISTANT IC HEALTH TRAINING ASSISTANT documented in this encounter Plan of Treatment Not on file documented as of this encounter Visit Diagnoses Diagnosis Depression, unspecified depression type documented in this encounter Care Teams Home Theatre Technician Relationship Specialty Start Date End Date Nan Crews FNP PCP - General NURSE PRACTITIONER 04/24/18 documented as of this encounter
--- OUTSIDE RECORDS SUMMARY | 2024-06-05 21:00 | XMS_ITS | Encounter Summary ---
Author Organization [facility] Address [address] [place] [address]. [place], [place] [id number] [place] [address] Care Team Providers Care Payroll And Benefits Specialist Name Role Phone Nan Crews Primary Care Provider [phone] Encounter Details Date Type Department Care Team (Late st Contact Info) Description 04/19/2015 Abstract [facility] [address] [place] [address] Nan Crews FNP [address] [place], [place] [id number] Social History Tobacco Use Types Packs/Day Years Used Date Smoking Tobacco: Never Assessed AUDIT-C Answer Date Recorded Frequency of Alcohol Consumption Never 07/02/2018 Average Number of Drinks Not on file 019 Frequency of Binge Drinking Not on file 06/17 PHQ-2 Answer Date Recorded PHQ-2 Score - If the patient scores above 3, please move on to questions 3-9 2 01/24/2021 Comments Unknown Sex and Gender Information Value [...] on filedocumented in this encounter Care Teams Payroll And Benefits Specialist Relationship Specialty Start Date End Date Nan Crews FNP PCP - General NURSE PRACTITIONER 04/24/18 documented as of this encounter
--- OUTSIDE RECORDS SUMMARY | 2024-06-05 21:00 | XMS_ITS | Encounter Summary ---
Author Organization [facility] Address [address] [place] [address]. [place], [place] [id number] [place] [address] Care Team Providers Care Project Management Director Name Role Phone Unavailable Primary Care Provider Unavailabl e Encounter Details Date Type Department Care Team (Late st Contact Info) Description 12/25/2016 Abstract [facility] Nan Velazquez, [facility] [address] [place] [address] Social History Tobacco Use Types Packs/Day Years Used Date Smoking Tobacco: Never Assessed Comments Unknown Sex and Gender Information Value Date Recorded Sex Assigned at Not on file Legal Sex Female 8:07 AM CDT Gender Identity Not on file Sexual Orientation Not on file documented as of this encounter Last Filed Vital Signs Vital Sign Reading Time Taken Comments Blood Pressure 94/60 12/25/2016 1:53 PM CDT Pulse 84 12/25/2016 1:53 PM CDT Temperature - - Respiratory Rate - - Oxygen Saturation - - Inhaled Oxygen Concentration - - Weight 46.3 kg (102 lb) 12/25/2016 1:53 PM CDT Height 163.8 cm (5' 4.5 ) 12/25/2016 1:53 PM CDT Body Mass Index 17.24 12/25/2016 1:53 PM CDT Body Mass Index Percentile 23.97% 12/25/2016 1:5 3 PM CDT Growth Chart: CDC (Girls, 2- 20 Years) documented in this encounter Plan of Treatment Not on file documented as of this encounter Visit Diagnoses Not on filedocumented in this encounter
--- OUTSIDE RECORDS SUMMARY | 2024-06-05 21:00 | XMS_ITS | Encounter Summary ---
Author Organization [facility] Address [address] [place] [address]. [place], [place] [id number] [place] [address] Care Team Providers Care Financial Director Name Role Phone Nan Crews [facility] Primary Care Provider [phone] Reason for Visit * Reason Comments Depression Anxiety Encounter Details Date Type Department Care Team (Late st Contact Info) Description 07/02/2018 3:40 PM SHEET CUTTER Office Visit [facility] [address] [place] [address] Nan Crews [facility] [address] [place], [place] [id number] Depression; Anxiety Social History Tobacco Use Types Packs/Day Years [...] Sign Reading Time Taken Comments Blood Pressure 100/70 07/02/2018 3:45 PM SHEET CUTTER Pulse 100 07/02/2018 3:45 PM SHEET CUTTER Temperature 36.8 ??C (98.3 ??F) 07/02/2018 3:45 PM CS T Respiratory Rate 16 07/02/2018 3:45 PM SHEET CUTTER Oxygen Saturation - - Inhaled Oxygen Concentration - - Weight 46.7 kg (103 lb) 07/02/2018 3:45 PM SHEET CUTTER Height - - Body Mass Index - - documented in this encounter Patient Instructions * Patient Instructions* HECTOR Monique - 07/02/2018 3:40 PM SHEET CUTTER Take Zoloft as directed Consider counseling again We will discuss contraceptives at a future appointment. Follow-up in 7-10 days. Call sooner if any new or worsening symptoms T CUTTER documented in this encounter Progress Notes * HECTOR Monique - 07/02/2018 3:40 PM CST Cecilia is a 12-year-old female patient. Reason for Visit: Depression and Anxiety History of Present Illness: She is here today with her mom to discuss depression and anxiety symptoms. She reports having depression symptoms for close to 1 year. She has crying spells and feels anxious at times. Over the past 2 months her symptoms have gotten much worse. She wants to sleep all the time because it makes her feel better. She cries for no reason. She has some social withdrawal. She has a strong family historyof depression and her mom, her sister And anxiety in her father. She is a freshman in high school at [employer]. She is active in [employer]. She goes to school every day and her grades are good. She has a close friend who she confides him when she feels down. She also talks to her mom when she has a problem. Her mom has noticed that she has been staying in her room more often than she used to. She hangs out with friends but oftentimes just wants them to go home because she wants to be alone. She denies any substance abuse. She says she is never tried alcohol or drugs. She does not smoke. She was sexually active over the summer but is no longer with that boyfriend. Her mom took her to a Buddhist counseling and she went a few times but they were not happy with the advice she was given. Cecilia also does not think that it helped. She also reports having trouble with her periods. She has regular monthly periods that last 5-7 days. Last menstrual period was 07/01/2018. She usually has 1 day where she has pretty severe menstrual cramps. They last up to 10 hours. [id number] NSAIDs do not usually help. Her mom is considering having her start on contraceptives. History reviewed. No pertinent past medical history. Past Surgical History: Procedure Laterality Date ??? BLADDER SURGERY Medications: No current outpatient medications on file. No Known Allergies No family history on file. No family status information on file. reports that has never smoked. she has never used smokeless tobacco. She reports that she does not drink alcohol or use drugs. ROS: Review of Systems Constitutional: Negative for malaise/fatigue and weight loss. Cardiovascular: Negative for chest pain and palpitations. Genitourinary: No irregular periods Menstrual cramps Skin: Negative for rash. Neurological: Negative for dizziness and headaches. Psychiatric/Behavioral: Positive for depression. The patient is nervous/anxious. The patient does not have insomnia. Vitals: Filed Vitals: 07/02/18 1545 BP: 100/70 Pulse: 100 Resp: 16 Temp: 98.3 ??F (36.8 ??C) Weight: 46.7 kg (103 lb) Physical Exam Constitutional: She is oriented to person, place, and time. She appears well- developed and well-nourished. HENT: Head: Normocephalic and atraumatic. Eyes: Conjunctivae are normal. Pupils are equal, round, and reactive to light. Neck: Normal range of motion. Neck supple. No thyromegaly present. Cardiovascular: Normal rate, regular rhythm and intact distal pulses. Pulmonary/Chest: Effort normal and breath sounds normal. Abdominal: She exhibits no mass. There is no tenderness. Neurological: She is alert and oriented to person, place, and time. Skin: Skin is warm. Psychiatric: She has a normal mood and affect. Good eye contact Diagnoses/Impression: Encounter Diagnose(s) ICD-10-CM ICD-9-CM SNOMED CT(R) 1. Depression, unspecified depression type F32.9 311 DEPRESSIVE DISORDER sertraline (ZOLOFT) 25 MG tablet 2. Anxiety F41.9 300.00 ANXIETY 3. Dysmenorrhea in adolescent N94.6 625.3 DYSMENORRHEA Plan Orders Placed: Orders Placed This Encounter ??? sertraline (ZOLOFT) 25 MG tablet Discussed treatment options for the depression and anxiety symptoms. Patient and her mom are both willing to try medication. They are declining counseling at this time as they were not happy with herlast experience. We discussed a trial of Zoloft 25 mg daily. We discussed potential side effects and expected benefits of this medication. Follow-up in 7-10 days for reevaluation. Will also discuss contraceptive planning. They are considering Depo-Provera. Will further discuss this at a future office visit. Mom does not want her starting both things at the same time. Instructions Patient Instructions Take Zoloft as directed Consider counseling again We will discuss contraceptives at a future appointment. Follow-up in 7-10 days. Call sooner if any new or worsening symptoms HECTOR MONIQUE 07/02/2018 3:54 PM Cosigned by Gabrielle Mathew DO at 07/03/2018 12:44 PM SHEET CUTTER T CUTTER T CUTTER documented in this encounter Plan of Treatment Not on file documented as of this encounter Visit Diagnoses Diagnosis Depression, unspecified depression type- Primary Anxiety Anxiety state, unspecified Dysmenorrhea in adolescent documented in this encounter Care Teams Financial Director Relationship Specialty Start Date End Date Nan Crews FNP PCP - General NURSE PRACTITIONER 04/24/18 documented as of this encounter
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
--- OUTSIDE RECORDS SUMMARY | 2024-06-05 21:00 | XMS_ITS | Encounter Summary ---
Author Organization [facility] Address [address] [place] [address]. [place] [address] Care Team Providers Care Window Clerk Name Role Phone Unavailable Primary Care Provider Unavailabl e Encounter Details Date Type Department Care Team (Late st Contact Info) Description 08/14/2016 Abstract [facility] Conversion Md, Generic Conversion, Social History Tobacco Use Types Packs/Day Years [...]
--- OUTSIDE RECORDS SUMMARY | 2024-06-05 21:00 | XMS_ITS | Encounter Summary ---
Author Organization [facility] Address [address] [place] [address]. [place] [address] Care Team Providers Care Security Technician Name Role Phone Unavailable Primary Care Provider Unavailabl e Encounter Details Date Type Department Care Team (Late st Contact Info) Description 08/13/2016 Abstract [facility] Conversion Dominique Wesley FNP Social History Tobacco Use Types Packs/Day Years Used Date Smoking Tobacco: Never Assessed Comments Unknown Sex and Gender Information Value Date Recorded Sex Assigned at Not on file Legal Sex Female 8:07 AM CDT Gender Identity Not on file Sexual Orientation Not on file documented as of this encounter Last Filed Vital Signs Vital Sign Reading Time Taken Comments Blood Pressure 108/64 08/13/2016 9:43 AM LABORER DRIVER Pulse 72 08/13/2016 9:43 AM LABORER DRIVER Temperature - - Respiratory Rate - - Oxygen Saturation - - Inhaled Oxygen Concentration - - Weight 42.2 kg (93 lb) 08/13/2016 9:43 AM LABORER DRIVER Height 154.9 cm (5' 1 ) 08/13/2016 9:43 AM LABORER DRIVER Body Mass Index 17.57 08/13/2016 9:43 AM LABORER DRIVER Body Mass Index Percentile 32.02% 08/13/2016 9:4 3 AM LABORER DRIVER Growth Chart: CDC (Girls, 2- 20 Years) documented in this encounter Plan of Treatment Not on file documented as of this encounter Visit Diagnoses Not on filedocumented in this encounter
--- OUTSIDE RECORDS SUMMARY | 2024-06-05 21:00 | XMS_ITS | Encounter Summary ---
Author Organization [facility] Address [address] [place] [address]. [place], [place] [address] [place] [address] Care Team Providers Care Sewing Line Baler Name Role Phone Unavailable Primary Care Provider Unavailabl e Encounter Details Date Type Department Care Team (Late st Contact Info) Description 12/24/2017 Abstract [facility] Nan Velazquez, [facility] [address] [place] [address] Social History Tobacco Use Types Packs/Day Years Used Date Smoking Tobacco: Never Assessed Comments Unknown Sex and Gender Information Value Date Recorded Sex Assigned at Not on file Legal Sex Female 8:07 AM CDT Gender Identity Not on file Sexual Orientation Not on file documented as of this encounter Last Filed Vital Signs Vital Sign Reading Time Taken Comments Blood Pressure 98/60 12/24/2017 2:06 PM CDT Pulse 100 12/24/2017 2:06 PM CDT Temperature - - Respiratory Rate - - Oxygen Saturation - - Inhaled Oxygen Concentration - - Weight 45.6 kg (100 lb 8 oz) 12/24/2017 2:06 PM CDT Height 163.8 cm (5' 4.5 ) 12/24/2017 2:06 PM CDT Body Mass Index 16.98 12/24/2017 2:06 PM CDT Body Mass Index Percentile 13.59% 12/24/2017 2:0 6 PM CDT Growth Chart: CDC (Girls, 2- 20 Years) documented in this encounter Plan of Treatment Not on file documented as of this encounter Visit Diagnoses Not on filedocumented in this encounter
--- OUTSIDE RECORDS SUMMARY | 2024-06-05 21:00 | XMS_ITS | Encounter Summary ---
Author Organization [facility] Address [address] [place] [address]. [place], [place] [id number] [place] [address] Care Team Providers Care Adjunct Psychology Faculty Member Name Role Phone Nan Crews Primary Care Provider [phone] Reason for Visit * Reason Comments Follow Up 07/30/18 Encounter Details Date Type Department Care Team (Late st Contact Info) Description 09/20/2018 9:20 AM CDT Office Visit [facility] [address] [facility] [place] [address] Nan Crews [address] [place] [address] Follow Up (07/30/18) Social History Tobacco Use Types Packs/Day Years [...] Reading Time Taken Comments Blood Pressure 98/60 09/20/2018 9:34 AM CDT Pulse 88 09/20/2018 9:34 AM CDT Temperature 36.8 ??C (98.2 ??F) 09/20/2018 9:34 AM CD T Respiratory Rate 16 09/20/2018 9:34 AM CDT Oxygen Saturation - - Inhaled Oxygen Concentration - - Weight 49.9 kg (110 lb) 09/20/2018 9:34 AM CDT Height 163.8 cm (5' 4.5 ) 09/20/2018 9:34 AM CDT Body Mass Index 18.59 09/20/2018 9:34 AM CDT Body Mass Index Percentile 29.80% 09/20/2018 9:3 4 AM CDT Growth Chart: [facility] (Girls, 2- 20 Years) documented in this encounter Progress Notes * HECTOR Monique - 09/20/2018 9:20 AM CDT Cecilia is a 13-year-old female patient. Reason for Visit: Follow Up (07/30/18) History of Present Illness: She is here today for follow-up on depression. She has been on Zoloft 50 mg daily. She has been doing very well until the last week and a half. Mom noted that she was having some days where she felt more down. She called here and asked to have the Zoloft increased which I increased to 75 mg daily. They decided to not start that until they came and talked with me. Therefore she is still on 50 mg daily. Cecilia reports that she felt very well when she first started the Zoloft but has noticed some breakthrough symptoms over the last couple of weeks. She has some really good days where she feels very happy and other days when she has some sadness. It is not as bad as prior to starting the Zoloft. Mom reports that she socializes with her friends and has a good group that she hangs out with everyweekend and they are mostly at her house. Mom is happy with this group of friends as she says they are a good group. She is active in track and she says she has a lot of fun with it and it is more like social time for her than actually a sport. She recently got elected to a leadership group at her school. They are planning a family vacation over and she is very excited about going. She goes to [place] and enjoys going with her family When she has her breakthrough symptoms it is mostly when she is at home and is alone. She gets tearful and feels sad. She never feels like hurting herself. They would also like to discuss starting on control. She does not have a boyfriend currently but has been sexually active in the past. Periods are monthly and regular but she does have a lot ofbad cramps with them. She denies being sexually active for the past 6 months. Her last menstrual period was September 01, 2018. Past Medical History: Diagnosis Date ??? Anxiety ??? Depression Past Surgical History: Procedure Laterality Date ??? BLADDER SURGERY Medications: Current Outpatient Medications: ??? sertraline 50 MG tablet, Take 1.5 tablets (75 mg total) by mouth daily., Disp: 45 tablet, Rfl: 0 No Known Allergies No family history on file. No family status information on file. reports that has never smoked. she has never used smokeless tobacco. She reports that she does not drink alcohol or use drugs. She lives with her parents ROS: Review of Systems Constitutional: Negative for malaise/fatigue and weight loss. Respiratory: Negative for shortness of breath. Cardiovascular: Negative for chest pain and palpitations. Gastrointestinal: Negative for diarrhea, nausea and vomiting. Genitourinary: Negative for dysuria, frequency and urgency. No irregular periods, Positive for cramps Skin: Negative for rash. Psychiatric/Behavioral: See HPI Vitals: Filed Vitals: 09/20/18 0934 BP: (!) 98/60 Pulse: 88 Resp: 16 Temp: 98.2 ??F (36.8 ??C) TempSrc: Temporal Weight: 49.9 kg (110 lb) Height: 5' 4.5 (1.638 m) Physical [...] She has a normal mood and affect. Her behavior is normal. Judgment and thought contentnormal. Good eye contact. Interacts well with her mother Diagnoses/Impression: Encounter Diagnose(s) ICD-10-CM ICD-9-CM SNOMED CT(R) 1. Depression, unspecified depression type F32.9 311 DEPRESSIVE DISORDER 2. Dysmenorrhea in adolescent N94.6 625.3 DYSMENORRHEA Norgestimate-Ethinyl Estradiol (ORTHO TRI-CYCLEN, 28,) 0.18/0.215/0.25 MG-35 MCG tablet 3. Anxiety F41.9 300.00 ANXIETY Plan Orders Placed: Orders Placed This Encounter ??? Norgestimate-Ethinyl Estradiol (ORTHO TRI-CYCLEN, 28,) 0.18/0.215/0.25 MG-35 MCG tablet I had a long discussion with the patient and her mom regarding treatment of her depression. We willgo ahead and increase the Zoloft to 75 mg daily. I encouraged them to reconsider counseling again despite the fact that they had a bad experience inthe past. Cecilia is resistant to going to counseling. We also discussed referral to a adolescent psychiatric nurse practitioner or psychiatrist if increasing her Zoloft does not resolve her current symptoms. I asked her mom to call me back in 2-3 weeks with an update on her status. If she is doing well then see me in 6 weeks We discussed oral contraceptive pills as they are with as they are requesting today. Discussed risks and benefits as well as possible side effects Pt encouraged to always use condoms if she becomes sexually active. Instructions There are no Patient Instructions on file for this visit. HECTOR MONIQUE 09/20/2018 9:42 AM Cosigned by Gabrielle Mathew DO at 09/22/2018 4:37 PM CDT documented in this encounter Plan of Treatment Not on file documented as of this encounter Visit Diagnoses Diagnosis Depression, unspecified depression type- Primary Dysmenorrhea in adolescent Anxiety Anxiety state, unspecified documented in this encounter Care Teams Adjunct Psychology Faculty Member Relationship Specialty Start Date End Date Nan Crews FNP PCP - General NURSE PRACTITIONER 04/24/18 documented as of this encounter
--- OUTSIDE RECORDS SUMMARY | 2024-06-05 21:00 | XMS_ITS | Encounter Summary ---
Author Organization [facility] Address [address] [place] [address]. [place], [place] [id number] [place] [address] Care Team Providers Care Engineering Programmer Name Role Phone Nan Crews Primary Care Provider [phone] Reason for Visit * Reason Onset Date Comments Medication Request 09/12/2018 Encounter Details Date Type Department Care Team (Late st Contact Info) Description 09/12/2018 Telephone [facility] [address] [place] [address] Nan Crews [facility] [address] [place], [place] [id number] Medication Request Social History Tobacco Use Types [...] Progress Notes * Radha Cook LPN - 09/12/2018 11:49 AM CDT Pt. Mother called stating that pt. Has been having more melt-downs recently. States that she feels pt. Sertraline needs increased. Pt. Has follow up appt. Sched. With Leonard Crews on 09/20/18. V.O. Per Leonard Crews -- Pt. Can increase Sertraline to 75mg PO DAILY ( 50mg tab - 1 1/2 tabs PO DAILY) Pt. To follow up within 2 weeks with OV. Pt. Mother notified of all. Verbalized understanding. Med. Sent to [facility] as req. By mother. documented in this encounter Plan of Treatment Not on file documented as of this encounter Visit Diagnoses Diagnosis Anxiety- Primary Anxiety state, unspecified Depression Depressive disorder, not elsewhere classified documented in this encounter Care Teams Engineering Programmer Relationship Specialty Start Date End Date Nan Crews FNP PCP - General NURSE PRACTITIONER 04/24/18 documented as of this encounter
--- OUTSIDE RECORDS SUMMARY | 2024-06-05 21:00 | XMS_ITS | Encounter Summary ---
Author Organization [facility] Address [address] [place] [address]. [place], [place] [address] [place] [address] Care Team Providers Care At[employer]T Retailer Sales Consultant Name Role Phone Unavailable Primary Care Provider Unavailabl e Encounter Details Date Type Department Care Team (Late st Contact Info) Description 01/20/2016 Abstract [facility] Nan Velazquez, [facility] [address] [place] [address] Social History Tobacco Use Types Packs/Day Years Used Date Smoking Tobacco: Never Assessed Comments Unknown Sex and Gender Information Value Date Recorded Sex Assigned at Not on file Legal Sex Female 8:07 AM CDT Gender Identity Not on file Sexual Orientation Not on file documented as of this encounter Last Filed Vital Signs Vital Sign Reading Time Taken Comments Blood Pressure 100/58 01/20/2016 3:38 PM CDT Pulse 78 01/20/2016 3:38 PM CDT Temperature - - Respiratory Rate - - Oxygen Saturation - - Inhaled Oxygen Concentration - - Weight 38.6 kg (85 lb) 01/20/2016 3:38 PM CDT Height - - Body Mass Index - - documented in this encounter Plan of Treatment Not on file documented as of this encounter Procedures Procedure Name Priority Date/Time Associated Diagnosis Comments URINALYSIS AUTO DIP Routine 01/20/2016 3 :47 PM CDT documented in this encounter Results * URINALYSIS AUTO DIP (01/20/2016 3:47 PM CDT) LEUK ESTERASE (U) Negative [facility] TO EPIC CONVERSION UROBILINOGEN 0.2 [facility] P TO EPIC CONVERSION SPECIFIC GRAVITY (U) 1.030 [facility] TO EPIC CONVERSION PROTEIN (U) Negative [facility] TO EPIC CONVERSION PH (U) 6.0 [facility] T O EPIC CONVERSION NITRITES Negative [facility] T O EPIC CONVERSION KETONES MG/DL (U) Negative [facility] TO EPIC CONVERSION URINE GLUCOSE Negative [facility] UP TO EPIC CONVERSION BILIRUBIN (U) Negative [facility] UP TO EPIC CONVERSION U BLOOD neg [facility] T O EPIC CONVERSION 01/20/2016 3:47 PM CDT 01/20/2016 3:47 PM CDT Narrative [facility] TO EPIC CONVERSION - 01/20/2016 3:47 PM CDT This lab was migrated from [facility] and may be missing annotations or result text, please check the Media tab for the most complete results. us Nan Crews DONOR RELATIONS MANAGER URINE ORDERABLES Final Result [facility] TO EPIC CONVERSION documented in this encounter Visit Diagnoses Not on filedocumented in this encounter
--- OUTSIDE RECORDS SUMMARY | 2024-06-05 21:00 | XMS_ITS | Encounter Summary ---
Author Organization [facility] Address [address] [place] [address]. [place], [place] [id number] [place] [address] Care Team Providers Care Timber Feller Name Role Phone Nan Crews Primary Care Provider [phone] Encounter Details Date Type Department Care Team (Late st Contact Info) Description 09/12/2018 Orders Only [address] [place] [address] Radha Cook LPN Social History Tobacco Use [...] on filedocumented in this encounter Care Teams Timber Feller Relationship Specialty Start Date End Date Nan Crews FNP PCP - General NURSE PRACTITIONER 04/24/18 documented as of this encounter
--- OUTSIDE RECORDS SUMMARY | 2024-06-05 21:01 | XMS_ITS | Encounter Summary ---
Author Organization [facility] Address [address] [place] [address]. [place], [place] [id number] [place], [place] [id number] Care Team Providers Care Research Attorney Name Role Phone Unavailable Primary Care Provider Unavailabl e Encounter Details Date Type Department Care Team (Late st Contact Info) Description 01/19/2015 Abstract [facility] Nan Velazquez, [facility] [address] [place] [address] Social History Tobacco Use Types Packs/Day Years Used Date Smoking Tobacco: Never Assessed Comments Unknown Sex and Gender Information Value Date Recorded Sex Assigned at Not on file Legal Sex Female 8:07 AM CDT Gender Identity Not on file Sexual Orientation Not on file documented as of this encounter Last Filed Vital Signs Vital Sign Reading Time Taken Comments Blood Pressure 88/60 01/19/2015 1:32 PM CDT Pulse 88 01/19/2015 1:32 PM CDT Temperature - - Respiratory Rate - - Oxygen Saturation - - Inhaled Oxygen Concentration - - Weight 31.3 kg (69 lb) 01/19/2015 1:32 PM CDT Height 152.4 cm (5') 01/19/2015 1:32 PM CDT Body Mass Index 13.48 01/19/2015 1:32 PM CDT Body Mass Index Percentile 0.58% 01/19/2015 1:3 2 PM CDT Growth Chart: CDC (Girls, 2- 20 Years) documented in this encounter Plan of Treatment Not on file documented as of this encounter Procedures Procedure Name Priority Date/Time Associated Diagnosis Comments URINALYSIS Routine 01/19/2015 2:17 PM CDT documented in this encounter Results * URINALYSIS (01/19/2015 2:17 PM CDT) URINE GLUCOSE Negative [facility] UP TO EPIC CONVERSION PROTEIN (U) Negative [facility] TO EPIC CONVERSION 01/19/2015 2:17 PM CDT 01/19/2015 2:17 PM CDT Narrative [facility] TO EPIC CONVERSION - 01/19/2015 2:17 PM CDT This lab was migrated from [facility] and may be missing annotations or result text, please check the Media tab for the most complete results. us Nan Crews DIELECTRIC PRESS OPERATOR URINE ORDERABLES Final Result [facility] TO EPIC CONVERSION documented in this encounter Visit Diagnoses Not on filedocumented in this encounter
--- OUTSIDE RECORDS SUMMARY | 2024-06-05 21:01 | XMS_ITS | Encounter Summary ---
Author Organization [facility] Address [address] [place] [address]. [place], [place] [id number] [place] [address] Care Team Providers Care Court Officer Name Role Phone Unavailable Primary Care Provider Unavailabl e Encounter Details Date Type Department Care Team (Late st Contact Info) Description 11/23/2014 Abstract [facility] Conversion Chiqui Fu, [facility] [address] [place] [address] Social History Tobacco Use Types Packs/Day Years Used Date Smoking Tobacco: Never Assessed Comments Unknown Sex and Gender Information Value Date Recorded Sex Assigned at Not on file Legal Sex Female 8:07 AM CDT Gender Identity Not on file Sexual Orientation Not on file documented as of this encounter Last Filed Vital Signs Vital Sign Reading Time Taken Comments Blood Pressure - - Pulse 104 11/23/2014 11:23 AM CDT Temperature - - Respiratory Rate - - Oxygen Saturation - - Inhaled Oxygen Concentration - - Weight 28.1 kg (62 lb) 11/23/2014 11:23 AM CDT Height - - Body Mass Index - - documented in this encounter Plan of Treatment Not on file documented as of this encounter Visit Diagnoses Not on filedocumented in this encounter
--- OUTSIDE RECORDS SUMMARY | 2024-06-05 21:02 | XMS_ITS | Encounter Summary ---
Author Organization [facility] Address [address] [place] [address]. [place] [address] [place] [address] Care Team Providers Care Concrete Stone Fabricator Name Role Phone Nan Crews Primary Care Provider [phone] Encounter Details Date Type Department Care Team (Late st Contact Info) Description 06/18/2008 Abstract [facility] [address] [place] [address] Estella Vazquez, DO [address] [address] Social History Tobacco Use Types Packs/Day Years [...] on filedocumented in this encounter Care Teams Concrete Stone Fabricator Relationship Specialty Start Date End Date Nan Crews FNP PCP - General NURSE PRACTITIONER 04/24/18 documented as of this encounter
--- OUTSIDE RECORDS SUMMARY | 2024-06-05 21:02 | XMS_ITS | Encounter Summary ---
Author Organization [facility] Address [address] [place] [address]. [address] [address] Care Team Providers Care Roller Name Role Phone Nan Crews Primary Care Provider [phone] Encounter Details Date Type Department Care Team (Late st Contact Info) Description 2003 Abstract [facility] CONVERSION [address] [place] [address] , Generic Conversion, Social History Tobacco Use Types [...] on filedocumented in this encounter Care Teams Roller Relationship Specialty Start Date End Date Nan Crews FNP PCP - General NURSE PRACTITIONER 04/24/18 documented as of this encounter
--- OUTSIDE RECORDS SUMMARY | 2024-06-05 21:02 | XMS_ITS | Encounter Summary ---
Author Organization [facility] Address [address] [place] [address]. [place] [address] Care Team Providers Care Guide Cruise Name Role Phone Nan Crews Primary Care Provider [phone] Encounter Details Date Type Department Care Team (Latest Contact Info) Description 09/23/2001 Scan HEALTH INFO [facility] Scanned, Documents Social [...] on to questions 3-9 2 06/21/2020 Comments Unknown Sex and Gender Information Value Date Recorded Sex Assigned at Not on file Legal Sex Female 8:07 AM CDT Gender Identity Not on file Sexual Orientation Not on file COVID-19 Exposure Response Date Recorded In the last month, have you been in contact with someone who was confirmed or suspected to have Coronavirus / COVID-19? No / Unsure 07/07/2020 8:35 AM WELDING MACHINE OPERATOR [employer] documented as of this encounter Plan of Treatment Not on file documented as of this encounter Visit Diagnoses Not on filedocumented in this encounter Care Teams Guide Cruise Relationship Specialty Start Date End Date Nan Crews FNP PCP - General NURSE PRACTITIONER 04/24/18 documented as of this encounter
--- OUTSIDE RECORDS SUMMARY | 2024-06-05 21:02 | XMS_ITS | Encounter Summary ---
Author Organization [facility] Address [address] [place] [address]. [place], [place] [address] [place] [address] Care Team Providers Care Undercover Cop Name Role Phone Unavailable Primary Care Provider Unavailabl e Encounter Details Date Type Department Care Team (Late st Contact Info) Description 06/04/2014 Abstract [facility] Nan Velazquez, [facility] [address] [place] [address] Social History Tobacco Use Types Packs/Day Years Used Date Smoking Tobacco: Never Assessed Comments Unknown Sex and Gender Information Value Date Recorded Sex Assigned at Not on file Legal Sex Female 8:07 AM CDT Gender Identity Not on file Sexual Orientation Not on file documented as of this encounter Last Filed Vital Signs Vital Sign Reading Time Taken Comments Blood Pressure 86/60 06/04/2014 9:55 AM MAINTENANCE COORDINATOR Pulse 84 06/04/2014 9:55 AM MAINTENANCE COORDINATOR Temperature - - Respiratory Rate - - Oxygen Saturation - - Inhaled Oxygen Concentration - - Weight 27.2 kg (60 lb) 06/04/2014 9:55 AM MAINTENANCE COORDINATOR Height - - Body Mass Index - - documented in this encounter Plan of Treatment Not on file documented as of this encounter Visit Diagnoses Not on filedocumented in this encounter
--- OUTSIDE RECORDS SUMMARY | 2024-06-05 21:02 | XMS_ITS | Encounter Summary ---
Author Organization [facility] Address [address] [place] [address]. [place] [address] Care Team Providers Care Color Room Attendant Name Role Phone Nan Crews Primary Care Provider [phone] Encounter Details Date Type Department Care Team (Late st Contact Info) Description 09/10/2011 Abstract [facility] Conversion Md, Generic Conversion, Social History Tobacco [...] on filedocumented in this encounter Care Teams Color Room Attendant Relationship Specialty Start Date End Date Nan Crews FNP PCP - General NURSE PRACTITIONER 04/24/18 documented as of this encounter
--- OUTSIDE RECORDS SUMMARY | 2024-06-05 21:09 | XMS_ITS | Encounter Summary ---
Author Organization [facility] Address [address] [place] [address] Care Team Providers Care Demonstrator Electric Gas Appliances Name Role Phone Nan Crews NP Primary Care Provider Reason for Visit * Reason Comments Sore Throat Sore throat, nasal d rainage and slight cough started last PM. Encounter Details Date Type Department Care Team (Late st Contact Info) Description 04/20/2024 2:15 PM GAME ENGINEER Office Visit [facility] at [address] [address] Cary Kohler NP [facility] [place] [address] Sore throat (Primary Dx) Social History Tobacco Use Types Packs/Day Years Used Date Smoking Tobacco: Never Assessed Comments Unknown Sex and Gender Information Value Date Recorded Sex Assigned at Not on file Legal Sex Female 7:50 AM GAME ENGINEER Gender Identity Not on file Sexual Orientation Not on file documented as of this encounter Last Filed Vital Signs Vital Sign Reading Time Taken Comments Blood Pressure 102/70 04/20/2024 2:27 PM GAME ENGINEER Pulse 103 04/20/2024 2:27 PM GAME ENGINEER Temperature 37.1 ??C (98.7 ??F) 04/20/2024 2:27 PM CS T Respiratory Rate 16 04/20/2024 2:27 PM GAME ENGINEER Oxygen Saturation 97% 04/20/2024 2:27 PM GAME ENGINEER Inhaled Oxygen Concentration - - Weight 48.1 kg (106 lb) 04/20/2024 2:27 PM GAME ENGINEER Height - - Body Mass Index 17.11 10/24/2023 2:04 PM CDT documented in this encounter Patient Instructions * Patient Instructions* Cary Kohler, VICKI - 04/20/2024 2:15 PM GAME ENGINEER Images from the original note were not included. Your strep test in the clinic today is negative. We will send it out for a more sensitive culture. We will notify you when it is resulted. Take ibuprofen and/or tylenol over the counter as directed and as needed for pain or fever. Sore Throat: Call 911 for any of the following: You have trouble breathing or swallowing because your throat is swollen or sore. Seek care immediately if: You are drooling because it hurts too much to swallow. Your fever is higher than 102??F (39??C) or lasts longer than 3 days. You are confused. You taste blood in your throat. Contact your healthcare provider if: Your throat pain gets worse. You have a painful lump in your throat that does not go away after 5 days. Your symptoms do not improve after 5 days. Treatment for pharyngitis: Viral pharyngitis will go away on its own without treatment. Your sore throat should start to feel better in 3 to 5 days for both viral and bacterial infections. You may need any of the following: Antibiotics treat a bacterial infection only. NSAIDs , such as ibuprofen, help decrease swelling, pain, and fever. NSAIDs can cause stomach bleeding or kidney problems in certain people. If you take blood thinner medicine, always ask your healthcare provider if NSAIDs are safe for you. Always read the medicine label and follow directions. Acetaminophen decreases pain and fever. It is available without a doctor's order. Ask how much to take and how often to take it. Follow directions. Acetaminophen can cause liver damage if not taken correctly. Manage your symptoms: Gargle salt water. Mix ?? teaspoon salt in an 8 ounce glass of warm water and gargle. This may helpdecrease swelling in your throat. Drink liquids as directed. You may need to drink more liquids than usual. Liquids may help soothe your throat and prevent dehydration. Ask how much liquid to drink each day and which liquids are bestfor you. Use a cool-steam humidifier to help moisten the air in your room and calm your cough. Soothe your throat with cough drops, ice, soft foods, or popsicles. Magic Mouthwash Equal parts liquid antacid (e.g.Maalox) and children's Benadryl with a couple drops of Anbesol gargle and spit every 3-4 hours as needed. If you have no improvement or worsening of your symptoms, please follow up with your Primary Care Provider, [facility] and or Emergency Room. I strive to provide you with EXCELLENT service. You may receive a survey after your visit today. If you cannot rate your experience as EXCELLENT, please let us know how we can improve and better meet your needs. Thank you for choosing [facility]! It was my pleasure to see you today, I hope you feel better soon! Cary Kohler NP ENGINEER ENGINEER * Attachments The following attachments cannot be sent through Care Everywhere. * Viral Syndrome (AfterCare(R) Instructions(ER/ED)) ([place]) documented in this encounter Progress Notes * Cary Kohler NP - 04/20/2024 2:15 PM CST Images from the original note were not included. Subjective/Objective Patient ID: Cecilia Jones is a 18 y.o. female. Chief Complaint Sore Throat (Sore throat, nasal drainage and slight cough started last PM. ) HPI This is a 18-year-old female who presents with complaint of sore throat, cough that started 1 day ago. She denies any fever, chills, abdominal pain. Declines covid and flu testing. Review of Systems All systems reviewed and are negative or non contributory for this patient's presentation today other than as stated in the HPI . Physical Exam Vitals and nursing note reviewed. Constitutional: General: She is not in acute distress. Appearance: She is well-developed. She is not ill-appearing or toxic-appearing. HENT: Head: Normocephalic. Right Ear: Tympanic membrane normal. Left Ear: Tympanic membrane normal. Mouth/Throat: Mouth: Mucous membranes are moist. Pharynx: Oropharynx is clear. Uvula midline. Posterior oropharyngeal erythema present. No oropharyngeal exudate or uvula swelling. Tonsils: No tonsillar exudate or tonsillar abscesses. Eyes: Conjunctiva/sclera: Conjunctivae normal. Cardiovascular: Rate and Rhythm: Normal rate and regular rhythm. Heart sounds: Normal heart sounds. No murmur heard. Pulmonary: Effort: Pulmonary effort is normal. Breath sounds: Normal breath sounds. Abdominal: Palpations: Abdomen is soft. Musculoskeletal: Cervical back: Normal range of motion and neck supple. Lymphadenopathy: Cervical: No cervical adenopathy. Skin: General: Skin is warm and dry. Capillary Refill: Capillary refill takes less than 2 seconds. Findings: No rash. Neurological: General: No focal deficit present. Mental Status: She is alert and oriented to person, place, and time. Psychiatric: Mood and Affect: Mood normal. Behavior: Behavior normal. Vitals: 04/20/24 1427 BP: 102/70 Pulse: 103 Resp: 16 Temp: 37.1 ??C (98.7 ??F) SpO2: 97% Weight: 48.1 kg (106 lb) Assessment/Plan # acute upper respiatory infection --likely viral --strep negative --exam findings warrant no antibiotics, antiviral, or steroid at this time --discussed viral versus bacterial sinusitis and the lack of benefit of antibiotics in treatment ofviral infections. --recommended antihistamine with or without decongestant pending symptoms --Gynu-ebo-gejggiy antihistamine such as Claritin or Zyrtec will aid in alleviation of symptoms such as nasal drainage and sinus drainage. Benadryl can be sedating, I suggest using it at bedtime. --Nasal spray, such as Flonase may also aid in nasal congestion. This may also be purchased over the counter. --COVID/FLU swab declined by patient --throat culture pending --ED presentation with one or more of the following symptoms: fever uncontrolled with antipyretics,shortness of breath, chest discomfort, uncontrolled n/v/d --f/u with PCP in 5-7 days if symptoms do not improve/worsen Diagnoses and all orders for this visit: Sore throat (Primary) - POCT rapid strep A - ibuprofen (ADVIL,MOTRIN) tablet/capsule 600 mg - Throat culture Throat; Future No results found for this or any previous visit (from the past 4 hours). Disposition Treatment plan including expectations, follow up, and return precautions discussed with patient/parent, verbalizes understanding. Medication dosage, use, and potential adverse reactions discussed with patient/parent. Advised to follow up with PCP if symptoms do not resolve as expected or sooner if condition worsens. Signs/symptoms warranting ER evaluation reviewed. Patient and/or guardian was given an opportunity to ask questions, questions answered. Cary Kohler NP ENGINEER documented in this encounter Plan of Treatment Not on file documented as of this encounter Procedures Procedure Name Priority Date/Time Associated Diagnosis Comments POCT RAPID STREP Routine 04/20/2024 2:43 PM GAME ENGINEER Sore throat documented in this encounter Results * Throat culture Throat (04/20/2024 2:54 PM GAME ENGINEER) Report Final Report: No growth of pathogens. Comment:Testing performed by : [facility], [address] [place] [address] Throat 04/20/2024 2:54 PM GAME ENGINEER 04/20/2024 10:04 PM GAME ENGINEER Narrative [facility] Dixon 04/21/2024 6:53 PM GAME ENGINEER Testing performed by [facility] Microbiology Laboratory ([phone]). Cary Kohler NP LAB MICROBIOLOGY - [facility] ORDERABLES Final Result ERI [id number] [address] Department [place] [address] * POCT rapid strep A (04/20/2024 2:43 PM GAME ENGINEER) Rapid Strep A, POC Negative Negative Swab 04/20/2024 2:43 PM GAME ENGINEER Cary Kohler NP POINT OF CARE TEST FIONA JACKMAN Final Result documented in this encounter Visit Diagnoses Diagnosis Sore throat- Primary Acute pharyngitis Sore throat Acute pharyngitis documented in this encounter Administered Medications Inactive Administered Medications - up to 3 most recent administrations Medication Order MAR Action Action Date Dose Rate Site ibuprofen (ADVIL,MOTRIN) tablet/capsule 600 mg 600 mg (12.5 mg/kg), oral, Once, On 04/20/24 at 1530, For 1 doseIndications:Sore throat Given 04/20/2024 2:52 PM GAME ENGINEER 600 mg documented in this encounter Historical Medications * This list may reflect changes made after this encounter. meloxicam (MOBIC) 7.5 mg tablet TAKE 1 TABLET BY MOUTH TWICE DAILY FOR 14 DAYS FOR PAIN AND INFLAMMATION 04/11/2024 gabapentin (NEURONTIN) 100 mg capsule TAKE 1 CAPSULE BY MOUTH THREE TIMES DAILY FOR 10 DAYS NEEDED FOR NERVE PAIN OR NUMBNESS. MAY CAUSE DROWSINESS 04/11/2024 cyclobenzaprine (FLEXERIL) 10 mg tablet 04/11/2024 added in this encounter Care Teams Demonstrator Electric Gas Appliances Relationship Specialty Start Date End Date Nan Crews NP [address] [place] [address] [place] [address] PCP - General Pediatrics 09/06/20 documented as of this encounter
--- OUTSIDE RECORDS SUMMARY | 2024-06-05 21:09 | XMS_ITS | Clinical Summary ---
Author Organization [facility] Address [address] [place] [address] Care Team Providers Care Spar Finisher Name Role Phone Nan Crews NP Primary Care Provider [phone] Allergies No known active allergies Medications FLUoxetine 10 mg tablet Take 10 mg by mouth daily 1 Active Tri-Sprintec, 28, 0.18/0.215/0.25 mg-35 mcg (28) per tablet Take 1 tablet by mouth daily 1 Active brexpiprazole (REXULTI) 0.5 mg tablet Take 1 tablet (0.5 mg total) by mouth daily 4 Active cholecalciferol (VITAMIN D-3) 1,000 unit capsule Take 1 capsule (1,000 Units total) by mouth daily 3 Active metroNIDAZOLE (FLAGYL) 500 mg tablet Take 1 tablet (500 mg total) by mouth every 12 (twelve) hours 4 Active levonorgestreL (MIRENA) IUD 1 each by intrauterine route once Active cyclobenzaprine (FLEXERIL) 10 mg tablet 4 Active gabapentin (NEURONTIN) 100 mg capsule TAKE 1 CAPSULE BY MOUTH THREE TIMES DAILY FOR 10 DAYS NEEDED FOR NERVE PAIN OR NUMBNESS. MAY CAUSE DROWSINESS 4 Active meloxicam (MOBIC) 7.5 mg tablet TAKE 1 TABLET BY MOUTH TWICE DAILY FOR 14 DAYS FOR PAIN AND INFLAMMATION 4 Active Active Problems Problem Noted Date Diagnosed Date MDD (major depressive disord er), recurrent episode, moderate 09/05/2023 NICOLETTE (generalized anxiety disorder) 09/05/2023 PTSD (post-traumatic stress disorder) 03/21/2023 Borderline personality disorder (CMS/HCC) 2022 Dysmenorrhea in adolescent 12/09/2018 Intermittent daytime urinary incontinence 2010 Increased frequency of urination 07/20/2010 Encounters Date Type Department Care Team Description 04/20/2024 2:54 PM SERVICE LINE COORDINATOR - 04/20/2024 11:59 PM SERVICE LINE COORDINATOR Hospital Encounter [address] [address] Sore throat Discharge Disposition: Discharge to home or self care 04/20/2024 2:15 PM SERVICE LINE COORDINATOR Office Visit [facility] at [address] [address] Cary Kohler NP Sore throat (Primary Dx) from Last 3 Months Medical History Medical History Date Comments Polyuria Urinary incontinence Family History Medical History Relation Name Comments Urolithiasis Father No Known Problems Mother Relation Name Status Comments Father Mother Social History Tobacco Use Types Packs/Day Years Used Date Smoking Tobacco: Never Assessed Comments Unknown Sex and Gender Information Value Date Recorded Sex Assigned at Not on file Legal Sex Female 7:50 AM SERVICE LINE COORDINATOR Gender Identity Not on file Sexual Orientation Not on file Obstetrics History Last Filed Vital Signs Vital Sign Reading Time Taken Comments Blood Pressure 102/70 04/20/2024 2:27 PM SERVICE LINE COORDINATOR Pulse 103 04/20/2024 2:27 PM SERVICE LINE COORDINATOR Temperature 37.1 ??C (98.7 ??F) 04/20/2024 2:27 PM CS T Respiratory Rate 16 04/20/2024 2:27 PM SERVICE LINE COORDINATOR Oxygen Saturation 97% 04/20/2024 2:27 PM SERVICE LINE COORDINATOR Inhaled Oxygen Concentration - - Weight 48.1 kg (106 lb) 04/20/2024 2:27 PM SERVICE LINE COORDINATOR Height 167.6 cm (5' 6 ) 10/24/2023 2:04 PM CDT Body Mass Index 17.11 10/24/2023 2:04 PM CDT Plan of Treatment Health Maintenance Due Date Last Done Comments Depression Screening 2003 Hepatitis C Screening 2003 HPV Vaccines (1 - 3-dose series) 2018 Meningococcal B Vaccine (1 of 2 - Patient Seeks Protection) 2019 Regular Well Visit/Exam 18-64 2021 Influenza Vaccine (#1) 2024 05/04/2010, 2009 DTaP/Tdap/Td Vaccine (7 - Td or Tdap) 12/28/2024 12/28/2014, 12/26/2007, 01/19/2005, Additional history exists Pneumococcal vaccine <65 Aged Out 004, 2003, 2003 No longer eligible based on patient's age to complete this topic Varicella Vaccines Completed 12/26/2007, 01/19/2005 Meningococcal Vaccine Completed 11/22/2020, 015 Procedures Procedure Name Priority Date/Time Associated Diagnosis Comments THROAT CULTURE Routine 04/20/2024 2:54 PM SERVICE LINE COORDINATOR Sore throat POCT RAPID STREP Routine 04/20/2024 2:43 PM SERVICE LINE COORDINATOR Sore throat from Last 3 Months Results * Throat culture Throat (04/20/2024 2:54 PM SERVICE LINE COORDINATOR) Report Final Report: No growth of pathogens. Comment:Testing performed by : [facility], [address] [place]., [address] Throat 04/20/2024 2:54 PM SERVICE LINE COORDINATOR 04/20/2024 10:04 PM SERVICE LINE COORDINATOR Narrative ERI GUERRIER - 04/21/2024 6:53 PM SERVICE LINE COORDINATOR Testing performed by [facility] Microbiology Laboratory ([phone]). us Cary Kohler NP LAB MICROBIOLOGY - [facility] ORDERABLES Final Result ERI GUERRIER [id number] [address] Department [place] [address] * POCT rapid strep A (04/20/2024 2:43 PM SERVICE LINE COORDINATOR) Rapid Strep A, POC Negative Negative Swab 04/20/2024 2:43 PM SERVICE LINE COORDINATOR Cary Kohler MONONITROTOLUENE OPERATOR POINT OF CARE TEST FIONA JACKMAN Final Result from Last 3 Months Insurance [employer] Care Teams Spar Finisher Relationship Specialty Start Date End Date Nan Crews NP [address] [place] [address] [place] [address] PCP - General Pediatrics 09/06/20
--- OUTSIDE RECORDS SUMMARY | 2024-06-05 21:09 | XMS_ITS | Encounter Summary ---
Author Organization [facility] Address [address] [place] [address] Phone Care Team Providers Care Diesel Scoop Operator Name Role Phone Nan Crews NP Primary Care Provider [phone] Reason for Visit * Reason Comments New Patient Urinary Incontinence Encounter Details Date Type Department Care Team (Late st Contact Info) Description 09/23/2020 10:00 AM CDT Office Visit [facility] 2nd [place] [address] [place] [address] Ashlee Lin NP [address] [facility] [address] [place], [place] [id number] Intermittent daytime urinary incontinence (Primary Dx) Social History Tobacco Use Types Packs/Day Years Used Date Smoking Tobacco: Never Assessed Comments Unknown Sex and Gender Information Value Date Recorded Sex Assigned at Not on file Legal Sex Female 7:50 AM TOURIST AGENT Gender Identity Not on file Sexual Orientation Not on file documented as of this encounter Last Filed Vital Signs Vital Sign Reading Time Taken Comments Blood Pressure - - Pulse - - Temperature - - Respiratory Rate - - Oxygen Saturation - - Inhaled Oxygen Concentration - - Weight 47.6 kg (105 lb) 09/23/2020 9:48 AM CDT Height 167.6 cm (5' 6 ) 09/23/2020 9:48 AM CDT Body Mass Index 16.95 09/23/2020 9:48 AM CDT Body Mass Index Percentile 3.24% 09/23/2020 9:4 8 AM CDT Growth Chart: CDC (Girls, 2- 20 Years) documented in this encounter Progress Notes * Ashlee Lin NP - 09/23/2020 10:00 AM CDT History and Physical HPI: Cecilia Jones is a 15 y.o. female who presents today for evaluation of urinary incontinence. I was requested to evaluate this condition by Nan Crews NP. Parents states that Cecilia has always struggled some with incontinence. She was seen at [facility] in 2008 for difficulties potty training. She underwent a cystomeatoplasty, per parents, in 2008. Following the procedure, To went to physical therapy for several months. She was able to become fairly dry for several years. In the past 6-12 months, her incontinence has gotten worse. She states that urinary incontinenceis daily damp to soaking through her underwear. She can be wet despite voiding a few minutes prior.Cecilia voids 5 times a day. She denies nocturnal enuresis. Cecilia states she doesn't drink much during the day and only drinks soda or coffee. Cecilia delays urination at school due to not feeling like she can miss class. She denies stranguria, hematuria, dysuria or hesitancy. Cecilia denies constipation. She has bowel movements every day to every other day. Review of Systems: Please refer to Pediatric Urology Child History form dated 09/23/2020 which was reviewed with the family today. Vitals: Ht 167.6 cm (5' 6 ) Wt 47.6 kg (105 lb) BMI 16.95 kg/m?? Physical exam: General Appearance: alert, well appearing, no acute distress and normal weight Head: normocephalic, atraumatic Lungs: normal work of breathing GI: abdomen soft, non-tender, non-distended, no palpable stool in left colon Back: spine straight, no CVA tenderness and no sacral abnormality Extremity: extremities warm and well perfused and no edema Skin: no rashes, no lesions and intact Neurologic: moves all extremities well Lab/Radiology/Diagnostic Review: Recent Results (from the past 12 hour(s)) POCT URINALYSIS NON AUTO Collection Time: 09/23/20 9:51 AM Result Value Ref Range Color, Urine, POC Dark Yellow Clarity, ur, POC Clear Clear Glucose, ur, POC Negative Negative mg/dL Bilirubin, ur, POC Negative Negative, Small, Moderate, Large Ketones, ur, POC Negative Negative Specific Dorena, POC 1.015 1.005 - 1.030 Blood, ur, POC Trace (A) Negative pH, ur, POC 6.5 5.0 - 8.0 Protein, ur, POC Negative Negative Leukocytes, ur, POC Trace (A) Negative Nitrite, ur, POC Negative Negative Microscopy: no RBC, no WBC, no bacteria, no debris Pelvic ultrasound done prevoid showed a small amount of urine in the bladder without stool by the bladder. Pelvic ultrasound done postvoid showed a no postvoid residual with a thin bladder wall and without stool by the bladder. Uroflow showed a intermittent waveform. Volume 52ml. Qmax 10.6ml/s. Total time 9.5s. Assessment 1. Intermittent daytime urinary incontinence Plan: It is my opinion that Juno incontinence is related to lower urinary tract dysfunction. This is complicated by delayed voiding techniques and bladder irritants. I discussed our bowel and bladder program, timed voiding and behavior management. This includes using a step stool to support her feet,sitting on the toilet with knees spread apart, taking slow deep breaths, and staying at or on the toilet for a full minute to assist in voiding. She will practice timed voiding during the day. I haverecommended increasing fluids during the day. Monitor for constipation and start MiraLax 8.5-17 grams daily as needed. I recommended avoiding foods known to irritate the bladder such as red dye, caffe ine, artifical sweeteners, and carbonated beverages. She will collect a voiding diary now and in 6 weeks. A school note was given to allow Cecilia access to a water bottle and to go to the restroom frantz regular basis. If incontinence persists despite these interventions, we will discuss adding in physical therapy at her next appointment. Handouts were given concerning Bladder and Bowel Dysfunction and Constipation/Fiber. Follow-up will be in 8-12 weeks. documented in this encounter Plan of Treatment Not on file documented as of this encounter Procedures Procedure Name Priority Date/Time Associated Diagnosis Comments POCT URINALYSIS NON AUTO Routine 09/23/2020 9:51 AM CDT Intermittent daytime urinary incontinence documented in this encounter Results * (ABNORMAL) POCT URINALYSIS NON AUTO (09/23/2020 9:51 AM CDT) Color, Urine, POC Dark Yellow Clarity, ur, POC Clear Clear Glucose, ur, POC Negative Negative mg/dL Bilirubin, ur, POC Negative Negative, Small, Moderate, Large Ketones, ur, POC Negative Negative Specific Dorena, POC 1.015 1.005 - 1.030 Blood, ur, POC Trace(A) Negative pH, ur, POC 6.5 5.0 - 8.0 Protein, ur, POC Negative Negative Leukocytes, ur, POC Trace(A) Negative Nitrite, ur, POC Negative Negative Urine, clean voided 09/23/2020 9:51 AM CDT Ashlee Lin STORAGE GARAGE ATTENDANT POINT OF CARE TEST O RDERABLES Final Result documented in this encounter Visit Diagnoses Diagnosis Intermittent daytime urinary incontinence- Primary documented in this encounter Historical Medications * This list may reflect changes made after this encounter. Tri-Sprintec, 28, 0.18/0.215/0.25 mg-35 mcg (28) per tablet Take 1 tablet by mouth daily 07/25/2020 FLUoxetine 10 mg tablet Take 10 mg by mouth daily 06/26/2020 added in this encounter Care Teams Diesel Scoop Operator Relationship Specialty Start Date End Date Nan Crews NP [address] [place] [address] [place] [address] PCP - General Pediatrics 09/06/20 documented as of this encounter
--- OUTSIDE RECORDS SUMMARY | 2024-06-05 21:09 | XMS_ITS | Encounter Summary ---
Author Organization [facility] Healthcare Address [address] [place] [address] Care Team Providers Care Drain Tile Machine Operator Name Role Phone Nan Crews NP Primary Care Provider [phone] Encounter Details Date Type Department Care Team (Latest Contact Info) Description 04/20/2024 2:54 PM NEONATOLOGIST - 04/20/2024 11:59 PM NEONATOLOGIST Hospital Encounter [address] [address] Sore throat Discharge Disposition: Discharge to home or self care Social History Tobacco Use Types Packs/Day Years Used Date Smoking Tobacco: Never Assessed Comments Unknown Sex and Gender Information Value Date Recorded Sex Assigned at Not on file Legal Sex Female 7:50 AM NEONATOLOGIST Gender Identity Not on file Sexual Orientation Not on file documented as of this encounter Medications at Time of Discharge brexpiprazole (REXULTI) 0.5 mg tablet Take 1 tablet (0.5 mg total) by mouth daily 10/03/2023 cholecalciferol (VITAMIN D-3) 1,000 unit capsule Take 1 capsule (1,000 Units total) by mouth daily 04/11/2023 cyclobenzaprine (FLEXERIL) 10 mg tablet 04/11/2024 FLUoxetine 10 mg tablet Take 10 mg by mouth daily 06/26/2020 gabapentin (NEURONTIN) 100 mg capsule TAKE 1 CAPSULE BY MOUTH THREE TIMES DAILY FOR 10 DAYS NEEDED FOR NERVE PAIN OR NUMBNESS. MAY CAUSE DROWSINESS 04/11/2024 levonorgestreL (MIRENA) IUD 1 each by intrauterine route once meloxicam (MOBIC) 7.5 mg tablet TAKE 1 TABLET BY MOUTH TWICE DAILY FOR 14 DAYS FOR PAIN AND INFLAMMATION 04/11/2024 metroNIDAZOLE (FLAGYL) 500 mg tablet Take 1 tablet (500 mg total) by mouth every 12 (twelve) hours 07/30/2023 Tri-Sprintec, 28, 0.18/0.215/0.25 mg-35 mcg (28) per tablet Take 1 tablet by mouth daily 07/25/2020 documented as of this encounter Discharge Disposition Disposition Code Departure Means Destination Discharge to home or self care documented in this encounter Miscellaneous Notes * Result Encounter Note - Rebecca Kerr NP - 04/20/2024 11:59 PM NEONATOLOGIST Please alert patient of negative strep culture. Patient should continue tylenol/ibuprofen as directed for discomfort and f/u with PCP if symptoms persist. ATOLOGIST * Result Encounter Note - Mariza Dueñas MA - 04/20/2024 11:59 PM NEONATOLOGIST Patient reviewed their test results on My Chart ATOLOGIST documented in this encounter Plan of Treatment Not on file documented as of this encounter Procedures Procedure Name Priority Date/Time Associated Diagnosis Comments THROAT CULTURE Routine 04/20/2024 2:54 PM NEONATOLOGIST Sore throat documented in this encounter Results * Throat culture Throat (04/20/2024 2:54 PM NEONATOLOGIST) Report Final Report: No growth of pathogens. Comment:Testing performed by : [facility], [address] [facility], [place]., [address] Throat 04/20/2024 2:54 PM NEONATOLOGIST 04/20/2024 10:04 PM NEONATOLOGIST Narrative ERI - 04/21/2024 6:53 PM NEONATOLOGIST Testing performed by [facility] Microbiology Laboratory ([phone]). us Cary Kohler NP LAB MICROBIOLOGY - GENE [facility] ORDERABLES Final Result ERI [id number] [address] Department [place] [address] documented in this encounter Visit Diagnoses Diagnosis Sore throat Acute pharyngitis documented in this encounter Care Teams Drain Tile Machine Operator Relationship Specialty Start Date End Date Nan Crews NP [address] [place] [address] [place] [address] PCP - General Pediatrics 09/06/20 documented as of this encounter
--- OUTSIDE RECORDS SUMMARY | 2024-06-05 21:09 | XMS_ITS | Encounter Summary ---
Author Organization [facility] Healthcare Address [address] [place] [address] Care Team Providers Care Manager Pmo Name Role Phone Nan Crews NP Primary Care Provider [phone] Encounter Details Date Type Department Care Team (Latest Contact Info) Description 10/24/2023 2:32 PM CDT - 10/24/2023 11:59 PM CDT Hospital Encounter [address] [address] Dysuria Discharge Disposition: Discharge to home or self care Social History Tobacco Use Types Packs/Day Years Used Date Smoking Tobacco: Never Assessed Comments Unknown Sex and Gender Information Value Date Recorded Sex Assigned at Not on file Legal Sex Female 7:50 AM CORPORATE SALES MANAGER Gender Identity Not on file Sexual Orientation Not on file documented as of this encounter Medications at Time of Discharge brexpiprazole (REXULTI) 0.5 mg tablet Take 1 tablet (0.5 mg total) by mouth daily 10/03/2023 cholecalciferol (VITAMIN D-3) 1,000 unit capsule Take 1 capsule (1,000 Units total) by mouth daily 04/11/2023 FLUoxetine 10 mg tablet Take 10 mg by mouth daily 06/26/2020 levonorgestreL (MIRENA) IUD 1 each by intrauterine route once metroNIDAZOLE (FLAGYL) 500 mg tablet Take 1 tablet (500 mg total) by mouth every 12 (twelve) hours 07/30/2023 Tri-Sprintec, 28, 0.18/0.215/0.25 mg-35 mcg (28) per tablet Take 1 tablet by mouth daily 07/25/2020 sulfamethoxazole -trimethoprim (BACTRIM DS) 800-160 mg per tablet Take 1 tablet by mouth 2 (two) times a day for 7 days 14 tablet 10/26/2023 documented as of this encounter Discharge Disposition Disposition Code Departure Means Destination Discharge to home or self care documented in this encounter Miscellaneous Notes * Result Encounter Note - Patricia Cordoba NP - 10/24/2023 11:59 PM CDT Attempted to call patient to notify her of preliminary positive report. We will send Bactrim to pharmacy listed on her chart. * Result Encounter Note - Lena Santillan MA - 10/24/2023 11:59 PM CDT Viewed on [facility] [employer]art documented in this encounter Plan of Treatment Not on file documented as of this encounter Procedures Procedure Name Priority Date/Time Associated Diagnosis Comments VAGINITIS PANEL Routine 10/24/2023 2:32 PM CDT Dysuria URINE CULTURE Routine 10/24/2023 2:32 PM CDT Dysuria documented in this encounter Results * (ABNORMAL) Urine culture Urine, clean voided (10/24/2023 2:32 PM CDT) Report Final Report: Greater than or equal to 100,000 colonies/mL of Escherichia coli (.) Comment:Testing performed by : [facility], [address] [facility], [place]., [address] Organism ESCHERICHIA COLI ERI GUERRIER Urine, clean voided 10/24/2023 2:32 PM CDT 10/24/2023 9:43 PM CDT Narrative ERI GUERRIER - 10/27/2023 10:26 AM CDT Testing performed by [facility] Microbiology Laboratory ([phone]) Organism Antibiotic Method Susceptibility Escherichia coli Ampicillin INTERPRETATION Resistant Escherichia coli Cefazolin INTERPRETATION Resistant Escherichia coli Nitrofurantoin INTERPRETATION Susceptible Escherichia coli Gentamicin INTERPRETATION Susceptible Escherichia coli Trimethoprim with Sulfamethoxazole IN TERPRETATION Susceptible Escherichia coli Meropenem INTERPRETATION Susceptible Escherichia coli Cefepime INTERPRETATION Susceptible Escherichia coli Ciprofloxacin INTERPRETATION Resistant Escherichia coli Ceftazidime INTERPRETATION Susceptible Escherichia coli Ceftriaxone INTERPRETATION Susceptible Escherichia coli Piperacillin/Tazobactam INTERPRETATIO N Intermediate Escherichia coli Cephalexin INTERPRETATION Resistant Escherichia coli Cefuroxime-axetil INTERPRETATION Resistant Escherichia coli Cefdinir INTERPRETATION Resistant Patricia Cordoba NP LAB MICROBIOLOGY - GENERAL ORDERABLES Final Result ERI [id number] [address] Department [place] [address] * Vaginitis panel Vaginal (10/24/2023 2:32 PM CDT) Monie DNA probe Not Detected Not Detected Comment:Testing performed by : [facility], [address] [place] [address]., [id number] Gardnerella DNA probe Not Detected Not Detected ERI GUERRIER Comment:Testing performed by : [facility], [address] [place] [address]., [phone] Trichomonas DNA probe Not Detected Not Detected ERI GUERRIER Comment: Interpretive Data Testing performed by [facility] via [employer]irm VPIII Microbial Identification Test, a DNA probe test for use in the detection and identification of Monie species, Gardnerella vaginalis and Trichomonas vaginalis nucleic acid in vaginal fluid specimens from patients with symptoms of vaginitis/vaginosis. Negative results for these tests suggest the patient does not have candidiasis, bacterial vaginosis and/or trichomoniasis when consistent with clinical signs and symptoms. Current interpretive data was last revised on 2020. Testing performed by: [facility], [address] [place] [address]., [id number] Vaginal 10/24/2023 2:32 PM CDT 10/25/2023 1:24 PM CDT Patricia Cordoba TRACTOR TRAILER DRIVER LAB MICROBIOLOGY - GENERAL ORDERABLES Final Result ERI [id number] [address] Department [place] [address] documented in this encounter Visit Diagnoses Diagnosis Dysuria documented in this encounter Care Teams Manager Pmo Relationship Specialty Start Date End Date Nan Crews NP [address] [place] [address] [place] [address] PCP - General Pediatrics 09/06/20 documented as of this encounter
--- OUTSIDE RECORDS SUMMARY | 2024-06-05 21:09 | XMS_ITS | Encounter Summary ---
Author Organization [facility] Healthcare Address [address] [place] [address] Care Team Providers Care Student Services Coordinator Name Role Phone Nan Crews NP Primary Care Provider [phone] Reason for Visit * Reason Comments UTI Pt c/o frequent urin ation, abnormal odor/color to urine, burning/irritation when urinating, abnormal/ white discharge, low abdominal pressurePt states no vaginal itching or low back No known std exposure and not interested in std testingS/s started 1 month agoPt has self medicated with azo Encounter Details Date Type Department Care Team (Late st Contact Info) Description 10/24/2023 2:00 PM CDT Office Visit [facility] Medical [facility] Convenient Care at [address] [address] Joy Cordoba NP [address] [place] [address] [address] [place] [address] Dysuria (Primary Dx); Cystitis Social History Tobacco Use Types Packs/Day Years Used Date Smoking Tobacco: Never Assessed Comments Unknown Sex and Gender Information Value Date Recorded Sex Assigned at Not on file Legal 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 Gender Identity Not on file Sexual Orientation Not on file documented as of this encounter Last Filed Vital Signs Vital Sign Reading Time Taken Comments Blood Pressure 106/64 10/24/2023 2:04 PM CDT Pulse 90 10/24/2023 2:04 PM CDT Temperature 36.4 ??C (97.5 ??F) 10/24/2023 2:04 PM CD T Respiratory Rate 18 10/24/2023 2:04 PM CDT Oxygen Saturation 97% 10/24/2023 2:04 PM CDT Inhaled Oxygen Concentration - - Weight 47.6 kg (105 lb) 10/24/2023 2:04 PM CDT Height 167.6 cm (5' 6 ) 10/24/2023 2:04 PM CDT Body Mass Index 16.95 10/24/2023 2:04 PM CDT documented in this encounter Patient Instructions * Patient Instructions* Joy Cordoba, [employer] - 10/24/2023 2:00 PM CDT If you have no improvement or worsening of your symptoms, please follow up with your Primary Care Provider, [facility] Care and or Emergency Room. I strive to provide you with EXCELLENT service. You may receive a survey after your visit today. If you cannot rate your experience as EXCELLENT, please let us know how we can improve and better meet your needs. Thank you for choosing [facility]! It was my pleasure to see you today, I hope you feel better soon! Joy Cordoba PROPERTY OFFICER Abdominal Pain A serious cause of the abdominal pain can not be ruled out at this time. It is important that you carefully watch for changes in the abdominal pain that might suggest a serious condition (such as appendicitis that is difficult to diagnose early). See your doctor or return to the emergency department immediately if your condition gets worse. See your doctor tomorrow or as soon as possible if you are not getting better. These symptoms suggest serious causes of abdominal pain. Call your doctor or return to the emergency department if you are feeling worse or if: 1. You are unable to walk easily or are walking in a bent-over position. 2. Stepping or jumping results in severe pain. 3. You are experiencing pain in the right lower part of the abdomen. 4. The abdomen is hard and painful when you press on it. 5. There is severe abdominal pain when coughing. 6. You are vomiting or gagging. 7. Vomiting is bloody or green or looks like chocolate or coffee. 8. The belly looks very full or big. 9. You are experiencing severe pain every 3 to 20 minutes. 10. Stool (poop) is bloody or black. 11. You are drowsy, weak, fussy, or pale * Attachments The following attachments cannot be sent through Care Everywhere. * Vaginal Discharge (AfterCare(R) Instructions(ER/ED)) (Samoan) documented in this encounter Ordered Prescriptions Prescription Sig Dispense Quantity Refills Last Filled Start Date End Date sulfamethoxazole-t rimethoprim (BACTRIM DS) 800-160 mg per tablet Take 1 tablet by mouth 2 (two) times a day for 7 days 14 tablet 10/26/2023 11/02/2023 documented in this encounter Progress Notes * Joy Cordoba NP - 10/24/2023 2:00 PM CDT Images from the original note were not included. Subjective/Objective Patient ID: Cecilia Jones is a 18 y.o. female. Chief Complaint UTI (Pt c/o frequent urination, abnormal odor/color to urine, burning/irritation when urinating, abnormal/ white discharge, low abdominal pressure/Pt states no vaginal itching or low back /No known std exposure and not interested in std testing/S/s started 1 month ago/Pt has self medicated with azo) 18-year-old female patient presents today with complaints of urinary burning and abdominal crampingx1 month. Patient reports that she has a proximally 1 week of symptoms and then they resolve. Patient reports that she has been taking azo. Reports that the cramping causes her to also feel nauseous.Denies any vomiting. Reports she currently has a Mirena IUD. Reports she does have some white discha rge. Reports she has had 1 partner over the last 6-7 months. Denies any abdominal pain. Patient reports per her OB, they believe that she has endometriosis. Reports she has not had a menses in 4 months. Review of Systems All other systems reviewed and are negative. Physical Exam Constitutional: Appearance: Normal appearance. She is normal weight. She is not ill-appearing. HENT: Head: Normocephalic. Right Ear: External ear normal. Left Ear: External ear normal. Nose: Nose normal. Mouth/Throat: Mouth: Mucous membranes are moist. Pharynx: Oropharynx is clear. Eyes: Pupils: Pupils are equal, round, and reactive to light. Cardiovascular: Rate and Rhythm: Normal rate. Pulses: Normal pulses. Pulmonary: Effort: Pulmonary effort is normal. Abdominal: General: Bowel sounds are normal. Palpations: Abdomen is soft. Tenderness: There is no abdominal tenderness. Musculoskeletal: General: Normal range of motion. Cervical back: Normal range of motion. Skin: General: Skin is warm and dry. Capillary Refill: Capillary refill takes less than 2 seconds. Neurological: General: No focal deficit present. Mental Status: She is alert and oriented to person, place, and time. Mental status is at baseline. Psychiatric: Mood and Affect: Mood normal. Behavior: Behavior normal. Thought Content: Thought content normal. Judgment: Judgment normal. Vitals: 10/24/23 1404 BP: 106/64 BP Location: Left arm Patient Position: Sitting Pulse: 90 Resp: 18 Temp: 36.4 ??C (97.5 ??F) SpO2: 97% Weight: 47.6 kg (105 lb) Height: 167.6 cm (5' 6 ) No results found. Past Medical History: Diagnosis Date Polyuria Urinary incontinence Current Outpatient Medications: brexpiprazole (REXULTI) 0.5 mg tablet, Take 1 tablet (0.5 mg total) by mouth daily, Disp: , Rfl: cholecalciferol (VITAMIN D-3) 1,000 unit capsule, Take 1 capsule (1,000 Units total) by mouth daily, Disp: , Rfl: levonorgestreL (MIRENA) IUD, 1 each by intrauterine route once, Disp: , Rfl: FLUoxetine 10 mg tablet, Take 10 mg by mouth daily (Patient not taking: Reported on 10/24/2023), Disp: , Rfl: metroNIDAZOLE (FLAGYL) 500 mg tablet, Take 1 tablet (500 mg total) by mouth every 12 (twelve) hours(Patient not taking: Reported on 10/24/2023), Disp: , Rfl: Tri-Sprintec, 28, 0.18/0.215/0.25 mg-35 mcg (28) per tablet, Take 1 tablet by mouth daily (Patient not taking: Reported on 10/24/2023), Disp: , Rfl: No Known Allergies Social History Tobacco Use Smoking status: Not on file Smokeless tobacco: Not on file Substance and Sexual Activity Drug use: Not on file Sexual activity: Not on file Alcohol Use: Not At Risk (10/03/2023) Received from [facility] AUDIT-C Frequency of Alcohol Consumption: Monthly or less Average Number of Drinks: 1 or 2 Frequency of Binge Drinking: Never No past surgical history on file. Procedures Assessment/Plan Recent Results (from the past 4 hour(s)) POCT urinalysis dipstick Collection Time: 10/24/23 2:16 PM Result Value Ref Range Color, Urine, POC Yellow Clarity, ur, POC Clear Clear Glucose, ur, POC Negative Negative MG/DL Bilirubin, ur, POC Negative Negative, Small, Moderate, Large Ketones, ur, POC Negative Negative Specific [place], POC 1.030 1.003 - 1.030 Blood, ur, POC Trace (A) Negative pH, ur, POC 7.0 5.0 - 8.0 Protein, ur, POC Negative Negative Urobilinogen, urine, POC 0.2 0.2 - 1.0 mg/dL Nitrite, ur, POC Negative Negative Leukocytes, ur, POC Negative Negative Lot Number 0 Diagnoses and all orders for this visit: Dysuria (Primary) - Urine culture Urine, clean voided; Future - POCT urinalysis dipstick - Vaginitis panel Vaginal; Future Plan: Patient's urine is not consistent with cystitis. We will send for culture to rule out UTI. Patient was agreeable to vaginitis panel however would like to return for any other STI testing. Reports that if the vaginitis panel is negative, she will return. Patient reports she did have STI testing 2-3 months ago. Patient reports that she does have a history of endometriosis and believes that this pain may be caused by the endometriosis. Disposition Treatment plan including expectations, follow up, and return precautions discussed with patient/parent, verbalizes understanding. Medication dosage, use, and potential adverse reactions discussed with patient/parent. Advised to follow up with PCP if symptoms do not resolve as expected or sooner if condition worsens. Signs/symptoms warranting ER evaluation reviewed. Patient and/or guardian was given an opportunity to ask questions, questions answered. Joy Cordoba NP documented in this encounter Miscellaneous Notes * Addendum Note - Joy Cordoba NP - 10/24/2023 2:00 PM CDTAddended by: JOY CORDOBA on: 10/26/2023 04:40 PM Modules accepted: Orders, Level of Service documented in this encounter Plan of Treatment Not on file documented as of this encounter Procedures Procedure Name Priority Date/Time Associated Diagnosis Comments POCT URINALYSIS DIPSTICK Routine 10/24/2023 2:16 PM CDT Dysuria documented in this encounter Results * Vaginitis panel Vaginal (10/24/2023 2:32 PM CDT) Monie DNA probe Not Detected Not Detected Comment:Testing performed by : [facility], [address] [place] [address]., [id number] Gardnerella DNA probe Not Detected Not Detected ERI GUERRIER Comment:Testing performed by : [facility], [address] [place] [address]., [id number] Trichomonas DNA probe Not Detected Not Detected ERI GUERRIER Comment: Interpretive Data Testing performed by [facility] via Affirm VPIII Microbial Identification Test, a [...] last revised on 2020. Testing performed by: [facility], [address] [place] [address]., [id number] Vaginal 10/24/2023 2:32 PM CDT 10/25/2023 1:24 PM CDT us Joy Cordoba NP LAB MICROBIOLOGY - GENERAL ORDERABLES Final Result ERI GUERRIER [address] Department [place] [address] * (ABNORMAL) Urine culture Urine, clean voided (10/24/2023 2:32 PM CDT) Report Final Report: Greater than or equal to 100,000 colonies/mL of Escherichia coli (.) Comment:Testing performed by : [facility], [address] [place]., [address] Organism ESCHERICHIA COLI ERI Urine, clean voided 10/24/2023 2:32 PM CDT 10/24/2023 9:43 PM CDT Narrative [facility] - 10/27/2023 10:26 AM CDT Testing performed by [facility] Microbiology Laboratory ([phone]) Organism Antibiotic Method Susceptibility Escherichia coli Ampicillin [...] INTERPRETATION Resistant Escherichia coli Cefdinir INTERPRETATION Resistant Joy Cordoba NP LAB MICROBIOLOGY - GENERAL ORDERABLES Final Result ERI [address] Department [place] [address] * (ABNORMAL) POCT urinalysis dipstick (10/24/2023 2:16 PM CDT) Color, Urine, POC Yellow Clarity, ur, POC Clear Clear Glucose, ur, POC Negative Negative MG/DL Bilirubin, ur, POC Negative Negative, Small, Moderate, Large Ketones, ur, POC Negative Negative Specific [place], POC 1.030 1.003 - 1.030 Blood, ur, POC Trace(A) Negative pH, ur, POC 7.0 5.0 - 8.0 Protein, ur, POC Negative Negative Urobilinogen, urine, POC 0.2 0.2 - 1.0 mg/dL Nitrite, ur, POC Negative Negative Leukocytes, ur, POC Negative Negative Lot Number 0 Urine 10/24/2023 2:16 PM CDT Joy Cordoba [employer] POINT OF CARE TEST ORDERAB LES Final Result documented in this encounter Visit Diagnoses Diagnosis Dysuria- Primary Cystitis Unspecified cystitis Dysuria documented in this encounter Historical Medications * This list may reflect changes made after this encounter. levonorgestreL (MIRENA) IUD 1 each by intrauterine route once metroNIDAZOLE (FLAGYL) 500 mg tablet Take 1 tablet (500 mg total) by mouth every 12 (twelve) hours 07/30/2023 cholecalciferol (VITAMIN D-3) 1,000 unit capsule Take 1 capsule (1,000 Units total) by mouth daily 04/11/2023 brexpiprazole (REXULTI) 0.5 mg tablet Take 1 tablet (0.5 mg total) by mouth daily 10/03/2023 added in this encounter Care Teams Student Services Coordinator Relationship Specialty Start Date End Date Nan Crews NP [address] [place] [address] [place] [address] PCP - General Pediatrics 09/06/20 documented as of this encounter
--- OUTSIDE RECORDS SUMMARY | 2024-06-05 21:09 | XMS_ITS | Referral Summary ---
Author Organization [facility] Address [address] [place] [address] Care Team Providers Care Placement Specialist Name Role Phone Nan Crews NP Primary Care Provider [phone] Encounters Date Type Department Care Team Description 04/20/2024 2:54 PM DECISION ANALYST - 04/20/2024 11:59 PM DECISION ANALYST Hospital Encounter [address] [address] Sore throat Discharge Disposition: Discharge to home or self care 04/20/2024 2:15 PM DECISION ANALYST Office Visit [facility] Medical Group Convenient Care at [address] [address] Cary Kohler NP Sore throat (Primary Dx) from Last 3 Months Allergies No known active allergies Medications FLUoxetine [...] once Active cyclobenzaprine (FLEXERIL) 10 mg tablet Active gabapentin (NEURONTIN) 100 mg capsule TAKE 1 CAPSULE BY MOUTH THREE TIMES DAILY FOR 10 DAYS NEEDED FOR NERVE PAIN OR NUMBNESS. MAY CAUSE DROWSINESS Active meloxicam (MOBIC) 7.5 mg tablet TAKE 1 TABLET BY MOUTH TWICE DAILY FOR 14 DAYS FOR PAIN AND INFLAMMATION Active Active Problems Problem Noted Date Diagnosed Date MDD (major depressive disord er), recurrent episode, moderate 09/05/2023 NICOLETTE (generalized anxiety disorder) 09/05/2023 PTSD (post-traumatic stress disorder) 03/21/2023 Borderline personality disorder (CMS/HCC) 2022 Dysmenorrhea in adolescent 12/09/2018 Intermittent daytime urinary incontinence 2010 Increased frequency of urination 07/20/2010 Social History Tobacco Use Types Packs/Day Years Used Date Smoking Tobacco: Never Assessed Comments Unknown Sex and Gender Information Value Date Recorded Sex Assigned at Not on file Legal Sex Female 7:50 AM DECISION ANALYST Gender Identity Not on file Sexual Orientation Not on file Last Filed Vital Signs Vital Sign Reading Time Taken Comments Blood Pressure 102/70 04/20/2024 2:27 PM DECISION ANALYST Pulse 103 04/20/2024 2:27 PM DECISION ANALYST Temperature 37.1 ??C (98.7 ??F) 04/20/2024 2:27 PM CS T Respiratory Rate 16 04/20/2024 2:27 PM DECISION ANALYST Oxygen Saturation 97% 04/20/2024 2:27 PM DECISION ANALYST Inhaled Oxygen Concentration - - Weight 48.1 kg (106 lb) 04/20/2024 2:27 PM DECISION ANALYST Height 167.6 cm (5' 6 ) 10/24/2023 2:04 PM CDT Body Mass Index 17.11 10/24/2023 2:04 PM CDT Plan of Treatment Not on file Procedures Procedure Name Priority Date/Time Associated Diagnosis Comments THROAT CULTURE Routine 04/20/2024 2:54 PM DECISION ANALYST Sore throat POCT RAPID STREP Routine 04/20/2024 2:43 PM DECISION ANALYST Sore throat from Last 3 Months Results * Throat culture Throat (04/20/2024 2:54 PM DECISION ANALYST) Report Final Report: No growth of pathogens. Comment:Testing performed by : [facility], [address] [place]., [address] Throat 04/20/2024 2:54 PM DECISION ANALYST 04/20/2024 10:04 PM DECISION ANALYST Narrative ERI - 04/21/2024 6:53 PM DECISION ANALYST Testing performed by [facility] Microbiology Laboratory ([phone]). Cary Kohler NP LAB MICROBIOLOGY - GENE RAL ORDERABLES Final Result ERI [address] Department [place] [address] * POCT rapid strep A (04/20/2024 2:43 PM DECISION ANALYST) Rapid Strep A, POC Negative Negative Swab 04/20/2024 2:43 PM DECISION ANALYST Cary Kohler NP POINT OF CARE TEST FIONA JACKMAN Final Result from Last 3 Months Insurance [facility] Care Teams Placement Specialist Relationship Specialty Start Date End Date Nan Crews NP [address] [place] [address] [place] [address] PCP - General Pediatrics 09/06/20
--- OUTSIDE RECORDS SUMMARY | 2024-06-05 21:10 | XMS_ITS | Encounter Summary ---
Author Organization [employer] Address [address] [place] [address] Care Team Providers Care Survey Researcher Name Role Phone Unavailable Primary Care Provider Unavailabl e Encounter Details Date Type Department Care Team (Late st Contact Info) Description 03/24/2024 External Device Data [facility] ABSTRACTION Provider, Abstract NO ADDRESS ON FILE Social History Tobacco Use Types Packs/Day Years Used Date Smoking Tobacco: Never Assessed Adolescent Education Answer Date Record ed Getting School Help Needed Not on file 03/03 Sex and Gender Information Value Date Recorded Sex Assigned at Not on file Gender Identity Not on file Sexual Orientation Not on file documented as of this encounter Plan of Treatment Not on file documented as of this encounter Visit Diagnoses Not on filedocumented in this encounter
--- OUTSIDE RECORDS SUMMARY | 2024-06-05 21:10 | XMS_ITS | Encounter Summary ---
Author Organization [employer] Address [address] [place] [address] Care Team Providers Care Slide Developer Name Role Phone Unavailable Primary Care Provider [...]
--- OUTSIDE RECORDS SUMMARY | 2024-06-05 21:10 | XMS_ITS | Encounter Summary ---
Author Organization [employer] Address [address] [place] [address] Care Team Providers Care Fur Remodeler Name Role Phone Unavailable Primary Care Provider [...]
--- OUTSIDE RECORDS SUMMARY | 2024-06-05 21:10 | XMS_ITS | Encounter Summary ---
Author Organization [facility] Address [address] [place] [address] Care Team Providers Care Leg Man Name Role Phone Unavailable Primary Care Provider Unavailabl e Reason for Visit * Radiology Services (Routine) - Open Specialty Diagnoses / Procedures Referred By Chad lynn Referred To Contact Diagnoses Mass of left breast, unspecified quadrant Breast pain, left Procedures MAMMO BREAST US LEFT LTD MAMMO BREAST US LEFT LTD Anitha Mendoza, [address] [place] [address] Referral ID Status Reason Start Date Expiration Date Visits Re quested Visits Authorized [id number] Open 03/03/2024 04/03/2025 1 1 Encounter Details Date Type Department Care Team (Latest Contact Info) Description 03/17/2024 9:30 AM CDT Ancillary Procedure [facility] [address] [place] [address] [facility], External Provider [address] [place] [address] Mass of left breast, unspecified quadrant; Breast pain, left Social History Tobacco Use Types Packs/Day Years [...] Procedure Name Priority Date/Time Associated Diagnosis Comments MAMMO BREAST US LEFT LTD Routine 03/17/2024 9:39 AM CDT Mass of left breast, unspecified quadrant Breast pain, left documented in this encounter Results * MAMMO BREAST US LEFT LTD (03/17/2024 9:39 AM CDT) Anatomical Region Laterality Modality Left Ultrasound 03/17/2024 9:41 AM CDT Impressions 03/17/2024 9:49 AM CDT IMPRESSION: No sonographic evidence of abnormality in the left breast at the 2:00 position corresponding to the reported area of palpable lump and pain. Recommend clinical follow-up. Overall BI-RADS category left breast: 1 - negative. Narrative 03/17/2024 9:49 AM CDT EXAM: MAMMO BREAST US LEFT LTD STUDY DATE: 03/17/2024 9:39 AM CLINICAL INDICATION: 18 year-old female presents for diagnostic evaluation of a focal area of pain in the left breast at the 1:00 position for the past three weeks. Patient reports that she can intermittently feel a palpable lump in this location. COMPARISON: None PROCEDURE: Grayscale and color Doppler sonographic images of the left breast corresponding to the palpable abnormality and the area of pain are obtained. FINDINGS: The breast tissue is dense. There are no focal masses in the left breast. There are no focal masses or enlarged lymph nodes in the left axilla. Anitha Mendoza APRN MAMMO ORDERAB LES documented in this encounter Visit Diagnoses Diagnosis Mass of left breast, unspecified quadrant Breast pain, left Mastodynia documented in this encounter
--- OUTSIDE RECORDS SUMMARY | 2024-06-05 21:10 | XMS_ITS | Clinical Summary ---
Author Organization [facility] Address [address] [place] [address] Care Team Providers Care Drainman Name Role Phone Unavailable Primary Care Provider Unavailabl e Encounters Date Type Department Care Team Description 03/24/2024 External Device Data [facility] ABSTRACTION Provider, Abstract 03/24/2024 External Device Data [facility] ABSTRACTION Provider, Abstract 03/24/2024 External Device Data [facility] ABSTRACTION Provider, Abstract 03/17/2024 9:30 AM CDT [facility]illary [facility] [address] [address] [facility], External Provider Mass of left breast, unspecified quadrant; Breast pain, left from Last 3 Months Social History Tobacco Use Types Packs/Day Years Used Date Smoking Tobacco: Never Assessed Adolescent Education Answer Date Record ed Getting School Help Needed Not on file 03/03 Sex and Gender Information Value Date Recorded Sex Assigned at Not on file Gender Identity Not on file Sexual Orientation Not on file Plan of Treatment Health Maintenance Due Date Last Done Comments CHLAMYDIA SCREENING (ANNUAL) 11-24 YEARS 2014 HPV VACCINES (1 - 3-dose series) 2018 INFLUENZA VACCINE (#1) 2024 DTAP/TDAP/TD VACCINES (7 - Td or Tdap) 12/28/2024 12/28/2014, 12/26/2007, 01/19/2005, Additional history exists HEPATITIS B VACCINES Completed 03/03/2004, 2003, 2003 PNEUMOCOCCAL VACCINE 0-64 YEARS Aged Out 03/03/2004, 2003, 2003 No longer eligible based on patient's age to complete this topic Procedures Procedure Name Priority Date/Time Associated Diagnosis Comments MAMMO BREAST US LEFT LTD Routine 03/17/2024 9:39 AM CDT Mass of left breast, unspecified quadrant Breast pain, left from Last 3 Months Results * MAMMO BREAST US LEFT LTD [...] axilla. Anitha Mendoza APRN MAMMO ORDERAB LES from Last 3 Months
--- OUTSIDE RECORDS SUMMARY | 2024-06-05 21:59 | XMS_ITS | Encounter Summary ---
Author Organization [facility] Address [address] [place] [address]. [place], [place] [address] [place] [address] Care Team Providers Care Aircraft Sales Representative Name Role Phone Nan Crews Primary Care Provider [phone] Encounter Details Date Type Department Care Team (Late st Contact Info) Description 06/26/2023 2:46 PM TELEVISION STATION MANAGER - 06/26/2023 11:59 PM TELEVISION STATION MANAGER Hospital Encounter [facility] [address] [place], [place] [id number] Nan Crews FNP [address] [place] [address] Discharge Disposition: Home or Self Care (Routine Discharge) Social History Tobacco Use Types Packs/Day Years Used Date Smoking Tobacco: Every Day Smokeless Tobacco: Never Comments:Provider to child welfare counselor /vaps only Alcohol Use Standard Drinks/Week [...] Mess. Left for pt. To call office. VISION STATION MANAGER * Radha Cook LPN - 06/26/2023 2:46 PM CST Pt. Notified. Verbalized understanding. VISION STATION MANAGER * Radha Cook LPN - 06/26/2023 2:46 PM CST Mess. Left for pt. To call office. VISION STATION MANAGER * Radha Cook LPN - 06/26/2023 2:46 PM CST Pt. Notified. Verbalized understanding. Pt. States that she is feeling worse. C/O Left lower abd pain worse than it was pt. States. VISION STATION MANAGER * Radha Cook LPN - 06/26/2023 2:46 PM CST Pt. Notified. Verbalized understanding. VISION STATION MANAGER * Radha Cook LPN - 06/26/2023 2:46 PM CST Mess. Left for pt. To call office. VISION STATION MANAGER * Radha Cook LPN - 06/26/2023 2:46 PM CST Pt. Notified. Verbalized understanding. Pt. Cont. To have discomfort. Pt. Did not go to ER d/t financial issues. Advised pt. To fill out financial hardship paperwork and to sched. Follow up OV with Leonard Crews If symptoms cont. To persist. Pt. Verbalized understanding. Pt. Will call back and sched. Appt. Later today. VISION STATION MANAGER documented in this encounter Plan of Treatment Not on file documented as of this encounter Procedures Procedure Name Priority Date/Time Associated Diagnosis Comments VAGINITIS SCREEN (VDS) Routine 06/26/2023 2:50 PM TELEVISION STATION MANAGER Left lower quadrant pain URINE BACTERIA CULTURE Routine 06/26/2023 2:50 PM TELEVISION STATION MANAGER Left lower quadrant pain documented in this encounter Results * VDS (REJI, TRICH, & G. VAG) (06/26/2023 2:50 PM TELEVISION STATION MANAGER) GARDNERELLA VAGINALIS NEGATIVE NEGATIVE 06/26/2023 5:19 PM TELEVISION STATION MANAGER [facility] REJI SPECIES NEGATIVE NEGATIVE 5:19 PM TELEVISION STATION MANAGER [facility] TRICHOMONAS NEGATIVE NEGATIVE 06/26/2023 5:19 PM TELEVISION STATION MANAGER [facility] VAGINAL STRUCTURE / Unknown 06/26/2023 2:50 PM TELEVISION STATION MANAGER Nan YOUNG MICROBIOLOGY - GENERAL ORDERA BLES Final Result Performing Organization Address City/[facility]/ZIP Co de Phone Number [facility] [address] [facility] [place] [place] [address], * CULTURE URINE (06/26/2023 2:50 PM TELEVISION STATION MANAGER) SPEC DESCRIPTION URINE CLEAN CATCH 06/26/2023 2:47 PM TELEVISION STATION MANAGER [facility] SPECIAL REQUESTS NO SPECIAL REQUEST 06/26/2023 2:47 PM TELEVISION STATION MANAGER [facility] CULTURE RESULT NO GROWTH 2 DAYS 06/28/2023 8:20 AM TELEVISION STATION MANAGER [facility] URINE SPECIMEN OBTAINED BY CLEAN CATCH PROCEDURE / Unknown 06/26/2023 2:50 PM TELEVISION STATION MANAGER 06/26/2023 3:52 PM TELEVISION STATION MANAGER Nan YOUNG MICROBIOLOGY - GENERAL ORDERA BLES Final Result Performing Organization Address [facility] Co de Phone Number [facility] [address] [place] [address], [facility] [address] [facility] [place] [address], documented in this encounter Visit Diagnoses Diagnosis Left lower quadrant pain Abdominal pain, left lower quadrant documented in this encounter Additional Health Concerns Assessment Noted Time PHQ-9 Depression Total Score: 18 023 1:39 PM CDT documented as of this encounter Care Teams Aircraft Sales Representative Relationship Specialty Start Date End Date Nan Crews FNP PCP - General NURSE PRACTITIONER 04/24/18 documented as of this encounter
--- OUTSIDE RECORDS SUMMARY | 2024-06-05 21:59 | XMS_ITS | Encounter Summary ---
Author Organization [facility] Address [address] [place] [address]. [place], [place] [id number] [place] [address] Care Team Providers Care Event Staff Member Name Role Phone Nan Crews REAL ESTATE ECONOMIST Primary Care Provider [phone] Reason for Visit * Reason Comments Lab (SCAN) Encounter Details Date Type Department Care Team (Latest Contact Info) Description 09/09/2023 Scan [facility] INFO SRVCS Scanned, Doc Med Group Lab (SCAN) Social History Tobacco Use Types Packs/Day Years Used Date Smoking Tobacco: Every Day Smokeless Tobacco: Never Comments:Provider to halfway house counselor /vaps only Alcohol Use Standard Drinks/Week [...] OUTSIDE LAB (09/09/2023) HGB A1C 5.3 % [facility] ONBASE 09/09/2023 us Doc Med Group Scanned SCANNING Final Resu lt [facility] ONBASE documented in this encounter Visit Diagnoses Not on filedocumented in this encounter Additional Health Concerns Assessment Noted Time PHQ-9 Depression Total Score: 024 8:35 AM CDT documented as of this encounter Care Teams Event Staff Member Relationship Specialty Start Date End Date Nan Crews FNP PCP - General NURSE PRACTITIONER 04/24/18 documented as of this encounter
--- OUTSIDE RECORDS SUMMARY | 2024-06-05 21:59 | XMS_ITS | Encounter Summary ---
Author Organization [facility] Address [address] [place] [address]. [place], [place] [address] [place] [address] Care Team Providers Care Sports Analyst Name Role Phone MarsJessyNandaisy HARLEYP Primary Care Provider [phone] Reason for Referral * Imaging (Routine) - New Request Specialty Diagnoses / Procedures Referred By Chad lynn Referred To Contact RADIOLOGY Diagnoses Mass of upper outer quadrant of left breast Breast pain, left Procedures US BREAST LT BIRAD LTD Anitha Mendoza FNP-BC [address] [place] [address] [place] [address] Phone: tel: fax: Referral ID Status Reason Start Date Expiration Date V isits Requested Visits Authorized [id number] New Request 03/10/2024 03/10/2025 1 1 Encounter Details Date Type Department Care Team (Late st Contact Info) Description 03/10/2024 Orders Only [facility] [address] [place] [address] Anitha Mendoza FNP-BC [address] [place] [address] [place] [address] Social History Tobacco Use Types Packs/Day Years Used Date Smoking Tobacco: Every Day Smokeless Tobacco: Never Comments:Provider to loan counselor /vaps only Alcohol Use Standard Drinks/Week [...] order and place new Internal orders to [facility] so patient can be scheduled accordingly. [...] documented as of this encounter Care Teams Sports Analyst Relationship Specialty Start Date End Date Nan Crews FNP PCP - General NURSE PRACTITIONER 04/24/18 documented as of this encounter
--- OUTSIDE RECORDS SUMMARY | 2024-06-05 21:59 | XMS_ITS | Encounter Summary ---
Author Organization [facility] Address [address] [place] [address]. [place], [place] [address] [place] [address] Care Team Providers Care Chip Tester Name Role Phone Nan Crews HECTOR Primary Care Provider [phone] Reason for Visit * Reason Onset Date Comments Medication Problem 09/30/2023 Encounter Details Date Type Department Care Team (Late st Contact Info) Description 09/30/2023 Telephone [facility] Medical Group Family and Internal Medicine - [place] [address] [place], [place] [address] Ethel Haddad, TEMPLATE CHECKER [address] [place], [place] [address] Medication Problem Social History Tobacco Use Types Packs/Day Years Used Date Smoking Tobacco: Every Day Smokeless Tobacco: Never Comments:Provider to area counselor /vaps only Alcohol Use Standard Drinks/Week [...] documented as of this encounter Care Teams Chip Tester Relationship Specialty Start Date End Date Nan Crews FNP PCP - General NURSE PRACTITIONER 04/24/18 documented as of this encounter
--- OUTSIDE RECORDS SUMMARY | 2024-06-05 21:59 | XMS_ITS | Encounter Summary ---
Author Organization [facility] Address [address] [place] [address]. [place], [place] [address] [place] [address] Care Team Providers Care Sausage Meat Trimmer Name Role Phone Mars Nan Neely [facility] Primary Care Provider [phone] Reason for Visit * Reason Onset Date Comments Results 03/18/2024 Mammo breast US left LTD Encounter Details Date Type Department Care Team (Late st Contact Info) Description 03/18/2024 Telephone [place] [address] [place] [address] Anitha Mendoza V, [place] [address] [place], [place] [id number] Results (Mammo breast US left LTD) Social History Tobacco Use Types Packs/Day Years Used Date Smoking Tobacco: Every Day Smokeless Tobacco: Never Comments:Provider to college admissions counselor /vaps only Alcohol Use Standard Drinks/Week [...] documented as of this encounter Care Teams Sausage Meat Trimmer Relationship Specialty Start Date End Date Nan Crews FNP PCP - General NURSE PRACTITIONER 04/24/18 documented as of this encounter
--- OUTSIDE RECORDS SUMMARY | 2024-06-05 21:59 | XMS_ITS | Encounter Summary ---
Author Organization [facility] Address [address] [place] [address]. [place] [address] Care Team Providers Care Float Builder Name Role Phone Nan Crews Primary Care Provider [phone] Encounter Details Date Type Department Care Team (Latest Contact Info) Description 10/03/2023 Travel Social History Tobacco Use Types Packs/Day Years Used Date Smoking Tobacco: Every Day Smokeless Tobacco: Never Comments:Provider to child and family counselor /vaps only Alcohol Use Standard Drinks/Week [...] documented as of this encounter Care Teams Float Builder Relationship Specialty Start Date End Date Nan Crews FNP PCP - General NURSE PRACTITIONER 04/24/18 documented as of this encounter
--- OUTSIDE RECORDS SUMMARY | 2024-06-05 21:59 | XMS_ITS | Encounter Summary ---
Author Organization [facility] Address [address] [place] [address]. [place] [address] Care Team Providers Care Backrest Assembler Name Role Phone Nan Crews Primary Care Provider [phone] Encounter Details Date Type Department Care Team [...] documented as of this encounter Care Teams Backrest Assembler Relationship Specialty Start Date End Date Nan Crews FNP PCP - General NURSE PRACTITIONER 04/24/18 documented as of this encounter
--- OUTSIDE RECORDS SUMMARY | 2024-06-05 21:59 | XMS_ITS | Encounter Summary ---
Author Organization [facility] Address [address] [place] [address]. [place], [place] [address] [place] [address] Care Team Providers Care Plater Hot Dip Name Role Phone Nan Crews DOOR BUILDER Primary Care Provider [phone] Reason for Visit * Reason Comments Mammogram (SCAN) Encounter Details Date Type Department Care Team ([facility] Contact Info) Description 03/17/2024 Scan [facility] INFO SRVCS Scanned, Doc Med Group Mammogram (SCAN) Social History Tobacco Use Types Packs/Day Years Used Date Smoking Tobacco: Every Day Smokeless Tobacco: Never Comments:Provider to counselor marriage and family /vaps only Alcohol Use Standard Drinks/Week Comments [...] documented as of this encounter Care Teams Plater Hot Dip Relationship Specialty Start Date End Date Nan Crews FNP PCP - General NURSE PRACTITIONER 04/24/18 documented as of this encounter
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
--- OUTSIDE RECORDS SUMMARY | 2024-06-05 21:59 | XMS_ITS | Encounter Summary ---
Author Organization [facility] Address [address] [place] [address]. [place], [place] [address] [place] [address] Care Team Providers Care Campground Cleaning Attendant Name Role Phone Nan Crews Chin [facility] Primary Care Provider [phone] Reason for Visit * Reason Comments Breathing Problem Something feels june rd and hurts in left breastFirst noticed about a week ago Encounter Details Date Type Department Care Team (Late st Contact Info) Description 03/03/2024 2:40 PM CDT Office Visit [address] [place] [address] Anitha Mendoza V, [place] [address] [place] [address] Breathing Problem (Something feels weird and hurts in left breast/First noticed about a week ago) Social History Tobacco Use Types Packs/Day Years Used Date Smoking Tobacco: Every Day Smokeless Tobacco: Never Tobacco Cessation:Ready to Q uit: No; Counseling Given: Yes Comments:Provider to prevocational/rehabilitation counselor /vaps only Alcohol [...] Smokeless tobacco: Never Tobacco comments: Provider to prevocational/rehabilitation counselor /vaps only Vaping Use Vaping status: [...] the day of the encounter. This includes fyns-kt-wlfk and ekx-mlbd-ok-face time I provided on the day of [...] go to for their test Answer: Outside [facility] Facility Order Specific Question: Does the [...] go to for their test Answer: Outside [facility] Facility Order Specific Question: What is [...] documented as of this encounter Care Teams Campground Cleaning Attendant Relationship Specialty Start Date End Date Nan Crews FNP PCP - General NURSE PRACTITIONER 04/24/18 documented as of this encounter
--- OUTSIDE RECORDS SUMMARY | 2024-06-05 21:59 | XMS_ITS | Encounter Summary ---
Author Organization [facility] Address [address] [place] [address]. [place] [address] Care Team Providers Care Product Marketing Engineer Name Role Phone Nan Crews Primary Care Provider [phone] Encounter Details Date Type Department Care Team (Latest Contact Info) Description 03/03/2024 Travel Social History Tobacco Use Types Packs/Day Years Used Date Smoking Tobacco: Every Day Smokeless Tobacco: Never Comments:Provider to claims counsel /vaps only Alcohol Use Standard Drinks/Week [...] documented as of this encounter Care Teams Product Marketing Engineer Relationship Specialty Start Date End Date Nna Crews FNP PCP - General NURSE PRACTITIONER 04/24/18 documented as of this encounter
--- OUTSIDE RECORDS SUMMARY | 2024-06-05 21:59 | XMS_ITS | Encounter Summary ---
Author Organization [facility] Address [address] [place] [address]. [place], [place] [address] [place] [address] Care Team Providers Care Human Resources Hr Generalist Name Role Phone Nan Crews BLEACH SUPERVISOR Primary Care Provider [phone] Reason for Visit * Reason Onset Date Comments Lab Order 09/09/2023 Encounter Details Date Type Department Care Team (Late st Contact Info) Description 09/09/2023 Telephone [facility] Family and Internal Medicine - [place] [address] [place], [place] [address] Ethel Haddad, MANAGING ATTORNEY [address] [place], [place] [address] Lab Order Social History Tobacco Use Types [...] of this encounter Care Teams Human Resources Hr Generalist Relationship Specialty Start Date End Date Nan Crews FNP PCP - General NURSE PRACTITIONER 04/24/18 documented as of this encounter
--- OUTSIDE RECORDS SUMMARY | 2024-06-05 21:59 | XMS_ITS | Clinical Summary ---
Author Organization [facility] [place] [facility] Address [address] [place] [address]. [place], [place] [address] [place] [address] Care Team Providers Care Vertical Borer Name Role Phone Nan Crews HECTOR Primary Care Provider [phone] Allergies No known active allergies Medications * This document contains information received from the source organization and may not represent a complete record from that organization. Cholecalciferol (VITAMIN D-3) 25 MCG (1000 UT) CapIndications: Vitamin D deficiency Take 1 capsule by mouth daily. 90 capsule 1 3 Active Additional Information Patient not taking.Reported on 03/03/2024 brexpiprazole (REXULTI) 0.5 MG tabletIndicatio ns:Bipolar 2 disorder ([facility]) Take 1 tablet (0.5 mg total) by mouth daily. 30 tablet 2 4 Active Additional Information Patient not taking.Reported on 03/03/2024 Active Problems Problem Noted Date Diagnosed Date MDD (major depressive disord er), recurrent episode, moderate ([facility]) 09/05/2023 NICOLETTE (generalized anxiety disorder) 09/05/2023 PTSD (post-traumatic stress disorder) 03/21/2023 Borderline personality disorder ([facility] ) 07/13/2022 Dysmenorrhea in adolescent 12/09/2018 Increased frequency of urination 07/20/2010 Intermittent daytime urinary incontinence 2010 Resolved Problems Problem Noted Date Diagnosed Date Resolved Date Bipolar disorder ([facility]) 07/13/2022 09/05/2023 Abnormal urinalysis 07/07/2020 07/12/19 23 Bipolar affective disorder, currently depressed, mild ([facility]) 07/30/20182022 Anxiety 07/30/2018 07/13/2022 Encounters Date Type Department Care Team Description 06/04/[address] [place] [address] Nan Crews, HECTOR Abdominal Pain 03/18/[address] [place] [address] Anitha Mendoza V, ELECTRIC TRACK SWITCH MAINTAINER-BC Results (Mammo breast US left LTD) 03/17/2024 Scan [facility] SR[facility]CS Scanned, [facility] Mammogram (SCAN) 03/10/2024 Orders Only [address] [place] [address] Anitha Mendoza V, ELECTRIC TRACK SWITCH MAINTAINER-BC 03/09/[address] [place] [address] Anitha Mendoza V, ELECTRIC TRACK SWITCH MAINTAINER-BC Mammography Order from Last 3 Months Immunizations [...] uit: No; Counseling Given: Yes Comments:Provider to counselor aid /vaps only Alcohol Use Standard Drinks/Week Comments [...] from Last 3 Months Insurance Care Teams Vertical Borer Relationship Specialty Start Date End Date Nan Crews FNP PCP - General NURSE PRACTITIONER 04/24/18
--- OUTSIDE RECORDS SUMMARY | 2024-06-05 21:59 | XMS_ITS | Encounter Summary ---
Author Organization [facility] Address [address] [place] [address]. [place], [place] [address] [place] [address] Care Team Providers Care Chief Engineer'S Helper Name Role Phone Nan Crews MIXING MACHINE FEEDER Primary Care Provider [phone] Reason for Visit * Reason Comments Mood Disorder [facility] of mood disorder and borderline personality disorder.Patient stated she has been taking her medications. Encounter Details Date Type Department Care Team (Late st Contact Info) Description 09/05/2023 8:30 AM CDT Office Visit [facility] Family and Internal Medicine - [place] [address] [facility] [address] [place] [address] Ethel Haddad, MARK [address] [place], [place] [address] Mood Disorder (Patient presents today for follow up for medication management of mood disorder and borderline personality disorder.Patient stated she has been taking her medications.) Social History Tobacco Use Types Packs/Day Years Used Date Smoking Tobacco: Every Day Smokeless Tobacco: Never Tobacco Cessation:Ready to Q uit: No; Counseling Given: Yes Comments:Provider to auto club travel counselor /vaps only Alcohol Use [...] disorder I recommend counseling. Here are the [place] [facility] counselors. [employer] [phone] [facility] [phone] [facility] [phone] [facility] [place] [facility] [phone] [facility] [phone] [facility] [phone] [facility] [phone] [facility] main number [phone]. They have multiple locations. [facility] [phone] Lipid panel and A1C today or tomorrow (fasting) Monitor: VS, BMI, for worsening mood, anxiety, activation of suicidal thoughts or gestures. Education: -General: Reviewed Importance of maintaining compliance with medications. Instructed to take medications as prescribed and to report new or worsening symptoms to clinic. Instructed to call crisis number [phone], or present to ER for thoughts of [...] CBD. More information can be found at: https://www.ncbi.nlm.nih.gov/pmc/articles/QXP8626520/ https://www.ncbi.nlm.nih.gov/pmc/articles/GWQ8676988/ Patient's using marijuana should be attentive to their dental health as marijuana use can cause drymouth therefore affecting dental health. If dry mouth is a consistent problem I recommend hqov-ugd-prlogyo Biotene mouthwash. Important phone numbers: -Suicide & Crisis Lifeline (24 hours), call or text 988 24 hours a day 7 days a week. You will be connected with the closest possible crisis center in the area. -'s Crisis Line call 988 + 1 or text 608191 24 hours a day 7 days a week. [employer] user dial 711 then [phone].Qualified responders with the Department of Veterans Affairs will connect you withthe veterans crisis line. Services are available to all veterans, active service members, National Guard active and reserve members, and their family and friends -[employer] call 979-5-YBKLXC (133259) or text SAFE2 (34[address]). [employer] offers students a safe, comfortable way in which to report information that might help prevent suicides, bullying, school violence or other threats to school safety 24 hours a day 7 days a week. -[place] Warm Line [phone] offers wellness business support assistant trained in recovery support, mentoring, and advocacy ready to listen and support you. This is not a crisis hotline. Saturday-Saturday8 AM-8 PM except holidays. -[place] help line for opioids and other substances 858-0-hoqdmzff (188-963-1989) offers trained professional support and advice for customized resources that can help those suffering from an opioiduse disorder or other substance use disorder. -We Know the Feeling (problem gambling) call 537-Gambler (669-357-1943) or text 695165 to connect with resources and treatment programs. -SAMSH (Substance Abuse and Mental Health Services Administration) national hotline is available 24 hours a day 7 days a week at 8-453-036-HELP (0952) -[employer] Runaway Safeline is a 24 hours a day 7 days a week National safe line for use at risk of running away or who have already ran away and are looking for help. Call 4-399-QOHIJTY (230-8830) ortext 28386 -[employer] Crisis Text Line anyone, and any type of crisis, 24 hours a day 7 days a week. Text Scot 094499. Trained crisis counselors will respond to help. [...] the end of March. 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 Also sees [...] Psychiatric History: [facility] Past Therapy: [facility], [facility]. [...] Smokeless tobacco: Never Tobacco comments: Provider to auto club travel counselor /vaps only Vaping Use Vaping Use: Every day Substances: Nicotine Devices: Refillable tank Substance Use Topics Alcohol use: Yes Comment: social Drug use: No Comment: no Moderate caffeine intake reported. Raised by Annamarie and Sunday Robert, biological parents. Lives with parents. Has 2 older siblings. Education: Graduate [employer] October 2021. Attending [employer]. Employment: [...] Grandmother Anxiety Paternal Grandfather Maternal grandfather had AK. No other family mental health diagnosis reported. [...] current episode depressed, severe, without psychotic features ([facility]) F31.4 BIPOLAR AFFECTIVE DISORDER, CURRENT EPISODE DEPRESSION cariprazine (VRAYLAR) 1.5 MG capsule LIPID PANEL HEMOGLOBIN, GLYCOSYLATED 2. PTSD (post-traumatic stress disorder) F43.10 POSTTRAUMATIC STRESS DISORDER 3. NICOLETTE (generalized anxiety disorder) F41.1 GENERALIZED ANXIETY DISORDER 4. Borderline personality disorder ([facility]) F60.3 BORDERLINE PERSONALITY DISORDER 5. care home 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 medication Z79.899 LONG-TERM CURRENT USE OF ANTIPSYCHOTICMEDICATION LIPID PANEL HEMOGLOBIN, GLYCOSYLATED Plan: Medication: -Start cariprazine 1.5 mg by mouth every other day for bipolar disorder I recommend counseling. Here are the [place] [facility] counselors. [employer] [phone] [facility] [phone] [facility] [phone] [employer] [phone] [facility] [phone] [facility] [phone] [facility] [phone] [facility] main number [phone]. They have multiple locations. [facility] [phone] Lipid panel and A1C today or tomorrow (fasting) Monitor: VS, BMI, for worsening mood, anxiety, activation of suicidal thoughts or gestures. Education: -General: Reviewed Importance of maintaining compliance with medications. Instructed to take medications as prescribed and to report new or worsening symptoms to clinic. Instructed to call crisis number [phone], or present to ER for thoughts of [...] CBD. More information can be found at: https://www.ncbi.nlm.nih.gov/pmc/articles/DDE9328163/ https://www.ncbi.nlm.nih.gov/pmc/articles/BMH9327110/ Patient's using marijuana should be attentive to their dental health as marijuana use can cause drymouth therefore affecting dental health. If dry mouth is a consistent problem I recommend gajp-pur-ifhassp Biotene mouthwash. Important phone numbers: -Suicide & Crisis Lifeline (24 hours), call or text 988 24 hours a day 7 days a week. You will be connected with the closest possible crisis center in the area. -[place] Crisis Line call 988 + 1 or text [phone] 24 hours a day 7 days a week. [employer] user dial 711 then [phone].Qualified responders with the Department of Veterans Affairs will connect you withthe veterans crisis line. Services are available to all veterans, active service members, National Guard active and reserve members, and their family and friends -[employer] call 356-5-GSJPOS (701489) or text SAFE2 (80495). [employer] offers students a safe, comfortable way in which to report information that might help prevent suicides, bullying, school violence or other threats to school safety 24 hours a day 7 days a week. -[place] Warm Line 228-984-3890 offers wellness business support assistant trained in recovery support, mentoring, and advocacy ready to listen and support you. This is not a crisis hotline. Saturday-Saturday8 AM-8 PM except holidays. -[place] help line for opioids and other substances 898-4-agfbatvl (908-016-9340) offers trained professional support and advice for customized resources that can help those suffering from an opioiduse disorder or other substance use disorder. -We Know the Feeling (problem gambling) call 823-Gambler (695-432-8590) or text 572495 to connect with resources and treatment programs. -SAMSHA (Substance Abuse and Mental Health Services Administration) national hotline is available 24 hours a day 7 days a week at 9-962-590-HELP (7409) -[employer] Runaway Safeline is a 24 hours a day 7 days a week National safe line for use at risk of running away or who have already ran away and are looking for help. Call 9-241-LVHCCTM (556-4565) ortext 14819 -National Crisis Text Line anyone, and any type of crisis, 24 hours a day 7 days a week. Text Scot 924568. Trained crisis counselors will respond to help. Follow up in 4 weeks or sooner if needed Patient voiced understanding and agreement with this plan. I personally spent a total of 45 minutes on the day of the encounter. This includes qraw-np-pbyo and qqs-qxjj-cm-face time I provided on the day of [...] current episode depressed, severe, without psychotic features ([facility]) director long term care 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 medication Expected: 09/05/2023, Expires: 09/04/2024 HEMOGLOBIN, GLYCOSYLATED Lab Routine Bipolar disorder, current episode depressed, severe, without psychotic features ([facility]) director long term care 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 medication Expected: 09/05/2023, Expires: 09/04/2024 documented as of this encounter Visit Diagnoses Diagnosis Bipolar disorder, current episode depressed, severe, without psychotic features ([facility]) Bipolar I disorder, most recent episode (or current) depressed, severe, without mention of psychotic behavior PTSD (post-traumatic stress disorder) Posttraumatic stress disorder NICOLETTE (generalized anxiety disorder) Generalized anxiety disorder Borderline personality disorder ([facility]) Borderline personality disorder director long term care 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 medication documented in this encounter Additional Health Concerns Assessment Noted Time PHQ-9 Depression Total Score: 25 024 8:35 AM CDT documented as of this encounter Care Teams Chief Engineer'S Helper Relationship Specialty Start Date End Date Nan Crews FNP PCP - General NURSE PRACTITIONER 04/24/18 documented as of this encounter
--- OUTSIDE RECORDS SUMMARY | 2024-06-05 21:59 | XMS_ITS | Encounter Summary ---
Author Organization [facility] Address [address] [place] [address]. [place], [place] [address] [place] [address] Care Team Providers Care Factory Helper Name Role Phone Nan Crews TELEPHONE SERVICE REPRESENTATIVE Primary Care Provider [phone] Reason for Visit * Reason Onset Date Comments Question 09/05/2023 Encounter Details Date Type Department Care Team (Late st Contact Info) Description 09/05/2023 Telephone [facility] Family and Internal Medicine - [place] [address] [place], [place] [address] Ethel Haddad, QI SPECIALIST [address] [place], [place] [address] Question Social History Tobacco Use Types Packs/Day [...] documented as of this encounter Care Teams Factory Helper Relationship Specialty Start Date End Date Nan Crews FNP PCP - General NURSE PRACTITIONER 04/24/18 documented as of this encounter
--- OUTSIDE RECORDS SUMMARY | 2024-06-05 21:59 | XMS_ITS | Encounter Summary ---
Author Organization [facility] Address [address] [place] [address]. [place], [place] [address] [place] [address] Care Team Providers Care Whittling Room Operator Name Role Phone Nan Crews FLOW NURSE Primary Care Provider [phone] Reason for Visit * Reason Onset Date Comments Lab Results 09/10/2023 Encounter Details Date Type Department Care Team (Late st Contact Info) Description 09/10/2023 Telephone [facility] Family and Internal Medicine - [place] [address] [place], [place] [address] Ethel Haddad, SADDLE MECHANIC [address] [place], [place] [address] Lab Results Social History Tobacco Use Types Packs/Day Years Used Date Smoking Tobacco: Every Day Smokeless Tobacco: Never Comments:Provider to counseling services director /vaps only Alcohol Use Standard Drinks/Week Comments [...] documented as of this encounter Care Teams Whittling Room Operator Relationship Specialty Start Date End Date Nan Crews FNP PCP - General NURSE PRACTITIONER 04/24/18 documented as of this encounter
--- OUTSIDE RECORDS SUMMARY | 2024-06-05 21:59 | XMS_ITS | Encounter Summary ---
Author Organization [facility] Address [address] [place] [address]. [place], [place] [address] [place] [address] Care Team Providers Care Research Dietitian Name Role Phone Mars Nan Neely [facility] Primary Care Provider [phone] Reason for Visit * Reason Onset Date Comments Mammography Order 03/09/2024 Encounter Details Date Type Department Care Team (Late st Contact Info) Description 03/09/2024 Telephone [facility] [address] [place], [place] [id number] Anitha Mendoza V, [place] [address] [place], [place] [id number] Mammography Order Social History Tobacco Use Types Packs/Day Years Used Date Smoking Tobacco: Every Day Smokeless Tobacco: Never Comments:Provider to memorial counselor /vaps only Alcohol Use Standard Drinks/Week [...] MG diagnostinc mammogram and [facility] Breast [facility] fax [phone]. Per patient, orders faxed. documented in this encounter Plan of Treatment Not on file documented as of this encounter Visit Diagnoses Not on filedocumented in this encounter Additional Health Concerns Assessment Noted Time PHQ-9 Depression Total Score: 8 10/03/19 24 9:04 AM CDT documented as of this encounter Care Teams Research Dietitian Relationship Specialty Start Date End Date Nan Crews FNP PCP - General NURSE PRACTITIONER 04/24/18 documented as of this encounter
--- OUTSIDE RECORDS SUMMARY | 2024-06-05 22:00 | XMS_ITS | Encounter Summary ---
Author Organization [facility] Address [address] [place] [address]. [place], [place] [address] [place] [address] Care Team Providers Care Access Database Developer Name Role Phone Nan Crews Primary Care Provider [phone] Reason for Visit * Reason Comments Abdominal Pain Having stabbing pain in lower left side of abdomen, getting worse, thinks it might be from IUD, pain started 3-4 days ago, had IUD checked 06/15/23 Encounter Details Date Type Department Care Team (Late st Contact Info) Description 06/26/2023 1:40 PM CALCINE FURNACE TENDER Office Visit [facility] [address] [place] [address] Nan Crews FNP [address] [place] [address] Abdominal Pain (Having stabbing pain in lower left side of abdomen, getting worse, thinks it might be from IUD, pain started 3-4 days ago, had IUD checked 06/15/23) Social History Tobacco Use Types Packs/Day Years Used Date Smoking Tobacco: Every Day Smokeless Tobacco: Never Tobacco Cessation:Ready to Q uit: Not Asked; Counseling Given: Yes Comments:Provider to certified genetic counselor /vaps only Alcohol Use Standard [...] Comments Blood Pressure 92/62 06/26/2023 1:46 PM CALCINE FURNACE TENDER Pulse 88 06/26/2023 1:46 PM CALCINE FURNACE TENDER Temperature 36.6 ??C (97.8 ??F) 06/26/2023 1:46 PM CS T Respiratory Rate - - Oxygen Saturation 98% 06/26/2023 1:46 PM CALCINE FURNACE TENDER Inhaled Oxygen Concentration - - Weight 47.2 kg (104 lb) 06/26/2023 1:46 PM CALCINE FURNACE TENDER Height 165.1 cm (5' 5 ) 06/26/2023 1:46 PM CALCINE FURNACE TENDER Body Mass Index 17.31 06/26/2023 1:46 PM CALCINE FURNACE TENDER documented in this encounter Patient Instructions * Patient Instructions* HECTOR Monique - 06/26/2023 1:40 PM CALCINE FURNACE TENDER We will call with the results of the urine culture and wet prep test once available Start Bactrim DS 1 twice a day for 3 days for the urinary tract infection Go to the emergency department if any increasing pain, vomiting, fever greater than 100.4 develops Follow-up with your digital circuit designer for any persistent symptoms to have your IUD checked again INE FURNACE TENDER documented in this encounter Progress Notes * Sophie Duff MA - 06/26/2023 1:40 PM CSTAddended by: SOPHIE DUFF on: 06/26/2023 02:43 PM Modules accepted: Orders INE FURNACE TENDER * Sophie Duff MA - 06/26/2023 1:40 PM CST uri INE FURNACE TENDER * HECTOR Monique - 06/26/2023 1:40 PM [...] She had an IUD placed by her digital circuit designer, Dr. Jones, on 05/16/2023. She had a negative test done prior to insertion of the IUD.She went back on 06/14/2023 for checkup. The IUD was in place. She was still having some vaginal bleeding at that time and she continues to spot off-and-on since the IUD insertions. She had evidence of yeast infection with a positive test when she saw her digital circuit designer on 06/14/2023. She gave her Diflucan to [...] Smokeless tobacco: Never Tobacco comments: Provider to certified genetic counselor /vaps only Vaping Use Vaping [...] being 100% treated as prescribed by her digital circuit designer. Will do a follow-up wet prep and further recommendations once results are reviewed. She had no problems with her IUD placement when she had a checkup by her digital circuit designer 2 weeks ago. I encouraged her to go back to her digital circuit designer if she has persistent symptoms. We discussed [...] greater than 100.4 develops Follow-up with your digital circuit designer for any persistent symptoms to have your IUD checked again HECTOR MONIQUE 06/26/2023 2:09 PM I personally spent a total of 32 minutes on the day of the encounter. This includes [id number]-yc-yfkg and nxl-wcnm-eo-face time I provided on the day of the encounter & excludes time spent performing separately reportable services. INE FURNACE TENDER documented in this encounter Plan of Treatment Not on file documented as of this encounter Procedures Procedure Name Priority Date/Time Associated Diagnosis Comments URINALYSIS AUTO DIP Routine 06/26/2023 Left lower quadrant pain documented in this encounter Results * CULTURE URINE (06/26/2023 2:50 PM CALCINE FURNACE TENDER) SPEC DESCRIPTION URINE CLEAN CATCH 06/26/2023 2:47 PM CALCINE FURNACE TENDER [facility] SPECIAL REQUESTS NO SPECIAL REQUEST 06/26/2023 2:47 PM CALCINE FURNACE TENDER [facility] CULTURE RESULT NO GROWTH 2 DAYS 06/28/2023 8:20 AM CALCINE FURNACE TENDER [facility] URINE SPECIMEN OBTAINED BY CLEAN CATCH PROCEDURE / Unknown 06/26/2023 2:50 PM CALCINE FURNACE TENDER 06/26/2023 3:52 PM CALCINE FURNACE TENDER us Nan YOUNG MICROBIOLOGY - GENERAL ORDERA BLES Final Result [facility] [address] [place] [address], [place] [phone] [facility] [address] [place] [address] [place] [address], [place] * VDS (REJI, TRICH, & G. VAG) (06/26/2023 2:50 PM CALCINE FURNACE TENDER) GARDNERELLA VAGINALIS NEGATIVE NEGATIVE 06/26/2023 5:19 PM CALCINE FURNACE TENDER [facility] REJI SPECIES NEGATIVE NEGATIVE 4 5:19 PM CALCINE FURNACE TENDER [facility] TRICHOMONAS NEGATIVE NEGATIVE 06/26/2023 5:19 PM CALCINE FURNACE TENDER [facility] VAGINAL STRUCTURE / Unknown 06/26/2023 2:50 PM CALCINE FURNACE TENDER us Nan Crews THREAD SEPARATOR MICROBIOLOGY - GENERAL ORDERA BLES Final Result [facility] [address] [place] [address], [place] * (ABNORMAL) URINALYSIS AUTO DIP (06/26/2023) COLOR (U) DARK YELLOW YELLOW -[facility] (201)BHAR[facility] TRANSPARENCY CLOUDY(A) CLEAR -[facility] (201)BHAR[facility]I GLUCOSE (U) NEGATIVE NEGATIVE MG/DL [facility] (201), IONE BILIRUBIN (U) 1+ (SMALL)(A) NEGATIVE [facility] [address] Torres201)BH[facility] KETONES MG/DL (U) 15 (SMALL 1+)(A) NEGATIVE MG/DL [facility] [address] Torres201)BH[facility] SPECIFIC GRAVITY (U) 1.025 1.001 - 1.035 [facility] [address] Torres201)BH[facility] BLOOD (U) MODERATE (Non Hemolyzed, Intact, About 50 rbc/uL)(A) NEGATIVE [facility] [address] Torres201)BHARATHI U PH 6.0 5.0 - 9.0 [facility] (201)BHARATHI PROTEIN (U) TRACE(A) NEGATIVE mg/dL [facility] [address] Torres201)BH[facility] UROBILINOGEN 1.0 0.2 - 1.0 EU/dL = mg/dL [facility] (201)BHAR[facility]I NITRITES NEGATIVE NEGATIVE MG/DL [facility] [address] Torres201)BH[facility]I LEUKOCYTES (U) 1+ (SMALL)(A) NEGATIVE [facility] [address] Torres201)BH[facility]ATHI URINE SPECIMEN OBTAINED BY CLEAN CATCH PROCEDURE / Unknown 06/26/2023 us Nan YOUNG URINE ORDERABLES Final Result [facility] (201), [address] [address], documented in this encounter Visit Diagnoses Diagnosis Left lower quadrant pain- Primary Abdominal pain, left lower quadrant Dysuria Acute cystitis with hematuria Acute cystitis documented in this encounter Additional Health Concerns Assessment Noted Time PHQ-9 Depression Total Score: 18 023 1:39 PM CDT documented as of this encounter Care Teams Access Database Developer Relationship Specialty Start Date End Date Nan Crews FNP PCP - General NURSE PRACTITIONER 04/24/18 documented as of this encounter
--- OUTSIDE RECORDS SUMMARY | 2024-06-05 22:00 | XMS_ITS | Encounter Summary ---
Author Organization [facility] Address [address] [place] [address]. [place], [place] [address] [place] [address] Care Team Providers Care Bunch Breaker Name Role Phone Nan Crews CALENDER INSPECTOR Primary Care Provider [phone] Encounter Details Date Type Department Care Team (Late st Contact Info) Description 02/15/2022 MyChart Message Enc [facility] Medical Group [facility] - [place] [address], [place] [address] [place] [address] Ethel Haddad, MARK [address] [place] [address] Appointment Reschedule Social History Tobacco Use Types Packs/Day Years Used Date Smoking Tobacco: Never Smokeless Tobacco: Never Comments:Provider to staff counselor Alcohol Use Standard Drinks/Week Comments No [...] documented as of this encounter Care Teams Bunch Breaker Relationship Specialty Start Date End Date Nan Crews FNP PCP - General NURSE PRACTITIONER 04/24/18 documented as of this encounter
--- OUTSIDE RECORDS SUMMARY | 2024-06-05 22:00 | XMS_ITS | Encounter Summary ---
Author Organization [facility] Address [address] [place] [address]. [place] [address] Care Team Providers Care Canal Superintendent Name Role Phone Nan Crews Primary Care Provider [phone] Encounter Details Date Type Department Care Team [...] documented as of this encounter Care Teams Canal Superintendent Relationship Specialty Start Date End Date Nan Crews FNP PCP - General NURSE PRACTITIONER 04/24/18 documented as of this encounter
--- OUTSIDE RECORDS SUMMARY | 2024-06-05 22:00 | XMS_ITS | Encounter Summary ---
Author Organization [facility] Address [address] [place] [address]. [place], [place] [address] [place] [address] Care Team Providers Care Military Education Coordinator Name Role Phone Mars Nan YOUNG Primary Care Provider [phone] Encounter Details Date Type Department Care Team (Late st Contact Info) Description 07/12/2022 Orders Only [facility] [address] [place] [address] Chiqui Fu FNP [address] [place], [place] [id number] Social History Tobacco Use Types Packs/Day Years Used Date Smoking Tobacco: Every Day Smokeless Tobacco: Never Comments:Provider to counseling director /vaps only Alcohol Use Standard Drinks/Week [...] Coronavirus/COVID-19? No / Unsure 07/12/2022 2:58 PM MEDICAL TECHNOLOGIST documented as of this encounter Plan of Treatment Not on file documented as of this encounter Procedures Procedure Name Priority Date/Time Associated Diagnosis Comments URINE BACTERIA CULTURE Routine 07/12/2022 3:49 PM MEDICAL TECHNOLOGIST History of UTI documented in this encounter Results * CULTURE URINE (07/12/2022 3:49 PM MEDICAL TECHNOLOGIST) SPEC DESCRIPTION URINE CLEAN CATCH 07/12/2022 6:42 PM MEDICAL TECHNOLOGIST [facility] SPECIAL REQUESTS NO SPECIAL REQUEST 07/12/2022 6:42 PM MEDICAL TECHNOLOGIST [facility] CULTURE RESULT NO GROWTH 2 DAYS 07/15/2022 9:15 AM MEDICAL TECHNOLOGIST [facility] URINE SPECIMEN OBTAINED BY CLEAN CATCH PROCEDURE / Unknown 07/12/2022 3:49 PM MEDICAL TECHNOLOGIST 07/12/2022 6:32 PM MEDICAL TECHNOLOGIST us Chiqui YOUNG MICROBIOLOGY - GENERAL ORDERABL ES Final Result [facility] [address] [place] [address], [facility] [address] [place] [address] [place] [address], documented in this encounter Visit Diagnoses Diagnosis Pain in female genitalia on intercourse Dyspareunia PCB (post coital bleeding) Postcoital bleeding History of UTI Personal history of urinary (tract) infection documented in this encounter Additional Health Concerns Assessment Noted Time PHQ-9 Depression Total Score: 10 022 9:31 AM MEDICAL TECHNOLOGIST documented as of this encounter Care Teams Military Education Coordinator Relationship Specialty Start Date End Date Nan Crews FNP PCP - General NURSE PRACTITIONER 04/24/18 documented as of this encounter
--- OUTSIDE RECORDS SUMMARY | 2024-06-05 22:00 | XMS_ITS | Encounter Summary ---
Author Organization [facility] Address [address] [place] [address]. [place] [address] Care Team Providers Care Book Publisher Name Role Phone Nan Crews Primary Care Provider [phone] Encounter Details Date Type Department Care Team (Latest Contact Info) Description 12/11/2022 Travel Social History Tobacco Use Types Packs/Day Years Used Date Smoking Tobacco: Every Day Smokeless Tobacco: Never Comments:Provider to general counselor /vaps only Alcohol Use Standard Drinks/Week [...] documented as of this encounter Care Teams Book Publisher Relationship Specialty Start Date End Date Nan Crews FNP PCP - General NURSE PRACTITIONER 04/24/18 documented as of this encounter
--- OUTSIDE RECORDS SUMMARY | 2024-06-05 22:00 | XMS_ITS | Encounter Summary ---
Author Organization [facility] Address [address] [place] [address]. [place], [place] [address] [place] [address] Care Team Providers Care Program Analyst Name Role Phone Mars Nan YOUNG Primary Care Provider [phone] Encounter Details Date Type Department Care Team (Late st Contact Info) Description 07/12/2022 Orders Only [facility] [address] [place] [address] Chiqui Fu FNP [address] [place], [place] [id number] Social History Tobacco Use Types Packs/Day Years Used Date Smoking Tobacco: Every Day Smokeless Tobacco: Never Comments:Provider to insurance counselor /vaps only Alcohol Use Standard Drinks/Week [...] Coronavirus/COVID-19? No / Unsure 07/12/2022 2:58 PM INGOT BUGGY OPERATOR documented as of this encounter Plan of Treatment Not on file documented as of this encounter Results * VDS (REJI, TRICH, & G. VAG) (07/12/2022 3:40 PM INGOT BUGGY OPERATOR) GARDNERELLA VAGINALIS NEGATIVE NEGATIVE 07/13/2022 6:22 AM INGOT BUGGY OPERATOR [facility] REJI SPECIES NEGATIVE NEGATIVE 6:22 AM INGOT BUGGY OPERATOR [facility] TRICHOMONAS NEGATIVE NEGATIVE 07/13/2022 6:22 AM INGOT BUGGY OPERATOR [facility] VAGINAL STRUCTURE / Unknown 07/12/2022 3:40 PM INGOT BUGGY OPERATOR us Chiqui YOUNG MICROBIOLOGY - GENERAL ORDERABL ES Final Result [address] [place] [address], documented in this encounter Visit Diagnoses Diagnosis History of urinary tract infection- Primary Personal history of urinary (tract) infection documented in this encounter Additional Health Concerns Assessment Noted Time PHQ-9 Depression Total Score: 10 022 9:31 AM INGOT BUGGY OPERATOR documented as of this encounter Care Teams Program Analyst Relationship Specialty Start Date End Date Nan Crews FNP PCP - General NURSE PRACTITIONER 04/24/18 documented as of this encounter
--- OUTSIDE RECORDS SUMMARY | 2024-06-05 22:00 | XMS_ITS | Encounter Summary ---
Author Organization [facility] Address [address] [place] [address]. [place], [place] [address] [place] [address] Care Team Providers Care Chlorination Operator Name Role Phone Nan Crews HECTOR Primary Care Provider [phone] Reason for Visit * Reason Onset Date Comments Medication Information 05/01/2022 concerns Encounter Details Date Type Department Care Team (Late st Contact Info) Description 05/01/2022 Telephone [facility] Medical Group [facility] [place] [address], [facility] [address] [place] [address] Ethel Haddad, FIRE PROTECTION DESIGNER [address] [place] [address] Medication Information (concerns) Social History [...] the pharmacy( [facility]).Please advise Alexandra Powell LPN ING MACHINE OPERATOR HELPER * Alexandra Powell LPN - 05/01/2022 1:31 [...] Please advise Thank you Alexandra Powell LPN ING MACHINE OPERATOR HELPER documented in this encounter Plan of Treatment Not on file documented as of this encounter Visit Diagnoses Diagnosis Bipolar affective disorder, currently depressed, mild ([facility])- Primary Bipolar I disorder, most recent episode (or current) depressed, mild documented in this encounter Additional Health Concerns Assessment Noted Time PHQ-9 Depression Total Score: 10 022 9:31 AM CREPING MACHINE OPERATOR HELPER documented as of this encounter Care Teams Chlorination Operator Relationship Specialty Start Date End Date Nan Crews FNP PCP - General NURSE PRACTITIONER 04/24/18 documented as of this encounter
--- OUTSIDE RECORDS SUMMARY | 2024-06-05 22:00 | XMS_ITS | Encounter Summary ---
Author Organization [facility] Address [address] [place] [address]. [place], [place] [address] [place] [address] Care Team Providers Care Light Rail Train Operator Name Role Phone Nan Crews Primary Care Provider [phone] Reason for Visit * Reason Onset Date Comments Orders 10/29/2022 Encounter Details Date Type Department Care Team (Late st Contact Info) Description 10/29/2022 Telephone [facility] [address] [place] [address] Nan Crews FNP [address] [place], [place] [id number] Orders Social History Tobacco Use Types Packs/Day Years Used Date Smoking Tobacco: Every Day Smokeless Tobacco: Never Comments:Provider to marriage and family counselor /vaps only Alcohol Use [...] order needed for US of Pelvic, fax [phone] Att [facility] ph [phone] documented in this encounter Plan of Treatment Not on file documented as of this encounter Visit Diagnoses Not on filedocumented in this encounter Additional Health Concerns Assessment Noted Time PHQ-9 Depression Total Score: 11 09/10/ 023 10:44 AM CDT documented as of this encounter Care Teams Light Rail Train Operator Relationship Specialty Start Date End Date Nan Crews FNP PCP - General NURSE PRACTITIONER 04/24/18 documented as of this encounter
--- OUTSIDE RECORDS SUMMARY | 2024-06-05 22:00 | XMS_ITS | Encounter Summary ---
Author Organization [facility] Address [address] [place] [address]. [place], [place] [address] [place] [address] Care Team Providers Care In Store Marketer Name Role Phone Nan Crews Primary Care Provider Encounter Details Date Type Department Care Team (Late st Contact Info) Description 04/10/2023 1:15 PM CDT - 04/10/2023 11:59 PM CDT Hospital Encounter [facility] [address] [place] [phone] Nan Crews FNP [address] [place] [address] Discharge Disposition: Home or Self Care (Routine [...] - 3.740 uIU/ML 04/10/2023 5:04 PM CDT [facility] Comment: HIGH DOSES OF BIOTIN MAY INTERFERE WITH THIS TEST RESULT. CORRELATION TO CLINICAL HISTORY AND PRESENTATION RECOMMENDED. 04/10/2023 12:0 0 PM CDT Nan Crews CAKE ICER LABORATORY Final Result [facility] [address] [facility] [place] [address], [place] * (ABNORMAL) BASIC METABOLIC PANEL (04/10/2023 12:00 PM CDT) [facility] GLUCOSE 67(L) 70 - 99 MG/DL 04/10/2023 5:04 PM CDT [facility] BUN 15 7 - 18 MG/DL 04/10/2023 5:04 PM CDT [facility] CREATININE S/P/B 0.66 0.50 - 1.20 MG/DL 04/10/2023 5:04 PM CDT [facility] SODIUM S/P/B 139 136 - 145 MMOL/L 04/10/2023 5:04 PM CDT [facility] POTASSIUM S/P/B 3.5 3.5 - 5.1 MMOL/L 04/10/2023 5:04 PM CDT [facility] CHLORIDE S/P/B 103 100 - 108 MMOL/L 04/10/2023 5:04 PM CDT [facility] CO2 27.1 21.0 - 32.0 MMOL/L 04/10/2023 5:04 PM CDT [facility] CALCIUM S/P/B 9.0 8.5 - 10.1 MG/DL 04/10/2023 5:04 PM CDT [facility] ANION GAP 8.9 5.0 - 15.0 MMOL/L 04/10/2023 5:04 PM CDT [facility] BUN CREATININE RATIO 22.7 6 - 26 04/10/2023 5:04 PM CDT [facility] GFR ESTIMATE >90 >90 ML/MIN/1.7 3 M2 04/10/2023 5:04 PM CDT [facility] Comment: NOTE: eGFR is not calculated for patients <18 years of age. This is an estimated GFR calculation using the new CKD EPI creatinine equation without race and so does not require a correction factor for race. This estimated GFR should not be used for calculating drug doses. 04/10/2023 12:0 0 PM CDT Nan Crews CAKE ICER LABORATORY Final Result [facility] [address] [facility] [place] [address], [place] * CBC W/DIFF AUTOMATED (04/10/2023 12:00 PM CDT) WBC 5.79 4.50 - 11.00 x10'3/uL 04/10/2023 4:39 PM CDT [facility] RBC 4.32 4.00 - 5.20 x10'6/uL 04/10/2023 4:39 PM CDT [facility] HGB 13.1 12.0 - 16.0 G/DL 04/10/2023 4:39 PM CDT [facility] HCT 38.7 36.0 - 46.0 % 04/10/2023 4:39 PM CDT [facility] MCV 89.6 80.0 - 100.0 FL 04/10/2023 4:39 PM CDT [facility] MCH 30.3 26.0 - 34.0 PG 04/10/2023 4:39 PM CDT [facility] MCHC 33.9 31.0 - 37.0 G/DL 04/10/2023 4:39 PM CDT [facility] RDW 12.0 11.6 - 14.8 % 04/10/2023 4:39 PM CDT [facility] PLT 272 140 - 415 x10'3/uL 04/10/2023 4:39 PM CDT [facility] MPV 9.0 7.0 - 12.0 FL 04/10/2023 4:39 PM CDT [facility] 04/10/2023 12:0 0 PM CDT aNn Crews CAKE ICER LABORATORY Final Result Performing Organization Address [facility] de Phone Number [facility] [address] [facility] [address] * (ABNORMAL) VITAMIN D, 25 [place] (04/10/2023 12:00 PM CDT) Pathologist [facility] VITAMIN D 25 HYDROXY S/P/B 28(L) 30 - 100 NG/ML 04/10/2023 5:04 PM CDT [facility] Comment: ? INTERPRETATION ? DEFICIENT ??<20 ? INSUFFICIENT 20-29 ?SUFFICIENT 30-100 04/10/2023 12:0 0 PM CDT Nan Crews CAKE ICER LABORATORY Final Result Performing Organization Address [facility] de Phone Number [facility] [address] [facility] [address] documented in this encounter Visit Diagnoses Diagnosis Chronic fatigue Other malaise and fatigue Episodic lightheadedness Dizziness and giddiness Bilateral hand numbness Disturbance of skin sensation documented in this encounter Additional Health Concerns Assessment Noted Time PHQ-9 Depression Total Score: 18 023 1:39 PM CDT documented as of this encounter Care Teams In Store Marketer Relationship Specialty Start Date End Date Nan Crews FNP PCP - General NURSE PRACTITIONER 04/24/18 documented as of this encounter
--- OUTSIDE RECORDS SUMMARY | 2024-06-05 22:00 | XMS_ITS | Encounter Summary ---
Author Organization [facility] Address [address] [place] [address]. [place], [place] [address] [place] [address] Care Team Providers Care Hand Woodworking Sander Name Role Phone Nan Crews Primary Care Provider [phone] Encounter Details Date Type Department Care Team (Late st Contact Info) Description 10/29/2022 Orders Only [facility] [address] [place] [address] Nan Crews FNP [address] [place], [place] [id number] Social History Tobacco Use Types Packs/Day Years Used Date Smoking Tobacco: Every Day Smokeless Tobacco: Never Comments:Provider to food counselor /vaps only Alcohol Use Standard Drinks/Week [...] faxed to [facility] [place] fax: [phone] documented in this encounter Plan of Treatment Not on file documented as of this encounter Visit Diagnoses Diagnosis Pelvic pain- Primary documented in this encounter Additional Health Concerns Assessment Noted Time PHQ-9 Depression Total Score: 11 023 10:44 AM CDT documented as of this encounter Care Teams Hand Woodworking Sander Relationship Specialty Start Date End Date Nan Crews FNP PCP - General NURSE PRACTITIONER 04/24/18 documented as of this encounter
--- OUTSIDE RECORDS SUMMARY | 2024-06-05 22:00 | XMS_ITS | Encounter Summary ---
Author Organization [facility] Address [address] [place] [address]. [place], [place] [address] [place] [address] Care Team Providers Care Transmission Assembler Name Role Phone Mars Nan YOUNG Primary Care Provider [phone] Encounter Details Date Type Department Care Team (Late st Contact Info) Description 07/12/2022 Orders Only [facility] [address] [address] Chiqui Fu FNP [address] [place], [place] [id number] Social History Tobacco Use Types Packs/Day Years Used Date Smoking Tobacco: Every Day Smokeless Tobacco: Never Comments:Provider to counselor education professor /vaps only Alcohol Use Standard Drinks/Week Comments [...] Coronavirus/COVID-19? No / Unsure 07/12/2022 2:58 PM BALLET SOLOIST documented as of this encounter Plan of Treatment Not on file documented as of this encounter Visit Diagnoses Not on filedocumented in this encounter Additional Health Concerns Assessment Noted Time PHQ-9 Depression Total Score: 10 022 9:31 AM BALLET SOLOIST documented as of this encounter Care Teams Transmission Assembler Relationship Specialty Start Date End Date Nan Crews FNP PCP - General NURSE PRACTITIONER 04/24/18 documented as of this encounter
--- OUTSIDE RECORDS SUMMARY | 2024-06-05 22:00 | XMS_ITS | Encounter Summary ---
Author Organization [facility] Address [address] [place] [address]. [place] [address] Care Team Providers Care Clothespin Drier Operator Name Role Phone Nan Crews Primary Care Provider [phone] Encounter Details Date Type Department Care Team (Latest Contact Info) Description 04/10/2023 Travel Social History Tobacco Use Types Packs/Day Years Used Date Smoking Tobacco: Every Day Smokeless Tobacco: Never Comments:Provider to business and financial counsel /vaps only Alcohol Use Standard Drinks/Week [...] documented as of this encounter Care Teams Clothespin Drier Operator Relationship Specialty Start Date End Date Nan Crews FNP PCP - General NURSE PRACTITIONER 04/24/18 documented as of this encounter
--- OUTSIDE RECORDS SUMMARY | 2024-06-05 22:00 | XMS_ITS | Encounter Summary ---
Author Organization [facility] Address [address] [place] [address]. [place], [place] [address] [place] [address] Care Team Providers Care Pick Up Worker Name Role Phone Nan Crews BOOK AUTHOR Primary Care Provider [phone] Reason for Visit * Reason Onset Date Comments Concerns 07/25/2022 Encounter Details Date Type Department Care Team (Late st Contact Info) Description 07/25/2022 Telephone [facility] Medical Group Family and Internal Medicine - [place] [address] [place], [place] [address] Ethel Haddad, SEPARATING MACHINE OPERATOR [address] [place], [place] [address] Concerns Social History Tobacco Use Types Packs/Day [...] Coronavirus/COVID-19? No / Unsure 07/12/2022 2:58 PM RETAIL SALES ASSOCIATE documented as of this encounter Progress Notes [...] please let me know. Alexandra Powell LPN [place] SALES ASSOCIATE [place]OCI[place] * Linda Jones - 07/25/2022 10:54 AM CST Pt said she has problems with her medicines and wants to talk to nurse [phone] [place] SALES ASSOCIATE documented in this encounter Plan of Treatment Not on file documented as of this encounter Visit Diagnoses Not on filedocumented in this encounter Additional Health Concerns Assessment Noted Time PHQ-9 Depression Total Score: 11 023 10:12 AM RETAIL SALES ASSOCIATE documented as of this encounter Care Teams Pick Up Worker Relationship Specialty Start Date End Date Nan Crews FNP PCP - General NURSE PRACTITIONER 04/24/18 documented as of this encounter
--- OUTSIDE RECORDS SUMMARY | 2024-06-05 22:00 | XMS_ITS | Encounter Summary ---
Author Organization [facility] Address [address] [place] [address]. [place], [place] [address] [place] [address] Care Team Providers Care Lay Up Operator Name Role Phone Nan Crews Primary Care Provider [phone] Reason for Visit * Reason Onset Date Comments Medication Problem 03/05/2022 Encounter Details Date Type Department Care Team (Late st Contact Info) Description 03/05/2022 Telephone [facility] [address] [place] [address] Nan Crews [facility] [address] [place] [id number] Medication Problem Social History Tobacco Use Types Packs/Day Years Used Date Smoking Tobacco: Never Smokeless Tobacco: Never Comments:Provider to staff genetic counselor Alcohol Use Standard Drinks/Week Comments No [...] documented as of this encounter Care Teams Lay Up Operator Relationship Specialty Start Date End Date Nan Crews FNP PCP - General NURSE PRACTITIONER 04/24/18 documented as of this encounter
--- OUTSIDE RECORDS SUMMARY | 2024-06-05 22:00 | XMS_ITS | Encounter Summary ---
Author Organization [facility] Address [address] [place] [address]. [place], [place] [address] [place] [address] Care Team Providers Care Rough Rice Grader Name Role Phone Nan Crews Primary Care Provider [phone] Encounter Details Date Type Department Care Team (Late st Contact Info) Description 04/11/2023 Orders Only [place] [address] [place] [address] Radha Cook LPN Social History Tobacco Use Types Packs/Day Years Used Date Smoking Tobacco: Every Day Smokeless Tobacco: Never Comments:Provider to teacher counselor /vaps only Alcohol Use Standard Drinks/Week [...] documented as of this encounter Care Teams Rough Rice Grader Relationship Specialty Start Date End Date Nan Crews FNP PCP - General NURSE PRACTITIONER 04/24/18 documented as of this encounter
--- OUTSIDE RECORDS SUMMARY | 2024-06-05 22:00 | XMS_ITS | Encounter Summary ---
Author Organization [facility] Address [address] [place] [address]. [place], [place] [address] [place] [address] Care Team Providers Care Call Center Supervisor Name Role Phone Nan Crews BOARD MIXER TENDER Primary Care Provider [phone] Encounter Details Date Type Department Care Team (Late st Contact Info) Description 11/16/2021 Orders Only [place] [address] [place] [address] Vikki Osullivan LPN Social History Tobacco Use Types Packs/Day Years Used Date Smoking Tobacco: Never Smokeless Tobacco: Never Comments:Provider to work counselor Alcohol Use Standard Drinks/Week Comments No [...] documented as of this encounter Care Teams Call Center Supervisor Relationship Specialty Start Date End Date Nan Crews FNP PCP - General NURSE PRACTITIONER 04/24/18 documented as of this encounter
--- OUTSIDE RECORDS SUMMARY | 2024-06-05 22:00 | XMS_ITS | Encounter Summary ---
Author Organization [facility] Address [address] [place] [address]. [place], [place] [address] [place] [address] Care Team Providers Care Restaurant Delivery Driver Name Role Phone Nan Crews Primary Care Provider Encounter Details Date Type Department Care Team (Late st Contact Info) Description 05/02/2022 Finderly Message Enc [facility] Medical Group Family and Internal Medicine - [place] [address] [facility] [address] [place] [address] Mychart, [facility] Provider medication Social History Tobacco Use Types Packs/Day Years Used Date Smoking Tobacco: Every Day Smokeless Tobacco: Never Comments:Provider to preparole counseling aide /vaps only Alcohol Use Standard Drinks/Week Comments [...] Depression Total Score: 10 022 9:31 AM BOXING INSPECTOR documented as of this encounter Care Teams Restaurant Delivery Driver Relationship Specialty Start Date End Date Nan Crews FNP PCP - General NURSE PRACTITIONER 04/24/18 documented as of this encounter
--- OUTSIDE RECORDS SUMMARY | 2024-06-05 22:00 | XMS_ITS | Encounter Summary ---
Author Organization [facility] Address [address] [place] [address]. [place], [place] [address] [place] [address] Care Team Providers Care Clinical Practice Consultant Name Role Phone Nan Crews Primary Care Provider [phone] Encounter Details Date Type Department Care Team (Latest Contact Info) Description 03/01/2022 Travel Social History Tobacco Use Types Packs/Day Years Used Date Smoking Tobacco: Never Smokeless Tobacco: Never Comments:Provider to dependency counselor Alcohol Use Standard Drinks/Week Comments No [...] documented as of this encounter Care Teams Clinical Practice Consultant Relationship Specialty Start Date End Date Nan Crews FNP PCP - General NURSE PRACTITIONER 04/24/18 documented as of this encounter
--- OUTSIDE RECORDS SUMMARY | 2024-06-05 22:00 | XMS_ITS | Encounter Summary ---
Author Organization [facility] Address [address] [place] [address]. [place], [place] [address] [place] [address] Care Team Providers Care Senior Grants Officer Name Role Phone Nan Crews HECTOR Primary Care Provider [phone] Reason for Visit * Reason Onset Date Comments Medication Problem 08/13/2022 Encounter Details Date Type Department Care Team (Late st Contact Info) Description 08/13/2022 Telephone [facility] Behavioral Health - [place] [address] [place] [address] Ethel Haddad, SHIPS OR BARGES LOADER [address] [place] [address] Medication Problem Social History Tobacco Use Types Packs/Day Years Used Date Smoking Tobacco: Every Day Smokeless Tobacco: Never Comments:Provider to queen's counsel /vaps only Alcohol Use Standard Drinks/Week [...] Coronavirus/COVID-19? No / Unsure 08/13/2022 1:36 PM OPAL POLISHER documented as of this encounter Progress Notes * Alexandra Powell LPN - 08/13/2022 4:24 PM CST Out of order note-- patient has been notified of the integration of her new medication and her OPC,she voiced understanding, no other questions at this time. Alexandra Powell LPN POLISHER * Alexandra Powell LPN - 08/13/2022 4:16 PM CSTSummary: medication Pharmacist wanted to make sure that the patient has been told this will effect her control. Made them aware she has been notified. Alexandra Powell LPN POLISHER * Deisy Antony - 08/13/2022 3:30 PM CST Zayda gomez [place] called to talk to a nurse about a drug interaction . Please call them at - [phone] Jennifer POLISHER documented in this encounter Plan of Treatment Not on file documented as of this encounter Visit Diagnoses Not on filedocumented in this encounter Additional Health Concerns Assessment Noted Time PHQ-9 Depression Total Score: 13 023 1:48 PM OPAL POLISHER documented as of this encounter Care Teams Senior Grants Officer Relationship Specialty Start Date End Date Nan Crews FNP PCP - General NURSE PRACTITIONER 04/24/18 documented as of this encounter
--- OUTSIDE RECORDS SUMMARY | 2024-06-05 22:00 | XMS_ITS | Encounter Summary ---
Author Organization [facility] Address [address] [place] [address]. [place], [place] [address] [place] [address] Care Team Providers Care Computer Education Professor Name Role Phone Nan Crews Primary Care Provider [phone] Reason for Visit * Reason Comments Abdominal [...] Description 11/09/2022 10:20 AM CDT Office Visit [facility] [address] [facility] [place] [address] [facility] [place] [address] Abdominal Pain (Patient has been [...] Asked; Counseling Given: Not Answered Comments:Provider to personal counselor /vaps only Alcohol Use Standard Drinks/Week [...] Smokeless tobacco: Never Tobacco comments: Provider to personal counselor /vaps only Vaping Use Vaping Use: [...] abdominal pain- Primary Borderline personality disorder (CMS/HCC [facility]/HCC) Borderline personality disorder Mood disorder (CMS/HCC) Unspecified episodic mood disorder documented in this encounter Additional Health Concerns Assessment Noted Time PHQ-9 Depression Total Score: 11 023 10:44 AM CDT documented as of this encounter Care Teams Computer Education Professor Relationship Specialty Start Date End Date Nan Crews FNP PCP - General NURSE PRACTITIONER 04/24/18 documented as of this encounter
--- OUTSIDE RECORDS SUMMARY | 2024-06-05 22:00 | XMS_ITS | Encounter Summary ---
Author Organization [facility] Address [address] [place] [address]. [place] [address] Care Team Providers Care Senior Reliability Engineer Name Role Phone Nan Crews Primary Care Provider [phone] Encounter Details Date Type Department Care Team (Latest Contact Info) Description 06/05/2022 Scan [facility] INFO [facility] Scanned, Doc Med Group Social History Tobacco Use Types Packs/Day Years Used Date Smoking Tobacco: Every Day Smokeless Tobacco: Never Comments:Provider to family life counselor /vaps only Alcohol Use Standard Drinks/Week [...] Depression Total Score: 10 022 9:31 AM BARREL BURNER documented as of this encounter Care Teams Senior Reliability Engineer Relationship Specialty Start Date End Date Nan Crews FNP PCP - General NURSE PRACTITIONER 04/24/18 documented as of this encounter
--- OUTSIDE RECORDS SUMMARY | 2024-06-05 22:00 | XMS_ITS | Encounter Summary ---
Author Organization [facility] Address [address] [place] [address]. [place], [place] [address] [place] [address] Care Team Providers Care Logistics Solution Manager Name Role Phone Nan Crews Primary Care Provider [phone] Encounter Details Date Type Department Care Team (Latest Contact Info) Description 03/08/2022 Travel Social History Tobacco Use Types Packs/Day Years Used Date Smoking Tobacco: Never Smokeless Tobacco: Never Comments:Provider to membership counselor Alcohol Use Standard Drinks/Week Comments Yes [...] documented as of this encounter Care Teams Logistics Solution Manager Relationship Specialty Start Date End Date Nan Crews FNP PCP - General NURSE PRACTITIONER 04/24/18 documented as of this encounter
--- OUTSIDE RECORDS SUMMARY | 2024-06-05 22:00 | XMS_ITS | Encounter Summary ---
Author Organization [facility] Address [address] [place] [address]. [place], [place] [address] [place] [address] Care Team Providers Care Cemetery Laborer Name Role Phone Nan Crews STEM CUTTER Primary Care Provider [phone] Reason for Visit * Reason Comments Ultrasound (SCAN) Encounter Details Date Type Department Care Team ([facility] Contact Info) Description 10/29/2022 Scan [facility] INFO [facility] Scanned, Doc Med Group Ultrasound (SCAN) Social History Tobacco Use Types Packs/Day Years Used Date Smoking Tobacco: Every Day Smokeless Tobacco: Never Comments:Provider to mental health counselor /vaps only Alcohol Use Standard Drinks/Week [...] documented as of this encounter Care Teams Cemetery Laborer Relationship Specialty Start Date End Date Nan Crews FNP PCP - General NURSE PRACTITIONER 04/24/18 documented as of this encounter
--- OUTSIDE RECORDS SUMMARY | 2024-06-05 22:00 | XMS_ITS | Encounter Summary ---
Author Organization [facility] Address [address] [place] [address]. [place], [place] [address] [place] [address] Care Team Providers Care Survey Instrument Operator Name Role Phone Nan Crews Primary [...] documented as of this encounter Care Teams Survey Instrument Operator Relationship Specialty Start Date End Date Nan Crews FNP PCP - General NURSE PRACTITIONER 04/24/18 documented as of this encounter
--- OUTSIDE RECORDS SUMMARY | 2024-06-05 22:00 | XMS_ITS | Encounter Summary ---
Author Organization [facility] Address [address] [place] [address]. [place] [address] Care Team Providers Care Meteorological Observer Name Role Phone Nan Crews FARMWORKER FIELD CROP Primary Care Provider [phone] Encounter Details Date Type Department Care Team (Latest Contact Info) Description 11/09/2022 Travel Social History Tobacco Use Types Packs/Day Years Used Date Smoking Tobacco: Every Day Smokeless Tobacco: Never Comments:Provider to certified personal finance counselor /vaps only Alcohol Use Standard Drinks/Week [...] documented as of this encounter Care Teams Meteorological Observer Relationship Specialty Start Date End Date Nan Crews FNP PCP - General NURSE PRACTITIONER 04/24/18 documented as of this encounter
--- OUTSIDE RECORDS SUMMARY | 2024-06-05 22:00 | XMS_ITS | Encounter Summary ---
Author Organization [facility] Address [address] [place] [address]. [place] [address] Care Team Providers Care Administration Dean Name Role Phone Nan Crews Primary Care Provider [phone] Encounter Details Date Type Department Care Team (Latest Contact Info) Description 03/12/2023 Travel Social History Tobacco Use Types Packs/Day Years Used Date Smoking Tobacco: Every Day Smokeless Tobacco: Never Comments:Provider to corporate counselor /vaps only Alcohol Use Standard Drinks/Week [...] documented as of this encounter Care Teams Administration Dean Relationship Specialty Start Date End Date Nan Crews FNP PCP - General NURSE PRACTITIONER 04/24/18 documented as of this encounter
--- OUTSIDE RECORDS SUMMARY | 2024-06-05 22:00 | XMS_ITS | Encounter Summary ---
Author Organization [facility] Address [address] [place] [address]. [place], [place] [address] [place] [address] Care Team Providers Care Hot Car Operator Name Role Phone Nan Crews Primary Care Provider [phone] Encounter Details Date Type Department Care Team (Late st Contact Info) Description 11/14/2021 Orders Only [facility] [address] [place], [place] [id number] Nan Crews FNP [address] [place], [place] [address] Social History Tobacco Use Types Packs/Day Years Used Date Smoking Tobacco: Never Smokeless Tobacco: Never Comments:Provider to addiction counselor Alcohol Use Standard Drinks/Week Comments No [...] VAGINALIS NEGATIVE NEGATIVE 11/14/2021 6:28 PM CDT [facility] REJI SPECIES NEGATIVE NEGATIVE 6:28 PM CDT [facility] TRICHOMONAS NEGATIVE NEGATIVE 11/14/2021 6:28 PM CDT [facility] VAGINAL STRUCTURE / Unknown 11/14/2021 1:59 PM CDT us Nan YOUNG MICROBIOLOGY - GENERAL ORDERA BLES Final Result [facility] [address] [place] [address], documented in this encounter Visit Diagnoses Diagnosis Female pelvic pain- Primary Unspecified symptom associated with female genital organs Vaginal discharge Leukorrhea, not specified as infective documented in this encounter Additional Health Concerns Assessment Noted Time PHQ-9 Depression Total Score: 14 021 10:28 AM CDT documented as of this encounter Care Teams Hot Car Operator Relationship Specialty Start Date End Date Nan Crews FNP PCP - General NURSE PRACTITIONER 04/24/18 documented as of this encounter
--- OUTSIDE RECORDS SUMMARY | 2024-06-05 22:00 | XMS_ITS | Encounter Summary ---
Author Organization [facility] Address [address] [place] [address]. [place], [place] [address] [place] [address] Care Team Providers Care Qc Tech Name Role Phone Mars Nan YOUNG Primary Care Provider [phone] Encounter Details Date Type Department Care Team (Late st Contact Info) Description 07/12/2022 Orders Only [facility] [address] [place] [address] Chiqui Fu FNP [address] [place], [place] [id number] Social History Tobacco Use Types Packs/Day Years Used Date Smoking Tobacco: Every Day Smokeless Tobacco: Never Comments:Provider to day camp counselor /vaps only Alcohol Use Standard Drinks/Week [...] Coronavirus/COVID-19? No / Unsure 07/12/2022 2:58 PM DEPLOYMENT ENGINEER documented as of this encounter Plan of Treatment Not on file documented as of this encounter Visit Diagnoses Not on filedocumented in this encounter Additional Health Concerns Assessment Noted Time PHQ-9 Depression Total Score: 10 022 9:31 AM DEPLOYMENT ENGINEER documented as of this encounter Care Teams Qc Tech Relationship Specialty Start Date End Date Nan Crews FNP PCP - General NURSE PRACTITIONER 04/24/18 documented as of this encounter
--- OUTSIDE RECORDS SUMMARY | 2024-06-05 22:00 | XMS_ITS | Encounter Summary ---
Author Organization [facility] Address [address] [place] [address]. [place], [place] [address] [place] [address] Care Team Providers Care Hide Splitter Name Role Phone Nan Crews Primary Care Provider [phone] Reason for Visit * Reason Onset Date Comments Question 11/24/2021 Encounter Details Date Type Department Care Team (Late st Contact Info) Description 11/24/2021 Telephone [facility] [address] [place] [address] Nan Crews [facility] [address] [place], [place] [id number] Question Social History Tobacco Use Types Packs/Day Years Used Date Smoking Tobacco: Never Smokeless Tobacco: Never Comments:Provider to assistant corporation counsel Alcohol Use Standard Drinks/Week Comments No [...] documented as of this encounter Care Teams Hide Splitter Relationship Specialty Start Date End Date Nan Crews FNP PCP - General NURSE PRACTITIONER 04/24/18 documented as of this encounter
--- OUTSIDE RECORDS SUMMARY | 2024-06-05 22:00 | XMS_ITS | Encounter Summary ---
Author Organization [facility] Address [address] [place] [address]. [place], [place] [address] [place] [address] Care Team Providers Care Control And Recovery Special Tactics Name Role Phone Nan Crews Primary Care Provider [phone] Encounter Details Date Type Department Care Team (Latest Contact Info) Description 12/15/2021 Travel Social History Tobacco Use Types Packs/Day Years Used Date Smoking Tobacco: Never Smokeless Tobacco: Never Comments:Provider to middle school guidance counselor Alcohol Use Standard Drinks/Week Comments No [...] documented as of this encounter Care Teams Control And Recovery Special Tactics Relationship Specialty Start Date End Date Nan Crews FNP PCP - General NURSE PRACTITIONER 04/24/18 documented as of this encounter
--- OUTSIDE RECORDS SUMMARY | 2024-06-05 22:00 | XMS_ITS | Encounter Summary ---
Author Organization [facility] Address [address] [place] [address]. [place], [place] [address] [place] [address] Care Team Providers Care Army Helicopter Pilot Name Role Phone Nan Crews Primary Care Provider Encounter Details Date Type Department Care Team (Latest Contact Info) Description 03/29/2022 Travel Social History Tobacco Use Types Packs/Day Years Used Date Smoking Tobacco: Never Smokeless Tobacco: Never Comments:Provider to education counselor /vaps only Alcohol Use Standard Drinks/Week [...] documented as of this encounter Care Teams Army Helicopter Pilot Relationship Specialty Start Date End Date Nan Crews FNP PCP - General NURSE PRACTITIONER 04/24/18 documented as of this encounter
--- OUTSIDE RECORDS SUMMARY | 2024-06-05 22:00 | XMS_ITS | Encounter Summary ---
Author Organization [facility] Address [address] [place] [address]. [place], [place] [address] [place] [address] Care Team Providers Care Facility Attendant Name Role Phone Nan Crews Primary Care Provider [phone] Reason for Visit * Reason Onset Date Comments Results 11/01/2022 Encounter Details Date Type Department Care Team (Late st Contact Info) Description 11/01/2022 Telephone [facility] [address] [place] [address] Nan Crews [facility] [address] [place], [place] [id number] Results Social History Tobacco Use Types Packs/Day Years Used Date Smoking Tobacco: Every Day Smokeless Tobacco: Never Comments:Provider to public relations counselor /vaps only Alcohol Use Standard Drinks/Week [...] this yet, she is going to call [facility] and get them sent over. * Laura Mares - 11/01/2022 8:07 AM CDT Patient's Mom called wanting imaging results from Saturday that was done at [facility] documented in this encounter Plan of Treatment Not on file documented as of this encounter Visit Diagnoses Not on filedocumented in this encounter Additional Health Concerns Assessment Noted Time PHQ-9 Depression Total Score: 11 023 10:44 AM CDT documented as of this encounter Care Teams Facility Attendant Relationship Specialty Start Date End Date Nan Crews FNP PCP - General NURSE PRACTITIONER 04/24/18 documented as of this encounter
--- OUTSIDE RECORDS SUMMARY | 2024-06-05 22:00 | XMS_ITS | Encounter Summary ---
Author Organization [facility] Address [address] [place] [address]. [place], [place] [address] [place] [address] Care Team Providers Care Mechanical Assembly Name Role Phone Nan Crews Primary Care Provider [phone] Reason for Visit * Reason Comments Dizziness Dizziness, lighthead ed, and SOB going on for a year, the other day it lasted all day and hands were numb, says it feels like attacks of the symptoms now Encounter Details Date Type Department Care Team (Late st Contact Info) Description 04/10/2023 10:00 AM CDT Office Visit [facility] [address] [place] [address] Nan Crews [facility] [address] [place] [id number] Dizziness (Dizziness, lightheaded, and SOB going on for a year, the other day it lasted all day and hands were numb, says it feels like attacks of the symptoms now) Social History Tobacco Use Types Packs/Day Years Used Date Smoking Tobacco: Every Day Smokeless Tobacco: Never Tobacco Cessation:Ready to Q uit: Not Asked; Counseling Given: Yes Comments:Provider to world travel counselor /vaps only Alcohol Use Standard [...] She eventually went to urgent care in [facility] as she was staying there at the [...] She was living with 2 friends in [place]. She was working at [employer] in [place] and plans to try to get a job at the [employer]. She says she is putting an application [...] of having ovarian cysts. She sees a ranch helper in [facility] for the ovarian cyst as well as irregular periods The ranch helper plans to put in an IUD as [...] Smokeless tobacco: Never Tobacco comments: Provider to world travel counselor /vaps only Vaping Use Vaping [...] the day of the encounter. This includes avsu-lm-avnw and pmz-dqza-nu-face time I provided on the day of [...] - 100 NG/ML 04/10/2023 5:04 PM CDT [facility] Comment: ? INTERPRETATION ? DEFICIENT ??<20 ? INSUFFICIENT 20-29 ?SUFFICIENT 30-100 04/10/2023 12:0 0 PM CDT us Nan [facility] Final Result [facility] [address] [place] [address] [place] [address], * CBC W/DIFF AUTOMATED (04/10/2023 12:00 PM CDT) WBC 5.79 4.50 - 11.00 x10'3/uL 04/10/2023 4:39 PM CDT [facility] RBC 4.32 4.00 - 5.20 x10'6/uL 04/10/2023 4:39 PM CDT [facility] HGB 13.1 12.0 - 16.0 G/DL 04/10/2023 4:39 PM CDT [facility] HCT 38.7 36.0 - 46.0 % 04/10/2023 4:39 PM CDT [facility] MCV 89.6 80.0 - 100.0 FL 04/10/2023 4:39 PM CDT [facility] MCH 30.3 26.0 - 34.0 PG 04/10/2023 4:39 PM CDT [facility] MCHC 33.9 31.0 - 37.0 G/DL 04/10/2023 4:39 PM CDT [facility] RDW 12.0 11.6 - 14.8 % 04/10/2023 4:39 PM CDT [facility] PLT 272 140 - 415 x10'3/uL 04/10/2023 4:39 PM CDT [facility] MPV 9.0 7.0 - 12.0 FL 04/10/2023 4:39 PM CDT [facility] 04/10/2023 12:0 0 PM CDT us Nan [facility] Final Result [facility] [address] [place] [address], * (ABNORMAL) BASIC METABOLIC PANEL (04/10/2023 12:00 PM CDT) GLUCOSE 67(L) 70 - 99 MG/DL 04/10/2023 5:04 PM CDT [facility] BUN 15 7 - 18 MG/DL 04/10/2023 5:04 PM CDT [facility] CREATININE S/P/B 0.66 0.50 - 1.20 MG/DL 04/10/2023 5:04 PM CDT [facility] SODIUM S/P/B 139 136 - 145 MMOL/L 04/10/2023 5:04 PM CDT [facility] POTASSIUM S/P/B 3.5 3.5 - 5.1 MMOL/L 04/10/2023 5:04 PM CDT [facility] CHLORIDE S/P/B 103 100 - 108 MMOL/L 04/10/2023 5:04 PM CDT [facility] CO2 27.1 21.0 - 32.0 MMOL/L 04/10/2023 5:04 PM CDT [facility] CALCIUM S/P/B 9.0 8.5 - 10.1 MG/DL 04/10/2023 5:04 PM CDT [facility] ANION GAP 8.9 5.0 - 15.0 MMOL/L 04/10/2023 5:04 PM CDT [facility] BUN CREATININE RATIO 22.7 6 - 26 04/10/2023 5:04 PM CDT [facility] GFR ESTIMATE >90 >90 ML/MIN/1.7 3 M2 04/10/2023 5:04 PM CDT [facility] Comment: NOTE: eGFR is not calculated for patients <18 years of age. This is an estimated GFR calculation using the new CKD EPI creatinine equation without race and so does not require a correction factor for race. This estimated GFR should not be used for calculating drug doses. 04/10/2023 12:0 0 PM CDT us Nan [facility] Final Result [address] [place] [address], [place] * THYROID STIM HORMONE, TSH (04/10/2023 12:00 PM CDT) TSH 1.804 0.358 - 3.740 uIU/ML 04/10/2023 5:04 PM CDT [facility] Comment: HIGH DOSES OF BIOTIN MAY INTERFERE WITH THIS TEST RESULT. CORRELATION TO CLINICAL HISTORY AND PRESENTATION RECOMMENDED. 04/10/2023 12:0 0 PM CDT us Nan [facility] Final Result [facility] [address] [place] [address], documented in this encounter Visit Diagnoses Diagnosis [...] documented as of this encounter Care Teams Mechanical Assembly Relationship Specialty Start Date End Date Nan Crews FNP PCP - General NURSE PRACTITIONER 04/24/18 documented as of this encounter
--- OUTSIDE RECORDS SUMMARY | 2024-06-05 22:00 | XMS_ITS | Encounter Summary ---
Author Organization [facility] Address [address] [place] [address]. [place] [address] Care Team Providers Care Actuary Clerk Name Role Phone Nan Crews HECTOR Primary Care Provider [phone] Encounter Details Date Type Department Care Team (Latest Contact Info) Description 09/10/2022 Travel Social History Tobacco Use Types Packs/Day Years Used Date Smoking Tobacco: Every Day Smokeless Tobacco: Never Comments:Provider to dependency counselor /vaps only Alcohol Use Standard Drinks/Week [...] documented as of this encounter Care Teams Actuary Clerk Relationship Specialty Start Date End Date Nan Crews FNP PCP - General NURSE PRACTITIONER 04/24/18 documented as of this encounter
--- OUTSIDE RECORDS SUMMARY | 2024-06-05 22:00 | XMS_ITS | Encounter Summary ---
Author Organization [facility] Address [address] [place] [address]. [place] [address] Care Team Providers Care Geometry Tutor Name Role Phone Nan Crews HECTOR Primary Care Provider [phone] Encounter Details Date Type Department Care Team (Latest Contact Info) Description 08/13/2022 Travel Social History Tobacco Use Types Packs/Day Years Used Date Smoking Tobacco: Every Day Smokeless Tobacco: Never Comments:Provider to group home counselor /vaps only Alcohol Use Standard Drinks/Week [...] Coronavirus/COVID-19? No / Unsure 08/13/2022 1:36 PM HOME INSURANCE AGENT documented as of this encounter Plan of Treatment Not on file documented as of this encounter Visit Diagnoses Not on filedocumented in this encounter Additional Health Concerns Assessment Noted Time PHQ-9 Depression Total Score: 13 023 1:48 PM HOME INSURANCE AGENT documented as of this encounter Care Teams Geometry Tutor Relationship Specialty Start Date End Date Nan Crews FNP PCP - General NURSE PRACTITIONER 04/24/18 documented as of this encounter
--- OUTSIDE RECORDS SUMMARY | 2024-06-05 22:00 | XMS_ITS | Encounter Summary ---
Author Organization [facility] Address [address] [place] [address]. [place], [place] [address] [place] [address] Care Team Providers Care Polisher Balance Screwhead Name Role Phone Nan Crews HECTOR Primary Care Provider [phone] Reason for Visit * Reason Onset Date Comments Medication Problem 03/19/2023 Encounter Details Date Type Department Care Team (Late st Contact Info) Description 03/19/2023 Telephone [facility] [address] [facility], [facility] [address] [place] [address] Ethel Haddad APRN [address] [place] [address] Medication Problem Social History Tobacco [...] Diagnosis Bipolar affective disorder, current episode hypomanic ([facility])- Primary Bipolar I disorder, most recent episode (or current) manic, unspecified Nightmares Other dysfunctions of sleep stages or arousal from sleep documented in this encounter Additional Health Concerns Assessment Noted Time PHQ-9 Depression Total Score: 18 023 1:39 PM CDT documented as of this encounter Care Teams Polisher Balance Screwhead Relationship Specialty Start Date End Date Nan Crews FNP PCP - General NURSE PRACTITIONER 04/24/18 documented as of this encounter
--- OUTSIDE RECORDS SUMMARY | 2024-06-05 22:00 | XMS_ITS | Encounter Summary ---
Author Organization [facility] Address [address] [place] [address]. [place], [place] [address] [place] [address] Care Team Providers Care Cutter Down Name Role Phone Nan Crews [facility] Primary Care Provider [phone] Reason for Visit * Reason Comments Vaginal Problem Encounter Details Date Type Department Care Team (Late st Contact Info) Description 07/12/2022 3:00 PM BUSINESS TEST ANALYST Office Visit [facility] [address] [place], [place] [id number] Chiqui Fu [facility] [address] [place], [place] [id number] Vaginal Problem Social History Tobacco Use Types Packs/Day Years Used Date Smoking Tobacco: Every Day Smokeless Tobacco: Never Comments:Provider to corporate travel counselor /vaps only Alcohol Use Standard [...] Coronavirus/COVID-19? No / Unsure 07/12/2022 2:58 PM BUSINESS TEST ANALYST documented as of this encounter Last Filed Vital Signs Vital Sign Reading Time Taken Comments Blood Pressure 90/64 07/12/2022 3:03 PM BUSINESS TEST ANALYST Pulse 100 07/12/2022 3:03 PM BUSINESS TEST ANALYST Temperature 36.9 ??C (98.5 ??F) 07/12/2022 3:03 PM CS T Respiratory Rate 14 07/12/2022 3:03 PM BUSINESS TEST ANALYST Oxygen Saturation - - Inhaled Oxygen Concentration - - Weight 49 kg (108 lb) 07/12/2022 3:03 PM BUSINESS TEST ANALYST Height 165.1 cm (5' 5 ) 07/12/2022 3:03 PM BUSINESS TEST ANALYST Body Mass Index 17.97 07/12/2022 3:03 PM BUSINESS TEST ANALYST documented in this encounter Patient Instructions * Patient Instructions* HECTOR [place] - 07/12/2022 3:00 PM BUSINESS TEST ANALYST Avoid intercourse until diagnosis and treatment confirmed Arrange testing with health department Wet prep results will come back tonight We will call you in the morning with results Once symptoms have resolved condoms are recommended always Has refills on OCP from PCP according to [employer] NESS TEST ANALYST documented in this encounter Progress Notes * [...] UTI about 5 weeks ago. Treated at [facility] in clinic. Took Bactrim DS 1 [...] urgency. See HPI Psychiatric/Behavioral: Sees [facility]NP in [place] Medications: Current Outpatient Medications: ??? ARIPiprazole (ABILIFY) [...] tobacco: Never ??? Tobacco comments: Provider to corporate travel counselor /vaps only Vaping Use ??? Vaping Use: Every day ??? Substances: Nicotine ??? Devices: RefMalesbangetble tank Substance Use Topics ??? Alcohol use: [...] Exam Vitals reviewed. Exam conducted with a electric power machine operator present (LINETTE Parmar). Constitutional: General: She is [...] Mood normal. Labs: URINALYSIS AUTO DIP Order: [id number] Status: Final result ?? 0 Result Notes Component Ref Range & Units 07/12/22 0000 COLOR (U) YELLOW TRANSPARENCY CLOUDY GLUCOSE (U) NEGATIVE MG/DL NEGATIVE BILIRUBIN (U) NEGATIVE NEGATIVE U KETONES NEGATIVE MG/DL NEGATIVE Specific [place] (U) 1.001 - 1.035 1.025 BLOOD NEGATIVE TRACE (Non Hemolyzed, Intact) U PH 5.0 - 9.0 8.5 PROTEIN (U) NEGATIVE mg/dL NEGATIVE UROBILINOGEN 0.2 - 1.0 EU/dL = mg/dL 0.2 NITRITES NEGATIVE MG/DL NEGATIVE LEUKOCYTE ESTERASE NEGATIVE TRACE Diagnoses/Impression: 1. Pain in female genitalia on intercourse Do STI testing at [facility] HD - SMEAR, STAIN, WET PREP; Future [...] refills on OCP from PCP according to [facility] HECTOR [place] Cosigned by Hardik Tinoco MD at 07/21/2022 8:28 PM BUSINESS TEST ANALYST NESS TEST ANALYST NESS TEST ANALYST documented in this encounter Plan of Treatment Not on file documented as of this encounter Procedures Procedure Name Priority Date/Time Associated Diagnosis Comments TEST URINE Routine 07/12/2022 Unprotected sexual intercourse URINALYSIS AUTO DIP Routine 07/12/2022 History of UTI documented in this encounter Results * CULTURE URINE (07/12/2022 3:49 PM BUSINESS TEST ANALYST) SPEC DESCRIPTION URINE CLEAN CATCH 07/12/2022 6:42 PM BUSINESS TEST ANALYST [facility] SPECIAL REQUESTS NO SPECIAL REQUEST 07/12/2022 6:42 PM BUSINESS TEST ANALYST [facility] CULTURE RESULT NO GROWTH 2 DAYS 07/15/2022 9:15 AM BUSINESS TEST ANALYST [facility] URINE SPECIMEN OBTAINED BY CLEAN CATCH PROCEDURE / Unknown 07/12/2022 3:49 PM BUSINESS TEST ANALYST 07/12/2022 6:32 PM BUSINESS TEST ANALYST Chiqui YOUNG MICROBIOLOGY - GENERAL ORDERABL ES Final Result [facility] [address] [place] [address], [place] [phone] [facility] [place] [address], [place] * TEST URINE (07/12/2022) URINE HCG TEST NEGATIVE NEGATIVE [facility] [address] ([address]), [place] Internal Control: [facility] ([address]), [place] URINE SPECIMEN FROM URETHRA / Unknown 07/12/2022 us Chiqui Fu [facility] URINE ORDERABLES Final Result Performing Organization Address [facility] Co de Phone Number [facility] ([address]), [place] [address], [place] [phone] * URINALYSIS AUTO DIP (07/12/2022) COLOR (U) YELLOW [facility] ([facility]), [place] TRANSPARENCY CLOUDY [facility] ([facility]), [place] GLUCOSE (U) NEGATIVE NEGATIVE MG/DL [facility] (201), [place] BILIRUBIN (U) NEGATIVE NEGATIVE MG-[facility] ([facility]), [place] KETONES MG/DL (U) NEGATIVE NEGATIVE MG/DL [facility] (201), [place] SPECIFIC GRAVITY (U) 1.025 1.001 - 1.035 [facility] (201), [place] BLOOD (U) TRACE (Non Hemolyzed, Intact) NEGATIVE [facility] (201), [place] U PH 8.5 5.0 - 9.0 [facility] (201), [place] PROTEIN (U) NEGATIVE NEGATIVE mg/dL [facility] (201), [place] UROBILINOGEN 0.2 0.2 - 1.0 EU/dL = mg/dL [facility] (201), [place] NITRITES NEGATIVE NEGATIVE MG/DL [facility] (201), [place] LEUKOCYTES (U) TRACE NEGATIVE -[facility] (201), [place] URINE SPECIMEN OBTAINED BY CLEAN CATCH PROCEDURE / Unknown 07/12/2022 us Chiqui Fu DIRECTOR [employer] URINE ORDERABLES Final Result Performing Organization Address [facility]/ZIP Co de Phone Number [facility] ([address]), [place] [address], [place] [phone] documented in this encounter Visit Diagnoses Diagnosis Pain in female genitalia on intercourse- Primary Dyspareunia PCB (post coital bleeding) Postcoital bleeding History of UTI Personal history of urinary (tract) infection Unprotected sexual intercourse Problems related to high-risk sexual behavior documented in this encounter Additional Health Concerns Assessment Noted Time PHQ-9 Depression Total Score: 10 022 9:31 AM BUSINESS TEST ANALYST documented as of this encounter Care Teams Cutter Down Relationship Specialty Start Date End Date Nan Crews FNP PCP - General NURSE PRACTITIONER 04/24/18 documented as of this encounter
--- OUTSIDE RECORDS SUMMARY | 2024-06-05 22:00 | XMS_ITS | Encounter Summary ---
Author Organization [facility] Address [address] [place] [address]. [place] [address] Care Team Providers Care Solo Musician Name Role Phone Nan Crews Primary Care Provider [phone] Encounter Details Date Type Department Care Team (Latest Contact Info) Description 07/12/2022 Travel Social History Tobacco Use Types Packs/Day Years Used Date Smoking Tobacco: Every Day Smokeless Tobacco: Never Comments:Provider to travel counselor automobile club /vaps only Alcohol Use Standard Drinks/Week Comments [...] Coronavirus/COVID-19? No / Unsure 07/12/2022 2:58 PM GAS MAKER documented as of this encounter Plan of Treatment Not on file documented as of this encounter Visit Diagnoses Not on filedocumented in this encounter Additional Health Concerns Assessment Noted Time PHQ-9 Depression Total Score: 10 022 9:31 AM GAS MAKER documented as of this encounter Care Teams Solo Musician Relationship Specialty Start Date End Date Nan Crews FNP PCP - General NURSE PRACTITIONER 04/24/18 documented as of this encounter
--- OUTSIDE RECORDS SUMMARY | 2024-06-05 22:00 | XMS_ITS | Encounter Summary ---
Author Organization [facility] Address [address] [place] [address]. [place], [place] [address] [place] [address] Care Team Providers Care Pharmacy Technician Name Role Phone Mars Nan YOUNG Primary Care Provider [phone] Encounter Details Date Type Department Care Team (Late st Contact Info) Description 07/12/2022 11:59 PM CERTIFIED HYPERBARIC TECHNOLOGIST Hospital Encounter [facility] [address] [place] [address] Chiqui Fu FNP [address] [place] [address] Discharge Disposition: Home or Self Care (Routine Discharge) Social History Tobacco Use Types Packs/Day Years Used Date Smoking Tobacco: Every Day Smokeless Tobacco: Never Comments:Provider to job placement counselor /vaps only Alcohol Use Standard Drinks/Week [...] Coronavirus/COVID-19? No / Unsure 07/12/2022 2:58 PM CERTIFIED HYPERBARIC TECHNOLOGIST documented as of this encounter Medications at Time of Discharge ARIPiprazole (ABILIFY) 15 MG tabletIndications :Bipolar affective disorder, current episode hypomanic ([facility]) Take 0.5 tablets (7.5 mg total) by mouth daily. 15 tablet 05/31/2022 07/13/2022 escitalopram (LEXAPRO) 5 MG tabletIndications :Bipolar affective disorder, current episode hypomanic ([facility]) Take 1 tablet (5 mg total) by mouth daily. 30 tablet 05/31/2022 07/13/2022 lamoTRIgine (LAMICTAL) 200 MG tabletIndications :Bipolar affective disorder, current episode hypomanic ([facility]) Take 1 tablet (200 mg total) [...] VAGINITIS SCREEN (VDS) Routine 07/12/2022 3:40 PM CERTIFIED HYPERBARIC TECHNOLOGIST History of urinary tract infection documented in this encounter Results * VDS (REJI, TRICH, & G. VAG) (07/12/2022 3:40 PM CERTIFIED HYPERBARIC TECHNOLOGIST) [place] VAGINALIS NEGATIVE NEGATIVE 07/13/2022 6:22 AM CERTIFIED HYPERBARIC TECHNOLOGIST [facility] REJI SPECIES NEGATIVE NEGATIVE 6:22 AM CERTIFIED HYPERBARIC TECHNOLOGIST [facility] TRICHOMONAS NEGATIVE NEGATIVE 07/13/2022 6:22 AM CERTIFIED HYPERBARIC TECHNOLOGIST [facility] VAGINAL STRUCTURE / Unknown 07/12/2022 3:40 PM CERTIFIED HYPERBARIC TECHNOLOGIST Chiqui Fu NETWORK TECHNICIAN MICROBIOLOGY - GENERAL ORDERABL ES Final Result [facility] [place] [address], documented in this encounter Visit Diagnoses Diagnosis History of urinary tract infection Personal history of urinary (tract) infection documented in this encounter Additional Health Concerns Assessment Noted Time PHQ-9 Depression Total Score: 10 022 9:31 AM CERTIFIED HYPERBARIC TECHNOLOGIST documented as of this encounter Care Teams Pharmacy Technician Relationship Specialty Start Date End Date Nan Crews FNP PCP - General NURSE PRACTITIONER 04/24/18 documented as of this encounter
--- OUTSIDE RECORDS SUMMARY | 2024-06-05 22:01 | XMS_ITS | Encounter Summary ---
Author Organization [facility] Address [address] [place] [address]. [place], [place] [address] [place] [address] Care Team Providers Care Portfolio Management Marketing Name Role Phone Nan Crews Primary Care Provider [phone] Reason for Visit * Reason Comments Medication Management F/U Encounter Details Date Type Department Care Team (Late st Contact Info) Description 05/11/2020 10:40 AM HOSPITAL TRAY SERVICE WORKER Office Visit [facility] [address] [place], [place] [id number] Nan Crews [place] [address] [place] [id number] Medication Management (F/U ) Social History Tobacco [...] COVID-19? No / Unsure 05/10/2020 11:29 AM HOSPITAL TRAY SERVICE WORKER documented as of this encounter Last Filed Vital Signs Vital Sign Reading Time Taken Comments Blood Pressure 96/62 05/11/2020 10:45 AM HOSPITAL TRAY SERVICE WORKER Pulse 76 05/11/2020 10:45 AM HOSPITAL TRAY SERVICE WORKER Temperature 37.2 ??C (98.9 ??F) 05/11/2020 10:[address] Respiratory Rate - - Oxygen Saturation - - Inhaled Oxygen Concentration - - Weight 50.3 kg (111 lb) 05/11/2020 10:45 AM HOSPITAL TRAY SERVICE WORKER Height - - Body Mass Index - [...] to protect her family. Sheis working at [employer] and works a few days a week. [...] Gabrielle Mathew DO at 05/13/2020 3:28 PM HOSPITAL TRAY SERVICE WORKER ITAL TRAY SERVICE WORKER ITAL TRAY SERVICE WORKER documented in this encounter Plan of Treatment Not on file documented as of this encounter Visit Diagnoses Diagnosis Depression, unspecified depression type- Primary documented in this encounter Additional Health Concerns Assessment Noted Time PHQ-9 Depression Total Score: 17 020 11:04 AM HOSPITAL TRAY SERVICE WORKER documented as of this encounter Care Teams Portfolio Management Marketing Relationship Specialty Start Date End Date Nan Crews FNP PCP - General NURSE PRACTITIONER 04/24/18 documented as of this encounter
--- OUTSIDE RECORDS SUMMARY | 2024-06-05 22:01 | XMS_ITS | Encounter Summary ---
Author Organization [facility] Address [address] [place] [address]. [place], [place] [address] [place] [address] Care Team Providers Care Copy Clerk Name Role Phone Nan Crews Primary Care Provider [phone] Encounter Details Date Type Department Care Team [...] COVID-19? No / Unsure 05/30/2021 1:30 PM BENDING FRAME OPERATOR documented as of this encounter Plan of Treatment Not on file documented as of this encounter Visit Diagnoses Not on filedocumented in this encounter Additional Health Concerns Assessment Noted Time PHQ-9 Depression Total Score: 14 021 10:28 AM CDT documented as of this encounter Care Teams Copy Clerk Relationship Specialty Start Date End Date Nan Crews FNP PCP - General NURSE PRACTITIONER 04/24/18 documented as of this encounter
--- OUTSIDE RECORDS SUMMARY | 2024-06-05 22:01 | XMS_ITS | Encounter Summary ---
Author Organization [facility] Address [address] [place] [address]. [place] [address] Care Team Providers Care Mat Gauger Name Role Phone Nan Crews Primary Care Provider [phone] Encounter Details Date Type Department Care Team [...] on filedocumented in this encounter Care Teams Mat Gauger Relationship Specialty Start Date End Date Nan Crews FNP PCP - General NURSE PRACTITIONER 04/24/18 documented as of this encounter
--- OUTSIDE RECORDS SUMMARY | 2024-06-05 22:01 | XMS_ITS | Encounter Summary ---
Author Organization [facility] Address [address] [place] [address]. [place], [place] [address] [place] [address] Care Team Providers Care Administrative Assistant Receptionist Name Role Phone Nan Crews Primary Care Provider [phone] Encounter Details Date Type Department Care Team (Latest Contact Info) Description 12/06/2020 Travel Social History Tobacco Use Types Packs/Day Years Used Date Smoking Tobacco: Never Smokeless Tobacco: Never Comments:Provider to behavioral health counselor Alcohol Use Standard Drinks/Week Comments No [...] documented as of this encounter Care Teams Administrative Assistant Receptionist Relationship Specialty Start Date End Date Nan Crews FNP PCP - General NURSE PRACTITIONER 04/24/18 documented as of this encounter
--- OUTSIDE RECORDS SUMMARY | 2024-06-05 22:01 | XMS_ITS | Encounter Summary ---
Author Organization [facility] Address [address] [place] [address]. [place], [place] [address] [place] [address] Care Team Providers Care Abrasive Wheel Molder Name Role Phone Nan Crews Primary Care Provider [phone] Encounter Details Date Type Department Care Team (Late st Contact Info) Description 11/14/2021 3:59 PM CDT - 11/14/2021 11:59 PM CDT Hospital Encounter [facility] [address] [place] [id number] Nan Crews FNP [address] [place] [address] Discharge Disposition: Home or Self Care (Routine [...] VAGINALIS NEGATIVE NEGATIVE 11/14/2021 6:28 PM CDT [facility] REJI SPECIES NEGATIVE NEGATIVE 2 6:28 PM CDT [facility] TRICHOMONAS NEGATIVE NEGATIVE 11/14/2021 6:28 PM CDT [facility] VAGINAL STRUCTURE / Unknown 11/14/2021 1:59 PM CDT us Nan Crews SOLE SEWER HAND MICROBIOLOGY - GENERAL ORDERA BLES Final Result [facility] [address] [place] [address], [place] * CULTURE URINE (11/14/2021 1:59 PM CDT) SPEC DESCRIPTION URINE CLEAN CATCH 11/14/2021 4:01 PM CDT [facility] SPECIAL REQUESTS NO SPECIAL REQUEST 11/14/2021 4:01 PM CDT [facility] CULTURE RESULT POLYMICROBIAL GROWTH CONSISTENT WITH NORMAL GENITAL SYBIL. ?? SUSCEPTIBILITIES NOT ROUTINELY PERFORMED. 11/16/2021 9:04 AM CDT [facility] URINE SPECIMEN OBTAINED BY CLEAN CATCH PROCEDURE / Unknown 11/14/2021 1:59 PM CDT 11/14/2021 4:04 PM CDT Nan YOUNG MICROBIOLOGY - GENERAL ORDERA BLES Final Result Performing Organization Address City/State/[facility] Co de Phone Number [facility] [address] [place] [address], [facility] [address] [place], [place] [address], documented in this encounter Visit Diagnoses Diagnosis Pelvic pain Female pelvic pain Unspecified symptom associated with female genital organs Vaginal discharge Leukorrhea, not specified as infective documented in this encounter Additional Health Concerns Assessment Noted Time PHQ-9 Depression Total Score: 14 08 021 10:28 AM CDT documented as of this encounter Care Teams Abrasive Wheel Molder Relationship Specialty Start Date End Date Nan Crews FNP PCP - General NURSE PRACTITIONER 04/24/18 documented as of this encounter
--- OUTSIDE RECORDS SUMMARY | 2024-06-05 22:01 | XMS_ITS | Encounter Summary ---
Author Organization [facility] Address [address] [place] [address]. [place], [place] [address] [place] [address] Care Team Providers Care Entry Level Financial Analyst Name Role Phone Nan Crews Primary Care Provider [phone] Encounter Details Date Type Department Care Team (Latest Contact Info) Description 09/19/2021 Travel Social History Tobacco Use Types Packs/Day Years Used Date Smoking Tobacco: Never Smokeless Tobacco: Never Comments:Provider to in house counsel Alcohol Use Standard Drinks/Week Comments No [...] as of this encounter Care Teams Entry Level Financial Analyst Relationship Specialty Start Date End Date Nan Crews FNP PCP - General NURSE PRACTITIONER 04/24/18 documented as of this encounter
--- OUTSIDE RECORDS SUMMARY | 2024-06-05 22:01 | XMS_ITS | Encounter Summary ---
Author Organization [facility] Address [address] [place] [address]. [place] [address] Care Team Providers Care Loan Interviewer Name Role Phone Nan Crews Primary Care Provider [phone] Encounter Details Date Type Department Care Team [...] on filedocumented in this encounter Care Teams Loan Interviewer Relationship Specialty Start Date End Date Nan Crews FNP PCP - General NURSE PRACTITIONER 04/24/18 documented as of this encounter
--- OUTSIDE RECORDS SUMMARY | 2024-06-05 22:01 | XMS_ITS | Encounter Summary ---
Author Organization [facility] Address [address] [place] [address]. [place] [address] Care Team Providers Care [employer] Dean Name Role Phone Nan Crews Primary Care Provider [phone] Encounter Details Date Type Department Care Team (Latest Contact Info) Description 09/22/2021 Scan [facility] Scanned, Documents Social History Tobacco Use Types Packs/Day Years Used Date Smoking Tobacco: Never Smokeless Tobacco: Never Comments:Provider to public relations counselor Alcohol Use Standard Drinks/Week Comments No [...] documented as of this encounter Care Teams [employer] Dean Relationship Specialty Start Date End Date Nan Crews FNP PCP - General NURSE PRACTITIONER 04/24/18 documented as of this encounter
--- OUTSIDE RECORDS SUMMARY | 2024-06-05 22:01 | XMS_ITS | Encounter Summary ---
Author Organization [facility] Address [address] [place] [address]. [place], [place] [address] [place] [address] Care Team Providers Care Floral Department Specialist Name Role Phone Nan Crews Primary Care Provider [phone] Reason for Visit * Reason Onset Date Comments Medication Request 11/19/2019 Encounter Details Date Type Department Care Team (Late st Contact Info) Description 11/19/2019 Telephone [facility] [address] [place] [address] Nan Crews [facility] [address] [place], [place] [id number] Medication Request Social History Tobacco Use Types [...] HER TRI-SPINTEC CONTROL REFILLED SHES OUT TO [facility] [place] documented in this encounter Plan of Treatment Not on file documented as of this encounter Visit Diagnoses Not on filedocumented in this encounter Additional Health Concerns Assessment Noted Time PHQ-9 Depression Total Score: 3 11/19/19 20 1:39 PM CDT documented as of this encounter Care Teams Floral Department Specialist Relationship Specialty Start Date End Date Nan Crews FNP PCP - General NURSE PRACTITIONER 04/24/18 documented as of this encounter
--- OUTSIDE RECORDS SUMMARY | 2024-06-05 22:01 | XMS_ITS | Encounter Summary ---
Author Organization [facility] Address [address] [place] [address]. [place] [address] Care Team Providers Care Safety Tech Name Role Phone Nan Crews Primary Care Provider [phone] Encounter Details Date Type Department Care Team [...] COVID-19? No / Unsure 06/07/2020 9:59 AM FUNERAL PREARRANGEMENT COUNSELOR documented as of this encounter Plan of Treatment Not on file documented as of this encounter Visit Diagnoses Not on filedocumented in this encounter Additional Health Concerns Assessment Noted Time PHQ-9 Depression Total Score: 21 020 10:55 AM FUNERAL PREARRANGEMENT COUNSELOR documented as of this encounter Care Teams Safety Tech Relationship Specialty Start Date End Date Nan Crews FNP PCP - General NURSE PRACTITIONER 04/24/18 documented as of this encounter
--- OUTSIDE RECORDS SUMMARY | 2024-06-05 22:01 | XMS_ITS | Encounter Summary ---
Author Organization [facility] Address [address] [place] [address]. [place], [place] [address] [place] [address] Care Team Providers Care Head Mva Reactor Operator Name Role Phone Nan Crews Primary Care Provider [phone] Encounter Details Date Type Department Care Team [...] COVID-19? No / Unsure 07/07/2020 8:35 AM COUNSELING DIRECTOR documented as of this encounter Plan of Treatment Not on file documented as of this encounter Visit Diagnoses Not on filedocumented in this encounter Additional Health Concerns Assessment Noted Time PHQ-9 Depression Total Score: 7 06/21/19 21 11:03 AM COUNSELING DIRECTOR documented as of this encounter Care Teams Head Mva Reactor Operator Relationship Specialty Start Date End Date Nan Crews FNP PCP - General NURSE PRACTITIONER 04/24/18 documented as of this encounter
--- OUTSIDE RECORDS SUMMARY | 2024-06-05 22:01 | XMS_ITS | Encounter Summary ---
Author Organization [facility] Address [address] [place] [address]. [place], [place] [address] [place] [address] Care Team Providers Care Fire Systems Inspector Name Role Phone Nan Crews HECTOR Primary Care Provider [phone] Encounter Details Date Type Department Care Team (Late st Contact Info) Description 07/25/2020 Orders Only [facility] [address] [place] [address] Nasima Michaels RN Social History [...] COVID-19? No / Unsure 07/07/2020 8:35 AM SECURED ENTRANCE MONITOR documented as of this encounter Plan of Treatment Not on file documented as of this encounter Visit Diagnoses Not on filedocumented in this encounter Additional Health Concerns Assessment Noted Time PHQ-9 Depression Total Score: 7 06/21/19 21 11:03 AM SECURED ENTRANCE MONITOR documented as of this encounter Care Teams Fire Systems Inspector Relationship Specialty Start Date End Date Nan Crews FNP PCP - General NURSE PRACTITIONER 04/24/18 documented as of this encounter
--- OUTSIDE RECORDS SUMMARY | 2024-06-05 22:01 | XMS_ITS | Encounter Summary ---
Author Organization [facility] Address [address] [place] [address]. [place], [place] [address] [place] [address] Care Team Providers Care Crayon Sorting Machine Feeder Name Role Phone Nan Crews Primary Care Provider [phone] Encounter Details Date Type Department Care Team (Latest Contact Info) Description 11/14/2021 Travel Social History Tobacco Use Types Packs/Day Years Used Date Smoking Tobacco: Never Smokeless Tobacco: Never Comments:Provider to correctional substance abuse counselor Alcohol Use Standard Drinks/Week Comments No [...] documented as of this encounter Care Teams Crayon Sorting Machine Feeder Relationship Specialty Start Date End Date Nan Crews FNP PCP - General NURSE PRACTITIONER 04/24/18 documented as of this encounter
--- OUTSIDE RECORDS SUMMARY | 2024-06-05 22:01 | XMS_ITS | Encounter Summary ---
Author Organization [facility] Address [address] [place] [address]. [place], [place] [address] [place] [address] Care Team Providers Care Marketing Support Manager Name Role Phone Nan Crews Primary Care Provider [phone] Reason for Visit * Reason Onset Date Comments Medication Request 07/16/2019 Encounter Details Date Type Department Care Team (Late st Contact Info) Description 07/16/2019 Telephone [facility] [address] [place] [address] Nan Crews FNP [address] [place], [place] [id number] Medication Request Social History Tobacco Use Types [...] AM CST I already signed the refills IR MECHANIC * Radha Cook LPN - 07/16/2019 8:59 AM CST Last OV: 12/2018 Physical Please advise. Ok for refills? IR MECHANIC * Laura Mares - 07/16/2019 8:27 AM CST PATIENT IS NEEDING REFILLS ON LEXAPRO, AND CONTROL. [facility] [place], [place] IR MECHANIC documented in this encounter Plan of Treatment Not on file documented as of this encounter Visit Diagnoses Not on filedocumented in this encounter Care Teams Marketing Support Manager Relationship Specialty Start Date End Date Nan Crews FNP PCP - General NURSE PRACTITIONER 04/24/18 documented as of this encounter
--- OUTSIDE RECORDS SUMMARY | 2024-06-05 22:01 | XMS_ITS | Encounter Summary ---
Author Organization [facility] Address [address] [place] [address]. [place] [address] [place] [address] Care Team Providers Care Integration Aide Name Role Phone Nan Crews Primary Care Provider [phone] Encounter Details Date Type Department Care Team (Late st Contact Info) Description 01/02/2021 Mapflowt Message Enc [facility] [address] [place] [address] Nan Crews [facility] [address] [place], [place] [id number] RE: Follow Up/Update Social History Tobacco Use Types Packs/Day Years Used Date Smoking Tobacco: Never Smokeless Tobacco: Never Comments:Provider to family service counselor Alcohol Use Standard Drinks/Week Comments No [...] documented as of this encounter Care Teams Integration Aide Relationship Specialty Start Date End Date Nan Crews FNP PCP - General NURSE PRACTITIONER 04/24/18 documented as of this encounter
--- OUTSIDE RECORDS SUMMARY | 2024-06-05 22:01 | XMS_ITS | Encounter Summary ---
Author Organization [facility] Address [address] [place] [address]. [place], [place] [address] [place] [address] Care Team Providers Care Chrome Plater Helper Name Role Phone Nan Crews Primary Care Provider [phone] Reason for Visit * Reason Comments Follow Up Reports that she is not doing well on Lexapro this time around Encounter Details Date Type Department Care Team (Late st Contact Info) Description 06/07/2020 10:20 AM CONCRETE PAVING SUPERVISOR Office Visit [facility] [address] [place] [address] Nan Crews FNP [address] [place] [address] Follow Up (Reports that she [...] COVID-19? No / Unsure 06/07/2020 9:59 AM CONCRETE PAVING SUPERVISOR documented as of this encounter Last Filed Vital Signs Vital Sign Reading Time Taken Comments Blood Pressure 94/64 06/07/2020 10:36 AM CONCRETE PAVING SUPERVISOR Pulse 77 06/07/2020 10:36 AM CONCRETE PAVING SUPERVISOR Temperature 37.2 ??C (98.9 ??F) 06/07/2020 10:[address] Respiratory Rate 16 06/07/2020 10:36 AM CONCRETE PAVING SUPERVISOR Oxygen Saturation 99% 06/07/2020 10:36 AM CONCRETE PAVING SUPERVISOR Inhaled Oxygen Concentration - - Weight 49.4 kg (109 lb) 06/07/2020 10:36 AM CONCRETE PAVING SUPERVISOR Height - - Body Mass Index - - documented in this encounter Patient Instructions * Patient Instructions* HECTOR Monique - 06/07/2020 10:20 AM CONCRETE PAVING SUPERVISOR Stop taking lexapro and start fluoxetine daily Follow up appt in 2 weeks RETE PAVING SUPERVISOR RETE PAVING SUPERVISOR documented in this encounter Progress Notes * [...] month. She is going to work at [employer] as scheduled. She sometimes forgets what she [...] No stress with him. He lives in [place] so sees him once a week. She [...] Gabrielle Mathew DO at 06/07/2020 12:10 PM CONCRETE PAVING SUPERVISOR RETE PAVING SUPERVISOR RETE PAVING SUPERVISOR documented in this encounter Plan of Treatment Not on file documented as of this encounter Visit Diagnoses Diagnosis Depression, unspecified depression type- Primary documented in this encounter Additional Health Concerns Assessment Noted Time PHQ-9 Depression Total Score: 21 020 10:55 AM CONCRETE PAVING SUPERVISOR documented as of this encounter Care Teams Chrome Plater Helper Relationship Specialty Start Date End Date Nan Crews FNP PCP - General NURSE PRACTITIONER 04/24/18 documented as of this encounter
--- OUTSIDE RECORDS SUMMARY | 2024-06-05 22:01 | XMS_ITS | Encounter Summary ---
Author Organization [facility] Address [address] [place] [address]. [place], [place] [address] [place] [address] Care Team Providers Care Center Human Resources Manager Name Role Phone Nan Crews Primary Care Provider [phone] Reason for Referral * Consultation (Routine) - Closed Specialty Diagnoses / Procedures Referred By Chad lynn Referred To Contact UROLOGY Diagnoses Urinary incontinence Nan Crews FNP [address] [place] [address] [place] [address] Phone: tel: fax: [facility] [place] [address] Phone: tel: fax: Referral ID Status Reason Start Date Expiration Date V isits Requested Visits Authorized [id number] Closed Specialty Services 09/01/2020 10/02/2021 100 100 Scheduling Instructions Would like for the patient to be seen at [facility]. Reason for Visit * Reason Onset Date Comments Information 09/01/2020 Encounter Details Date Type Department Care Team (Late st Contact Info) Description 09/01/2020 Telephone [facility] [address] [place] [address] Nan Crews FNP [address] [place] [address] [place] [address] Information Social History Tobacco Use Types [...] She needs a referral to urology at [facility]. Also ok for school note allowing bathroom [...] 09/05/2021 us Nan [facility] Final Result [facility] [address] documented in this encounter Visit Diagnoses Diagnosis Urinary incontinence- Primary Unspecified urinary incontinence documented in this encounter Additional Health Concerns Assessment Noted Time PHQ-9 Depression Total Score: 7 06/21/19 21 11:03 AM JAVA FRONT END WEB DEVELOPER documented as of this encounter Care Teams Center Human Resources Manager Relationship Specialty Start Date End Date Nan Crews FNP PCP - General NURSE PRACTITIONER 04/24/18 documented as of this encounter
--- OUTSIDE RECORDS SUMMARY | 2024-06-05 22:01 | XMS_ITS | Encounter Summary ---
Author Organization [facility] Address [address] [place] [address]. [place], [place] [address] [place] [address] Care Team Providers Care Milk Inspector Name Role Phone Nan Crews Primary Care Provider [phone] Encounter Details Date Type Department Care Team (Latest Contact Info) Description 01/24/2021 Travel Social History Tobacco Use Types Packs/Day Years Used Date Smoking Tobacco: Never Smokeless Tobacco: Never Comments:Provider to day camp counselor Alcohol Use Standard Drinks/Week Comments No [...] documented as of this encounter Care Teams Milk Inspector Relationship Specialty Start Date End Date Nan Crews FNP PCP - General NURSE PRACTITIONER 04/24/18 documented as of this encounter
--- OUTSIDE RECORDS SUMMARY | 2024-06-05 22:01 | XMS_ITS | Encounter Summary ---
Author Organization [facility] Address [address] [place] [address]. [place], [place] [address] [place] [address] Care Team Providers Care Cotton Machine Operator Name Role Phone Nan Crews [facility] Primary Care Provider [phone] Reason for Visit * Reason Onset Date Comments Information 09/08/2020 Encounter Details Date Type Department Care Team (Late st Contact Info) Description 09/08/2020 Telephone [facility] [address] [place] [address] Nan Crews [facility] [address] [place], [place] [id number] Information Social History Tobacco Use Types Packs/Day [...] - 09/08/2020 9:11 AM CDT Nano with [facility] called regarding an appointment that is set up for patient with Dr. Lin on September 23 at 10am documented in this encounter Plan of Treatment Not on file documented as of this encounter Visit Diagnoses Not on filedocumented in this encounter Additional Health Concerns Assessment Noted Time PHQ-9 Depression Total Score: 7 06/21/19 21 11:03 AM PRODUCTION PATTERN MAKER documented as of this encounter Care Teams Cotton Machine Operator Relationship Specialty Start Date End Date Nan Crews FNP PCP - General NURSE PRACTITIONER 04/24/18 documented as of this encounter
--- OUTSIDE RECORDS SUMMARY | 2024-06-05 22:01 | XMS_ITS | Encounter Summary ---
Author Organization [facility] Address [address] [place] [address]. [address] [address] Care Team Providers Care Coater Associate Name Role Phone Nan Crews Primary Care Provider [phone] Encounter Details Date Type Department Care Team [...] COVID-19? No / Unsure 07/07/2020 8:35 AM PHOTOGRAPHIC DEVELOPER AND PRINTER documented as of this encounter Plan of Treatment Not on file documented as of this encounter Visit Diagnoses Not on filedocumented in this encounter Additional Health Concerns Assessment Noted Time PHQ-9 Depression Total Score: 7 06/21/19 21 11:03 AM PHOTOGRAPHIC DEVELOPER AND PRINTER documented as of this encounter Care Teams Coater Associate Relationship Specialty Start Date End Date Nan Crews FNP PCP - General NURSE PRACTITIONER 04/24/18 documented as of this encounter
--- OUTSIDE RECORDS SUMMARY | 2024-06-05 22:01 | XMS_ITS | Encounter Summary ---
Author Organization [facility] Address [address] [place] [address]. [place], [place] [address] [place] [address] Care Team Providers Care Ex Assistant/Program Director Name Role Phone Nan Crews Primary Care Provider [phone] Encounter Details Date Type Department Care Team (Late st Contact Info) Description 07/07/2020 7:19 PM CORE LOADER - 07/07/2020 11:59 PM CORE LOADER Hospital Encounter [facility] [place] [address] Nan Crews FNP [address] [place] [address] Discharge Disposition: Home or Self [...] COVID-19? No / Unsure 07/07/2020 8:35 AM CORE LOADER documented as of this encounter Medications at [...] - 07/07/2020 7:19 PM CST Mother notified LOADER documented in this encounter Plan of Treatment Not on file documented as of this encounter Procedures Procedure Name Priority Date/Time Associated Diagnosis Comments URINE BACTERIA CULTURE Routine 07/07/2020 7:20 PM CORE LOADER Unspecified urinary incontinence documented in this encounter Results * CULTURE URINE (07/07/2020 7:20 PM CORE LOADER) SPEC DESCRIPTION URINE CLEAN CATCH 07/07/2020 7:20 PM CORE LOADER [facility] SPECIAL REQUESTS NO SPECIAL REQUEST 07/07/2020 7:20 PM CORE LOADER [facility] CULTURE RESULT NO GROWTH 2 DAYS 07/09/2020 9:13 AM CORE LOADER [facility] URINE SPECIMEN OBTAINED BY CLEAN CATCH PROCEDURE / Unknown 07/07/2020 7:20 PM CORE LOADER 07/07/2020 7:59 PM CORE LOADER Nan HARLEYP MICROBIOLOGY - GENERAL ORDERA BLES Final Result [facility] [address] [place] [address], documented in this encounter Visit Diagnoses Diagnosis Unspecified urinary incontinence documented in this encounter Additional Health Concerns Assessment Noted Time PHQ-9 Depression Total Score: 7 06/21/19 21 11:03 AM CORE LOADER documented as of this encounter Care Teams Ex Assistant/Program Director Relationship Specialty Start Date End Date Nan Crews FNP PCP - General NURSE PRACTITIONER 04/24/18 documented as of this encounter
--- OUTSIDE RECORDS SUMMARY | 2024-06-05 22:01 | XMS_ITS | Encounter Summary ---
Author Organization [facility] Address [address] [place] [address]. [place], [place] [address] [place] [address] Care Team Providers Care Gasoline Power Shovel Operator Name Role Phone Nan Crews Primary Care Provider [phone] Encounter Details Date Type Department Care Team (Late st Contact Info) Description 07/07/2020 Orders Only [facility] [address] [place], [place] [id number] Nan Crews FNP [address] [place] [id number] Social History Tobacco Use Types Packs/Day Years [...] COVID-19? No / Unsure 07/07/2020 8:35 AM TUBULAR PRODUCTS FABRICATOR documented as of this encounter Plan of Treatment Not on file documented as of this encounter Results * CULTURE URINE (07/07/2020 7:20 PM TUBULAR PRODUCTS FABRICATOR) SPEC DESCRIPTION URINE CLEAN CATCH 07/07/2020 7:20 PM TUBULAR PRODUCTS FABRICATOR [facility] SPECIAL REQUESTS NO SPECIAL REQUEST 07/07/2020 7:20 PM TUBULAR PRODUCTS FABRICATOR [facility] CULTURE RESULT NO GROWTH 2 DAYS 07/09/2020 9:13 AM TUBULAR PRODUCTS FABRICATOR [facility] URINE SPECIMEN OBTAINED BY CLEAN CATCH PROCEDURE / Unknown 07/07/2020 7:20 PM TUBULAR PRODUCTS FABRICATOR 07/07/2020 7:59 PM TUBULAR PRODUCTS FABRICATOR Nan YOUNG MICROBIOLOGY - GENERAL ORDERA BLES Final Result [facility] [address] [place] [address], documented in this encounter Visit Diagnoses Diagnosis Unspecified urinary incontinence- Primary documented in this encounter Additional Health Concerns Assessment Noted Time PHQ-9 Depression Total Score: 7 06/21/19 21 11:03 AM TUBULAR PRODUCTS FABRICATOR documented as of this encounter Care Teams Gasoline Power Shovel Operator Relationship Specialty Start Date End Date Nan Crews FNP PCP - General NURSE PRACTITIONER 04/24/18 documented as of this encounter
--- OUTSIDE RECORDS SUMMARY | 2024-06-05 22:01 | XMS_ITS | Encounter Summary ---
Author Organization [facility] Address [address] [place] [address]. [place], [place] [address] [place] [address] Care Team Providers Care Smoke Room Operator Name Role Phone Nan Crews Primary Care Provider [phone] Reason for Visit * Reason Onset Date Comments Information 08/31/2019 Encounter Details Date Type Department Care Team (Late st Contact Info) Description 08/31/2019 Telephone [facility] [address] [place] [address] Nan Crews [facility] [address] [place], [place] [id number] Information Social History Tobacco Use Types Packs/Day [...] on filedocumented in this encounter Care Teams Smoke Room Operator Relationship Specialty Start Date End Date Nan Crews FNP PCP - General NURSE PRACTITIONER 04/24/18 documented as of this encounter
--- OUTSIDE RECORDS SUMMARY | 2024-06-05 22:01 | XMS_ITS | Encounter Summary ---
Author Organization [facility] Address [address] [place] [address]. [place], [place] [address] [place] [address] Care Team Providers Care Resource Conservationist Name Role Phone Nan Crews Primary Care Provider [phone] Encounter Details Date Type Department Care Team [...] COVID-19? No / Unsure 06/21/2020 10:44 AM BILLIARD PLAYER documented as of this encounter Plan of Treatment Not on file documented as of this encounter Visit Diagnoses Not on filedocumented in this encounter Additional Health Concerns Assessment Noted Time PHQ-9 Depression Total Score: 7 06/21/19 21 11:03 AM BILLIARD PLAYER documented as of this encounter Care Teams Resource Conservationist Relationship Specialty Start Date End Date Nan Crews FNP PCP - General NURSE PRACTITIONER 04/24/18 documented as of this encounter
--- OUTSIDE RECORDS SUMMARY | 2024-06-05 22:01 | XMS_ITS | Encounter Summary ---
Author Organization [facility] Address [address] [place] [address]. [place] [address] Care Team Providers Care Relaster Name Role Phone Nan Crews Primary Care Provider [phone] Encounter Details Date Type Department Care Team [...] documented as of this encounter Care Teams Relaster Relationship Specialty Start Date End Date Nan Crews FNP PCP - General NURSE PRACTITIONER 04/24/18 documented as of this encounter
--- OUTSIDE RECORDS SUMMARY | 2024-06-05 22:01 | XMS_ITS | Encounter Summary ---
Author Organization [facility] Address [address] [place] [address]. [place] [address] Care Team Providers Care Youth Accommodation Support Worker Name Role Phone Nan Crews Primary [...] Total Score: 7 06/21/19 21 11:03 AM DIRECTOR OF SERVICES documented as of this encounter Care Teams Youth Accommodation Support Worker Relationship Specialty Start Date End Date Nan Crews FNP PCP - General NURSE PRACTITIONER 04/24/18 documented as of this encounter
--- OUTSIDE RECORDS SUMMARY | 2024-06-05 22:01 | XMS_ITS | Encounter Summary ---
Author Organization [facility] Address [address] [place] [address]. [place], [place] [address] [place] [address] Care Team Providers Care Jig Maker Name Role Phone Nan Crews Primary Care Provider [phone] Reason for Visit * Reason Onset Date Comments Refill Request 07/25/2020 Information 07/25/2020 Encounter Details Date Type Department Care Team (Late st Contact Info) Description 07/25/2020 Telephone [facility] [address] [place] [address] Nan Crews FNP [address] [place] [address] Refill Request; Information Social History [...] COVID-19? No / Unsure 07/07/2020 8:35 AM PILLOW AGENT documented as of this encounter Progress Notes * Nasima Michaels RN - 07/25/2020 1:14 PM CST Amina please advise OW AGENT * Laura Mares - 07/25/2020 12:18 PM CST Pharmacy called and stated they just received prescription for patient ( FLUOXETINE ) and there is a huge difference in meléndez between tablets and capsules, pharmacy would like to switch it to capsules because they are much cheaper, please advise OW AGENT * Shalonda Cortes RN - 07/25/2020 9:33 AM CST Sent to pharmacy. OW AGENT * Gabrielle Mathew DO - 07/25/2020 9:28 AM CST So it looks like Amina is the provider and you are asking me for a continuation of the medication that she refilled to financial manager the gap while Amina is not here. I think that is appropriate. Go ahead and send the medication and the patient can follow-up on the OW AGENT * Nasima Michaels RN - 07/25/2020 9:[address] Mathew please advise refill; pt seen 07/07/20; fluxoetine increased to 20 mg qd , not sent to pharmacy , pt has office visit 08/02/20 OW AGENT * Laura Mares - 07/25/2020 8:17 AM CST Patient's mother said she called pharmacy and was told medication was not there, medication dosage is supposed to be changed and pharmacy stated they have not received anything from provider. FLUOXETINE, [facility] [place], [place] OW AGENT documented in this encounter Plan of Treatment Not on file documented as of this encounter Visit Diagnoses Diagnosis Depression, unspecified depression type documented in this encounter Additional Health Concerns Assessment Noted Time PHQ-9 Depression Total Score: 7 06/21/19 21 11:03 AM PILLOW AGENT documented as of this encounter Care Teams Jig Maker Relationship Specialty Start Date End Date Nan Crews FNP PCP - General NURSE PRACTITIONER 04/24/18 documented as of this encounter
--- OUTSIDE RECORDS SUMMARY | 2024-06-05 22:01 | XMS_ITS | Encounter Summary ---
Author Organization [facility] Address [address] [place] [address]. [place], [place] [address] [place] [address] Care Team Providers Care Assembler Seat Name Role Phone Nan Crews [facility] Primary Care Provider [phone] Reason for Visit * Reason Comments Abdominal Pain Complains of left lo wer abd pain constant x 4 days;JSD; last BM 11/10/21 normal movement; reports she always has clear, white vaginal discharge Encounter Details Date Type Department Care Team (Late st Contact Info) Description 11/11/2021 11:20 AM CDT Office Visit [address] [place] [address] Anitha Mendoza V, [address] [place] [address] Abdominal Pain (Complains of left lower abd pain constant x 4 days;JSD; last BM 11/10/21 normal movement; reports she always has clear, white vaginal discharge) Social History Tobacco Use Types Packs/Day Years Used Date Smoking Tobacco: Never Smokeless Tobacco: Never Comments:Provider to family and marriage counsellor Alcohol Use Standard Drinks/Week Comments No [...] 11/11/2021 10: 58 AM CDT Growth Chart: [facility] (Girls, 2- 20 Years) documented in this encounter Progress Notes * Anitha Mendoza V, BED WORKER-BC - 11/11/2021 11:20 AM CDT Reason for [...] Never Used ??? Tobacco comment: Provider to family and marriage counsellor Vaping Use ??? Vaping Use: Never used [...] NEGATIVE U KETONES NEGATIVE NEGATIVE MG/DL Specific [place] (U) 1.020 1.001 - 1.035 BLOOD MODERATE [...] with the hospital. I even mentioned [facility]. Orders Placed This Encounter ??? TEST URINE [...] URINALYSIS AUTO DIP (11/11/2021) COLOR (U) YELLOW -[facility] ARE (201), [place] TRANSPARENCY CLEAR [facility]), [place] GLUCOSE (U) NEGATIVE NEGATIVE MG/DL -[facility]ALTH[facility]ARE (201), [place] BILIRUBIN (U) NEGATIVE NEGATIVE [facility] (201), [place] KETONES MG/DL (U) NEGATIVE NEGATIVE MG/DL [facility] (201), [place] SPECIFIC GRAVITY (U) 1.020 1.001 - 1.035 [facility] (201), [place] BLOOD (U) MODERATE (Non Hemolyzed, Intact, About 50 rbc/uL) NEGATIVE [facility] (201), [place] U PH 7.0 5.0 - 9.0 [facility] (201), [place] PROTEIN (U) NEGATIVE NEGATIVE mg/dL [facility] (201), [place] UROBILINOGEN 0.2 0.2 - 1.0 EU/dL = mg/dL [facility] (201), [place] NITRITES NEGATIVE NEGATIVE MG/DL [facility] (201), [place] LEUKOCYTES (U) 1+ (SMALL) NEGATIVE MG-H [facility]ALTHCARE (201), [place] URINE SPECIMEN OBTAINED BY CLEAN CATCH PROCEDURE / Unknown 11/11/2021 HECTOR Walters-BC URINE ORDERABLES Final Result Performing Organization Address [facility] Co de Phone Number [facility] (201), [place] [address], [place] [phone] * TEST URINE (11/11/2021) URINE HCG TEST NEGATIVE NEGATIVE [facility] (201), [place] Internal Control: VALID VALID [facility] DR Torres201) [place] URINE SPECIMEN FROM URETHRA / Unknown 11/11/2021 Anitha Reji V, BED WORKER-BC URINE ORDERABLES Final Result Performing Organization Address [facility] Co de Phone Number [facility] (201), [place] [address], [place] [phone] documented in this encounter Visit Diagnoses Diagnosis Left lower quadrant abdominal pain- Primary documented in this encounter Additional Health Concerns Assessment Noted Time PHQ-9 Depression Total Score: 14 08/10/2 021 10:28 AM CDT documented as of this encounter Care Teams Assembler Seat Relationship Specialty Start Date End Date Nan Crews FNP PCP - General NURSE PRACTITIONER 04/24/18 documented as of this encounter
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
--- OUTSIDE RECORDS SUMMARY | 2024-06-05 22:01 | XMS_ITS | Encounter Summary ---
Author Organization [facility] Address [address] [place] [address]. [place], [place] [address] [place] [address] Care Team Providers Care Circuit Board Repair Technician Name Role Phone Nan Crews Primary Care Provider [phone] Encounter Details Date Type Department Care Team (Latest Contact Info) Description 11/11/2021 Travel Social History Tobacco Use Types Packs/Day Years Used Date Smoking Tobacco: Never Smokeless Tobacco: Never Comments:Provider to intellectual property counsel Alcohol Use Standard Drinks/Week Comments No [...] documented as of this encounter Care Teams Circuit Board Repair Technician Relationship Specialty Start Date End Date Nan Crews FNP PCP - General NURSE PRACTITIONER 04/24/18 documented as of this encounter
--- OUTSIDE RECORDS SUMMARY | 2024-06-05 22:01 | XMS_ITS | Encounter Summary ---
Author Organization [facility] Address [address] [place] [address]. [place], [place] [address] [place] [address] Care Team Providers Care Dietetic Tech Name Role Phone Nan Crews HECTOR Primary Care Provider [phone] Encounter Details Date Type Department Care Team (Late st Contact Info) Description 07/25/2020 Orders Only [facility] acute [facility] [address] [place] [address] Nasima Michaels RN Social History [...] COVID-19? No / Unsure 07/07/2020 8:35 AM INSPECTOR MACHINE PARTS documented as of this encounter Plan of Treatment Not on file documented as of this encounter Visit Diagnoses Diagnosis Depression, unspecified depression type documented in this encounter Additional Health Concerns Assessment Noted Time PHQ-9 Depression Total Score: 7 06/21/19 21 11:03 AM INSPECTOR MACHINE PARTS documented as of this encounter Care Teams Dietetic Tech Relationship Specialty Start Date End Date Nan Crews FNP PCP - General NURSE PRACTITIONER 04/24/18 documented as of this encounter
--- OUTSIDE RECORDS SUMMARY | 2024-06-05 22:01 | XMS_ITS | Encounter Summary ---
Author Organization [facility] Address [address] [place] [address]. [address] [place] [address] Care Team Providers Care Field Naturalist Name Role Phone Nan Crews Primary Care Provider [phone] Reason for Visit * Reason Comments Urinary [...] st Contact Info) Description 07/07/2020 8:40 AM AUTOMOTIVE INTERNET SALES CONSULTANT Office Visit [facility] [address] [address] Nan Crews [address] [place] [address] Urinary Incontinence (For about a [...] COVID-19? No / Unsure 07/07/2020 8:35 AM AUTOMOTIVE INTERNET SALES CONSULTANT documented as of this encounter Last Filed Vital Signs Vital Sign Reading Time Taken Comments Blood Pressure 118/72 07/07/2020 8:57 AM AUTOMOTIVE INTERNET SALES CONSULTANT Pulse 85 07/07/2020 8:57 AM AUTOMOTIVE INTERNET SALES CONSULTANT Temperature 36.7 ??C (98 ??F) 07/07/2020 8:57 AM AUTOMOTIVE INTERNET SALES CONSULTANT Respiratory Rate 16 07/07/2020 8:57 AM AUTOMOTIVE INTERNET SALES CONSULTANT Oxygen Saturation 98% 07/07/2020 8:57 AM AUTOMOTIVE INTERNET SALES CONSULTANT Inhaled Oxygen Concentration - - Weight 48.6 kg (107 lb 4 oz) 07/07/2020 8:57 AM AUTOMOTIVE INTERNET SALES CONSULTANT Height 167.6 cm (5' 6 ) 07/07/2020 8:57 AM AUTOMOTIVE INTERNET SALES CONSULTANT Body Mass Index 17.31 07/07/2020 8:57 AM AUTOMOTIVE INTERNET SALES CONSULTANT Body Mass Index Percentile 5.77% 07/07/2020 8:5 7 AM AUTOMOTIVE INTERNET SALES CONSULTANT Growth Chart: [facility] [place] [place] [place]Girls, 2- 20 Years) documented in this encounter Patient Instructions * Patient Instructions* HECTOR Monique - 07/07/2020 8:40 AM AUTOMOTIVE INTERNET SALES CONSULTANT Take Bactrim as directed. We will call with the urine culture results when they are available. If the symptoms of urinary incontinence are not resolved we will set up a referral to a urologist at [facility]. Make sure you use backup control while on the antibiotics as your control pills may notbe effective Increase fluoxetine to 20 mg daily and report back to me in 2 to 3 weeks on how that is working. MOTIVE INTERNET SALES CONSULTANT documented in this encounter Progress Notes * [...] starts cant stop.) History of Present Illness: Cecilia is a 14-year-old female patient here with [...] as bedwetting. later saw a urologist at [facility] as wasn't emptying her bladder so did [...] up a referral to a urologist at [facility]. Make sure you use backup control while on the antibiotics as your control pills may notbe effective Increase fluoxetine to 20 mg daily and report back to me in 2 to 3 weeks on how that is working. HECTOR MONIQUE 07/07/2020 9:14 AM Cosigned by Gabrielle Mathew DO at 07/08/2020 10:10 AM AUTOMOTIVE INTERNET SALES CONSULTANT MOTIVE INTERNET SALES CONSULTANT MOTIVE INTERNET SALES CONSULTANT documented in this encounter Plan of Treatment Not on file documented as of this encounter Procedures Procedure Name Priority Date/Time Associated Diagnosis Comments URINE BACTERIA CULTURE Routine 07/07/2020 9:50 AM AUTOMOTIVE INTERNET SALES CONSULTANT Acute cystitis without hematuria URINALYSIS AUTO DIP Routine 07/07/2020 Urinary incontinence, unspecified type documented in this encounter Results * CULTURE URINE (07/07/2020 9:50 AM AUTOMOTIVE INTERNET SALES CONSULTANT) SPECIMEN SOURCE URINE [facility] SITE: Clean Catch [facility] MICRO COMMENT SEE REF. LAB REPORT [facility] URINE SPECIMEN OBTAINED BY CLEAN CATCH PROCEDURE / Unknown 07/07/2020 9:50 AM AUTOMOTIVE INTERNET SALES CONSULTANT 07/07/2020 1:55 PM AUTOMOTIVE INTERNET SALES CONSULTANT us Nan YOUNG MICROBIOLOGY - GENERAL ORDERA BLES Final Result [facility] [address] [facility] [address] [place] [place] [address] * URINALYSIS AUTO DIP (07/07/2020) COLOR (U) DARK YELLOW [facility] (201), [place] TRANSPARENCY CLOUDY -HEAL THCARE (201), [facility] GLUCOSE (U) NEGATIVE NEGATIVE MG/DL [facility] (201), [place] BILIRUBIN (U) 1+ (SMALL) NEGATIVE [facility]ARE (201), [place] KETONES MG/DL (U) NEGATIVE NEGATIVE MG/DL [facility] (201), [facility] SPECIFIC GRAVITY (U) 1.030 1.001 - 1.035 [facility] (201), [facility] BLOOD (U) SMALL (1+, Hemolyzed) NEGATIVE [facility] (201), [facility] U PH 5.5 5.0 - 9.0 [facility] ([facility]), [facility] PROTEIN (U) TRACE NEGATIVE mg/dL [facility] (201), [facility] UROBILINOGEN 0.2 0.2 - 1.0 EU/dL = mg/dL [facility] (201), [facility] NITRITES NEGATIVE NEGATIVE MG/DL [facility] (201), [facility] LEUKOCYTES (U) 1+ (SMALL) NEGATIVE [facility]ALTHCARE (201), [facility] URINE SPECIMEN OBTAINED BY CLEAN CATCH PROCEDURE / Unknown 07/07/2020 Nan YOUNG URINE ORDERABLES Final Result [facility] (201), [place] [address], documented in this encounter Visit Diagnoses Diagnosis Urinary incontinence, unspecified type- Primary Acute cystitis without hematuria Acute cystitis Depression, unspecified depression type Abnormal urinalysis Other nonspecific finding on examination of urine documented in this encounter Additional Health Concerns Assessment Noted Time PHQ-9 Depression Total Score: 7 06/21/19 21 11:03 AM AUTOMOTIVE INTERNET SALES CONSULTANT documented as of this encounter Care Teams Field Naturalist Relationship Specialty Start Date End Date Nan Crews FNP PCP - General NURSE PRACTITIONER 04/24/18 documented as of this encounter
--- OUTSIDE RECORDS SUMMARY | 2024-06-05 22:01 | XMS_ITS | Encounter Summary ---
Author Organization [facility] Address [address] [place] [address]. [place], [place] [address] [place] [address] Care Team Providers Care Corner Brace Block Machine Operator Name Role Phone Nan Crews Primary Care Provider [phone] Encounter Details Date Type Department Care Team (Late st Contact Info) Description 07/07/2020 [facility] [address] [place] [address] Nan Crews FNP [address] [place], [place] [id number] Social History Tobacco Use Types Packs/Day Years [...] Total Score: 7 06/21/19 21 11:03 AM ACCT EXEC documented as of this encounter Care Teams Corner Brace Block Machine Operator Relationship Specialty Start Date End Date Nan Crews FNP PCP - General NURSE PRACTITIONER 04/24/18 documented as of this encounter
--- OUTSIDE RECORDS SUMMARY | 2024-06-05 22:01 | XMS_ITS | Encounter Summary ---
Author Organization [facility] Address [address] [place] [address]. [place], [place] [address] [place] [address] Care Team Providers Care Military Science Instructor Name Role Phone Nan Crews Primary Care Provider [phone] Reason for Visit * Reason Comments Follow Up depression and start ing fluoxetine Encounter Details Date Type Department Care Team (Late st Contact Info) Description 06/21/2020 10:40 AM BALLISTICS TESTER Office Visit [address] [place] [address] Nan Crews [address] [place] [address] Follow Up (depression and starting fluoxetine) [...] COVID-19? No / Unsure 06/21/2020 10:44 AM BALLISTICS TESTER documented as of this encounter Last Filed Vital Signs Vital Sign Reading Time Taken Comments Blood Pressure 100/64 06/21/2020 10:54 AM BALLISTICS TESTER Pulse 80 06/21/2020 10:54 AM BALLISTICS TESTER Temperature 37.1 ??C (98.7 ??F) 06/21/2020 10:[address] Respiratory Rate 14 06/21/2020 10:54 AM BALLISTICS TESTER Oxygen Saturation - - Inhaled Oxygen Concentration - - Weight 49 kg (108 lb) 06/21/2020 10:54 AM BALLISTICS TESTER Height - - Body Mass Index - - documented in this encounter Progress Notes * Nan Crews, CELL OPERATOR - 06/21/2020 10:40 AM CST Cecilia is [...] since starting the lexapro. She works at [email or web address]. She reported poor focus since being on [...] Gabrielle Mathew DO at 06/21/2020 1:27 PM BALLISTICS TESTER ISTICS TESTER ISTICS TESTER documented in this encounter Plan of Treatment Not on file documented as of this encounter Visit Diagnoses Diagnosis Depression, unspecified depression type documented in this encounter Additional Health Concerns Assessment Noted Time PHQ-9 Depression Total Score: 7 06/21/19 21 11:03 AM BALLISTICS TESTER documented as of this encounter Care Teams Military Science Instructor Relationship Specialty Start Date End Date Nan Crews FNP PCP - General NURSE PRACTITIONER 04/24/18 documented as of this encounter
--- OUTSIDE RECORDS SUMMARY | 2024-06-05 22:01 | XMS_ITS | Encounter Summary ---
Author Organization [facility] Address [address] [place] [address]. [place] [address] Care Team Providers Care Hotel Room Attendant Name Role Phone Nan Crews Primary Care Provider [phone] Encounter Details Date Type Department Care Team [...] COVID-19? No / Unsure 05/10/2020 11:29 AM IMAGING AIDE documented as of this encounter Plan of Treatment Not on file documented as of this encounter Visit Diagnoses Not on filedocumented in this encounter Additional Health Concerns Assessment Noted Time PHQ-9 Depression Total Score: 3 11/19/19 20 1:39 PM CDT documented as of this encounter Care Teams Hotel Room Attendant Relationship Specialty Start Date End Date Nan Crews FNP PCP - General NURSE PRACTITIONER 04/24/18 documented as of this encounter
--- OUTSIDE RECORDS SUMMARY | 2024-06-05 22:01 | XMS_ITS | Encounter Summary ---
Author Organization [facility] Address [address] [place] [address]. [place], [place] [address] [place] [address] Care Team Providers Care Electrical Cad Technician Name Role Phone Nan Crews Primary Care Provider [phone] Encounter Details Date Type Department Care Team (Latest Contact Info) Description 03/21/2021 Travel Social History Tobacco Use Types Packs/Day Years Used Date Smoking Tobacco: Never Smokeless Tobacco: Never Comments:Provider to area counselor Alcohol Use Standard Drinks/Week Comments No [...] documented as of this encounter Care Teams Electrical Cad Technician Relationship Specialty Start Date End Date Nan Crews FNP PCP - General NURSE PRACTITIONER 04/24/18 documented as of this encounter
--- OUTSIDE RECORDS SUMMARY | 2024-06-05 22:01 | XMS_ITS | Encounter Summary ---
Author Organization [facility] Address [address] [place] [address]. [place], [place] [address] [place] [address] Care Team Providers Care Sanitary Chemist Name Role Phone Nan Crews Primary Care Provider [phone] Reason for Referral * Consultation/Treatment (Urgent) - Closed Specialty Diagnoses / Procedures Referred By Chad lynn Referred To Contact Nurse Practitioner Psych/Mental Health Diagnoses Anxiety Depression, unspecified depression type Nan Crews FNP [address] [place] [address] [place] [address] Phone: tel: fax: Fidel Schulz NP Referral ID Status Reason Start Date Expiration Date V isits Requested Visits Authorized [id number] Closed Specialty Services 12/06/2020 01/05/2022 100 100 Scheduling Instructions Can we get her in with fidel See [employer] PAINTER in [place] please Reason for Visit * Reason Comments Follow Up Switching antidepres sants Encounter Details Date Type Department Care Team (Late st Contact Info) Description 12/06/2020 9:20 AM CDT Office Visit [facility] [address] [address] Nan Crews FNP [address] [place] [address] [place] [address] Follow Up (Switching antidepressants) Social History Tobacco Use Types Packs/Day Years Used Date Smoking Tobacco: Never Smokeless Tobacco: Never Tobacco Cessation:Counseling Given: Yes Comments:Provider to staff counsel Alcohol Use Standard Drinks/Week Comments No [...] 12/06/2020 9:3 1 AM CDT Growth Chart: [facility] (Girls, 2- 20 Years) documented [...] with activities and meals. She works at [employer] and she is happy with her job. [...] documented as of this encounter Care Teams Sanitary Chemist Relationship Specialty Start Date End Date Nan Crews FNP PCP - General NURSE PRACTITIONER 04/24/18 documented as of this encounter
--- OUTSIDE RECORDS SUMMARY | 2024-06-05 22:01 | XMS_ITS | Encounter Summary ---
Author Organization [facility] Address [address] [place] [address]. [place], [place] [address] [place] [address] Care Team Providers Care Program Or Project Administrator Name Role Phone Nan Crews Primary Care Provider [phone] Reason for Visit * Reason Comments Medication Management Encounter Details Date Type Department Care Team (Late st Contact Info) Description 11/19/2019 1:20 PM CDT Office Visit [facility] [address] [place] [address] Nan Crews [facility] [address] [place] [address] Medication Management Social History Tobacco Use Types [...] as of this encounter Care Teams Program Or Project Administrator Relationship Specialty Start Date End Date Nan Crews FNP PCP - General NURSE PRACTITIONER 04/24/18 documented as of this encounter
--- OUTSIDE RECORDS SUMMARY | 2024-06-05 22:01 | XMS_ITS | Encounter Summary ---
Author Organization [facility] Address [address] [place] [address]. [place], [place] [address] [place] [address] Care Team Providers Care Refining Engineer Name Role Phone Nan Crews Primary Care Provider [phone] Reason for Visit * Reason Onset Date Comments Medication 09/01/2019 Encounter Details Date Type Department Care Team (Late st Contact Info) Description 09/01/2019 Telephone [facility] [address] [place] [address] Nan Crews FNP [address] [place], [place] [id number] Medication Social History Tobacco Use Types Packs/Day Years [...] encounter Progress Notes * HECTOR Rodriguez - 09/01/2019 9:53 AM CDT I spoke to the pts Mom, Brit, as she has an appt today and we are trying to limit exposure to wellpts at this time. She reports she is doing very well on her Lexapro. She has not had any breakthrough panic attacks. She is also on oral contraceptive pills and they are working well for her. Therefore, I will refillher oral contraceptive pills as well as Lexapro for 1 month and she will follow-up next month for her usual medication management visit. Mom was advised that if she has any concerns I am happy to seeher face to face at any time. documented in this encounter Plan of Treatment Not on file documented as of this encounter Visit Diagnoses Diagnosis Dysmenorrhea in adolescent Depression, unspecified depression type Anxiety Anxiety state, unspecified documented in this encounter Care Teams Refining Engineer Relationship Specialty Start Date End Date Nan Crews FNP PCP - General NURSE PRACTITIONER 04/24/18 documented as of this encounter
--- OUTSIDE RECORDS SUMMARY | 2024-06-05 22:01 | XMS_ITS | Encounter Summary ---
Author Organization [facility] Address [address] [place] [address]. [place], [place] [address] [place] [address] Care Team Providers Care Brim Greaser Operator Name Role Phone Nan Crews Primary Care Provider [phone] Reason for Visit * Reason Onset Date Comments Question 11/14/2021 Encounter Details Date Type Department Care Team (Late st Contact Info) Description 11/14/2021 Telephone [facility] [address] [place] [address] Nan Crews [facility] [address] [place] [id number] Question Social History Tobacco Use Types Packs/Day [...] encounter Progress Notes * Radha L Joey, PROFESSIONAL SOCCER PLAYER - 11/14/2021 12:14 PM CDT Pt. Mother [...] were to go from this point. Pt [id number] documented in this encounter Plan of Treatment Not on file documented as of this encounter Visit Diagnoses Not on filedocumented in this encounter Additional Health Concerns Assessment Noted Time PHQ-9 Depression Total Score: 14 021 10:28 AM CDT documented as of this encounter Care Teams Brim Greaser Operator Relationship Specialty Start Date End Date Nan Crews FNP PCP - General NURSE PRACTITIONER 04/24/18 documented as of this encounter
--- OUTSIDE RECORDS SUMMARY | 2024-06-05 22:01 | XMS_ITS | Encounter Summary ---
Author Organization [facility] Address [address] [place] [address]. [place], [place] [address] [place] [address] Care Team Providers Care Dive Supervisor Name Role Phone Nan Crews Primary Care Provider [phone] Encounter Details Date Type Department Care Team (Latest Contact Info) Description 07/25/2021 Travel Social History Tobacco Use Types Packs/Day Years Used Date Smoking Tobacco: Never Smokeless Tobacco: Never Comments:Provider to cruise counselor Alcohol Use Standard Drinks/Week Comments No [...] Coronavirus/COVID-19? No / Unsure 07/25/2021 9:29 AM INFRASTRUCTURE DESIGN ENGINEER documented as of this encounter Plan of Treatment Not on file documented as of this encounter Visit Diagnoses Not on filedocumented in this encounter Additional Health Concerns Assessment Noted Time PHQ-9 Depression Total Score: 14 021 10:28 AM CDT documented as of this encounter Care Teams Dive Supervisor Relationship Specialty Start Date End Date Nan Crews FNP PCP - General NURSE PRACTITIONER 04/24/18 documented as of this encounter
--- OUTSIDE RECORDS SUMMARY | 2024-06-05 22:01 | XMS_ITS | Encounter Summary ---
Author Organization [facility] Address [address] [place] [address]. [address] [address] Care Team Providers Care Repair Tech Name Role Phone Nan Crews Primary Care Provider [phone] Encounter Details Date Type Department Care Team (Latest Contact Info) Description 06/28/2021 Scan [facility] Scanned, Documents Social History Tobacco Use Types Packs/Day Years Used Date Smoking Tobacco: Never Smokeless Tobacco: Never Comments:Provider to weight loss counselor Alcohol Use Standard Drinks/Week Comments No [...] COVID-19? No / Unsure 05/30/2021 1:30 PM MOBILE LOUNGE DRIVER documented as of this encounter Plan of Treatment Not on file documented as of this encounter Visit Diagnoses Not on filedocumented in this encounter Additional Health Concerns Assessment Noted Time PHQ-9 Depression Total Score: 14 021 10:28 AM CDT documented as of this encounter Care Teams Repair Tech Relationship Specialty Start Date End Date Nan Crews FNP PCP - General NURSE PRACTITIONER 04/24/18 documented as of this encounter
--- OUTSIDE RECORDS SUMMARY | 2024-06-05 22:01 | XMS_ITS | Encounter Summary ---
Author Organization [facility] Address [address] [place] [address]. [place], [place] [address] [place] [address] Care Team Providers Care Environmental Engineering Intern Name Role Phone Nan Crews Primary Care Provider [phone] Reason for Visit * Reason Comments Pelvic Pain A little back discom fort, x 1 week Encounter Details Date Type Department Care Team (Late st Contact Info) Description 11/14/2021 4:20 PM CDT Office Visit [facility] [address] [place] [address] Nan Crews [address] [place] [address] Pelvic Pain (A little back discomfort, x [...] 11/14/2021 1:2 3 PM CDT Growth Chart: [facility] (Girls, 2- 20 Years) documented in [...] Comments: Pelvic exam was done with a pen ruler operator in the room (ANZARIO Liz) She does have some brown-colored vaginal [...] NEGATIVE U KETONES NEGATIVE NEGATIVE MG/DL Specific [place] (U) 1.030 1.001 - 1.035 BLOOD SMALL (1+, Hemolyzed) NEGATIVE U PH 6.0 5.0 - 9.0 PROTEIN (U) NEGATIVE NEGATIVE mg/dL UROBILINOGEN Normal 0.2 - 1.0 EU/dL = mg/dL NITRITES NEGATIVE NEGATIVE MG/DL LEUKOCYTE ESTERASE 1+ (SMALL) NEGATIVE Diagnoses/Impression: Encounter Diagnose(s) ICD-10-CM ICD-9-CM SNOMED CT(R) 1. Pelvic pain R10.2 [id number] PAIN IN PELVIS URINALYSIS AUTO DIP CULTURE [...] ultrasound. Mom prefers to schedule this at [facility] so she will plan to get that [...] screening test. She will go through the [facility] to get this done due [...] URINE CLEAN CATCH 11/14/2021 4:01 PM CDT [facility] SPECIAL REQUESTS NO SPECIAL REQUEST 11/14/2021 4:01 PM CDT [facility] CULTURE RESULT POLYMICROBIAL GROWTH CONSISTENT WITH NORMAL GENITAL SYBIL. ?? SUSCEPTIBILITIES NOT ROUTINELY PERFORMED. 11/16/2021 9:04 AM CDT [facility] URINE SPECIMEN OBTAINED BY CLEAN CATCH PROCEDURE / Unknown 11/14/2021 1:59 PM CDT 11/14/2021 4:04 PM CDT us Nan YOUNG MICROBIOLOGY - GENERAL ORDERA BLES Final Result [facility] [address] [place] [address], [place] [phone] [facility] [address] [place] [address] [place] [address], [place] * URINALYSIS AUTO DIP (11/14/2021) COLOR (U) YELLOW [facility] (201), [place] [facility] (201), [place] GLUCOSE (U) NEGATIVE NEGATIVE MG/DL [facility] (201), [place] BILIRUBIN (U) NEGATIVE NEGATIVE [facility] ([facility]), [place] KETONES MG/DL (U) NEGATIVE NEGATIVE MG/DL [facility] (201), [place] SPECIFIC GRAVITY (U) 1.030 1.001 - 1.035 [facility] (201), [place] BLOOD (U) SMALL (1+, Hemolyzed) NEGATIVE [facility] (201), [place] U PH 6.0 5.0 - 9.0 [facility] (201), [place] PROTEIN (U) NEGATIVE NEGATIVE mg/dL [facility] (201), [place] UROBILINOGEN Normal 0.2 - 1.0 EU/dL = mg/dL [facility] (201), [place] NITRITES NEGATIVE NEGATIVE MG/DL [facility] (201), [place] LEUKOCYTES (U) 1+ (SMALL) [facility]GATIVE [facility] (201), [place] URINE SPECIMEN OBTAINED BY CLEAN CATCH PROCEDURE / Unknown 11/14/2021 Nan YOUNG URINE ORDERABLES Final Result [facility] (201), [address] [address], documented in this encounter Visit Diagnoses Diagnosis Pelvic pain- Primary Vaginal discharge Leukorrhea, not specified as infective documented in this encounter Additional Health Concerns Assessment Noted Time PHQ-9 Depression Total Score: 14 021 10:28 AM CDT documented as of this encounter Care Teams Environmental Engineering Intern Relationship Specialty Start Date End Date Nan Crews FNP PCP - General NURSE PRACTITIONER 04/24/18 documented as of this encounter
--- OUTSIDE RECORDS SUMMARY | 2024-06-05 22:02 | XMS_ITS | Encounter Summary ---
Author Organization [facility] Address [address] [place] [address]. [place], [place] [address] [place] [address] Care Team Providers Care Television News Video Editor Name Role Phone Nan Crews Primary Care Provider [phone] Encounter Details Date Type Department Care Team (Late st Contact Info) Description 10/10/2018 Orders Only [address] [place] [address] Radha Cook LPN Social History Tobacco Use [...] classified documented in this encounter Care Teams Television News Video Editor Relationship Specialty Start Date End Date Nan Crews FNP PCP - General NURSE PRACTITIONER 04/24/18 documented as of this encounter
--- OUTSIDE RECORDS SUMMARY | 2024-06-05 22:02 | XMS_ITS | Encounter Summary ---
Author Organization [facility] Address [address] [place] [address]. [place] [address] Care Team Providers Care Gift Consultant Name Role Phone Nan Crews Primary Care Provider [phone] Encounter Details Date Type Department Care Team [...] No / Unsure 07/07/2020 8:35 AM PHOTOGRAPHIC TECHNICIAN documented as of this encounter Plan of Treatment Not on file documented as of this encounter Visit Diagnoses Not on filedocumented in this encounter Care Teams Gift Consultant Relationship Specialty Start Date End Date Nan Crews FNP PCP - General NURSE PRACTITIONER 04/24/18 documented as of this encounter
--- OUTSIDE RECORDS SUMMARY | 2024-06-05 22:02 | XMS_ITS | Encounter Summary ---
Author Organization [facility] Address [address] [place] [address]. [place], [place] [address] [place] [address] Care Team Providers Care Manager Technical Support Name Role Phone Nan Crews Primary Care Provider [phone] Reason for Visit * Reason Comments Physical sports physical -- t rack and cheerleading Encounter Details Date Type Department Care Team (Late st Contact Info) Description 12/30/2018 1:40 PM CDT Office Visit [facility] [address] [place], [place] [id number] Nan Crews [address] [place] [address] Physical (sports physical -- track and cheerleading) [...] 12/30/2018 1:5 3 PM CDT Growth Chart: [facility] (Girls, 2- 20 Years) documented in this encounter Patient Instructions * Patient Instructions* HECTOR Monique - 12/30/2018 1:40 PM CDT Continue Lexapro Trial of dairy free diet to see if stomach issues improve followup after a month if still having symptoms. Will consider trail of a gluten free diet then Read SchoolOut handout and let me know if any [...] doing ok. She is very active in yazidi camps, [employer] practice, mission trips. She enjoys the activities. [...] file Gets together: Not on file Attends jew service: Not on file Active member of [...] malabsorption documented in this encounter Care Teams Manager Technical Support Relationship Specialty Start Date End Date Nan Crews FNP PCP - General NURSE PRACTITIONER 04/24/18 documented as of this encounter
--- OUTSIDE RECORDS SUMMARY | 2024-06-05 22:02 | XMS_ITS | Encounter Summary ---
Author Organization [facility] Address [address] [place] [address]. [place] [address] Care Team Providers Care Dope Dry House Operator Name Role Phone Unavailable Primary Care Provider Unavailabl e Encounter Details Date Type Department Care Team (Late st Contact Info) Description 08/14/2016 Abstract [facility] Conversion Md, Generic Conversion, Social History [...]
--- OUTSIDE RECORDS SUMMARY | 2024-06-05 22:02 | XMS_ITS | Encounter Summary ---
Author Organization [facility] Address [address] [place] [address]. [place], [place] [address] [place] [address] Care Team Providers Care Operator Vacuum Name Role Phone Nan Crews Primary Care Provider [phone] Reason for Visit * Reason Onset Date Comments Follow Up Call 10/10/2018 Encounter Details Date Type Department Care Team (Late st Contact Info) Description 10/10/2018 Telephone [facility] [address] [place] [address] Nan Crews [facility] [address] [place], [place] [id number] Follow Up Call Social History Tobacco Use [...] Amina Petit nurse to call, please call [phone] documented in this encounter Plan of Treatment Not on file documented as of this encounter Visit Diagnoses Not on filedocumented in this encounter Care Teams Operator Vacuum Relationship Specialty Start Date End Date Nan Crews FNP PCP - General NURSE PRACTITIONER 04/24/18 documented as of this encounter
--- OUTSIDE RECORDS SUMMARY | 2024-06-05 22:02 | XMS_ITS | Encounter Summary ---
Author Organization [facility] Address [address] [place] [address]. [address] [address] Care Team Providers Care Fleet Administrative Assistant Name Role Phone Nan Crews Primary Care Provider [phone] Encounter Details Date Type Department Care Team (Late st Contact Info) Description 2003 Abstract [facility] CONVERSION [address] [place] [address] , Generic Conversion, Social History Tobacco Use [...] on filedocumented in this encounter Care Teams Fleet Administrative Assistant Relationship Specialty Start Date End Date Nan Crews FNP PCP - General NURSE PRACTITIONER 04/24/18 documented as of this encounter
--- OUTSIDE RECORDS SUMMARY | 2024-06-05 22:02 | XMS_ITS | Encounter Summary ---
Author Organization [facility] Address [address] [place] [address]. [place], [place] [address] [place] [address] Care Team Providers Care System Consultant Name Role Phone Nan Crews [facility] Primary Care Provider [phone] Reason for Visit * Reason Comments Depression Anxiety Encounter Details Date Type Department Care Team (Late st Contact Info) Description 07/02/2018 3:40 PM SMALL BOAT ENGINEER Office Visit [facility] [address] [place] [address] Nan Crews [facility] [address] [place] [id number] Depression; Anxiety Social History Tobacco Use Types [...] Comments Blood Pressure 100/70 07/02/2018 3:45 PM SMALL BOAT ENGINEER Pulse 100 07/02/2018 3:45 PM SMALL BOAT ENGINEER Temperature 36.8 ??C (98.3 ??F) 07/02/2018 3:45 PM CS T Respiratory Rate 16 07/02/2018 3:45 PM SMALL BOAT ENGINEER Oxygen Saturation - - Inhaled Oxygen Concentration - - Weight 46.7 kg (103 lb) 07/02/2018 3:45 PM SMALL BOAT ENGINEER Height - - Body Mass Index - - documented in this encounter Patient Instructions * Patient Instructions* HECTOR Monique - 07/02/2018 3:40 PM SMALL BOAT ENGINEER Take Zoloft as directed Consider counseling again We will discuss contraceptives at a future appointment. Follow-up in 7-10 days. Call sooner if any new or worsening symptoms L BOAT ENGINEER documented in this encounter Progress Notes * [...] is a freshman in high school at [employer]. She is active in [employer]. She goes to school every day and [...] boyfriend. Her mom took her to a Confucianism counseling and she went a few times [...] cramps. They last up to 10 hours. [id number] NSAIDs do not usually help. Her mom [...] Gabrielle Mathew DO at 07/03/2018 12:44 PM SMALL BOAT ENGINEER L BOAT ENGINEER L BOAT ENGINEER documented in this encounter Plan of Treatment Not on file documented as of this encounter Visit Diagnoses Diagnosis Depression, unspecified depression type- Primary Anxiety Anxiety state, unspecified Dysmenorrhea in adolescent documented in this encounter Care Teams System Consultant Relationship Specialty Start Date End Date Nan Crews FNP PCP - General NURSE PRACTITIONER 04/24/18 documented as of this encounter
--- OUTSIDE RECORDS SUMMARY | 2024-06-05 22:02 | XMS_ITS | Encounter Summary ---
Author Organization [facility] Address [address] [place] [address]. [place] [address] Care Team Providers Care Electric Crane Operator Name Role Phone Nan Crews Primary Care Provider [phone] Encounter Details Date Type Department Care Team (Late st Contact Info) Description 09/10/2011 Abstract [facility] Conversion Md, Generic Conversion, Social History Tobacco [...] on filedocumented in this encounter Care Teams Electric Crane Operator Relationship Specialty Start Date End Date Nan Crews FNP PCP - General NURSE PRACTITIONER 04/24/18 documented as of this encounter
--- OUTSIDE RECORDS SUMMARY | 2024-06-05 22:02 | XMS_ITS | Encounter Summary ---
Author Organization [facility] Address [address] [place] [address]. [place], [place] [address] [place] [address] Care Team Providers Care Grader Patrol Name Role Phone aNn Crews Primary Care Provider [phone] Reason for Visit * Reason Onset Date Comments Medication Request 09/12/2018 Encounter Details Date Type Department Care Team (Late st Contact Info) Description 09/12/2018 Telephone [facility] [address] [place] [address] Nan Crews [facility] [address] [place], [place] [id number] Medication Request Social History Tobacco Use Types [...] classified documented in this encounter Care Teams Grader Patrol Relationship Specialty Start Date End Date Nan Crews FNP PCP - General NURSE PRACTITIONER 04/24/18 documented as of this encounter
--- OUTSIDE RECORDS SUMMARY | 2024-06-05 22:02 | XMS_ITS | Encounter Summary ---
Author Organization [facility] Address [address] [place] [address]. [place], [place] [address] [place] [address] Care Team Providers Care Construction Specialist Name Role Phone Unavailable Primary Care Provider Unavailabl e Encounter Details Date Type Department Care Team (Late st Contact Info) Description 12/24/2017 Abstract [facility] Nan Velazquez, [facility] [address] [place] [address] Social History Tobacco Use Types Packs/Day Years [...]
--- OUTSIDE RECORDS SUMMARY | 2024-06-05 22:02 | XMS_ITS | Encounter Summary ---
Author Organization [facility] Address [address] [place] [address]. [place], [place] [address] [place] [address] Care Team Providers Care Towboat Captain Name Role Phone Nan Crews Primary Care Provider [phone] Reason for Visit * Reason Comments Follow Up depression/medicatio n Encounter Details Date Type Department Care Team (Late st Contact Info) Description 07/30/2018 3:40 PM SUPERVISOR SHEARING Office Visit [address] [place] [address] Nan Crews [address] [place] [address] Follow Up (depression/medicati on) Social History [...] Comments Blood Pressure 110/70 07/30/2018 3:49 PM SUPERVISOR SHEARING Pulse 84 07/30/2018 3:49 PM SUPERVISOR SHEARING Temperature 36.7 ??C (98 ??F) 07/30/2018 3:49 PM SUPERVISOR SHEARING Respiratory Rate - - Oxygen Saturation - - Inhaled Oxygen Concentration - - Weight 47.2 kg (104 lb) 07/30/2018 3:49 PM SUPERVISOR SHEARING Height 163.8 cm (5' 4.5 ) 07/30/2018 3:49 PM SUPERVISOR SHEARING Body Mass Index 17.58 07/30/2018 3:49 PM SUPERVISOR SHEARING Body Mass Index Percentile 17.04% 07/30/2018 3:4 9 PM SUPERVISOR SHEARING Growth Chart: [facility] (Girls, 2- 20 Years) documented in this [...] I gave her the card for the [facility] to call for an appointment. Follow-up here in 4-6 weeks for recheck. Call sooner if any new or worsening symptoms. HECTOR MONIQUE 07/30/2018 3:56 PM Cosigned by Gabrielle Mathew DO at 08/01/2018 8:47 AM SUPERVISOR SHEARING RVISOR SHEARING RVISOR SHEARING documented in this encounter Plan of Treatment Not on file documented as of this encounter Visit Diagnoses Diagnosis Depression, unspecified depression type- Primary documented in this encounter Care Teams Towboat Captain Relationship Specialty Start Date End Date Nan Crews FNP PCP - General NURSE PRACTITIONER 04/24/18 documented as of this encounter
--- OUTSIDE RECORDS SUMMARY | 2024-06-05 22:02 | XMS_ITS | Encounter Summary ---
Author Organization [facility] Address [address] [place] [address]. [place] [address] Care Team Providers Care Mva Reactor Operator Name Role Phone Unavailable Primary Care Provider Unavailabl e Encounter Details Date Type Department Care Team (Late st Contact Info) Description 08/13/2016 Abstract [facility] Conversion Dominique Wesley FNP Social History Tobacco [...] Comments Blood Pressure 108/64 08/13/2016 9:43 AM CAPABILITY LEAD Pulse 72 08/13/2016 9:43 AM CAPABILITY LEAD Temperature - - Respiratory Rate - - Oxygen Saturation - - Inhaled Oxygen Concentration - - Weight 42.2 kg (93 lb) 08/13/2016 9:43 AM CAPABILITY LEAD Height 154.9 cm (5' 1 ) 08/13/2016 9:43 AM CAPABILITY LEAD Body Mass Index 17.57 08/13/2016 9:43 AM CAPABILITY LEAD Body Mass Index Percentile 32.02% 08/13/2016 9:4 3 AM CAPABILITY LEAD Growth Chart: [facility] (Girls, 2- 20 Years) documented in this encounter Plan of Treatment Not on file documented as of this encounter Visit Diagnoses Not on filedocumented in this encounter
--- OUTSIDE RECORDS SUMMARY | 2024-06-05 22:02 | XMS_ITS | Encounter Summary ---
Author Organization [facility] Address [address] [place] [address]. [place], [place] [address] [place], [place] [id number] Care Team Providers Care Adult Secondary Education Instructor Name Role Phone Unavailable Primary Care Provider Unavailabl e Encounter Details Date Type Department Care Team (Late st Contact Info) Description 01/19/2015 Abstract [facility] Nan Velazquez, [facility] [address] [place] [address] Social History Tobacco Use Types Packs/Day Years [...] PM CDT This lab was migrated from [facility] and may be missing annotations or result text, please check the Media tab for the most complete results. us Nan Crews MOWER SHARPENER URINE ORDERABLES Final Result [facility] TO EPIC CONVERSION documented in this encounter Visit Diagnoses Not on filedocumented in this encounter
--- OUTSIDE RECORDS SUMMARY | 2024-06-05 22:02 | XMS_ITS | Encounter Summary ---
Author Organization [facility] Address [address] [place] [address]. [place], [place] [address] [place] [address] Care Team Providers Care Wrapper Rewinder Name Role Phone Nan Crews Primary Care Provider [phone] Reason for Visit * Reason Comments Medication Management Accompanied by mot her Brit Encounter Details Date Type Department Care Team (Late st Contact Info) Description 12/09/2018 10:40 AM CDT Office Visit [address] [place] [address] [address] Crews [address] [place], [place] [id number] Medication Management (Accompanied by mother Brit) Social [...] 12/09/2018 10: 51 AM CDT Growth Chart: [facility] (Girls, 2- 20 Years) documented in this [...] 6 months. She is actively involved in cheerScientific Intake, yazdanism, yazdanism camp, painting class, and she runs for exercise. She hangs out with friends on a daily basis. She is trying to be a good role model for her friends. She actively attends yazdanism functions. She has been going to the school counselor for counseling and she feels it works well for her. She is not going through the summer but plans to restart again in the fall. At the last office visit she was also started on OCPs for dysmenorrhea. She reports it is working well for her. Her periods are regular and much transition coach. She has not had any cramps. Her [...] adolescent documented in this encounter Care Teams Wrapper Rewinder Relationship Specialty Start Date End Date Nan Crews FNP PCP - General NURSE PRACTITIONER 04/24/18 documented as of this encounter
--- OUTSIDE RECORDS SUMMARY | 2024-06-05 22:02 | XMS_ITS | Encounter Summary ---
Author Organization [facility] Address [address] [place] [address]. [place], [place] [address] [place] [address] Care Team Providers Care Supervisor Felting Name Role Phone Nan Crews Primary Care Provider [phone] Reason for Visit * Reason Comments Follow Up 07/30/18 Encounter Details Date Type Department Care Team (Late st Contact Info) Description 09/20/2018 9:20 AM CDT Office Visit [facility] [address] [facility] [place] [address] Nan Crews [address] [place] [address] Follow Up (07/30/18) Social History Tobacco [...] 09/20/2018 9:3 4 AM CDT Growth Chart: [facility] (Girls, 2- 20 Years) documented in [...] very excited about going. She goes to denominational and enjoys going with her family When [...] unspecified documented in this encounter Care Teams Supervisor Felting Relationship Specialty Start Date End Date Nan Crews FNP PCP - General NURSE PRACTITIONER 04/24/18 documented as of this encounter
--- OUTSIDE RECORDS SUMMARY | 2024-06-05 22:02 | XMS_ITS | Encounter Summary ---
Author Organization [facility] Address [address] [place] [address]. [place], [place] [address] [place] [address] Care Team Providers Care Scale Manager Name Role Phone Unavailable Primary Care Provider Unavailabl e Encounter Details Date Type Department Care Team (Late st Contact Info) Description 06/04/2014 Abstract [facility] Nan Velazquez, [facility] [address] [place] [address] Social History Tobacco Use Types Packs/Day Years [...] Comments Blood Pressure 86/60 06/04/2014 9:55 AM HEALTH SAFETY SPECIALIST Pulse 84 06/04/2014 9:55 AM HEALTH SAFETY SPECIALIST Temperature - - Respiratory Rate - - Oxygen Saturation - - Inhaled Oxygen Concentration - - Weight 27.2 kg (60 lb) 06/04/2014 9:55 AM HEALTH SAFETY SPECIALIST Height - - Body Mass Index - - documented in this encounter Plan of Treatment Not on file documented as of this encounter Visit Diagnoses Not on filedocumented in this encounter
--- OUTSIDE RECORDS SUMMARY | 2024-06-05 22:02 | XMS_ITS | Encounter Summary ---
Author Organization [facility] Address [address] [place] [address]. [place], [place] [address] [place] [address] Care Team Providers Care Hull Molder Name Role Phone Unavailable Primary Care Provider Unavailabl e Encounter Details Date Type Department Care Team (Late st Contact Info) Description 11/23/2014 Abstract [facility] Conversion Chiqui Fu, [facility] [address] [place] [address] Social History Tobacco Use Types Packs/Day Years [...]
--- OUTSIDE RECORDS SUMMARY | 2024-06-05 22:02 | XMS_ITS | Encounter Summary ---
Author Organization [facility] Address [address] [place] [address]. [place] [address] [place] [address] Care Team Providers Care Systems Coordinator Name Role Phone Nan Crews Primary Care Provider [phone] Encounter Details Date Type Department Care Team (Late st Contact Info) Description 06/18/2008 Abstract [facility] [address] [place] [address] Estella Vazquez, DO [address] [address] Social History Tobacco Use Types [...] on filedocumented in this encounter Care Teams Systems Coordinator Relationship Specialty Start Date End Date Nan Crews FNP PCP - General NURSE PRACTITIONER 04/24/18 documented as of this encounter
--- OUTSIDE RECORDS SUMMARY | 2024-06-05 22:02 | XMS_ITS | Encounter Summary ---
Author Organization [facility] Address [address] [place] [address]. [place], [place] [address] [place] [address] Care Team Providers Care Manager Transfusion Name Role Phone Nan Crews Primary Care Provider [phone] Encounter Details Date Type Department Care Team (Late st Contact Info) Description 04/19/2015 Abstract [facility] [address] [place] [address] Nan Crews FNP [address] [place], [place] [id number] Social History Tobacco Use Types Packs/Day Years [...] on filedocumented in this encounter Care Teams Manager Transfusion Relationship Specialty Start Date End Date Nan Crews FNP PCP - General NURSE PRACTITIONER 04/24/18 documented as of this encounter
--- OUTSIDE RECORDS SUMMARY | 2024-06-05 22:02 | XMS_ITS | Encounter Summary ---
Author Organization [facility] Address [address] [place] [address]. [place], [place] [address] [place] [address] Care Team Providers Care Cellophane Wrapping Examiner Name Role Phone Nan Crews Primary Care Provider [phone] Reason for Visit * Reason Comments Follow Up medication -- Zoloft Encounter Details Date Type Department Care Team (Late st Contact Info) Description 07/15/2018 3:40 PM VETERINARY SCIENCE TEACHER Office Visit [address] [place] [address] Nan Crews [address] [place] [address] Follow Up (medication -- Zoloft) Social [...] Comments Blood Pressure 90/60 07/15/2018 3:43 PM VETERINARY SCIENCE TEACHER Pulse 76 07/15/2018 3:43 PM VETERINARY SCIENCE TEACHER Temperature 36.8 ??C (98.2 ??F) 07/15/2018 3:43 PM CS T Respiratory Rate 14 07/15/2018 3:43 PM VETERINARY SCIENCE TEACHER Oxygen Saturation 99% 07/15/2018 3:43 PM VETERINARY SCIENCE TEACHER Inhaled Oxygen Concentration - - Weight 46.7 kg (103 lb) 07/15/2018 3:43 PM VETERINARY SCIENCE TEACHER Height 163.8 cm (5' 4.5 ) 07/15/2018 3:43 PM VETERINARY SCIENCE TEACHER Body Mass Index 17.41 07/15/2018 3:43 PM VETERINARY SCIENCE TEACHER Body Mass Index Percentile 15.24% 07/15/2018 3:4 3 PM VETERINARY SCIENCE TEACHER Growth Chart: [facility] (Girls, 2- 20 Years) documented in this encounter Progress Notes * Nan Crews, COMPUTING CONSULTANT - 07/15/2018 3:40 PM CST Cecilia is [...] enjoys it. She is a freshman at [employer]. She has a new boyfriend [...] 2 weeks for reevaluation. Spent 30 minutes [id number] with patient and her mom. Greater than 50% was spent on counseling and coordination of care. HECTOR MONIQUE 07/15/2018 3:55 PM Cosigned by Gabrielle Mathew DO at 07/17/2018 1:08 PM VETERINARY SCIENCE TEACHER RINARY SCIENCE TEACHER RINARY SCIENCE TEACHER documented in this encounter Plan of Treatment Not on file documented as of this encounter Visit Diagnoses Diagnosis Depression, unspecified depression type documented in this encounter Care Teams Cellophane Wrapping Examiner Relationship Specialty Start Date End Date Nan Crews FNP PCP - General NURSE PRACTITIONER 04/24/18 documented as of this encounter
--- OUTSIDE RECORDS SUMMARY | 2024-06-05 22:02 | XMS_ITS | Encounter Summary ---
Author Organization [facility] Address [address] [place] [address]. [place], [place] [address] [place] [address] Care Team Providers Care Registered Pharmacy Technician Name Role Phone Nan Crews Primary Care Provider [phone] Encounter Details Date Type Department Care Team (Late st Contact Info) Description 09/12/2018 Orders Only [address] [place] [address] Radha Cook LPN Social History Tobacco Use [...] on filedocumented in this encounter Care Teams Registered Pharmacy Technician Relationship Specialty Start Date End Date Nan Crews FNP PCP - General NURSE PRACTITIONER 04/24/18 documented as of this encounter
--- OUTSIDE RECORDS SUMMARY | 2024-06-05 22:02 | XMS_ITS | Encounter Summary ---
Author Organization [facility] Address [address] [place] [address]. [place], [place] [address] [place] [address] Care Team Providers Care Dressing Machine Operator Name Role Phone Unavailable Primary Care Provider Unavailabl e Encounter Details Date Type Department Care Team (Late st Contact Info) Description 12/25/2016 Abstract [facility] Nan Velazquez, [facility] [address] [place] [address] Social History Tobacco Use Types Packs/Day Years [...]
--- OUTSIDE RECORDS SUMMARY | 2024-06-05 22:02 | XMS_ITS | Encounter Summary ---
Author Organization [facility] Address [address] [place] [address]. [place], [place] [address] [place] [address] Care Team Providers Care Slip Caster Name Role Phone Unavailable Primary Care Provider Unavailabl e Encounter Details Date Type Department Care Team (Late st Contact Info) Description 01/20/2016 Abstract [facility] Nan Velazquez, [facility] [address] [place] [address] Social History Tobacco Use Types Packs/Day Years [...] PM CDT This lab was migrated from [facility] and may be missing annotations or result text, please check the Media tab for the most complete results. us Nan Crews DISTILLERY MANAGER URINE ORDERABLES Final Result [facility] TO EPIC CONVERSION documented in this encounter Visit Diagnoses Not on filedocumented in this encounter
--- OUTSIDE RECORDS SUMMARY | 2024-06-05 22:02 | XMS_ITS | Encounter Summary ---
Author Organization [facility] Address [address] [place] [address]. [place], [place] [address] [place] [address] Care Team Providers Care Burn Out Tender Lace Name Role Phone Unavailable Primary Care Provider Unavailabl e Encounter Details Date Type Department Care Team (Late st Contact Info) Description 04/19/[address] [facility] Conversion Nan Crews, [facility] [address] [place] [address] Social History Tobacco Use Types Packs/Day Years [...] Comments Blood Pressure 86/58 04/19/2015 11:09 AM DATA SECURITY CONSULTANT Pulse 76 04/19/2015 11:09 AM DATA SECURITY CONSULTANT Temperature - - Respiratory Rate - - Oxygen Saturation - - Inhaled Oxygen Concentration - - Weight 33.6 kg (74 lb) 04/19/2015 11:09 AM DATA SECURITY CONSULTANT Height - - Body Mass Index - - documented in this encounter Plan of Treatment Not on file documented as of this encounter Procedures Procedure Name Priority Date/Time Associated Diagnosis Comments STREP A RAPID Routine 04/19/2015 11:24 AM DATA SECURITY CONSULTANT STREP A RAPID Routine 04/19/2015 11:20 AM DATA SECURITY CONSULTANT documented in this encounter Results * STREP A RAPID (04/19/2015 11:24 AM DATA SECURITY CONSULTANT) RAPID STREP TEST Negative(Q C+) [facility] TO [facility] CONVERSION 04/19/2015 11:2 4 AM DATA SECURITY CONSULTANT 04/19/2015 11:24 AM DATA SECURITY CONSULTANT Narrative [facility] TO EPIC CONVERSION - 04/19/2015 11:24 AM DATA SECURITY CONSULTANT This lab was migrated from [facility] and may be missing annotations or result text, please check the Media tab for the most complete results. Nan HARLEYP MICROBIOLOGY - GENERAL ORDERA BLES Final Result Performing Organization Address [facility] Co de Phone Number [facility] TO EPIC CONVERSION * STREP A RAPID (04/19/2015 11:20 AM DATA SECURITY CONSULTANT) STREP PYOGENES (GRP A) PCR (BLD) NEGATIVE [facility] T O EPIC CONVERSION Comment:GROUP A MOLECULAR ST REPTOCOCCUS TEST REPORT STATUS not sent [facility] UP TO EPIC CONVERSION lot number [id number] EXP 07-14-1 [facility] TO EPIC CONVERSION Internal Control: passed ME [facility] TO EPIC CONVERSION 04/19/2015 11:2 0 AM DATA SECURITY CONSULTANT 04/19/2015 11:20 AM DATA SECURITY CONSULTANT Narrative [facility] TO EPIC CONVERSION - 04/19/2015 1:46 PM DATA SECURITY CONSULTANT This lab was migrated from [email or web address] and may be missing annotations or result text, please check the Media tab for the most complete results. Nan YOUNG MICROBIOLOGY - GENERAL ORDERA BLES Final Result Performing Organization Address [facility] Co de Phone Number [facility] TO EPIC CONVERSION documented in this encounter Visit Diagnoses Not on filedocumented in this encounter
--- OUTSIDE RECORDS SUMMARY | 2024-06-05 22:13 | XMS_ITS | Encounter Summary ---
Author Organization [facility] Address [address] [place] [address] Care Team Providers Care Mule Spinner Name Role Phone Nan Crews NP Primary Care Provider [phone] Encounter Details Date Type Department Care Team (Latest Contact Info) Description 10/24/2023 2:32 PM CDT - 10/24/2023 11:59 PM CDT Hospital Encounter [address] [address] Dysuria Discharge Disposition: Discharge to home or self care Social History Tobacco Use Types Packs/Day Years Used Date Smoking Tobacco: Never Assessed Comments Unknown Sex and Gender Information Value Date Recorded Sex Assigned at Not on file Legal Sex Female 7:50 AM FAMILY CENTERED SPECIALIST Gender Identity Not on file Sexual Orientation [...] - 10/24/2023 11:59 PM CDT Viewed on [employer] documented in this encounter Plan of Treatment [...] Escherichia coli (.) Comment:Testing performed by : [facility], [address] [facility], [place]., [address] Organism ESCHERICHIA COLI ERI GUERRIER Urine, clean voided 10/24/2023 2:32 PM CDT 10/24/2023 9:43 PM CDT Narrative ERI GUERRIER - 10/27/2023 10:26 AM CDT Testing performed by [facility] Microbiology Laboratory ([phone]) Organism Antibiotic Method Susceptibility Escherichia coli Ampicillin [...] MICROBIOLOGY - GENERAL ORDERABLES Final Result ERI [address] [address] Department [place] [address] * Vaginitis panel Vaginal (10/24/2023 2:32 PM CDT) Monie DNA probe Not Detected Not Detected Comment:Testing performed by : [facility], [address] [place] [address]., [address] Gardnerella DNA probe Not Detected Not Detected ERI GUERRIER Comment:Testing performed by : [facility], [address] [place] [address]., [address] Trichomonas DNA probe Not Detected Not Detected ERI GUERRIER Comment: Interpretive Data Testing performed by [facility] via Affirm VPIII Microbial Identification Test, [...] last revised on 2020. Testing performed by: [facility], [address] [place] [address]., [address] Vaginal 10/24/2023 2:32 PM CDT 10/25/2023 1:24 PM CDT Patricia Cordoba RADIATION ENGINEER LAB MICROBIOLOGY - GENERAL ORDERABLES Final Result ERI [address] [address] Department [place] [address] documented in this encounter Visit Diagnoses Diagnosis Dysuria documented in this encounter Care Teams Mule Spinner Relationship Specialty Start Date End Date Nan Crews NP [address] [place] [address] [place] [address] PCP - General Pediatrics 09/06/20 documented as of this encounter
--- OUTSIDE RECORDS SUMMARY | 2024-06-05 22:13 | XMS_ITS | Encounter Summary ---
Author Organization [facility] Address [address] [place] [address] Care Team Providers Care Leather Heel Breaster Name Role Phone Unavailable Primary Care Provider Unavailabl e Reason for Visit * Radiology Services (Routine) - Open Specialty Diagnoses / Procedures Referred By Chad lynn Referred To Contact Diagnoses Mass of left breast, unspecified quadrant Breast pain, left Procedures MAMMO BREAST US LEFT LTD MAMMO BREAST US LEFT LTD Anitha Mendoza, [address] [place] [address] Referral ID Status Reason Start Date Expiration Date Visits Re quested Visits Authorized [id number] Open 03/03/2024 04/03/2025 1 1 Encounter Details Date Type Department Care Team (Latest Contact Info) Description 03/17/2024 9:30 AM CDT Ancillary Procedure [facility] [address] [place] [address] [facility], External Provider [address] [place] [address] Mass of left breast, unspecified [...] lymph nodes in the left axilla. Anitha Mnedoza APRN MAMMO ORDERAB LES documented in this encounter Visit Diagnoses Diagnosis Mass of left breast, unspecified quadrant Breast pain, left Mastodynia documented in this encounter
--- OUTSIDE RECORDS SUMMARY | 2024-06-05 22:13 | XMS_ITS | Encounter Summary ---
Author Organization [facility] Healthcare Address [address] [place] [address] Care Team Providers Care Resource Director Name Role Phone Nan Crews NP Primary Care Provider [phone] Reason for Visit * Reason Comments UTI [...] Description 10/24/2023 2:00 PM CDT Office Visit [facility] Convenient Care at [address] [address] Joy Cordoba NP [address] [place] [address] [address] [place] [address] Dysuria (Primary Dx); Cystitis Social History Tobacco Use Types Packs/Day Years Used Date Smoking Tobacco: Never Assessed Comments Unknown Sex and Gender Information Value Date Recorded Sex Assigned at Not on file Legal Sex Female 7:50 AM PODODERMATOLOGIST Gender Identity Not on file Sexual Orientation [...] Patient Instructions * Patient Instructions* Joy Cordoba, CENTRAL OFFICE INSTALLER - 10/24/2023 2:00 PM CDT If you have no improvement or worsening of your symptoms, please follow up with your Primary Care Provider, [facility] Care and or Emergency Room. I strive to provide you with EXCELLENT service. You may receive a survey after your visit today. If you cannot rate your experience as EXCELLENT, please let us know how we can improve and better meet your needs. Thank you for choosing [facility]! It was my pleasure to see you today, I hope you feel better soon! Joy Cordoba CANDLE WICKER Abdominal Pain A serious cause of the [...] Care Everywhere. * Vaginal Discharge (AfterCare(R) Instructions(ER/ED)) (Malaysian) documented in this encounter Ordered Prescriptions Prescription [...] Use: Not At Risk (10/03/2023) Received from [facility] AUDIT-C Frequency of Alcohol Consumption: Monthly [...] Large Ketones, ur, POC Negative Negative Specific Lyle, POC 1.030 1.003 - 1.030 Blood, ur, [...] Detected Not Detected Comment:Testing performed by : [facility], [address] [place] [address]., [address] Gardnerella DNA probe Not Detected Not Detected ERI GUERRIER Comment:Testing performed by : [facility], [address] [place] [address]., [address] Trichomonas DNA probe Not Detected Not Detected ERI GUERRIER Comment: Interpretive Data Testing performed by [facility] via Affirm VPIII Microbial Identification Test, [...] last revised on 2020. Testing performed by: [facility], [address] [place] [address]., [address] Vaginal 10/24/2023 2:32 PM CDT 10/25/2023 1:24 PM CDT us Joy Cordoba NP LAB MICROBIOLOGY - GENERAL ORDERABLES Final Result ERI GUERRIER [address] [address] Department [place] [address] * (ABNORMAL) Urine culture Urine, clean voided (10/24/2023 2:32 PM CDT) Report Final Report: Greater than or equal to 100,000 colonies/mL of Escherichia coli (.) Comment:Testing performed by : [facility], [address] [place]., [address] Organism ESCHERICHIA COLI ERI Urine, clean voided 10/24/2023 2:32 PM CDT 10/24/2023 9:43 PM CDT Narrative [facility] - 10/27/2023 10:26 AM CDT Testing performed by [facility] Microbiology Laboratory ([phone]) Organism Antibiotic Method Susceptibility Escherichia coli Ampicillin [...] MICROBIOLOGY - GENERAL ORDERABLES Final Result ERI [address] [address] Department [place] [address] * (ABNORMAL) POCT urinalysis dipstick (10/24/2023 2:16 PM CDT) Color, Urine, POC Yellow Clarity, ur, POC Clear Clear Glucose, ur, POC Negative Negative MG/DL Bilirubin, ur, POC Negative Negative, Small, Moderate, Large Ketones, ur, POC Negative Negative Specific Lyle, POC 1.030 1.003 - 1.030 Blood, ur, POC Trace(A) Negative pH, ur, POC 7.0 5.0 - 8.0 Protein, ur, POC Negative Negative Urobilinogen, urine, POC 0.2 0.2 - 1.0 mg/dL Nitrite, ur, POC Negative Negative Leukocytes, ur, POC Negative Negative Lot Number 0 Urine 10/24/2023 2:16 PM CDT Joy Cordoba CENTRAL OFFICE INSTALLER POINT OF CARE TEST ORDERAB LES Final [...] 10/03/2023 added in this encounter Care Teams Resource Director Relationship Specialty Start Date End Date Nan Crews NP [address] [place] [address] [place] [address] PCP - General Pediatrics 09/06/20 documented as of this encounter
--- OUTSIDE RECORDS SUMMARY | 2024-06-05 22:13 | XMS_ITS | Encounter Summary ---
Author Organization [facility] Address [address] [place] [address] Care Team Providers Care Cold Rolling Supervisor Name Role Phone Unavailable Primary Care Provider [...]
--- OUTSIDE RECORDS SUMMARY | 2024-06-05 22:13 | XMS_ITS | Clinical Summary ---
Author Organization [facility] Address [address] [place] [address] Care Team Providers Care District Commercial Superintendent Name Role Phone Nan Crews NP Primary Care Provider [phone] Allergies No known active allergies Medications FLUoxetine [...] Department Care Team Description 04/20/2024 2:54 PM GLASS VIAL FILLER - 04/20/2024 11:59 PM GLASS VIAL FILLER Hospital Encounter [address] [address] Sore throat Discharge Disposition: Discharge to home or self care 04/20/2024 2:15 PM GLASS VIAL FILLER Office Visit [facility] Convenient Care at [address] [address] Cary Kohler NP Sore throat [...] on file Legal Sex Female 7:50 AM GLASS VIAL FILLER Gender Identity Not on file Sexual Orientation Not on file Obstetrics History Last Filed Vital Signs Vital Sign Reading Time Taken Comments Blood Pressure 102/70 04/20/2024 2:27 PM GLASS VIAL FILLER Pulse 103 04/20/2024 2:27 PM GLASS VIAL FILLER Temperature 37.1 ??C (98.7 ??F) 04/20/2024 2:27 PM CS T Respiratory Rate 16 04/20/2024 2:27 PM GLASS VIAL FILLER Oxygen Saturation 97% 04/20/2024 2:27 PM GLASS VIAL FILLER Inhaled Oxygen Concentration - - Weight 48.1 kg (106 lb) 04/20/2024 2:27 PM GLASS VIAL FILLER Height 167.6 cm (5' 6 ) 10/24/2023 [...] Comments THROAT CULTURE Routine 04/20/2024 2:54 PM GLASS VIAL FILLER Sore throat POCT RAPID STREP Routine 04/20/2024 2:43 PM GLASS VIAL FILLER Sore throat from Last 3 Months Results * Throat culture Throat (04/20/2024 2:54 PM GLASS VIAL FILLER) Report Final Report: No growth of pathogens. Comment:Testing performed by : [facility], [address] [facility] [place]., [address] Throat 04/20/2024 2:54 PM GLASS VIAL FILLER 04/20/2024 10:04 PM GLASS VIAL FILLER Narrative ERI GUERRIER - 04/21/2024 6:53 PM GLASS VIAL FILLER Testing performed by [facility] Microbiology Laboratory ([phone]). us Cary Kohler NP LAB MICROBIOLOGY - GENE [facility] ORDERABLES Final Result ERI GUERRIER [address] [address] Department [place] [address] * POCT rapid strep A (04/20/2024 2:43 PM GLASS VIAL FILLER) Rapid Strep A, POC Negative Negative Swab 04/20/2024 2:43 PM GLASS VIAL FILLER Cary Kohler LABORER MARINE TERMINAL POINT OF CARE TEST FIONA JACKMAN Final Result from Last 3 Months Insurance [employer] Care Teams District Commercial Superintendent Relationship Specialty Start Date End Date Nan Crews NP [address] [place] [address] [place] [address] PCP - General Pediatrics 09/06/20
--- OUTSIDE RECORDS SUMMARY | 2024-06-05 22:13 | XMS_ITS | Encounter Summary ---
Author Organization [facility] Address [address] [place] [address] Care Team Providers Care Mill Controller Name Role Phone Unavailable Primary Care Provider [...]
--- OUTSIDE RECORDS SUMMARY | 2024-06-05 22:13 | XMS_ITS | Encounter Summary ---
Author Organization [facility] Address [address] [place] [address] Care Team Providers Care Theatre Director Name Role Phone Unavailable Primary Care [...]
--- OUTSIDE RECORDS SUMMARY | 2024-06-05 22:13 | XMS_ITS | Encounter Summary ---
Author Organization [facility] Address [address] [place] [address] Phone Care Team Providers Care Compounding Technician Name Role Phone Nan Crews NP Primary Care Provider [phone] Reason for Visit * Reason Comments New Patient Urinary Incontinence Encounter Details Date Type Department Care Team (Late st Contact Info) Description 09/23/2020 10:00 AM CDT Office Visit [facility] 2nd [place] [address] [place] [address] Ashlee Lin NP [address] [facility] [address] [place], [place] [id number] Intermittent daytime urinary incontinence (Primary Dx) Social History Tobacco Use Types Packs/Day Years Used Date Smoking Tobacco: Never Assessed Comments Unknown Sex and Gender Information Value Date Recorded Sex Assigned at Not on file Legal Sex Female 7:50 AM EPIC SPECIALIST Gender Identity Not on file Sexual [...] some with incontinence. She was seen at [facility] in 2008 for difficulties potty training. She [...] Large Ketones, ur, POC Negative Negative Specific Lawton, POC 1.015 1.005 - 1.030 Blood, ur, [...] Large Ketones, ur, POC Negative Negative Specific [place], POC 1.015 1.005 - 1.030 Blood, ur, POC Trace(A) Negative pH, ur, POC 6.5 5.0 - 8.0 Protein, ur, POC Negative Negative Leukocytes, ur, POC Trace(A) Negative Nitrite, ur, POC Negative Negative Urine, clean voided 09/23/2020 9:51 AM CDT Ashlee Lin COUNTRY MANAGER POINT OF CARE TEST O RDERABLES Final [...] 06/26/2020 added in this encounter Care Teams Compounding Technician Relationship Specialty Start Date End Date Nan Crews NP [address] [place] [address] [place] [address] PCP - General Pediatrics 09/06/20 documented as of this encounter
--- OUTSIDE RECORDS SUMMARY | 2024-06-05 22:13 | XMS_ITS | Referral Summary ---
Author Organization [facility] Address [address] [place] [address] Care Team Providers Care Gasoline Power Shovel Operator Name Role Phone Nan Crews NP Primary Care Provider [phone] Encounters Date Type Department Care Team Description 04/20/2024 2:54 PM LEAD SYSTEMS ARCHITECT - 04/20/2024 11:59 PM LEAD SYSTEMS ARCHITECT Hospital Encounter [address] [address] Sore throat Discharge Disposition: Discharge to home or self care 04/20/2024 2:15 PM LEAD SYSTEMS ARCHITECT Office Visit [facility] Convenient Care at [address] [address] Cary Kohler NP Sore throat [...] on file Legal Sex Female 7:50 AM LEAD SYSTEMS ARCHITECT Gender Identity Not on file Sexual Orientation Not on file Last Filed Vital Signs Vital Sign Reading Time Taken Comments Blood Pressure 102/70 04/20/2024 2:27 PM LEAD SYSTEMS ARCHITECT Pulse 103 04/20/2024 2:27 PM LEAD SYSTEMS ARCHITECT Temperature 37.1 ??C (98.7 ??F) 04/20/2024 2:27 PM CS T Respiratory Rate 16 04/20/2024 2:27 PM LEAD SYSTEMS ARCHITECT Oxygen Saturation 97% 04/20/2024 2:27 PM LEAD SYSTEMS ARCHITECT Inhaled Oxygen Concentration - - Weight 48.1 kg (106 lb) 04/20/2024 2:27 PM LEAD SYSTEMS ARCHITECT Height 167.6 cm (5' 6 ) 10/24/2023 2:04 PM CDT Body Mass Index 17.11 10/24/2023 2:04 PM CDT Plan of Treatment Not on file Procedures Procedure Name Priority Date/Time Associated Diagnosis Comments THROAT CULTURE Routine 04/20/2024 2:54 PM LEAD SYSTEMS ARCHITECT Sore throat POCT RAPID STREP Routine 04/20/2024 2:43 PM LEAD SYSTEMS ARCHITECT Sore throat from Last 3 Months Results * Throat culture Throat (04/20/2024 2:54 PM LEAD SYSTEMS ARCHITECT) Report Final Report: No growth of pathogens. Comment:Testing performed by : [facility], [address] [place]., [address] Throat 04/20/2024 2:54 PM LEAD SYSTEMS ARCHITECT 04/20/2024 10:04 PM LEAD SYSTEMS ARCHITECT Narrative ERI - 04/21/2024 6:53 PM LEAD SYSTEMS ARCHITECT Testing performed by [facility] Microbiology Laboratory ([phone]). Cary Kohler NP LAB MICROBIOLOGY - GENE RAL ORDERABLES Final Result ERI [address] [address] Department [place] [address] * POCT rapid strep A (04/20/2024 2:43 PM LEAD SYSTEMS ARCHITECT) Rapid Strep A, POC Negative Negative Swab 04/20/2024 2:43 PM LEAD SYSTEMS ARCHITECT Cary Kohler NP POINT OF CARE TEST FIONA JACKMAN Final Result from Last 3 Months Insurance [facility] ALLIANCE Care Teams Gasoline Power Shovel Operator Relationship Specialty Start Date End Date Nan Crews NP [address] [place] [address] [place] [address] PCP - General Pediatrics 09/06/20
--- OUTSIDE RECORDS SUMMARY | 2024-06-05 22:13 | XMS_ITS | Clinical Summary ---
Author Organization [facility] Address [address] [place] [address] Care Team Providers Care Defect Repairer Glassware Name Role Phone Unavailable Primary Care Provider Unavailabl e Encounters Date Type Department Care Team Description 03/24/2024 External Device Data STL ABSTRACTION Provider, Abstract 03/24/2024 External Device Data STL ABSTRACTION Provider, Abstract 03/24/2024 External Device Data STL ABSTRACTION Provider, Abstract 03/17/2024 9:30 AM CDT [facility] [address] [address] Met, External Provider Mass of [...]
--- OUTSIDE RECORDS SUMMARY | 2024-06-05 22:13 | XMS_ITS | Encounter Summary ---
Author Organization [facility] Healthcare Address [address] [place] [address] Care Team Providers Care Forest Management Professor Name Role Phone Nan Crews NP Primary Care Provider [phone] Reason for Visit * Reason Comments Sore Throat Sore throat, nasal d rainage and slight cough started last PM. Encounter Details Date Type Department Care Team (Late st Contact Info) Description 04/20/2024 2:15 PM LOCKSTITCH COAT JOINER Office Visit [facility] Convenient Care at [address] [address] Cary Kohler NP [facility] [place] [address] Sore throat (Primary Dx) Social History Tobacco Use Types Packs/Day Years Used Date Smoking Tobacco: Never Assessed Comments Unknown Sex and Gender Information Value Date Recorded Sex Assigned at Not on file Legal Sex Female 7:50 AM LOCKSTITCH COAT JOINER Gender Identity Not on file Sexual Orientation Not on file documented as of this encounter Last Filed Vital Signs Vital Sign Reading Time Taken Comments Blood Pressure 102/70 04/20/2024 2:27 PM LOCKSTITCH COAT JOINER Pulse 103 04/20/2024 2:27 PM LOCKSTITCH COAT JOINER Temperature 37.1 ??C (98.7 ??F) 04/20/2024 2:27 PM CS T Respiratory Rate 16 04/20/2024 2:27 PM LOCKSTITCH COAT JOINER Oxygen Saturation 97% 04/20/2024 2:27 PM LOCKSTITCH COAT JOINER Inhaled Oxygen Concentration - - Weight 48.1 kg (106 lb) 04/20/2024 2:27 PM LOCKSTITCH COAT JOINER Height - - Body Mass Index 17.11 10/24/2023 2:04 PM CDT documented in this encounter Patient Instructions * Patient Instructions* Cary Kohler, VICKI - 04/20/2024 2:15 PM LOCKSTITCH COAT JOINER Images from the original note were not [...] follow up with your Primary Care Provider, [facility] Care and or Emergency Room. I strive to provide you with EXCELLENT service. You may receive a survey after your visit today. If you cannot rate your experience as EXCELLENT, please let us know how we can improve and better meet your needs. Thank you for choosing [facility]! It was my pleasure to see you today, I hope you feel better soon! Cary Kohler NP STITCH COAT JOINER STITCH COAT JOINER * Attachments The following attachments cannot be sent through Care Everywhere. * Viral Syndrome (AfterCare(R) Instructions(ER/ED)) (Cypriot) documented in this encounter Progress Notes * [...] antihistamine with or without decongestant pending symptoms --Luub-qaw-avdjeze antihistamine such as Claritin or Zyrtec will [...] ask questions, questions answered. Cary Kohler NP STITCH COAT JOINER documented in this encounter Plan of Treatment Not on file documented as of this encounter Procedures Procedure Name Priority Date/Time Associated Diagnosis Comments POCT RAPID STREP Routine 04/20/2024 2:43 PM LOCKSTITCH COAT JOINER Sore throat documented in this encounter Results * Throat culture Throat (04/20/2024 2:54 PM LOCKSTITCH COAT JOINER) Report Final Report: No growth of pathogens. Comment:Testing performed by : [facility], [address] [place]., [address] Throat 04/20/2024 2:54 PM LOCKSTITCH COAT JOINER 04/20/2024 10:04 PM LOCKSTITCH COAT JOINER Narrative ERI Dixon 04/21/2024 6:53 PM LOCKSTITCH COAT JOINER Testing performed by [facility] Microbiology Laboratory ([phone]). Cary Kohler NP LAB MICROBIOLOGY - GENE [facility] ORDERABLES Final Result ERI [address] [address] Department [place] [address] * POCT rapid strep A (04/20/2024 2:43 PM LOCKSTITCH COAT JOINER) Rapid Strep A, POC Negative Negative Swab 04/20/2024 2:43 PM LOCKSTITCH COAT JOINER Cary Kohler NP POINT OF CARE TEST [...] 1 doseIndications:Sore throat Given 04/20/2024 2:52 PM LOCKSTITCH COAT JOINER 600 mg documented in this encounter Historical [...] 04/11/2024 added in this encounter Care Teams Forest Management Professor Relationship Specialty Start Date End Date Nan Crews NP [address] [place] [address] [place] [address] PCP - General Pediatrics 09/06/20 documented as of this encounter
--- OUTSIDE RECORDS SUMMARY | 2024-06-05 22:13 | XMS_ITS | Encounter Summary ---
Author Organization [facility] Healthcare Address [address] [place] [address] Care Team Providers Care Matrix Repairer Name Role Phone Nan Crews NP Primary Care Provider [phone] Encounter Details Date Type Department Care Team (Latest Contact Info) Description 04/20/2024 2:54 PM LEAD DATABASE ADMINISTRATOR - 04/20/2024 11:59 PM LEAD DATABASE ADMINISTRATOR Hospital Encounter [address] [address] Sore throat Discharge Disposition: Discharge to home or self care Social History Tobacco Use Types Packs/Day Years Used Date Smoking Tobacco: Never Assessed Comments Unknown Sex and Gender Information Value Date Recorded Sex Assigned at Not on file Legal Sex Female 7:50 AM LEAD DATABASE ADMINISTRATOR Gender Identity Not on file Sexual Orientation [...] Rebecca Kerr NP - 04/20/2024 11:59 PM LEAD DATABASE ADMINISTRATOR Please alert patient of negative strep culture. Patient should continue tylenol/ibuprofen as directed for discomfort and f/u with PCP if symptoms persist. DATABASE ADMINISTRATOR * Result Encounter Note - Mariza Dueñas MA - 04/20/2024 11:59 PM LEAD DATABASE ADMINISTRATOR Patient reviewed their test results on My Chart DATABASE ADMINISTRATOR documented in this encounter Plan of Treatment Not on file documented as of this encounter Procedures Procedure Name Priority Date/Time Associated Diagnosis Comments THROAT CULTURE Routine 04/20/2024 2:54 PM LEAD DATABASE ADMINISTRATOR Sore throat documented in this encounter Results * Throat culture Throat (04/20/2024 2:54 PM LEAD DATABASE ADMINISTRATOR) Report Final Report: No growth of pathogens. Comment:Testing performed by : [facility], [address] [facility], [place]., [address] Throat 04/20/2024 2:54 PM LEAD DATABASE ADMINISTRATOR 04/20/2024 10:04 PM LEAD DATABASE ADMINISTRATOR Narrative ERI - 04/21/2024 6:53 PM LEAD DATABASE ADMINISTRATOR Testing performed by [facility] Microbiology Laboratory ([phone]). us Cary Kohler NP LAB MICROBIOLOGY - GENE RAL ORDERABLES Final Result ERI [address] [address] [place] [address] documented in this encounter Visit Diagnoses Diagnosis Sore throat Acute pharyngitis documented in this encounter Care Teams Matrix Repairer Relationship Specialty Start Date End Date Nan Crews NP [address] [place] [address] [place] [address] PCP - General Pediatrics 09/06/20 documented as of this encounter
== END 2024-06-01 00:45 | disposition home or self-care (01) ==
PROVIDERS: Emergency Provider Registered Nurse; PCP Nurse Practitioner
DX: N39.0 Urinary tract infection, site not specified (principal); A08.4 Viral intestinal infection, unspecified; N94.89 Other specified conditions associated with female genital organs and menstrual cycle
CPT/HCPCS: 36415; 74177; 80053; 81001; 81025; 83690; 84702; 85025; 87086; 96361; 96374; 96375; 99284; A9270; J1885; J2270; J2405; J7030; Q9967